=== PATIENT | female | born 1955 | race Caucasian/White ===

== ENCOUNTER 2024-06-26 14:50 | Outpatient (AMB) | payer OTHER, SELFPAY ==
[2024-06-26 15:00] VITALS: BP 116/70; PULSE 77; O2SAT 98; BMI 40.3
--- NOTE | 2024-06-26 15:00 | MHC.PC.OV ---
Vital Signs 06/26/24 15:00 Height 5 ft 0.5 in Weight 210 lb BMI 40.3 BP 116/70 Blood Pressure Location Lt brachial Position Sitting Pulse 77 Pulse Source Pulse Oximeter Pulse Oximetry (%) 98 Oxygen Delivery Method Room Air Intake Visit Reasons: SUPER[employer]OR [employer] RESERVATIONS-Requesting Physical Exam Allergies codeine Adverse Reaction (Severe, Verified 06/26/24 15:41) Nausea Medication List - Last Reconciled 06/26/24 by Jareth Benavidez MD betamethasone valerate 0.1% 1 appl topical BID PRN diltiazem HCl CD 300 mg PO DAILY rivaroxaban (Xarelto) 20 mg PO DAILY simvastatin 20 mg PO DAILY triamterene-hydrochlorothiazid 37.5-25 mg 1 cap PO DAILY Tobacco use date assessed: 06/26/24 Fall risk assessment: No Falls in past year Last assessed Fall Risk: 06/26/24 Dental Screening Dental Screen Date: 06/26/24 Did you have a dental visit in the last 12 months?: No Did you have a dental problem in the last 6 months where you did not have access to dental care?: No Was dental information given to patient?: No HPI SUPER[employer]OR [employer] RESERVATIONS-Requesting Physical Exam HPI Details Patient comes in today for her annual physical examination and to establish care - is a new patient to the practice Patient states that she banged the side of her left knee on the edge of a cabinet a couple of months ago and states that her left knee still feels sore often, especially after work - states that she is on her feet for hours at work She has not noticed any swelling of her left knee lately She also relates (+) Hx of recurrent kidney stones, especially on the left side (which were recently determined to be primarily calcium oxalate stones) and that she's had multiple treatments with lithotripsy and stent insertions over the years States that she feels okay otherwise She denies any headaches or dizziness Denies any chest pains, no shortness of breath No nausea /vomiting, no abdominal pain No change in bowel habits noted She denies any acute urinary symptoms She also adds that she has recurrent /frequent back pains and has been trying to get referred for breast reduction for the past couple of years now unsuccessfully - would like to get a referral and try to get breast reduction surgery approved again to help relieve her recurrent back pain States that her back and her shoulders feel tight often and are worse towards the later part of the day and she strongly believes that a breast reduction surgery will help to significantly reduce her back symptoms States that she had her colonoscopy done sometime in 2021 - reportedly had a polyp removed the came out as tubular adenoma on pathology and she was recommended to get repeat colonoscopy in 3 years (2024) States that she is up-to-date with her annual mammogram She had a hysterectomy done years ago and no longer requires to go for her annual gynecologic exam and Pap smear [facility] Medical History (Updated 06/27/24 @ 05:50 by Jareth Benavidez MD) Morbid obesity with BMI of 40.0-44.9, adult Recurrent kidney stones Pure hypercholesterolemia Essential hypertension Paroxysmal atrial fibrillation Adenomatous colon polyp Atrial fibrillation Psoriasis Kidney stones Surgical History (Updated 06/26/24 @ 15:50 by Jareth Benavidez MD) Hx of colonoscopy History of hysterectomy Family History Mother Stroke CHF (congestive heart failure) Hypertension Father Heart attack Son No problems noted. Brother No problems noted. Brother No problems noted. Sister No problems noted. Sister No problems noted. 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 1. Little interest or pleasure in doing things: not at all 2. Feeling down, depressed, or hopeless: not at all 3. Trouble falling or staying asleep, or sleeping too much: not at all 4. Feeling tired or having little energy: not at all 5. Poor appetite or overeating: not at all 6. Feeling bad about yourself - or that you are a failure or have let yourself or your family down: not at all 7. Trouble concentrating on things, such as reading the newspaper or watching television: not at all 8. Moving or speaking so slowly that other people could have noticed. Or the opposite - being so fidgety or restless that you have been moving around a lot more than usual: not at all 9. Thoughts that you would be better off or of hurting yourself in some way: not at all Total score: 0 Depression Screening Interpretation: Negative Depression Screening Done: Yes 51236 - PHQ-9 Billing: Yes Source: Developed by Drs. Leo Lee, Urvashi Gaxiola, Sean Sagastume and colleagues, with an educational manuela from [employer]. Thrive Questionnaire Date Thrive assessed: 06/26/24 I am a: Patient What is your living situation today?: I have a steady place to live Within the past 12 months, did the food you bought not last and you didn't have the money to get more?: Never true Within the past 12 months, did you worry whether your food would run out before you got money to buy more?: Never true Do you have trouble paying for medicines?: No Do you have trouble getting transportation to medical appointments?: No Do you have trouble paying your heating and electricity bill?: No Do you have trouble taking care of your child, family member or friend?: No Do you have trouble with day-to-day activities such as bathing, preparing meals, shopping, managing finances, etc.?: No Are you currently unemployed and looking for a job?: No Are you interested in more education?: No Please select the resources that you would like help with: Housing/Fdc Currently or been in a relationship where the following occur: No concerns reported THRIVE Score: 0 AUDIT C Alcohol Use Questionnaire (AUDIT-C) 1. How often do you have a drink containing alcohol?: Monthly or less 2. How many drinks containing alcohol do you have on a typical day when you are drinking?: 1 or 2 3. How often do you have six or more drinks on one occasion?: Never Total Score: 1 Score Reviewed/Action Taken: Yes NEW-7 AMB Questionnaire NEW-7 Date NEW - 7 assessed: 06/26/24 Feeling nervous, anxious, or on edge: 0 = Not at all Not being able to stop or control worryin = Not at all Worrying too much about different things: 0 = Not at all Trouble relaxin = Not at all Being so restless that it is hard to sit still: 0 = Not at all Becoming easily annoyed or irritable: 0 = Not at all Feeling afraid as if something awful might happen: 0 = Not at all Total NEW-7 score (0-4 normal; 5-9 mild; 10-14 moderate; 15-21 severe): 0 Source: Developed by Drs. Leo Lee, Urvashi Gaxiola, Sean Sagastume and colleagues, with an educational manuela from [employer]. Review of Systems Const Denies chills, Denies fatigue, Denies fever(s), Denies headache(s) and Denies malaise Eyes Denies blurry vision, Denies change in vision, Denies irritation and Denies itchy eyes ENT Denies dysphagia, Denies dizziness, Denies otalgia, Denies headache(s), Denies nasal congestion, Denies neck pain, Denies odynophagia, Denies sinus pain and Denies sore throat Card Denies chest pain, Denies rapid heart rate, Denies irregular heart rhythm, Denies palpitations and Denies dyspnea Resp Denies chest congestion, Denies cough, Denies dyspnea and Denies wheezing GI Denies abdominal pain, Denies bloating, Denies constipation, Denies dysphagia, Denies heartburn, Denies diarrhea, Denies nausea, Denies odynophagia and Denies vomiting Denies hematuria, Denies urinary frequency, Denies dysuria, Denies urinary incontinence and Denies urinary urgency Musc Reports back pain (recurrent), Reports arthralgias (left knee - see HPI), Denies joint swelling, Denies muscle weakness and Denies neck pain Skin/Breast Denies breast pain, Denies breast mass, Denies change in pigmentation, Denies lesions, Reports rash (mostly over the extensor aspect of her forearms and elbows) and Denies unusual bruising Neuro Denies dizziness, Denies headache(s) and Denies paresthesias Psych Denies anxiety and Denies depression Endo Denies fatigue and Denies palpitations Isrrael/Lymph Denies easy bruising Aller/Immun Denies itchy eyes and Denies wheezing Physical exam (Primary Care) Vital Signs: Last Vital Signs Pulse 77 06/26/24 15:00 BP 116/70 06/26/24 15:00 Pulse Ox 98 06/26/24 15:00 Oxygen Delivery Method Room Air 06/26/24 15:00 BMI result Body Mass Index 40.3 Tobacco/Smoking Status: Tobacco use Status Tobacco use date assessed 06/26/24 06/26/24 15:21 Patient Tobacco Use Status Never used Tobacco 06/26/24 15:21 Tobacco use type Cigarette 06/26/24 15:21 e-Cigarette/Vaping Use Never Used 06/26/24 15:21 PHQ-9: PHQ-9 Score PHQ-9: Total score 0 06/26/24 15:45 Depression Screening Interpretation: Negative Thrive Assessment: Date of Thrive Assessment Date Thrive assessed 06/26/24 06/26/24 15:21 Currently or been in a relationship where the following occur: No concerns reported Const General: no acute distress, alert and awake Orientation/consciousness: patient oriented x3 HENMT Head: Yes normocephalic and Yes atraumatic Ears: external ears normal, TM's normal bilaterally and EAC's normal General nose exam: No nasal discharge present Face and sinus: Yes normal facial exam and Yes sinuses nontender Teeth and gingiva: dentition normal Throat: Yes posterior oropharynx normal and Yes tonsils normal (no TP congestion) Eyes Eyelids: Yes eyelids normal Conjunctivae: conjunctivae normal Pupils: Equal, round and reactive pupils present EOM: EOMs intact bilaterally Neck Neck: Yes no lymphadenopathy and Yes supple Thyroid: Thyroid normal Resp Auscultation: clear to auscultation bilaterally, no rales and no wheezes Cardio Rate: regular rate Rhythm: regular rhythm Heart sounds: no murmurs GI Palpation (GI): Soft to palpation, nontender and No hepatosplenomegaly present Auscultation: normal bowel sounds General: Yes no CVA tenderness Back/Spine/Pelvis Back: no CVA tenderness Thoracic/Lumbar Spine: thoracic and lumbar spine normal to inspection Skin Other: (+) scattered patchy scaling rash over the extensor aspect of both forearms and over her elbows bilaterally Neuro General: patient oriented x3, moves all extremities, no focal motor deficits and CN's II-XI intact bilaterally Cranial nerves: Yes Equal, round and reactive pupils present Cognition (Neuro): normal cognition Gait exam (Neuro): Normal gait present Extrem General: Yes no clubbing, cyanosis or edema Left lower extremity: knee Details: tenderness (mild) Location: of the lateral joint line; no swelling Assessment and Plan Assessment & Plan (1) Annual physical exam: Code(s): Z00.00 - Encounter for general adult medical examination without abnormal findings Plan: Patient brought in a copy of her medical summary from her previous PCP and these included some labs that she had done a few months ago - her results are reviewed and discussed She is currently up-to-date with her annual mammogram as well as her screening colonoscopy She is S/P hysterectomy and no longer requires to go for annual pap smear and gynecology exam (2) Paroxysmal atrial fibrillation: Code(s): I48.0 - Paroxysmal atrial fibrillation Plan: She is currently in sinus rhythm Continue Diltiazem CD 300 mg QD; continue Xarelto 20 mg QD for thromboembolism prophylaxis Follow-up with cardiology as scheduled (3) Essential hypertension: Code(s): I10 - Essential (primary) hypertension Plan: Reinforced low sodium diet - goal is systolic BP of 120 to 130 mm or less Continue Triamterene-HCT 37.5-25 mg QD (4) Pure hypercholesterolemia: Code(s): E78.00 - Pure hypercholesterolemia, unspecified Plan: Reinforced low cholesterol diet Continue Simvastatin 20 mg QD Will recheck her labs and fasting lipids in 3 months for follow up (5) Psoriasis: Code(s): L40.9 - Psoriasis, unspecified Plan: Continue Betamethasone valerate 0.1% cream BID PRN She used to see dermatology but has not done so since 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 (6) Back pain: Code(s): M54.9 - Dorsalgia, unspecified Qualifiers: Back pain location: thoracic back pain Chronicity: chronic Back pain laterality: bilateral Qualified Code(s): M54.6 - Pain in thoracic spine; G89.29 - Other chronic pain Plan: Patient states that she's had recurrent back pain for years and believes that her bilateral pendulous breasts is contributing significantly to her back pain and that breast reduction surgery will help her a lot and significantly reduce her back symptoms (7) Bilateral pendulous breasts: Code(s): N64.89 - Other specified disorders of breast Plan: Will refer her to plastic surgery for consideration for reduction mammoplasty (8) Recurrent kidney stones: Code(s): N20.0 - Calculus of kidney Plan: Patient has had recurrent kidney stones for years and has undergo several sessions of lithotripsies and kidney stone extractions and stenting Her kidney stones were determined to be predominantly calcium oxalate in composition Follow up with urology as scheduled (9) Left knee pain: Code(s): M25.562 - Pain in left knee Qualifiers: Chronicity: unspecified Qualified Code(s): M25.562 - Pain in left knee Plan: Patient states that her left knee pain started after she accidentally banged her knee on the edge of a cabinet a few months ago and the pain has lingered since and feels worse at the end of the day after she has been on her feet for hours at work Will send her for left knee x-rays for further evaluation (10) Morbid obesity with BMI of 40.0-44.9, adult: Code(s): E66.01 - Morbid (severe) obesity due to excess calories; Z68.41 - Body mass index [BMI] 40.0-44.9, adult Plan: Reinforced diet/exercise as tolerated/lose weight Plan Follow up in 3 months Orders: Orders XR knee LT 4V 06/26/24 M25.562 - Pain in left knee Complete Blood Count Auto Diff 3 Months D64.9 - Anemia, unspecified Lipid Panel 3 Months E78.00 - Pure hypercholesterolemia, unspecified TSH reflex Free T4 3 Months E78.00 - Pure hypercholesterolemia, unspecified Comprehensive Sondheimer. Panel Fast 3 Months E78.00 - Pure hypercholesterolemia, unspecified UA CC w/rflx Micro + Cult 3 Months R30.0 - Dysuria Referrals Plastic Surgery Referral M54.9 - Dorsalgia, unspecified, N64.89 - Other specified disorders of breast Coding Level of Care Code New Pt Prev Care >65yr (25510) Diagnoses Annual physical exam Z00.00 Paroxysmal atrial fibrillation I48.0 Essential hypertension I10 Pure hypercholesterolemia E78.00 Psoriasis L40.9 Chronic bilateral thoracic back pain M54.6; G89.29 Back pain location: thoracic back pain Chronicity: chronic Back pain laterality: bilateral Bilateral pendulous breasts N64.89 Recurrent kidney stones N20.0 Left knee pain, unspecified chronicity M25.562 Chronicity: unspecified Morbid obesity with BMI of 40.0-44.9, adult E66.01; Z68.41
== END 2024-06-26 16:03 | disposition home or self-care (01) ==
PROVIDERS: PCP Internal Medicine; Visit Provider Internal Medicine
DX: Z00.00 Encounter for general adult medical examination without abnormal findings (principal); I48.0 Paroxysmal atrial fibrillation; I10 Essential (primary) hypertension; E78.00 Pure hypercholesterolemia, unspecified; L40.9 Psoriasis, unspecified; M54.6 Pain in thoracic spine; G89.29 Other chronic pain; N64.89 Other specified disorders of breast; N20.0 Calculus of kidney; M25.562 Pain in left knee
CPT/HCPCS: 99387

== ENCOUNTER 2024-07-03 13:24 | Outpatient (REF) | payer OTHER, SELFPAY ==
--- NOTE | ~2024-07-03 | XR_ITS ---
EXAMINATION: XR KNEE, LEFT CLINICAL INFORMATION: Pain. COMPARISON: None available. TECHNIQUE: AP, lateral, tunnel, and sunrise views of the left knee. FINDINGS: Bony alignment and mineralization are normal. There is mild asymmetric narrowing of medial joint space compartment. The lateral and patellofemoral joint space compartments are well-maintained. An accessory ossification center versus old, healed avulsion fragment is noted at the lateral margin of the patella. No acute fracture, dislocation or joint effusion is seen. There is no foreign body. XR/XR knee LT 4V IMPRESSION: 1. 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 2. No fracture, dislocation or joint effusion is seen. Electronically signed by: Kermit Paniagua MD 08/01/2024 05:33 PM EDT
== END 2024-07-03 13:25 | disposition home or self-care (01) ==
LOC: HO.XRAY 13:24
PROVIDERS: PCP Internal Medicine; Visit Provider Internal Medicine
DX: M25.562 Pain in left knee (principal)
CPT/HCPCS: 73564

== ENCOUNTER 2024-09-25 08:29 | Outpatient (REF) | payer OTHER, SELFPAY ==
[2024-09-25 08:48] LABS: MANUAL DIFF FLAG NO
[2024-09-25 09:57] LABS: Basophils Absolute Auto 0.1 X10*3/uL (0.0-0.2); Eosinophils Absolute Auto 0.1 X10*3/uL (0.0-0.4); Eosinophils Percent Auto 1.5 % (0-4); Hematocrit 45.9 % (37.0-47.0); Hemoglobin 15.3 g/dl (12.0-16.0); Imm Gran Abs Auto 0.02 X10*3/uL (0.00-0.03); Imm Gran Pct Auto 0.3 % (0.0-0.4); Lymphocytes Absolute Auto 1.4 X10*3/uL (1.2-4.9); Lymphocytes Percent Auto 24.4 % (20-40); Mean Corpuscular HGB Conc 33.3 g/dl (31.0-35.0); Mean Corpuscular Hemoglobin 29.9 pg (27.0-33.0); Mean Corpuscular Volume 89.6 fL (80.0-98.0); Mean Platelet Volume 10.4 fL (9.4-12.3); Monocytes Absolute Auto 0.6 X10*3/uL (0.1-1.2); Monocytes Percent Auto 10.8 % (2-11); Neutrophils Absolute Auto 3.6 x10*3/uL (2.0-8.3); Platelet Count 237 X10*3/uL (160-400); Red Blood Count 5.12 X10*6/uL (4.20-5.50); Red Cell Distribution Width 13.8 % (11.0-16.0); White Blood Count 5.8 X10*3/uL (4.8-10.8)
[2024-09-25 10:14] LABS: Appearance Urine Clear; Color Urine Yellow; Glucose Urine UA Negative (Negative); Leukocyte Esterase Urine Trace (Negative); Nitrite Urine Negative (Negative); Specific Gravity - Urine 1.015 (1.005-1.025); UMIC TRIGGER UACC YES; Urine Blood Large (3+) (Negative); Urine Ketones Negative (Negative); Urine Protein Negative (Neg-Trace)
[2024-09-25 10:17] LABS: Bacteria Urine Trace (None Seen); Hyaline Casts Urine 0-2 /LPF (0-2); RBC Urine >20 /HPF (0-2); UACC Culture Trigger YES
[2024-09-25 11:04] LABS: Alanine Aminotransferase 21 U/L (0-31); Albumin Level 4.2 g/dL (3.5-5.0); Alkaline Phosphatase 88 U/L (39-117); Anion Gap 12 (12-20); Aspartate Amino Transferase 24 U/L (5-31); Bilirubin Total 0.5 mg/dL (0.0-1.0); Blood Urea Nitrogen 17 mg/dL (9-16); Carbon Dioxide 29 mmol/L (22-29); Chloride 103 mmol/L (96-108); Cholesterol 236 mg/dL (<200); Estimated Glomerular Filt Rate > 60; Glucose Fasting 93 mg/dL (60-99); HDL Cholesterol 78 mg/dL (>40); LDL Cholesterol Calculated 136 mg/dL (<100); Potassium 3.9 mmol/L (3.3-5.1); Sodium 140 mmol/L (135-145); TSH reflex Free T4 2.96 uIU/mL (0.32-4.0); Total Protein 7.5 g/dL (6.5-8.0); Triglycerides 110 mg/dL (<150)
== END 2024-09-25 08:30 | disposition home or self-care (01) ==
LOC: HO.LAB 08:29
PROVIDERS: PCP Internal Medicine; Visit Provider Internal Medicine
DX: E78.00 Pure hypercholesterolemia, unspecified (principal); D64.9 Anemia, unspecified; R30.0 Dysuria
CPT/HCPCS: 36415; 80053; 80061; 81001; 81003; 84443; 85025; 87086; 87088; 87186

== ENCOUNTER 2024-10-02 15:37 | Outpatient (AMB) | payer OTHER, SELFPAY ==
[2024-10-02 15:38] VITALS: BP 108/80; PULSE 75; O2SAT 99; BMI 41.7
--- NOTE | 2024-10-02 15:38 | A.OFFPC_ITS ---
Vital Signs 10/02/24 15:38 Height 5 ft 0.5 in Weight 217 lb 4 oz BMI 41.7 BP 108/80 Blood Pressure Location Lt brachial Position Sitting Pulse 75 Pulse Source Pulse Oximeter Pulse Oximetry (%) 99 Oxygen Delivery Method Room Air Intake Visit Reasons: 3mth f/u Medical Receptionist Biller Required: No Accompanied by: Self / Same As Patient Allergies codeine Adverse Reaction (Severe, Verified 10/02/24 16:04) Nausea Medication List - Last Reconciled 10/02/24 by Jareth Benavidez MD betamethasone valerate 0.1% 1 appl topical BID PRN diltiazem HCl CD 300 mg PO DAILY rivaroxaban (Xarelto) 20 mg PO DAILY simvastatin 20 mg PO DAILY triamterene-hydrochlorothiazid 37.5-25 mg 1 cap PO DAILY Tobacco use date assessed: 10/02/24 Fall risk assessment: No Falls in past year Last assessed Fall Risk: 10/02/24 Dental Screening Dental Screen Date: 10/02/24 Did you have a dental visit in the last 12 months?: No Did you have a dental problem in the last 6 months where you did not have access to dental care?: No Was dental information given to patient?: No HPI 3mth f/u HPI Details Patient comes in today for follow-up visit States that she feels okay She denies any headaches or dizziness Denies any chest pains, no increased shortness of breath No nausea/vomiting, no abdominal pain No change in bowel habits noted She had her follow-up labs done last week - to discuss her results [facility] Medical History (Updated 10/09/24 @ 00:57 by Jareth Benavidez MD) Osteoarthritis of left knee Morbid obesity with BMI of 40.0-44.9, adult Recurrent kidney stones Pure hypercholesterolemia Essential hypertension Paroxysmal atrial fibrillation Adenomatous colon polyp Atrial fibrillation Psoriasis Kidney stones Surgical History Hx of colonoscopy History of hysterectomy Family History Mother Stroke CHF (congestive heart failure) Hypertension Father Heart attack Son No problems noted. Brother No problems noted. Brother No problems noted. Sister No problems noted. Sister No problems noted. 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 1. Little interest or pleasure in doing things: not at all 2. Feeling down, depressed, or hopeless: not at all 3. Trouble falling or staying asleep, or sleeping too much: not at all 4. Feeling tired or having little energy: not at all 5. Poor appetite or overeating: not at all 6. Feeling bad about yourself - or that you are a failure or have let yourself or your family down: not at all 7. Trouble concentrating on things, such as reading the newspaper or watching television: not at all 8. Moving or speaking so slowly that other people could have noticed. Or the opp osite - being so fidgety or restless that you have been moving around a lot more than usual: not at all 9. Thoughts that you would be better off or of hurting yourself in some way: not at all Total score: 0 Depression Screening Interpretation: Negative Depression Screening Done: Yes 04306 - PHQ-9 Billing: Yes Source: Developed by Drs. Leo Lee, Urvashi Gaxiola, Sean Sagastume and colleagues, with an educational manuela from [employer]. Thrive Questionnaire Date Thrive assessed: 10/02/24 I am a: Patient What is your living situation today?: I have a steady place to live Within the past 12 months, did the food you bought not last and you didn't have the money to get more?: Never true Within the past 12 months, did you worry whether your food would run out before you got money to buy more?: Never true Do you have trouble paying for medicines?: No Do you have trouble getting transportation to medical appointments?: No Do you have trouble paying your heating and electricity bill?: No Do you have trouble taking care of your child, family member or friend?: No Do you have trouble with day-to-day activities such as bathing, preparing meals, shopping, managing finances, etc.?: No Are you currently unemployed and looking for a job?: No Are you interested in more education?: No Please select the resources that you would like help with: None Currently or been in a relationship where the following occur: No concerns reported THRIVE Score: 0 AUDIT C Alcohol Use Questionnaire (AUDIT-C) 1. How often do you have a drink containing alcohol?: Monthly or less 2. How many drinks containing alcohol do you have on a typical day when you are drinking?: 1 or 2 3. How often do you have six or more drinks on one occasion?: Never Total Score: 1 Score Reviewed/Action Taken: Yes NEW-7 AMB Questionnaire NEW-7 Date NEW - 7 assessed: 10/02/24 Feeling nervous, anxious, or on edge: 0 = Not at all Not being able to stop or control worryin = Not at all Worrying too much about different things: 0 = Not at all Trouble relaxin = Not at all Being so restless that it is hard to sit still: 0 = Not at all Becoming easily annoyed or irritable: 0 = Not at all Feeling afraid as if something awful might happen: 0 = Not at all Total NEW-7 score (0-4 normal; 5-9 mild; 10-14 moderate; 15-21 severe): 0 Source: Developed by Drs. Leo Lee, Urvashi Gaxiola, Sean Sagastume and colleagues, with an educational manuela from [employer]. Review of Systems Const Denies chills, Denies fatigue, Denies fever(s) and Denies headache(s) ENT Denies dysphagia, Denies dizziness, Denies otalgia, Denies headache(s), Denies neck pain, Denies odynophagia and Denies sore throat Card Denies chest pain, Denies irregular heart rhythm, Denies palpitations and Denies dyspnea Resp Denies chest congestion, Denies cough and Denies dyspnea GI Denies abdominal pain, Denies constipation, Denies dysphagia, Denies heartburn, Denies diarrhea, Denies nausea, Denies odynophagia and Denies vomiting Denies urinary frequency, Denies dysuria and Denies urinary urgency Musc Reports back pain (recurrent), Reports arthralgias (left knee - resolving) and Denies neck pain Skin/Breast Reports rash (mostly over the extensor aspect of her forearms and elbows) Neuro Denies dizziness, Denies headache(s) and Denies paresthesias Psych Denies anxiety and Denies depression Endo Denies fatigue and Denies palpitations Isrrael/Lymph Denies easy bruising Physical exam (Primary Care) Vital Signs: Last Vital Signs Pulse 75 10/02/24 15:38 BP 108/80 10/02/24 15:38 Pulse Ox 99 10/02/24 15:38 Oxygen Delivery Method Room Air 10/02/24 15:38 BMI result Body Mass Index 41.7 Tobacco/Smoking Status: Tobacco use Status Tobacco use date assessed 10/02/24 10/02/24 15:44 Patient Tobacco Use Status Never used Tobacco 10/02/24 15:44 Tobacco use type Cigarette 10/02/24 15:44 e-Cigarette/Vaping Use Never Used 10/02/24 15:44 PHQ-9: PHQ-9 Score PHQ-9: Total score 0 10/02/24 16:05 Depression Screening Interpretation: Negative Thrive Assessment: Date of Thrive Assessment Date Thrive assessed 10/02/24 10/02/24 15:44 Currently or been in a relationship where the following occur: No concerns reported Const General: no acute distress and alert HENMT Ears: TM's normal bilaterally and EAC's normal Throat: Yes posterior oropharynx normal and Yes tonsils normal (no TP congestion) Neck Neck: Yes no lymphadenopathy and Yes supple Thyroid: Thyroid normal Resp Auscultation: clear to auscultation bilaterally, no rales and no wheezes Cardio Rate: regular rate Rhythm: regular rhythm Heart sounds: no murmurs GI Palpation (GI): Soft to palpation and nontender Auscultation: normal bowel sounds General: Yes no CVA tenderness Back/Spine/Pelvis Back: no CVA tenderness Thoracic/Lumbar Spine: thoracic and lumbar spine normal to inspection Skin Other: (+) scattered patchy scaling rash over the extensor aspect of both forearms and over her elbows bilaterally Extrem General: Yes no clubbing, cyanosis or edema Results Reviewed Results Reviewed: Laboratory Tests 09/25/24 09/25/24 08:38 08:47 WBC 5.8 Hgb 15.3 Hct 45.9 Plt Count 237 Sodium 140 Potassium 3.9 Creatinine 0.89 Estimated GFR > 60 Fasting Glucose 93 Calcium 10.0 AST 24 ALT 21 Triglycerides 110 Cholesterol 236 H LDL Cholesterol, Calc 136 H HDL Cholesterol 78 TSH 2.96 Ur Specific [place] 1.015 Urine Protein Negative Urine Glucose (UA) Negative Urine Blood Large (3+) H Urine Nitrite Negative Ur Leukocyte Esterase Trace H Coding Level of Care Code Est Pt Level 4 (89676) Diagnoses Paroxysmal atrial fibrillation I48.0 Essential hypertension I10 Pure hypercholesterolemia E78.00 Psoriasis L40.9 Primary osteoarthritis of left knee M17.12 Osteoarthritis type: primary Chronic bilateral thoracic back pain M54.6; G89.29 Back pain location: thoracic back pain Chronicity: chronic Back pain laterality: bilateral Bilateral pendulous breasts N64.89 Recurrent kidney stones N20.0 Morbid obesity with BMI of 40.0-44.9, adult E66.01; Z68.41 Additional Codes PHQ-9 - 64569 - PHQ-9 Billing: Yes ([id number]) Assessment & Plan Assessment & Plan (1) Paroxysmal atrial fibrillation: Code(s): I48.0 - Paroxysmal atrial fibrillation Category: Medical Plan: Patient is currently in sinus rhythm Continue Diltiazem CD 300 mg QD; continue Xarelto 20 mg QD for thromboembolism prophylaxis Follow-up with cardiology as scheduled (2) Essential hypertension: Code(s): I10 - Essential (primary) hypertension Category: Medical Plan: Reinforced low sodium diet - goal is systolic BP of 120 to 130 mm or less Continue Triamterene-HCT 37.5-25 mg QD (3) Pure hypercholesterolemia: Code(s): E78.00 - Pure hypercholesterolemia, unspecified Category: Medical Plan: Results of her labs done last week reviewed and discussed with patient - have advised patient that her cholesterol level is elevated, with her total cholesterol at 236 mg/dl and LDL cholesterol at 136 mg/dl Reinforced low cholesterol diet Continue Simvastatin 20 mg QD Will recheck her labs and fasting lipids in 3 months for follow up (4) Psoriasis: Code(s): L40.9 - Psoriasis, unspecified Category: Medical Plan: Patient states that her psoriasis has been fairly well-controlled lately Continue Betamethasone valerate 0.1% cream BID PRN She used to see dermatology but has not done so since 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 (5) Osteoarthritis of left knee: Code(s): M17.12 - Unilateral primary osteoarthritis, left knee Category: Medical Qualifiers: Osteoarthritis type: primary Qualified Code(s): M17.12 - Unilateral p rimary osteoarthritis, left knee Plan: Patient states that her previous left knee pain has improved a lot over the past couple of months She initially banged her knee on the edge of a cabinet and ker knee symptoms took a while to recover, likely because she is on her feet at work all day long Her knee x-rays done back in June 2024 revealed only mild OA changes of the medial joint space compartment of the left knee (6) Back pain: Code(s): M54.9 - Dorsalgia, unspecified Category: Medical Qualifiers: Back pain location: thoracic back pain Chronicity: chronic Back pain laterality: bilateral Qualified Code(s): M54.6 - Pain in thoracic spine; G89.29 - Other chronic pain Plan: Patient states that she's had recurrent back pain for years and believes that her bilateral pendulous breasts is contributing significantly to her back pain and that breast reduction surgery will help her a lot and significantly reduce her back symptoms (7) Bilateral pendulous breasts: Code(s): N64.89 - Other specified disorders of breast Category: Medical Plan: She has been referred to plastic surgery at her last visit for consideration for reduction mammoplasty and is still waiting to be seen (8) Recurrent kidney stones: Code(s): N20.0 - Calculus of kidney Category: Medical Plan: Patient has had recurrent kidney stones for years and has undergone several sessions of lithotripsies and kidney stone extractions and stenting Her kidney stones were determined to be predominantly calcium oxalate in composition Will send her for renal US for follow up / further evaluation Follow up with urology as scheduled (9) Morbid obesity with BMI of 40.0-44.9, adult: Code(s): E66.01 - Morbid (severe) obesity due to excess calories; Z68.41 - Body mass index [BMI] 40.0-44.9, adult Category: Medical Plan: Reinforced diet/exercise as tolerated/lose weight Plan Follow up in 3 months Orders: Orders US renal BI 10/02/24 N20.0 - Calculus of kidney, R31.9 - Hematuria, unspecified Lipid Panel 3 Months E78.00 - Pure hypercholesterolemia, unspecified Vitamin D 25-OH Total 3 Months E55.9 - Vitamin D deficiency, unspecified Complete Blood Count Auto Diff 3 Months D64.9 - Anemia, unspecified Comprehensive [place]. Panel Fast 3 Months E78.00 - Pure hypercholesterolemia, unspecified TSH reflex Free T4 3 Months E78.00 - Pure hypercholesterolemia, unspecified UA CC w/rflx Micro + Cult 3 Months R30.0 - Dysuria
== END 2024-10-02 16:19 | disposition home or self-care (01) ==
PROVIDERS: PCP Internal Medicine; Visit Provider Internal Medicine
DX: I48.0 Paroxysmal atrial fibrillation (principal); E66.01 Morbid (severe) obesity due to excess calories; Z68.41 Body mass index [BMI] 40.0-44.9, adult; I10 Essential (primary) hypertension; E78.00 Pure hypercholesterolemia, unspecified; L40.9 Psoriasis, unspecified; M17.12 Unilateral primary osteoarthritis, left knee; M54.6 Pain in thoracic spine; G89.29 Other chronic pain; N64.89 Other specified disorders of breast; N20.0 Calculus of kidney

== ENCOUNTER → 2024-10-02 15:37 | Outpatient (BNVA) | payer OTHER, SELFPAY | PROVIDERS: PCP Internal Medicine; Visit Provider Internal Medicine | DX: I48.0 Paroxysmal atrial fibrillation (principal); I10 Essential (primary) hypertension; E78.00 Pure hypercholesterolemia, unspecified; L40.9 Psoriasis, unspecified; M17.12 Unilateral primary osteoarthritis, left knee; M54.6 Pain in thoracic spine; G89.29 Other chronic pain; N64.89 Other specified disorders of breast; N20.0 Calculus of kidney; E66.01 Morbid (severe) obesity due to excess calories; Z68.41 Body mass index [BMI] 40.0-44.9, adult; Z71.3 Dietary counseling and surveillance | CPT/HCPCS: 96127; 99212 ==

== ENCOUNTER 2024-10-20 12:37 | Outpatient (REF) | payer OTHER, SELFPAY | END 2024-10-20 12:38 | disposition home or self-care (01) | LOC: HO.US 12:37 | PROVIDERS: PCP Internal Medicine; Visit Provider Internal Medicine | DX: R31.9 Hematuria, unspecified (principal); N20.0 Calculus of kidney | CPT/HCPCS: 76775 ==

== ENCOUNTER 2025-01-16 16:08 | Outpatient (AMB) | payer OTHER, SELFPAY ==
[2025-01-16 16:22] VITALS: BP 112/74; PULSE 72; O2SAT 98; BMI 42.2
--- NOTE | 2025-01-16 16:22 | MHC.PC.OV ---
Vital Signs 01/16/25 16:22 Height 5 ft 0.5 in Weight 219 lb 8 oz BMI 42.2 BP 112/74 Blood Pressure Location Lt femoral Position Sitting Pulse 72 Pulse Source Pulse Oximeter Pulse Oximetry (%) 98 Oxygen Delivery Method Room Air Intake Visit Reasons: hyperlipidemia, PAF, HTN, psoriasis Material Flow Analyst Required: No Accompanied by: Self / Same As Patient Allergies codeine Adverse Reaction (Severe, Verified 01/16/25 16:49) Nausea Medication List - Last Reconciled 01/16/25 by Jareth Benavidez MD betamethasone valerate 0.1% 1 appl topical BID PRN diltiazem HCl CD 300 mg PO DAILY rivaroxaban (Xarelto) 20 mg PO DAILY simvastatin 20 mg PO DAILY triamterene-hydrochlorothiazid 37.5-25 mg 1 cap PO DAILY Tobacco use date assessed: 01/16/25 Fall risk assessment: 1 Fall in past year Last assessed Fall Risk: 01/16/25 Dental Screening Dental Screen Date: 01/16/25 Did you have a dental visit in the last 12 months?: No Did you have a dental problem in the last 6 months where you did not have access to dental care?: No Was dental information given to patient?: No HPI hyperlipidemia, PAF, HTN, psoriasis HPI Details Patient comes in today for her follow up visit States that she feels okay She denies any headaches or dizziness Denies any chest pains, no SOB No nausea/vomiting, no abdominal pain No change in bowel habits noted She was not able to get her follow up labs done prior to her appointment today [facility] Medical History (Updated 01/17/25 @ 12:12 by Jareth Benavidez MD) Osteoarthritis of left knee Morbid obesity with BMI of 40.0-44.9, adult Recurrent kidney stones Pure hypercholesterolemia Essential hypertension Paroxysmal atrial fibrillation Adenomatous colon polyp Atrial fibrillation Psoriasis Kidney stones Surgical History Hx of colonoscopy History of hysterectomy Family History Mother Stroke CHF (congestive heart failure) Hypertension Father Heart attack Son No problems noted. Brother No problems noted. Brother No problems noted. Sister No problems noted. Sister No problems noted. 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 1. Little interest or pleasure in doing things: not at all 2. Feeling down, depressed, or hopeless: not at all 3. Trouble falling or staying asleep, or sleeping too much: not at all 4. Feeling tired or having little energy: not at all 5. Poor appetite or overeating: not at all 6. Feeling bad about yourself - or that you are a failure or have let yourself or your family down: not at all 7. Trouble concentrating on things, such as reading the newspaper or watching television: not at all 8. Moving or speaking so slowly that other people could have noticed. Or the opposite - being so fidgety or restless that you have been moving around a lot more than usual: not at all 9. Thoughts that you would be better off or of hurting yourself in some way: not at all Total score: 0 Depression Screening Interpretation: Negative Depression Screening Done: Yes 47163 - PHQ-9 Billing: Yes Source: Developed by Drs. Leo Lee, Urvashi Gaxiola, Sean Sagastume and colleagues, with an educational manuela from [employer] Thrive Questionnaire Date Thrive assessed: 01/16/25 I am a: Patient What is your living situation today?: I have a steady place to live Within the past 12 months, did the food you bought not last and you didn't have the money to get more?: Never true Within the past 12 months, did you worry whether your food would run out before you got money to buy more?: Never true Do you have trouble paying for medicines?: No Do you have trouble getting transportation to medical appointments?: No Do you have trouble paying your heating and electricity bill?: No Do you have trouble taking care of your child, family member or friend?: No Do you have trouble with day-to-day activities such as bathing, preparing meals, shopping, managing finances, etc.?: No Are you currently unemployed and looking for a job?: No Are you interested in more education?: No Please select the resources that you would like help with: None Currently or been in a relationship where the following occur: No concerns reported THRIVE Score: 0 AUDIT C Alcohol Use Questionnaire (AUDIT-C) 1. How often do you have a drink containing alcohol?: Monthly or less 2. How many drinks containing alcohol do you have on a typical day when you are drinking?: 1 or 2 3. How often do you have six or more drinks on one occasion?: Never Total Score: 1 Score Reviewed/Action Taken: Yes NEW-7 AMB Questionnaire NEW-7 Date NEW - 7 assessed: 01/16/25 Feeling nervous, anxious, or on edge: 0 = Not at all Not being able to stop or control worryin = Not at all Worrying too much about different things: 0 = Not at all Trouble relaxin = Not at all Being so restless that it is hard to sit still: 0 = Not at all Becoming easily annoyed or irritable: 0 = Not at all Feeling afraid as if something awful might happen: 0 = Not at all Total NEW-7 score (0-4 normal; 5-9 mild; 10-14 moderate; 15-21 severe): 0 Source: Developed by Drs. Leo Lee, Urvashi Gaxiola, Sean Sagastume and colleagues, with an educational manuela from [employer] Review of Systems Const Denies chills, Denies fatigue, Denies fever(s) and Denies headache(s) ENT Denies dysphagia, Denies dizziness, Denies otalgia, Denies headache(s), Denies neck pain, Denies odynophagia and Denies sore throat Card Denies chest pain, Denies irregular heart rhythm, Denies palpitations and Denies dyspnea Resp Denies chest congestion, Denies cough and Denies dyspnea GI Denies abdominal pain, Denies constipation, Denies dysphagia, Denies heartburn, Denies diarrhea, Denies nausea, Denies odynophagia and Denies vomiting Denies urinary frequency, Denies dysuria and Denies urinary urgency Musc Reports back pain (recurrent), Reports arthralgias (left knee - on and off) and Denies neck pain Skin/Breast Reports rash (mostly over the extensor aspect of her forearms and elbows) Neuro Denies dizziness, Denies headache(s) and Denies paresthesias Psych Denies anxiety and Denies depression Endo Denies fatigue and Denies palpitations Isrrael/Lymph Denies easy bruising Physical exam (Primary Care) Vital Signs: Last Vital Signs Pulse 72 01/16/25 16:22 BP 112/74 01/16/25 16:22 Pulse Ox 98 01/16/25 16:22 Oxygen Delivery Method Room Air 01/16/25 16:22 BMI result Body Mass Index 42.2 Tobacco/Smoking Status: Tobacco use Status Tobacco use date assessed 01/16/25 01/16/25 16:26 Patient Tobacco Use Status Never used Tobacco 01/16/25 16:26 Tobacco use type Cigarette 01/16/25 16:26 e-Cigarette/Vaping Use Never Used 01/16/25 16:26 PHQ-9: PHQ-9 Score PHQ-9: Total score 0 01/17/25 12:14 Depression Screening Interpretation: Negative Thrive Assessment: Date of Thrive Assessment Date Thrive assessed 01/16/25 01/16/25 16:26 Currently or been in a relationship where the following occur: No concerns reported Const General: no acute distress and alert HENMT Ears: TM's normal bilaterally and EAC's normal Throat: Yes posterior oropharynx normal and Yes tonsils normal (no TP congestion) Neck Neck: Yes supple and No lymphadenopathy Thyroid: Thyroid normal Resp Auscultation: clear to auscultation bilaterally, no rales and no wheezes Cardio Rate: regular rate Rhythm: regular rhythm Heart sounds: no murmurs GI Palpation (GI): Soft to palpation and nontender Auscultation: normal bowel sounds General: Yes no CVA tenderness Back/Spine/Pelvis Back: no CVA tenderness Thoracic/Lumbar Spine: thoracic and lumbar spine normal to inspection Skin Other: (+) scattered patchy scaling rash over the extensor aspect of both forearms and over her elbows bilaterally Extrem General: Yes no clubbing, cyanosis or edema Coding Level of Care Code Est Pt Level 4 (67786) Complex EM visit Add On G2211 Diagnoses Paroxysmal atrial fibrillation I48.0 Essential hypertension I10 Pure hypercholesterolemia E78.00 Psoriasis L40.9 Primary osteoarthritis of left knee M17.12 Osteoarthritis type: primary Chronic bilateral thoracic back pain M54.6; G89.29 Back pain laterality: bilateral Back pain location: thoracic back pain Chronicity: chronic Bilateral pendulous breasts N64.89 Recurrent kidney stones N20.0 Morbid obesity with BMI of 40.0-44.9, adult E66.01; Z68.41 Additional Codes PHQ-9 - 86518 - PHQ-9 Billing: Yes ([id number]) Assessment & Plan Assessment & Plan (1) Paroxysmal atrial fibrillation: Code(s): I48.0 - Paroxysmal atrial fibrillation Category: Medical Plan: Patient is still in sinus rhythm although she appears to have some ectopic beats occasionally at present Continue Diltiazem CD 300 mg QD; continue Xarelto 20 mg QD for thromboembolism prophylaxis States that she has not seen cardiology for follow up ever since she was diagnosed with PAF and started on Xarelto back in 2021 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 Mona Maxwell in [place] at their [facility] offices Will send her for now for an updated echocardiogram and 12-lead EKG and she is advised that we may end up referring her here to [facility] for continuing management and follow up of her cardiac conditions later on (2) Essential hypertension: Code(s): I10 - Essential (primary) hypertension Category: Medical Plan: Reinforced low sodium diet - goal is systolic BP of 120 to 130 mm or less Continue Triamterene-HCT 37.5-25 mg QD; she is also on Diltiazem CD 300 mg QD for her PAF (3) Pure hypercholesterolemia: Code(s): E78.00 - Pure hypercholesterolemia, unspecified Category: Medical Plan: Patient was not able to get her follow up labs done prior to her appointment today Have reminded her that her cholesterol level was elevated on her previous labs done back in September 2024, with her total cholesterol at 236 mg/dl and LDL cholesterol at 136 mg/dl, despite being on Simvastatin Reinforced low cholesterol diet Discussed with patient that we will try to be proactive and will go ahead and switch her out from her Simvastatin 20 mg QD to Atorvastatin 20 mg QD for better efficacy Will have her recheck her labs and fasting lipids in 3 months for follow up - she is advised to just use her current orders (updated) for her next lab draw and to make sure she gets these done BEFORE she comes in for her next appointment (4) Psoriasis: Code(s): L40.9 - Psoriasis, unspecified Category: Medical Plan: Patient states that her psoriasis has been fairly well-controlled lately Continue Betamethasone valerate 0.1% cream BID PRN She used to see dermatology but has not done so since 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 (5) Osteoarthritis of left knee: Code(s): M17.12 - Unilateral primary osteoarthritis, left knee Category: Medical Qualifiers: Osteoarthritis type: primary Qualified Code(s): M17.12 - Unilateral primary osteoarthritis, left knee Plan: Patient states that her previous left knee pain has improved a lot over the past few months She initially banged her knee on the edge of a cabinet and ker knee symptoms took a while to recover, likely because she is on her feet at work all day long Her knee x-rays done back in June 2024 revealed only mild OA changes of the medial joint space compartment of the left knee (6) Back pain: Code(s): M54.9 - Dorsalgia, unspecified Category: Medical Qualifiers: Back pain laterality: bilateral Back pain location: thoracic back pain Chronicity: chronic Qualified Code(s): M54.6 - Pain in thoracic spine; G89.29 - Other chronic pain Plan: Patient states that she's had recurrent back pain for years and believes that her bilateral pendulous breasts is contributing significantly to her back pain and that breast reduction surgery will help her a lot and significantly reduce her back symptoms - she is still waiting for an appointment to see plastic surgery about this (7) Bilateral pendulous breasts: Code(s): N64.89 - Other specified disorders of breast Category: Medical Plan: She has been referred to plastic surgery at her last visit for consideration for reduction mammoplasty and is still waiting to be seen (8) Recurrent kidney stones: Code(s): N20.0 - Calculus of kidney Category: Medical Plan: Patient has had recurrent kidney stones for years and has undergone several sessions of lithotripsies and kidney stone extractions and stenting Her kidney stones were determined to be predominantly calcium oxalate in composition Her renal US done back on 10/20/2024 revealed (+) Bilateral nephrolithiasis, with no hydronephrosis. There are areas of irregular right renal cortical thinning that are difficult to characterize due to limited visualization. CT scan with intravenous contrast employing renal mass protocol could be considered for further evaluation based on the clinical assessment for this patient with hematuria We will wait and see how her labs and U/A are in a few months and if she still has (+) significant hematuria then, will then consider doing a renal CT Will also have her try to reach out to her current presiding urologist then to see what their recommendations/suggestions would be She has been seeing [facility] at their [place] offices Follow up with urology as scheduled (9) Morbid obesity with BMI of 40.0-44.9, adult: Code(s): E66.01 - Morbid (severe) obesity due to excess calories; Z68.41 - Body mass index [BMI] 40.0-44.9, adult Category: Medical Plan: Reinforced diet/exercise as tolerated/lose weight Plan Follow up in 3 months Orders: Orders ECG 12 lead EKG 01/16/25 I48.0 - Paroxysmal atrial fibrillation Urine Cytology 03/31/25 R31.9 - Hematuria, unspecified CA echo transthoracic complete 01/16/25 I48.0 - Paroxysmal atrial fibrillation Medications: New atorvastatin 20 mg PO BEDTIME 90 days 90 tabs 1RF Discontinued simvastatin Discontinued Reason: Doctor's Order 20 mg PO DAILY 90 tabs 0RF
--- OUTSIDE RECORDS SUMMARY | 2025-01-16 19:39 | XMS_ITS | Data Portability ---
Author Organization [facility], FOR[facility]LY [facility] Address [address] [place] [address] Care Team Providers Care Athletic Equipment Manager Name Role Phone SUSAN COSTA Primary Care Provider [phone] MARAH GARCIA Transplanter Orchid MILO GOODMAN Box Car Bracer [facility] Urologist Assessment Encounter Date Assessment Date Assessment LastModified by Organization Details LastModified Time 01/05/2023 01/05/2023 Patient agreed t o this visit via a secure telehealth platform due to the COVID -19 pandemic. Patient understands this is a scheduled visit and the usual procedures with regard to billing and confidentiality apply. Patient was notified that the provider location is [facility] Patient location: home During the visit the patient? s medical history and medical record were reviewed. The patient was notified to call our office for worsening or urgent symptoms. [email or web address] Not available 01/05/2023 21:43:01 01/29/2023 01/29/2023 Enhanced Provide r time spent performing enhanced activities which may include, but are not limited to: reviewing tests, obtaining and/or reviewing patient history; ordering medications, test or procedures; EMR documentation; communication with patient, family, caregiver(s), VNA; pre-visit prep time communication with specialists, ER staff. Time spent: __32 (minutes) [email or web address] Not available 01/29/2023 13:47:19 10/20/2023 10/20/2023 We completed you r Medicare Wellness exam today. This was an opportunity to assess your overall well being including your ability to care for yourself, your mobility, memory, mental health, as well as your safety. With advancing age, it is important to assign someone in your life as your Health Care Proxy (HCP). This person should know what is important to you and what your wishes are for medical procedures if you cannot communicate your wishes yourself (severe illness, unconsciousness). We discussed having a completed Health Care Proxy form today. In addition, today we started a conversation about your End of Life wishes. These conversations will continue over the years. Please consider reading the book, Being Mortal by Malcolm Taylor to help frame future conversations. We discussed the purpose of a MOLST form (Medical Orders for Life Sustaining Treatment) and completed this form if appropriate per your wishes. Vision and Hearing are senses that are critically important as we age. When impaired, they can contribute to memory loss, falls, and make it harder to drive, talk to family and friends, and engage in the world. Please get your vision checked yearly and your hearing checked when you start to notice hearing loss. We discussed approaches to lowering your risk of heart disease and stroke . Your blood pressure . Your cholesterol . We discussed cancer screening you may need as well as vaccines to prevent infections. Colon Cancer : Your risk of colon cancer is . Due for colorectal screening:. If you are not planning to have a colonoscopy please screen with stool cards yearly. Breast Cancer : Breast Cancer Screening (mammography). Next mammogram due: . Cervical Cancer Screening (pap test). Next pap due: . Influenza Vaccine : Flu shot yearly. Tetanus Vaccine : Every 10 years. Due: . The following vaccines are available from your pharmacy: Pneumonia Vaccine : PCV20: once after age 65. Shingles Vaccine : 2 shots after age 50. Covid Vaccine : Make sure you have received the most up to date covid vaccine. Your personal health goal for the year is: [email or web address] Not available 10/20/2023 09:55:51 Plan of Treatment Reminders Order Date Submit Date Provider Last Modified By Organization Details Last Modified Time Details Appointments None recorded. Lab None recorded. Referral breast surgery referral - 67 yo c/o neck strain/chr onic pain, with 6 inch indentatio n b/l , c/o persistant rashes under breast with infections due to breast size - request breast reduciton 2022 023 ATHENAX [facility], [address], [address], [place], [address], 3 12:20:42 Procedures colonoscop y procedure (PROC) 2022 023 judith [facility], [address] [facility], [place], [address], 3 08:27:43 Surgeries None recorded. Imaging None recorded. Medication Orders Xarelto 20 mg tablet [address] [facility] [place], [address], 5 07:46:05 betamethas one valerate 0.1 % topical ointment 2023 025 A[place]IN [facility], [address] [place], [address], 5 07:46:15 diltiazem CD 300 mg capsule,ex tended release 24 hr [address] [facility], [address] [place], [address], 5 07:46:00 triamteren e 37.5 mg-hydroch lorothiazi de 25 mg capsule [address] [facility], [address] [place], [address], 5 07:46:04 Patient TargetsNo targets recorded. Patient Instructions Encounter Date Encounter Id Patient Instructions Last Modified By Organization Details Last Modified Time 04/14/2023 [id number] knee: exercises [email or web address] Not available 04/14/2023 11:17:51 After a discussi on of treatment options, which included consideration of best practices, patient preferences, and the patient? s individual lifestyle and treatment goals, as well as consideration and attempted mitigation of any barriers to meeting the patient? s goals, the following treatment plan and objectives were adopted: as above [email or web address] Not available 04/14/2023 11:18:28 10/20/2023 [id number] advance directives: care instructions [email or web address] Not available 10/20/2023 10:45:16 preventing falls : care instructions [email or web address] Not available 10/20/2023 10:45:16 hearing loss: ca re instructions [email or web address] Not available 10/20/2023 10:45:16 well visit, over 65: care instructions [email or web address] Not available 10/20/2023 10:45:16 After a discussi on of treatment options, which included consideration of best practices and patient preferences, the following treatment plan and objectives were adopted: Vitamin D and Calcium rich diet, exercise daily, resistance training twice per week, Mediterranean diet reviewed. [email or web address] Not available 10/20/2023 10:46:06 04/07/2024 [id number] After a discussi on of treatment options, which included consideration of best practices, patient preferences, and the patient? s individual lifestyle and treatment goals, as well as consideration and attempted mitigation of any barriers to meeting the patient? s goals, the following treatment plan and objectives were adopted: as above [email or web address] Not available 04/07/2024 10:25:42 Reason for Referral Breast Surgery Referral for Neck pain 67 yo c/o neck strain/chronic pain, with 6 inch indentation b/l , c/o persistant rashes under breast with infections due to breast size - request breast reduciton Referring Physician: Susan Costa, Family Medicine, Encounter Date: 10/20/2023 Results Created Date Observation Date Name Description Value Unit Range Abnormal Flag Note LastModifiedBy Organization Detail LastModifiedTime 12/30/1912/30/2022 POC UA glu UA NEGATI VE Not Available [facility] [address] [place] [address], [address], 12/30/2022 15:52:25 12/30/19 23 12/30/2022 POC UA clarity UA CLEAR Not Available [address], [address], 12/30/2022 15:52:25 12/30/19 23 12/30/2022 POC UA uro UA 0.2000 Not Available [facility] [address] [place] [address], [address], 12/30/2022 15:52:25 12/30/19 23 12/30/2022 POC UA ket UA NEGATI VE Not Available [facility] [address] [place] [address], [address], 12/30/2022 15:52:25 12/30/19 23 12/30/2022 POC UA pro UA NEGATI VE Not Available [facility] [address] [place] [address], [address], 12/30/2022 15:52:25 12/30/19 23 12/30/2022 POC UA nit UA NEGATI VE Not Available [facility] [address] [place] [address], [id number], 12/30/2022 15:52:25 12/30/19 23 12/30/2022 POC UA jyoti UA NEGATI VE Not Available [facility] [address] [place] [address], [id number], 12/30/2022 15:52:25 12/30/19 23 12/30/2022 POC UA pH UA 6.0000 Not Available [facility] [address] [place] [address], [address], 12/30/2022 15:52:25 12/30/19 23 12/30/2022 POC UA SG UA 1.0200 Not Available [facility] [address] [place] [address], [address], 12/30/2022 15:52:25 12/30/19 23 12/30/2022 POC UA color UA YELLOW Not Available [facility] [address] [place] [address], [address], 12/30/2022 15:52:25 12/30/19 23 12/30/2022 POC UA blo UA 3+ abnormal Not Available [facility] [address] [place] [address], [address], 12/30/2022 15:52:25 12/30/19 23 12/30/2022 POC UA viktoria UA NEGATI VE Not Available [facility] [address] [place] [address], [address], 12/30/2022 15:52:25 04/09/2004/12/2023 COMP. METAB OLIC PANEL glucose 84 mg/dL 70-100 Not Available [address], [address], 04/12/2023 09:45:06 04/09/20 23 04/12/2023 COMP. METAB OLIC PANEL BUN 19 mg/dL 7-18 high Not Available [address], [address], 04/12/2023 09:45:06 04/09/2004/12/2023 COMP. METAB OLIC PANEL creatinine 1.0 mg/dL 0.8-1. 3 Not Available [address], [address], 04/12/2023 09:45:06 04/09/20 23 04/12/2023 COMP. METAB OLIC PANEL B/C 19.0 ratio Not Available [address], [address], 04/12/2023 09:45:06 04/09/2004/12/2023 COMP. METAB OLIC PANEL GFR >=60ML /MIN mL/mi n normal >=60m L/min - Tiara l or midly reduc ed <60mL /min- Decre ased kidne y funct ion <15mL /min - Kidne y failu re [facility] calcu lates estim ated Glome rular Filtr ation Rate (eGFR ) using the Chron ic Kidne y Disea se Epide miolo gy Colla borat ion (CKD- EPI) Equat ion (Mariela r et. al 2020) as recom brandon d by the Natio nal Kidne y Found ation . eGFR is based on age, serum creat inine , and sex. CKD-E PI does not calcu late eGFR by race, does not apply to child carolin (age <18 years ), and shoul d not be used in pregn william. Not Available [address], [address], 04/12/2023 09:45:06 04/09/20 23 04/12/2023 COMP. METAB OLIC PANEL sodium 142 mmol/ L 136-14 5 Not Available [address], [address], 04/12/2023 09:45:06 04/09/20 23 04/12/2023 COMP. METAB OLIC PANEL potassium 4.1 mmol/ L 3.5-5. 1 Not Available [address], [address], 04/12/2023 09:45:06 04/09/20 23 04/12/2023 COMP. METAB OLIC PANEL chloride 103 mmol/ L 96-107 Not Available [address], [address], 04/12/2023 09:45:06 04/09/20 23 04/12/2023 COMP. METAB OLIC PANEL anion gap 8.3 5.0-15 .0 Not Available [address], [address], 04/12/2023 09:45:06 04/09/20 23 04/12/2023 COMP. METAB OLIC PANEL CO2 31 mmol/ L 21-32 Not Available [address], [address], 04/12/2023 09:45:06 04/09/20 23 04/12/2023 COMP. METAB OLIC PANEL calcium 9.7 mg/dL 8.5-10 .3 Not Available [address], [address], 04/12/2023 09:45:06 04/09/20 23 04/12/2023 COMP. METAB OLIC PANEL total protein 7.2 g/dL 6.4-8. 2 Not Available [address], [address], 04/12/2023 09:45:06 04/09/20 23 04/12/2023 COMP. METAB OLIC PANEL albumin 3.7 g/dL 3.4-5. 0 Not Available [address], [address], 04/12/2023 09:45:06 04/09/20 23 04/12/2023 COMP. METAB OLIC PANEL globulin 3.5 g/dL Not Available [address], [address], 04/12/2023 09:45:06 04/09/20 23 04/12/2023 COMP. METAB OLIC PANEL A/G 1.1 ratio 0.8-2. 0 Not Available [address], [address], 04/12/2023 09:45:06 04/09/20 23 04/12/2023 COMP. METAB OLIC PANEL total bilirubin 0.50 mg/dL 0.00-1 .00 Not Available [address], [address], 04/12/2023 09:45:06 04/09/20 23 04/12/2023 COMP. METAB OLIC PANEL AST 21 U/L 0-37 Not Available [address], [address], 04/12/2023 09:45:06 04/09/20 23 04/12/2023 COMP. METAB OLIC PANEL ALT 34 U/L 6-63 Not Available [address], [address], 04/12/2023 09:45:06 04/09/20 23 04/12/2023 COMP. METAB OLIC PANEL alk. phos. 85 U/L 50-136 Not Available [address], [address], 04/12/2023 09:45:06 06/16/20 23 06/17/2023 ANATO ESTELA PATHO LOGY path report [facility] [address] [facility] [place] dagoberto nicole, [place] [address] Lab Direc tor: Jessica myers MD Surgi yelena Patho logy Repor t Acces javier #: [id number] FINAL PATHO LOGIC DIAGN OSIS: A. ASCEN DING AND SIGMO ID COLON POLYP S, COLD SNARE REMOV AL: Adeno matou s polyp fragm ents. B. SIGMO ID COLON POLYP , HOT SNARE REMOV AL: Pedun culat ed adeno matou s polyp . The stalk erwin n is uninv olved by adeno matou s latasha lynn. Chrissie ctron icall y Vandana d Out By Jessica myers MD By his/h er hans cervantes above , the patho logis t liste d as ruiz rey the Final Diagn osis certi fies that he/sh e has perso jeri revie wed this case and confi rmed or corre cted the diagn osis. CLINI YELENA HISTO RY Scree lona for color ectal malig nant neopl asm SPECI MENS SUBMI TTED: A: ASCEN DING AND SIGMO ID COLON , POLYP B: SIGMO ID COLON , POLYP GROSS DESCR IPTIO N A. ASCEN DING AND SIGMO ID COLON , POLYP : Recei shelley in forma lucille are 3 piece s of wu soft tissu e which measu re 0.2, 0.8 and 1 cm in lengt h. The 2 [address] piece s are each bisec juan pablo. Total ly submi tted in block A1. B. SIGMO ID COLON , POLYP : Recei shelley in forma lucille is a singl e polyp oid piece of wu-p ink soft tissu e which measu res 1.4 cm in great est dim javier. The stalk measu res 0.2 cm. Bisec juan pablo and total ly submi tted in block B1. DN 2022 Gross ing Staff : CINDY hernandez Name: MAGUE MAYO : [birth year] (Age: 67) Sex: F 0 Insti tutio n: [facility] Locat ion: [facility] Date of Opera tion: 2022 Date of Acces javier: 2022 Repor juan pablo: 2022 16:25 Resul ts To: Blake Gates MD, BS, MS Nñuez bonnie alcazar MD, BS Not Available [facility] (Outpatient) [address] [place] [address], [address], 06/17/2023 17:19:31 10/13/20 23 10/13/2023 CBC WBC 6.23 K/??L 3.98-1 0.04 Not Available [address], [address], 10/13/2023 12:35:34 10/13/20 23 10/13/2023 CBC RBC 5.05 M/??L 3.93-5 .22 Not Available [address], [address], 10/13/2023 12:35:34 10/13/20 23 10/13/2023 CBC HGB 15.1 g/dL 11.2-1 5.7 Not Available [address], [address], 10/13/2023 12:35:34 10/13/20 23 10/13/2023 CBC HCT 45.2 % 34.1-4 4.9 high Not Available [address], [address], 10/13/2023 12:35:34 10/13/20 23 10/13/2023 CBC MCV 89.5 fL 79.4-9 4.8 Not Available [address], [address], 10/13/2023 12:35:34 10/13/20 23 10/13/2023 CBC MCH 29.9 pg 25.6-3 2.2 Not Available [address], [address], 10/13/2023 12:35:34 10/13/20 23 10/13/2023 CBC MCHC 33.4 g/dL 32.2-3 5.5 Not Available [address], [address], 10/13/2023 12:35:34 10/13/20 23 10/13/2023 CBC plt 218 K/??L 182-36 9 Not Available [address], [address], 10/13/2023 12:35:34 10/13/20 23 10/13/2023 CBC MPV 9.9 fL 9.4-12 .3 Not Available [address], [address], 10/13/2023 12:35:34 10/13/20 23 10/13/2023 CBC neut% 65.9 % 34.0-7 1.1 Not Available [address], [address], 10/13/2023 12:35:34 10/13/20 23 10/13/2023 CBC neut# 4.11 1.56-6 .13 Not Available [address], [address], 10/13/2023 12:35:34 10/13/20 23 10/13/2023 CBC lymph % 21.2 % 19.3-5 1.7 Not Available [address], [address], 10/13/2023 12:35:34 10/13/20 23 10/13/2023 CBC lymph # 1.32 K/??L 1.18-3 .74 Not Available [address], [address], 10/13/2023 12:35:34 10/13/20 23 10/13/2023 CBC mono% 10.6 % 4.7-12 .5 Not Available [address], [address], 10/13/2023 12:35:34 10/13/20 23 10/13/2023 CBC mono# 0.66 0.24-0 .56 high Not Available [address], [address], 10/13/2023 12:35:34 10/13/20 23 10/13/2023 CBC eo% 1.3 % 0.7-5. 8 Not Available [address], [address], 10/13/2023 12:35:34 10/13/20 23 10/13/2023 CBC eo# 0.08 0.04-0 .36 Not Available [address], [address], 10/13/2023 12:35:34 10/13/20 23 10/13/2023 CBC baso% 0.8 % 0.1-1. 2 Not Available [address], [address], 10/13/2023 12:35:34 10/13/20 23 10/13/2023 CBC baso# 0.05 0.00-0 .08 Not Available [address], [address], 10/13/2023 12:35:34 10/13/20 23 10/13/2023 CBC RDW-CV 13.9 % 11.7-1 4.4 Not Available [address], [address], 10/13/2023 12:35:34 10/13/20 23 10/13/2023 CBC Ig% 0.200 % 0.000- 1.500 Ig % >0.5 Indic ates possi ble Left Shift Not Available [address], [address], 10/13/2023 12:35:34 11/22/10/13/2023 CBC Ig# 0.010 0.000- 0.093 Not Available [address], [address], 10/13/2023 12:35:34 10/13/20 23 10/13/2023 CBC NRBC% 0.0 % 0.0-0. 2 Not Available [address], [address], 10/13/2023 12:35:34 10/13/20 23 10/13/2023 CBC NRBC# 0.000 0.000- 0.012 Not Available [address], [address], 10/13/2023 12:35:34 10/13/20 23 10/18/2023 COMP. METAB OLIC PANEL glucose 90 mg/dL 70-100 Not Available [address], [address], 10/18/2023 11:59:50 10/13/20 23 10/18/2023 COMP. METAB OLIC PANEL BUN 19 mg/dL 7-18 high Not Available [address], [address], 10/18/2023 11:59:50 10/13/20 23 10/18/2023 COMP. METAB OLIC PANEL creatinine 0.9 mg/dL 0.8-1. 3 Not Available [address], [address], 10/18/2023 11:59:50 10/13/20 23 10/18/2023 COMP. METAB OLIC PANEL B/C 21.1 ratio Not Available [address], [address], 10/18/2023 11:59:50 10/13/20 23 10/18/2023 COMP. METAB OLIC PANEL GFR >=60ML /MIN mL/mi n normal >=60m L/min - Tiara l or midly reduc ed <60mL /min- Decre ased kidne y funct ion <15mL /min - Kidne y failu re [facility] calcu lates estim ated Glome rular Filtr ation Rate (eGFR ) using the Chron ic Kidne y Disea se Epide miolo gy Colla borat ion (CKD- EPI) Equat ion (Mariela oseguera et. al 2020) as recom brandon d by the Natio nal Kidne y Found ation . eGFR is based on age, serum creat inine , and sex. CKD-E PI does not calcu late eGFR by race, does not apply to child carolin (age <18 years ), and shoul d not be used in pregn william. Not Available [address], [address], 10/18/2023 11:59:50 10/13/20 23 10/18/2023 COMP. METAB OLIC PANEL sodium 144 mmol/ L 136-14 5 Not Available [address], [address], 10/18/2023 11:59:50 10/13/20 23 10/18/2023 COMP. METAB OLIC PANEL potassium 4.1 mmol/ L 3.5-5. 1 Not Available [address], [address], 10/18/2023 11:59:50 10/13/20 23 10/18/2023 COMP. METAB OLIC PANEL chloride 103 mmol/ L 96-107 Not Available [address], [address], 10/18/2023 11:59:50 10/13/20 23 10/18/2023 COMP. METAB OLIC PANEL anion gap 11.7 5.0-15 .0 Not Available [address], [address], 10/18/2023 11:59:50 10/13/20 23 10/18/2023 COMP. METAB OLIC PANEL CO2 29 mmol/ L 21-32 Not Available [address], [address], 10/18/2023 11:59:50 10/13/20 23 10/18/2023 COMP. METAB OLIC PANEL calcium 9.8 mg/dL 8.5-10 .3 Not Available [address], [address], 10/18/2023 11:59:50 10/13/20 23 10/18/2023 COMP. METAB OLIC PANEL total protein 7.6 g/dL 6.4-8. 2 Not Available [address], [address], 10/18/2023 11:59:50 10/13/20 23 10/18/2023 COMP. METAB OLIC PANEL albumin 3.9 g/dL 3.4-5. 0 Not Available [address], [address], 10/18/2023 11:59:50 10/13/20 23 10/18/2023 COMP. METAB OLIC PANEL globulin 3.7 g/dL Not Available [address], [address], 10/18/2023 11:59:50 10/13/20 23 10/18/2023 COMP. METAB OLIC PANEL A/G 1.1 ratio 0.8-2. 0 Not Available [address], [address], 10/18/2023 11:59:50 10/13/20 23 10/18/2023 COMP. METAB OLIC PANEL total bilirubin 0.50 mg/dL 0.00-1 .00 Not Available [address], [address], 10/18/2023 11:59:50 10/13/20 23 10/18/2023 COMP. METAB OLIC PANEL AST 17 U/L 0-37 Not Available [address], [address], 10/18/2023 11:59:50 10/13/20 23 10/18/2023 COMP. METAB OLIC PANEL ALT 28 U/L 6-63 Not Available [address], [address], 10/18/2023 11:59:50 10/13/20 23 10/18/2023 COMP. METAB OLIC PANEL alk. phos. 89 U/L 50-136 Not Available [address], [address], 10/18/2023 11:59:50 10/13/20 23 10/18/2023 LIPID PANEL cholesterol 235 mg/dL <200 mg/dl Sim able 200-2 39 mg/dl Borde rline High >240 mg/dl High Not Available [address], [address], 10/18/2023 12:58:15 10/13/20 23 10/18/2023 LIPID PANEL triglyceride s 76 mg/dL <150 mg/dL Tiara l 150-1 99 mg/dL Borde rline High 200-4 99 mg/dL High >500 mg/dL Very High Not Available [address], [address], 10/18/2023 12:58:15 10/13/2010/18/2023 LIPID PANEL direct HDL 90 mg/dL <40 mg/dl - Major Risk for CHD >60 mg/dl - Negat louise Risk for CHD Not Available [address], [address], 10/18/2023 12:58:15 10/13/20 23 10/18/2023 LDL - CALCU LATED LDL - calculated 129.8 RISK CATEG ORY LDL GOAL _ CHD or CHD Risk Equiv alent s <100 mg/dl (10-y ear risk >20%) 2+ Risk Facto rs <130 mg/dl (10-y ear risk <= 20%) 0-1 Risk Facto r??? <160 mg/dl ??? Almos t all peopl e with 0-1 risk facto r have a 10 year risk <10%, thus 10 year risk asses ment in peopl e with 0-1 risk facto r is not hermanelier nguyen. Not Available [facility] [address] [address], [place], [address], 10/18/2023 12:58:22 12/24/19 23 12/09/2022 bone densi ty Dual-E nergy X-ray Absorp tiomet ry (DXA) scan perfor med on 3. Impres javier: Based on BMD, diagno sis is consis tent with low bone mass. Treatm ent Recomm endati ons: ?Opti flor vitami n D, calciu m, and weight -beari ng and muscle -stren gtheni ng exerci se. This patien t has low bone mass with fractu re risk below the thresh old for antire sorpti ve treatm ent. Follow -up DXA: Consid er repeat ing this study in three to five years or as clinic enrique almeida. Indica tion(s ): Caucas carol, premat ure menopa use Clinic al Histor y: height loss Techni yelena Qualit y: The techni yelena qualit y of the study was good. The L3-L4 region was exclud ed due to artifa ct. Result s: Lumbar Spine The BMD measur ed in the L1-L2 region is 1.216 g/cm2. T-scor e = 0.4. Femora l Neck The BMD measur ed at the right femora l neck is 0.877 g/cm2. T-scor e = -1.2. Total Hip The BMD measur ed at the total right proxim al femur is 0.913 g/cm2. T-scor e = -0.8. Interv al Change : No priors from this facili ty availa ble for compar reno. Fractu re Risk: The estima juan pablo 10-yea r risk for a major osteop orotic fractu re is 7.5 % and for a hip fractu re 0.6 %. This fractu re risk estima te was calcul ated using FRAX versio n 4.0 and Caucas carol race, postme nopaus e, and second ahsan osteop orosis as additi onal clinic al risk factor s for fractu re. This scan was perfor med using the [employer] Primo 10 densit ometer at [facility] , [place] [address] [place]. Read by: Jessica Tim on, MS, JUNIOR ACCOUNT EXECUTIVE-BC , CCD Zairein candido Physic carol: Thuan boothe [email or web address] [facility] (Imaging) [address], [place], [address], 12/28/2022 08:34:16 01/19/20 23 01/18/2023 US, retro perit oneum CLINIC AL HISTOR Y: Histor y of nephro lithia sis TECHNI QUE: 2D sonogr aphy of the kidney s and bladde r. COMPAR RENO: 2021 FINDIN GS: Right kidney 4.0 x 10.1 cm The right kidney is normal in echote xture. There are no solid masses . There is no hydron ephros is. There is a 1.3 x 0.8 x 1.0 cm upper pole cyst with an approx imatel y 7 mm periph eral calcif icatio n. There is a 0.7 x 0.7 x 0.8 cm simple upper pole cyst. Left kidney 4.6 x 12.2 cm The left kidney is normal in echote xture. There are no solid masses . There is a 0.7 x 0.5 x 0.8 cm interp olar region calcul us. There is no hydron ephros is. There is a 1.5 x 1.4 x 1.3 cm simple exophy tic cyst. There is a 0.7 x 1.7 x 1.3 cm simple parape lvic cyst. Only the right ureter al jet is visual ized. The bladde r is normal in appear ance. The prevoi d bladde r volume is 147.9 mL. The post void bladde r volume is 19.1 mL. IMPRES JAVIER: 1. Bilate ral nonobs tructi ng renal calcul i. Bilate ral renal cysts. A 1.3 cm right renal cyst has a 7 mm periph eral calcif icatio n. There is no worris ome change from the 2021 study. 2. 19.1 mL postvo id residu al. Readin g Physic carol: Rolando Pierson ms [facility] (Imaging) [address] , [place], [address], 01/29/2023 13:44:42 Result Notes None recorded. Problems Name Problem SNOMED Code Status Onset Date Resolution Date Notes Provider Name and Address Organization Details Recorded Time Mixed hyperlipi demia 659826215 Active BALDEMAR Stovall [address] [place] [address], [id number] , [facility] 6 21:06:34 Essential hypertens ion 73952032 [facility] 12:19:06 Morbid obesity [id number] Active 2016 BALDEMAR Stovall [address] [place] [address], [phone] , [facility] 7 10:46:05 Psoriasis 5871116 Active 2018 BALDEMAR Stovall [address] [place] [address], , [facility] 9 11:04:40 Kidney stone 77394985 Active 2018 listhotrip sy 2006 BALDEMAR Stovall [address] [place] [address], , [facility] 1 11:56:19 Atrial fibrillat ion 08631077 Active 2019 BALDEMAR Stovall [address] [place] [address], [phone] , [facility] 0 10:44:09 Adenomato us polyp of colon 014634125 Active 2022 Dr. Kody Abarca MD [address] [place] [address], [phone] , [facility] 3 09:02:20 Problem Notes None recorded. Procedures Surgical History Date Name Laterality Status Provider Name and Address Organization Details Recorded Time 04/07/20 24 Cardiovascular disease risk reduction counseling completed BALDEMAR Stovall [address] [place], [address], [facility] 04/07/2024 10:00:28 10/20/20 23 Medicare Wellness Visit completed Bree Duke MA [facility] 10/20/2023 09:55:52 10/20/20 23 Cardiovascular disease risk reduction counseling completed BALDEMAR Stovall [address] [place], [address], [facility] 10/20/2023 10:46:53 10/19/20 22 Medicare Wellness Visit completed Suzanna Conte MA [facility] 10/19/2022 09:47:16 10/19/20 22 Alcohol use screening completed Suzanna Conte MA [facility] 10/19/2022 09:47:16 10/19/20 22 Cardiovascular disease risk reduction counseling completed Suzanna Conte MA [facility] 10/19/2022 09:47:16 07/09/20 21 13571: Therapeutic Exercise completed Cee Arredondo, PT [address] [place], [address], [facility] 07/09/2021 13:35:31 07/09/20 21 Treatment and Advice completed Cee Arredondo, PT [address] [place], [phone], [facility] 07/09/2021 13:34:45 06/25/20 21 Physical Activity Counselling completed Cee Arredondo, PT [address] [place], [phone], [facility] 06/25/2021 18:22:34 06/25/20 21 59099: PT Eval Low Complexity completed Cee Arredondo, PT [address] [place], [address], [facility] 06/25/2021 18:22:31 06/25/20 21 Treatment and Advice completed Cee Arredondo, PT [address] [place], [address], [facility] 06/25/2021 13:03:50 09/30/20 20 prevention-cardiov ascular risk reduction counseling completed Amparo Robles MA [facility] 09/30/2020 10:11:37 09/30/20 20 prevention-annual alcohol misuse screening completed Amparo Robles MA [facility] 09/30/2020 10:11:37 08/20/20 20 Telephonic Visit completed Karo Woodward [facility] 08/20/2020 16:35:10 01/02/20 19 Refraction completed Gerdadustin Banuelos [facility] 01/02/2019 11:12:01 07/07/20 18 Incise and Drain without packing completed Carmelo Osorio NP [address] [place] [address], [phone], [facility] 07/11/2018 08:18:43 Fragmenting of kidney stone completed BALDEMAR Stovall [address] [place] [address], [phone], [facility] 09/19/2018 10:23:07 Hysterectomy/bettina e vagina completed Eusebia nugent, PABrittneyC [address] [place] [address], [phone], [facility] 10/11/2020 11:37:05 Imaging Results Imaging Date Name Status LastModified by Organization Details LastModified Time 12/09/2022 bone density completed [address] [facility] ([facility]) [address] [place], [address], 12/28/2022 08:34:16 01/18/2023 US, retroperitoneum completed [facility] [address] [place], [address], 01/29/2023 13:44:42 Procedure Notes None recorded. Medical Equipment None Reported. Allergies Allergen ID Allergen Name Allergen Category Reaction Reaction Severity Criticality Documentation Date Start Date Code Code System Note Provider Name and Address Organization Details Recorded Time 007323 codeine medicatio n nausea Not available Not available 05/02/2015 2670 RxNorm JOSE Wild, [facility] 5 09:57:56 Medications Name Sig Start Date Stop Date Status Note LastModified by Organization Details LastModified Time betamethas one valerate 0.1 % topical ointment APPLY A THIN LAYER TO THE AFFECTED AREA(S) BY TOPICAL ROUTE ONCE DAILY 12/29 completed Not Available Not Available Not Available Cartia XT 300 mg capsule,ex tended release Take 1 capsule by mouth once daily 12/29 completed Not Available Not Available Not Available ibuprofen 800 mg tablet Take 1 tablet 3 times a day by oral route for 7 days. 09/30 completed prn Not Available Not Available Not Available diltiazem ER 300 mg capsule,24 hr,extende d release TAKE 1 CAPSULE BY MOUTH ONCE DAILY 10/20 completed Not Available Not Available Not Available sulfametho xazole 800 mg-trimeth oprim 160 mg tablet 10/19 completed Not Available Not Available Not Available tramadol 50 mg tablet 04/29 completed Not taking 1 AAS, 2 Not Available Not Available Not Available triamteren e 37.5 mg-hydroch lorothiazi de 25 mg capsule Take 1 capsule by mouth once daily 12/29 completed Not Available Not Available Not Available tamsulosin 0.4 mg capsule Take 1 capsule every day by oral route as directed for 60 days. 10/20 completed Not using 04/14/23 PP Not Available Not Available Not Available cephalexin 500 mg capsule TAKE 1 CAPSULE BY MOUTH THREE TIMES DAILY 10/19 completed Not Available Not Available Not Available simvastati n 20 mg tablet TAKE 1 TABLET BY MOUTH ONCE DAILY 12/29 completed Not Available Not Available Not Available Gentle Laxative (bisacodyl ) 5 mg tablet,del ayed release TAKE 4 TABLETS WITH 8 OZ OF WATER ONCE THE DAY BEFORE PROCEDUR E 05/29 completed Not Available Not Available Not Available betamethas one dipropiona te 0.05 % topical cream APPLY A THIN LAYER OF CREAM TOPICALL Y TO AFFECTED AREA ONCE DAILY 12/22 completed Not Available Not Available Not Available amoxicilli n 875 mg-potassi um clavulanat e 125 mg tablet TAKE 1 TABLET BY MOUTH EVERY 12 HOURS active Not Available Not Available No t Available Cartia XT 180 mg capsule,ex tended release TAKE ONE CAPSULE BY MOUTH TWICE DAILY 08/08 completed pt states taking the 300mg dose 06-20-18 SR Not Available Not Available Not Available fluocinolo ne 0.025 % topical cream APPLY CREAM TO AFFECTED AREA TOPICALL Y TWICE DAILY 04/14 completed Not Available Not Available Not Available nitrofuran toin monohydrat e/macrocry stals 100 mg capsule Take 1 capsule every 12 hours by oral route as directed for 5 days. 12/30 completed Not Available Not Available Not Available peg 3350-elect rolytes 236 gram-22.74 gram-6.74 gram-5.86 gram solution TAKE DIRECTED PER MD INSTRUCT IONS 05/29 completed Not Available Not Available Not Available Xarelto 20 mg tablet TAKE 1 TABLET BY MOUTH ONCE DAILY IN THE EVENING 12/29 completed Not Available Not Available Not Available Shingrix (PF) 50 mcg/0.5 mL intramuscu lar suspension , kit PHARMACI ST ADMINIST ERED IMMUNIZA TION ADMINIST ERED AT TIME OF DISPENSI NG 05/29 completed Not Available Not Available Not Available Vitals Date Recorded Body height Body mass index (BMI) Body weight Oxygen saturation Oxygen saturation in Arterial blood by Pulse oximetry Heart rate Systolic blood pressure Diastolic blood pressure Provider Name and Address Organization Details Last Updated DateTime 3 153.67 cm 39.1 kg/m2 57136.0 5 g 7 % 7 % 58 /min 98 mm[Hg] 52 mm[Hg] Laura Whaley [facility] 3 11:50:08 Date Recorded Body height Body mass index (BMI) Body weight Heart rate Oxygen saturation Oxygen saturation in Arterial blood by Pulse oximetry Systolic blood pressure Diastolic blood pressure Provider Name and Address Organization Details Last Updated DateTime 3 153.67 cm 39.2 kg/m2 55656.8 4 g 54 /min 99 % 99 % 108 mm[Hg] 62 mm[Hg] BRYN Urbano [facility] 3 10:49:55 Date Recorded Body height Body mass index (BMI) Body weight Heart rate Systolic blood pressure Diastolic blood pressure Provider Name and Address Organization Details Last Updated DateTime 3 152.4 cm 40.3 kg/m2 76050.4 7 g 72 /min 112 mm[Hg] 68 mm[Hg] Bree Duke MA [facility] 3 10:04:33 Date Recorded Body height Body mass index (BMI) Body weight Heart rate Oxygen saturation Oxygen saturation in Arterial blood by Pulse oximetry Systolic blood pressure Diastolic blood pressure Provider Name and Address Organization Details Last Updated DateTime 4 152.4 cm 40.1 kg/m2 57989.2 4 g 67 /min 98 % 98 % 118 mm[Hg] 62 mm[Hg] Jessica Voss MA [facility] 4 09:31:12 Social History Question Answer Notes LastModified by Organizat ion Details LastModified Time Tobacco Smoking Status [facility] 10:01:36 What Is Your Level Of Alcohol Consumption? Occasional 1 Glass In Month Information not available 12/24/2016 What Is Your Level Of Caffeine Consumption? Moderate 2 Cups Of Tea In AM [email or web address] Information not available 10/19/2022 How Much Tobacco Do You Chew? None Information not available 05/02/2015 Are You Currently Employed? Yes [email or web address] Information not available 10/19/2022 What Type Of Diet Are You Following? REGULAR Information not available 05/02/2015 Do You Or Have You Ever Used E-cigarettes Or Vape? Never Used Electronic Cigarettes Information not available 03/25/2020 Education 12 1 Year Of College Information not available 07/18/2015 Have There Been Any Changes To Your Family Or Social Situation? No Information not available 10/19/2022 Do You Use Insect Repellent Routinely? Yes Information not available 10/09/2021 Live Alone Or With Others? With Others Information not available 05/02/2015 Patient Has Health Care Proxy Signed And In Chart No Refused Forms 07/18/15, Has Forms Information not available 05/02/2015 CCM Consent Discussion 10/19/2022 [email or web address] Information not available 10/20/2022 Marital Status Informatio n not available 05/02/2015 Mosquito Repellent Used Routinely Yes Information not available 05/02/2015 What Was The Date Of Your Most Recent Tobacco Screening? 04/07/2024 [email or web address] Information not available 04/07/2024 How Many Children Do You Have? 1 Information not available 05/02/2015 What Is Your Relationship Status? Information not available 10/09/2021 Do You Use Your Seat Belt Or Car Seat Routinely? Yes Information not available 10/09/2021 Seat Belts Used Routinely Yes Information not available 05/02/2015 Are You Sexually Active? No [email or web address] Information not available 10/19/2022 Smoke Alarm In Home Yes Information not available 05/02/2015 Do You Have Smoke And Carbon Monoxide Detectors In Your Home? Yes Information not available 10/09/2021 Are You Passively Exposed To Smoke? No [email or web address] Information not available 10/19/2022 Do You Or Have You Ever Used Smokeless Tobacco? Never Used Smokeless Tobacco Information not available 03/25/2020 How Much Tobacco Do You Smoke? No Information not available 03/25/2020 What Types Of Sporting Activities Do You Participate In? None Information not available 09/25/2019 General Stress Level Low Information not available 07/18/2015 Do You Use Any Illicit Or Recreational Drugs? No Information not available 10/09/2021 Do You Use Sunscreen Routinely? Yes Information not available 10/09/2021 Do You Or Have You Ever Used Any Other Forms Of Tobacco Or Nicotine? No [email or web address] Information not available 01/29/2023 How Many Days In The Past Year Have You Consumed 4 Or More Drinks? 0 Information not available 10/09/2021 Sex: Female Functional Status Question Answer Note LastModified by Organizat ion Details LastModified Time What is your exercise level? Moderate walking at work [email or web address] Information not available 10/19/2022 Mental Status None recorded. Family History Relationship Description Onset Age of this Age Resolved Age Notes LastModified by Organization Details LastModified Time Brother Chronic obstructive pulmonary disease 60 [email or web address] Not available 2014 10:38:24 Mother Essential hypertension 67 [email or web address] Not available 10:38:24 Mother Cerebrovascu lar accident 67 [email or web address] Not available 10:38:24 Mother Congestive heart failure 55 [email or web address] Not available 2017 09:30:15 Father Chronic obstructive pulmonary disease 67 [email or web address] Not available 2014 10:38:24 Father Tuberculosis [email or web address] Not availa ble 07/18/2015 10:38:24 Son Kidney stone kerri Not avail able 09/25/2019 10:38:57 Paternal Grandmother Diabetes mellitus [email or web address] Not available 2021 10:31:18 Paternal Uncle Diabetes mellitus [email or web address] Not available 2021 10:31:43 Paternal Uncle Diabetes mellitus [email or web address] Not available 2021 10:31:47 Sister Deep venous thrombosis [email or web address] Not available 04/14 11:03:27 Medical History Condition Response Kidney Stones Y Hyperlipidemia Y Hypertension Y psoriasis Y Gynecological History Statement/Question Response Menses Monthly N Hysterectomy Y History of Abnormal Pap Y Obstetrics History GPAL:G 0 P 0 0 0 0 Immunizations Vaccine Type Date Status Note Provider Nam e and Address Organization Details Recorded Time Influenza, split virus, quadrivalent, PF 6 completed Not Available [facility] 12/09/2019 02:34:16 Tdap 6 completed Not Available [facility] 12/09/2019 02:37:10 Influenza, split virus, quadrivalent, PF 8 completed Not Available [facility] 12/09/2019 02:38:53 Influenza, split virus, quadrivalent, PF 9 completed Not Available [facility] 12/09/2019 02:24:33 Influenza, split virus, quadrivalent, PF 0 completed AVELINA Scott, [facility] 10/11/2020 10:10:37 Influenza, split virus, quadrivalent, PF 1 completed BALDEMAR Stovall [address] [place] [address], [phone], [facility] 10/09/2021 11:18:06 zoster recombinant 0 completed AVELINA Scott, [facility] 08/27/2024 10:23:13 zoster recombinant 1 completed AVELINA Scott, [facility] 08/27/2024 10:23:13 COVID-19 vaccine, vector-nr, rS-Ad26, PF, 0.5 mL 1 completed Nohemi Jeronimo LPN danna, [facility] 08/27/2024 10:23:13 COVID-19, mRNA, LNP-S, bivalent, PF, 30 mcg/0.3 mL dose 2 completed Nohemi Jeronimo LPN danna, [facility] 08/27/2024 10:23:13 Pneumococcal conjugate PCV20, polysaccharide [id number] conjugate, adjuvant, PF 2 completed Nohemi Jeronimo LPN null, [facility] 08/27/2024 10:23:13 Influenza, high-dose, quadrivalent, PF 3 completed Nohemi Jeronimo LPN danna, [facility] 08/27/2024 10:23:13 Influenza, recombinant, quadrivalent, PF 2 completed Nohemi Jeronimo LPN danna, [facility] 08/27/2024 10:23:13 COVID-19 vaccine, vector-nr, rS-Ad26, PF, 0.5 mL 1 completed Nohemi Jeronimo LPN null, [facility] 08/27/2024 10:23:13 Influenza, high-dose, trivalent, PF 4 completed Nohemi Jeronimo LPN null, [facility] 08/27/2024 10:23:57 Past Encounters Encounter ID Performer Location Encounter Start Date Encounter Closed Date Diagnosis/Indication Diagnosis SNOMED-CT Code Diagnosis ICD10 Code Diagnosis Note [id number] BALDEMAR Stovall , [facility], [address] [place] [address] 05/02/2015 09:47:38 05/02/2015 10:41:19 Knee pain 89416677 discussed exercise, avoiding overuse- f/u if not resolving in 2-4 wks- sooner any worsening. [id number] Presley Lake MD , [facility], [address] [place] [address] 07/05/2015 15:48:07 07/05/2015 16:26:20 Plantar fasciitis 672631165 [id number] , [facility], [address] [place] [address] 07/18/2015 09:53:24 07/18/2015 11:12:16 Adult health examination 705759814 refused flu shot despite knowing risk of flu and , see Risk Assessment and Lifestyle Change Counseling section above Counseling [id number] Screening for malignant neoplasm of cervix 435976072 Essential hypertension 09980700 Mixed hyperlipidemia 794760008 [id number] BALDEMAR Stovall, [facility], [address] [place] [address] 01/13/2016 16:09:38 01/13/2016 17:26:21 Benign essential hypertension 3916576 I10 Blood pressure at goal Mixed hyperlipidemia 267 354758 E78.2 Cholestero l is at goal Continue to work on diet and exercise as discussed Psoriasis 1114188 L40.9 [id number] BALDEMAR Stovall, [facility], [address] [place] [address] 02/20/2016 11:19:36 02/20/2016 11:59:14 Hip pain 76440849 M25.551 call with radiology report- negative- sx tx reviewed- f/u if not resolving in 2-4 wks- sooner any worsening [id number] BALDEMAR Stovall, [facility], [address] [place] [address] 09/28/2016 13:13:25 09/28/2016 14:50:06 Strain of neck muscle 132099154 S16.1XXA Mixed hyperlipidemia 267 218269 E78.2 Cholestero l is at goal Continue to work on diet and exercise as discussed Active or passive immunization 113783951 Z23 [id number] BALDEMAR Stovall, [facility], [address] [place] [address] 12/24/2016 09:28:55 12/24/2016 10:46:38 Adult health examination 445283079 Z00.00 see Risk Assessment and Lifestyle Change Counseling section above Benign ess ential hypertension 7631351 I10 Blood pressure at goal Mixed hyperlipidemia 267 169220 E78.2 Cholestero l is at goal Cholestero l is not at goal Continue to work on diet and exercise as discussed Screening for malignant neoplasm of colon 438570514 Z12.11 declines colonoscop y, will do stool cards Morbid obesity 461235951 E66.01 [id number] BALDEMAR Stovall, [facility], [address] [place] [address] 05/09/2018 08:59:58 05/09/2018 10:43:17 Benign essential hypertension 8416864 I10 Blood pressure at goal Mixed hyperlipidemia 267 094802 E78.2 Cholestero l is at goal Continue to work on diet and exercise as discussed Screening mammography 24 254208 Z12.31 Screening for malignant neoplasm of colon 935511006 Z12.11 declined despite knowing risk of colon cancer and Strain of neck muscle 36 9744256 S16.1XXA [id number] BALDEMAR Stovall, [facility], [address] [place] [address] 06/20/2018 08:44:57 06/20/2018 09:38:27 Screening for malignant neoplasm of colon 366716558 Z12.11 Referral for a DIRECT booked colonoscop y. This patient is a healthy ASA Class 1 or 2 patient (only mild systemic disease), or a STABLE, well controlled insulin dependent diabetic. They do not have serious cardiac disease ie NV/angiopl asty within 1 year, symptomati c CHF; renal failure with CKD 4 or 5; take Coumadin, Plavix, Aggrenox, etc. Benign ess ential hypertension 2705417 I10 Blood pressure at goal [id number] Carmelo Osorio NP , [facility], [address] [place] [address] 07/07/2018 11:41:46 07/07/2018 16:25:19 Abscess 628010492 L02.91 beneath left breast. approx 4cm. xylocain with epi, open center of abscess. forceps to explore- remainder of exudate expressed, culture done. DSD appliedrec ommend warm compresses and DSD until closed. She will FU if fever, heat or erythema dev elop.pt states agreement and understand ing with this plan. [id number] BALDEMAR Stovall, [facility], [address] [place] [address] 09/19/2018 09:40:57 09/19/2018 10:50:36 Adult health examination 411391536 Z00.00 see Risk Assessment and Lifestyle Change Counseling section above Depression screening 171 698697 Z13.89 depression screening tool administer ed, entered into emr, scored and discussed, time greater than 7.5 minutes Mixed hyperlipidemia 267 860043 E78.2 Cholestero l is at goal Continue to work on diet and exercise as discussed Benign ess ential hypertension 5673505 I10 Blood pressure at goal Psoriasis 4592675 L40.9 Essential hypertension 75927802 I10 Morbid obesity 601042725 E66.01 Active or passive immunization 693886509 Z23 [id number] Leo Tai MD , [facility], [address] [place] [address] 09/24/2018 09:34:29 09/24/2018 11:33:20 Morbid obesity 117479384 E66.01 Essential hypertension 33798937 I10 Continue current regimen. Pain in left knee 711326 9038 99266 M25.562 Likely strain. Medial knee tenderness . No warmth/ins tability. Discussed Ibuprofen in short term- reviewed R/B/A. May use tylenol in between if needed. Offered PT- she declined for now. [id number] Hailee Goodman, [facility], [facility] [address] [place] [address] 01/02/2019 10:39:56 01/02/2019 12:02:00 Hyperopic astigmatism 813573974 H52.03 Ophthalmic examination and evaluation 29693455 Z01.00 ocular health wnl OU; asymmetric IOP OS>OD. pt ed, monitor 1 yr CEE or prn [id number] BALDEMAR Stovall , [facility], [address] [place] [address] 09/25/2019 09:47:35 09/25/2019 11:08:14 Adult health examination 287264880 Z00.00 see Risk Assessment and Lifestyle Change Counseling section above Depression screening 171 555006 Z13.89 depression screening tool administer ed, entered into emr, scored and discussed, time greater than 7.5 minutes Mixed hyperlipidemia 267 304965 E78.2 Cholestero l is at goal. Continue to work on diet and exercise as discussed Essential hypertension 06956672 I10 At goal. Continue to work on diet and exercise as discussed. Active or passive immunization 917755984 Z23 Psoriasis 2417435 L40.9 Change from betamethas one cream to ointment Screening for malignant neoplasm of cervix 865275654 Z12.4 declined despite knowing risk of contractin g disease and potential from disease, agrees to reschedule for pap in coming 6months Multiple joint pain 3567 8005 M25.50 Continue to work on diet and exercise as discussed. better arch support, rom exercises to lessen foot and ankle pain. Neck pain 92646603 M54.[address] Flores for breast reduction surgery. Screening mammography 24 183302 Z12.31 f/u 1 yr recommende d Screening for malignant neoplasm of colon 516689978 Z12.11 Referral for a DIRECT booked colonoscop y. This patient is a healthy ASA Class 1 or 2 patient (only mild systemic disease), or a STABLE, well controlled insulin dependent diabetic. They do not have serious cardiac disease ie NV/angiopl asty within 1 year, symptomati c CHF; renal failure with CKD 4 or 5; take Coumadin, Plavix, Aggrenox, etc. Kidney stone 10384138 N2 0.0 pt states no symptoms- eval/urolo gist- to return for symptoms asneeded, reviewed nl [facility] [id number] Sonya Loza LPN FP, [facility], [address] [place] [address] 12/22/2019 11:44:17 12/22/2019 13:12:42 Atrial fibrillation 30076684 I48.91 new onset afib- start xarelto 20 mg qd- reviewed no nsaids or aspirin, needs to take daily, ECHO to schedule, cardiology referral to consider cardiovers ion, Morbid obesity 945810154 E66.01 continue weight loss with nutrtional and exericse [id number] BALDEMAR Stovall , [facility], [address] [place] [address] 03/25/2020 10:44:53 03/26/2020 12:43:17 Essential hypertension 29824592 I10 At goal. Continue to work on diet and exercise as discussed. Mixed hyperlipidemia 267 611419 E78.2 Cholestero l is at goal. Continue to work on diet and exercise as discussed Atrial fibrillation 4943 6004 I48.91 new onset afib- continue xarelto 20 mg qd- reviewed no nsaids or aspirin, needs to take daily, ECHO. nuclear stress test reviewed, vital - GISSELLE and pule- nl 02/08 at cardiology consult- reviewed with pt Pain in left foot 322172 0802 77838 M79.672 discussed resting, using heat- if persistant will check xray when no longer surge in pandemic [id number] Anushka Curry MD , [facility], [address] [place] [address] 08/20/2020 17:31:03 08/22/2020 14:50:02 Screening mammography 31083854 Z12.31 Benign ess ential hypertension 4561843 I10 check labs Bleeding from nose 12011 6005 R04.0 check labs; by descriptio n small nosebleeds . reassured should stop within a week, or seek care from us again. NOte that she is not pleased about not beign seen in person; all regular screening labs and screening was ordered for her. Screening for malignant neoplasm of colon 405981508 Z12.11 Referral for a DIRECT booked colonoscop y. This patient is a healthy ASA Class 1 or 2 patient (only mild systemic disease), or a STABLE, well controlled insulin dependent diabetic. They do not have serious cardiac disease ie NV/angiopl asty within 1 year, symptomati c CHF; renal failure with CKD 4 or 5; take Coumadin, Plavix, Aggrenox, etc. Hyperlipidemia 02107727 E78.5 [id number] BALDEMAR Stovall , [facility], [address] [place] [address] 09/30/2020 10:10:58 10/04/2020 09:38:16 Adult health examination 000296037 Z00.00 see Risk Assessment and Lifestyle Change Counseling section above Depression screening 171 659486 Z13.89 depression screening tool administer ed, entered into emr, scored and discussed, time greater than 7.5 minutes Screening for alcohol abuse 657783351 Z13.39 Counseling 132129589 Z71 .89 Essential hypertension 00465156 I10 Continue to work on diet and exercise as discussed. Mixed hyperlipidemia 267 196242 E78.2 Cholestero l is at goal Continue to work on diet and exercise as discussed Screening for malignant neoplasm of colon 200478045 Z12.11 Referral for a DIRECT booked colonoscop y. This patient is a healthy ASA Class 1 or 2 patient (only mild systemic disease), or a STABLE, well controlled insulin dependent diabetic. They do not have serious cardiac disease ie NV/angiopl asty within 1 year, symptomati c CHF; renal failure with CKD 4 or 5; take Coumadin, Plavix, Aggrenox, etc. Pain in left foot 208418 3790 97441 M79.672 discussed resting, using heat- if persistant will check xray when no longer surge in pandemic Eruption 553736078 R21 [id number] Nohemi Jeronimo LPN , [facility], [address] [place] [address] 10/11/2020 07:19:39 10/11/2020 16:24:01 Active or passive immunization 164626253 Z23 [id number] Eileen Solano , [facility], [address] [place] [address] 10/11/2020 10:08:34 10/11/2020 16:55:30 Atrial fibrillation 67987057 I48.91 new onset afib in Nov 2019- continue xarelto 20 mg qd- reviewed no nsaids or aspirin, needs to take daily, ECHO & nuclear stress test were normal by [facility] with Cards/Dr Garcia 02/2020 and will continue to follow (declines recommenda tion to have Sleep Study, would not want CPAP) Right flank pain 2950564 09 R10.9 DDX: Renal stone vs M/S back pain with radiculopa thyno gross hematuriah x stones in the pastdeclin es strainerwi ll obtain UA/Culture Is managing her pain with Tylenol, declines further workup at this time addendum : UA shows 1+ blood, otherwise wnl. Enc hydration, time. Likely stone. Declines strainer Essential hypertension 97654122 I10 at goal,Goal < 130/80cont inue current medication s Screening mammography 24 069230 Z12.31 elects annual mammo [id number] BALDEMAR Stovall , [facility], [address] [place] [address] 05/29/2021 11:22:48 05/30/2021 09:27:14 Essential hypertension 09934944 I10 well controlled , Continue to work on diet and exercise as discussed. Mixed hyperlipidemia 267 174194 E78.2 Cholestero l is at goal Continue to work on diet and exercise as discussed Atrial fibrillation 4943 6004 I48.91 new onset afib in 2019- continue xarelto 20 mg qd- reviewed no nsaids or aspirin, needs to take daily, ECHO. nuclear stress test reviewed, vital - GISSELLE and pule- nl 02/08 at cardiology consult- reviewed with pt Screening for malignant neoplasm of colon 084120359 Z12.11 Referral for a DIRECT booked colonoscop y. This patient is a healthy ASA Class 1 or 2 patient (only mild systemic disease), or a STABLE, well controlled insulin dependent diabetic. They do not have serious cardiac disease ie NV/angiopl asty within 1 year, symptomati c CHF; renal failure with CKD 4 or 5; take Coumadin, Plavix, Aggrenox, etc. Kidney stone 57379598 N2 0.0 pt states no symptoms- has 'large 2 cm stone' symptoms subsided in past months, eval/urolo gist- to return for symptoms asneeded, reviewed nl bmp Low back pain 065046429 M54.5 chronic- hx scoliosis, recomnded PT Adult heal th examination 000104555 Z00.00 see Risk Assessment and Lifestyle Change Counseling section above [id number] Cee myers, PT Physical Therapy, [facility] [address] [place] [address] 06/25/2021 12:29:02 06/26/2021 11:04:13 Low back pain 296810990 M54.5 [id number] Cee myers, PT Physical Therapy, [facility] [address] [place] [address] 07/09/2021 12:07:40 07/09/2021 15:24:19 Low back pain 380089239 M54.5 [id number] Kermit Lux DPM Podiatry, [address] [address] 08/27/2021 10:49:56 08/27/2021 11:46:15 Pain in left foot 4566037168 05598 M79.672 Pronation of foot 604813 03 M21.6X9 [id number] BALDEMAR Stovall FP, [facility], [address] [place] [address] 09/25/2021 13:28:56 10/10/2021 14:32:29 Pre-surgery evaluation 890699246 Z01.818 pt cleared for surgery- nl cbc, bmp. and ekg showing pulse rate 54- good control. will hold xarelto 2 days prior to surgery Kidney stone 32107814 N2 0.0 pt states no symptoms- has 'large 2 cm stone' symptoms subsided in past months, eval/urolo gist- to return for symptoms asneeded, reviewed nl bmp Atrial fibrillation 4943 6004 I48.91 new onset afib in 2019- continue xarelto 20 mg qd- reviewed no nsaids or aspirin, needs to take daily, ECHO. nuclear stress test reviewed, [id number] BALDEMAR Stovall , [facility], [address] [place] [address] 10/09/2021 09:53:46 10/09/2021 11:17:21 Adult health examination 209698904 Z00.00 see Risk Assessment and Lifestyle Change Counseling section above Depression screening 171 650420 Z13.31 depression screening tool administer ed, entered into emr, scored and discussed, time greater than 7.5 minutes Screening for alcohol abuse 703659303 Z13.39 Counseling 113097831 Z71 .89 Essential hypertension 48499104 I10 well controlled , Continue to work on diet and exercise as discussed. Mixed hyperlipidemia 267 928873 E78.2 Cholestero l is at goal Continue to work on diet and exercise as discussed Atrial fibrillation 4943 6004 I48.91 stable- continue xarelto 20 mg qd- reviewed no nsaids or aspirin, needs to take daily, ECHO. nuclear stress test in past cardiology eval nl, Screening for malignant neoplasm of colon 135466532 Z12.11 Referral for a DIRECT booked colonoscop y. This patient is a healthy ASA Class 1 or 2 patient (only mild systemic disease), or a STABLE, well controlled insulin dependent diabetic. They do not have serious cardiac disease ie NV/angiopl asty within 1 year, symptomati c CHF; renal failure with CKD 4 or 5; take Coumadin, Plavix, Aggrenox, etc. Active or passive immunization 888198956 Z23 Morbid obesity 557063977 E66.01 continue weight loss with nutrtional and exericse [id number] Nitin Sanchez PA-C , [facility], [address] [place] [address] 04/29/2022 09:43:50 05/18/2022 16:49:49 Atrial fibrillation 91964652 I48.91 Avoiding Paxlovid due to concurrent Xarelto use for atrial fibrillati on. COVID-19 647937601 U07.1 Avoiding Paxlovid due to concurrent use of Xarelto.We discussed r/b/ae's of monoclonal antibody therapy, but Jania declines to pursue this. We disucssed supportive care including rest, fluids, OTC remedies as needed.F/U for worsening or failure to improve within 2-3 weeks. [id number] GIRMA Metzger, [facility], [address] [place] [address] 06/23/2022 13:37:15 06/30/2022 15:11:01 Blood in urine 33332789 R31.9 Went to ER with augustin hematuria on 06/21.Kidne y stones found on CT.Alisha betancur today.Advi sed taking bactrim as rxed in hospital to cover for possible infection. Has urology appt on Wednesday. Atrial fibrillation 4943 6004 I48.91 irregularl y irregular on exam today. Asymptomat ic. Stopped xarelto on wednesday due to gross hematuria which has since resolved. Advised to return to taking xarelto. Essential hypertension 69634478 I10 BP at goal today. Advised pt to continue medication , avoid salt in diet, and get regular exercise Calculus o f kidney and ureter 651932964 N20.2 5 mm and 6mm non-obstru cting stones found on CT in ER.Alisha betancur.Has appt with urology on wednesday. [id number] BALDEMAR Stovall, [facility], [address] [place] [address] 10/19/2022 09:43:47 10/19/2022 11:05:34 Adult health examination 921406316 Z00.00 see Risk Assessment and Lifestyle Change Counseling section above Counseling 052811625 Z71 .9 including cardiovasc ular risk reduction counseling Depression screening 171 994090 Z13.31 depression screening tool administer ed, entered into emr, scored and discussed, time greater than 7.5 minutes Screening for alcohol abuse 907575130 Z13.39 Blood in urine 86864469 R31.9 Morbid obesity 895766810 E66.01 continue weight loss with nutrtional and exericse Screening for malignant neoplasm of colon 227519924 Z12.11 prefers stool card. Atrial fibrillation 4943 6004 I48.91 stable- continue xarelto 20 mg qd- reviewed no nsaids or aspirin, needs to take daily, ECHO. nuclear stress test in past cardiology eval , 2019 Essential hypertension 13464396 I10 well controlled , Continue to work on diet and exercise as discussed. Kidney stone 44352778 N2 0.0 check UA, culture- has 2 stones- lithitrysy s this past yr 2021 [id number] Jessica Rockwell NP FP, [facility], [address] [place] [address] 12/30/2022 15:25:51 12/30/2022 16:39:05 Backache 735826246 M54.9 Recurrent kidney stone 8678647702 264953 N20.0 POC UA - + BloodRX tamsulosin 0.4mg daily.F/u if no improvemen t or for worsening sx. Blood in urine 95588085 R31.9 +Blood on UAKnown kidney stone - does not think it has passedHas f/u with urology in January. [id number] Jessica Rockwell NP FP, [facility], [address] [place] [address] 01/05/2023 14:15:58 01/05/2023 14:50:53 Kidney stone 84913800 N20.0 Followed by urology.Neal s f/u with urology in [facility] to break up 8mm stone in May 2022, still hasn't passed 1.8mmPain worsening, would like Kidney USShe will call Urology to see if they can get her in sooner and f/u for [place] [facility] if not. [id number] Jenny Rodríguez NP FP, [facility], [address] [place] [address] 01/29/2023 11:34:18 01/29/2023 13:50:05 Screening for malignant neoplasm of colon 102139944 Z12.11 Referral for a DIRECT booked colonoscop y. This patient is a healthy ASA Class 1 or 2 patient (only mild systemic disease), or a STABLE, well controlled insulin dependent diabetic. They do not have serious cardiac disease ie NV/angiopl asty within 1 year, symptomati c CHF; renal failure with CKD 4 or 5; take Coumadin, Plavix, Aggrenox, etc. Calculus o f kidney and ureter 691347499 N20.2 See below Right lowe r quadrant pain 571769861 R10.31 Pt worries this pain isn't from her kidney stones. Pain is intermitte nt, colicky, accompanie d by nausea when most severe. Seems to be in RLQ. Exam wnl. No tenderness to palpation of abdomen in office, no flank tenderness . Has know stones per recent u/s and f/u with urology next week. Reassured. They may order CT Scan so will hold off on any further imaging. If they don't feel her sx are from stones pt to f/u here. Pt deferred any pain meds - feels fine with taking just tylenol. [id number] BALDEMAR Stovall , [facility], [address] [place] [address] 10/20/2023 09:45:12 10/20/2023 17:07:03 Atrial fibrillation 92945715 I48.91 stable- continue xarelto 20 mg qd- reviewed no nsaids or aspirin, needs to take daily, ECHO. nuclear stress test in past cardiology eval nl, 2019 Morbid obesity 408750084 E66.01 continue weight loss with nutrtional and exericse/s hifting fodd intake to breakfast/ lunch Adult heal th examination 641148864 Z00.00 see Risk Assessment and Lifestyle Change Counseling section above Depression screening 171 366581 Z13.31 depression screening tool administer ed Screening for alcohol abuse 927269970 Z13.39 Alcohol use screening tool administer ed Essential hypertension 28000870 I10 well controlled , Continue to work on diet and exercise as discussed. Neck pain 03000510 M54.2 due to breast size- consult re breast reduction Counseled by member of primary health care team 459416816 Z71.9 Today we discussed ways to reduce your 10-year cardiovasc ular disease risk. Things that decrease risk for cardiovasc ular events include eating a diet high in fiber (fruits and vegetables ) and low in simple carbohydra floyd (bread, rice, pasta, alcohol, potatoes), decreasing processed foods, limiting juice and alcohol, limiting saturated fats (butter, ice cream, and cheeses), and adding regular daily activity. Having blood pressure that is <130/80. Having well controlled cholestero l (LDL and triglyceri malissa) by eating a healthy diet and taking medication s when necessary. Managing daily stress with meditation or yoga. Depending on your other cardiovasc ular risks your practition er may recommend taking daily aspirin. CV risk 5.7% with low BP ,LDL at goal, high HDL non smoker, exercising [id number] BALDEMAR Stovall, [facility], [address] [place] [address] 04/14/2023 10:38:37 04/14/2023 15:32:56 Atrial fibrillation 74165373 I48.91 stable- continue xarelto 20 mg qd- reviewed no nsaids or aspirin, needs to take daily, ECHO. nuclear stress test in past cardiology [facility]2019 Essential hypertension 37605322 I10 well controlled , Continue to work on diet and exercise as discussed. Pain of le ft knee region 9158083798 80468 M25.562 Kidney stone 31113740 N2 0.0 resolved- cont hydration [id number] BALDEMAR Stovall, [facility], [address] [place] [address] 04/07/2024 09:21:47 04/11/2024 12:06:37 Psoriasis 5036505 L40.9 Change from betamethas one cream to ointment Atrial fibrillation 4943 6004 I48.91 stable- continue xarelto 20 mg qd- reviewed no nsaids or aspirin, needs to take daily, ECHO. nuclear stress test in past cardiology [facility]2019 Counseled by member of primary health care team 085078628 Z71.9 Today we discussed ways to reduce your 10-year cardiovasc ular disease risk. Things that decrease risk for cardiovasc ular events include eating a diet high in fiber (fruits and vegetables ) and low in simple carbohydra floyd (bread, rice, pasta, alcohol, potatoes), decreasing processed foods, limiting juice and alcohol, limiting saturated fats (butter, ice cream, and cheeses), and adding regular daily activity. Having blood pressure that is <130/80. Having well controlled cholestero l (LDL and triglyceri malissa) by eating a healthy diet and taking medication s when necessary. Managing daily stress with meditation or yoga. Depending on your other cardiovasc ular risks your practition er may recommend taking daily aspirin. CV risk 7.2% Body mass index 40+ - severely obese 125161765 E66.01 maintainin g wt loss- with signif decrease intake and avoiding late night eating Health Concerns Section Related Observation LastModified by Organization Detai ls LastModified Time None Recorded Concern Status LastModified by Organization Details LastModified Time None Recorded Advance Directives Directive None Recorded Payers Encounter Date Sequence Insurance Name Policy Number Policy Alford Covered Member ID Alford Member ID Guarantor Name 01/05/2023 1 [facility] (MEDICARE REPLACEMENT/AD VANTAGE - PPO) Jania Mayo [id number] Jania Mayo 01/29/2023 1 [facility] - DOS PRIOR TO 2023 - MEDICARE ADVANTAGE [place] (MEDICARE REPLACEMENT/AD VANTAGE - PPO) Jania Mayo [id number] Jania Mayo 04/14/2023 2 [facility] ALLIANCE - DOS ON OR AFTER 2023 - ONE CARE (MEDICARE REPLACEMENT/AD VANTAGE - HMO) Jania Mayo [id number] Jania Mayo 10/20/2023 2 [facility] ALLIANCE - DOS ON OR AFTER 2023 - ONE CARE (MEDICARE REPLACEMENT/AD VANTAGE - HMO) Jania Mayo [id number] Jania Mayo 04/07/2024 2 [facility] C[facility] [employer] - DOS ON OR AFTER 2023 - ONE CARE (MEDICARE REPLACEMENT/AD VANTAGE - HMO) Jania Mayo [id number] Jania Mayo 04/07/2024 1 [place] [employer] Jania Mayo [id number] Jania Mayo Notes Date Note Type Note Provider Name and Address Organization Details Recorded Time 3 text/html 67 yr old female with known renal stonesUS 09/12,Followed by urology - but hasn't seen since AugustPassed 5ml kidney stone -Saw urologist - tent in L side for a week Pain is 8-9/10Woke up with nauseaFeels like stone is movingLocated on R sideWants US to see if this is cause Taking tamsulosin, hasn't helped or hurtNot seeing blood in urine Plans to call urologyTime for intake: {{1 2 3 4 5* 6 7 8 9 10 1 1 12 13 14 15 16 17 18 19 20 21 22 23 24 25}} minutes. Jessica Rockwell NP [address] [place], [address], [facility] 01/05/2023 21:45:54 3 text/html Patient is here for right sided pain- had kidney U/S done recently. Pain goes from a 2-8 when she eats & she gets nauseous. Pain is really lower right side to groin area. No falls or injuries. Gets nauseous with this pain. No urinary sx. Not sure this pain is from her kidney stones. Not seeing blood in urine. Sees urologist next week. Pain comes and goes - more persistent over the last month. Sometimes worse with eating. Walks/stands all day at work - pain will just come on out of the blue. Pain is stabby/achy in quality. When severe will last 30-45 mins. Lying down helps. Tylenol helps. Worried about possible appendicitis or other cause for her sx. Jenny Rodríguez NP [address] [place], [address], [facility] 01/29/2023 13:47:29 3 text/html Risk Assessment and Lifestyle Change Counseling 65+ (Medicare)Reported bypatient.Coronary Artery Disease Risk Assessment:Family History of Coronary Artery Disease; No personal history of diabetes; No history of peripheral vascular disease, AAA, or carotid disease; No personal history of coronary artery disease; Johnson 10 year risk Breast Cancer Risk Assessment:No family history of breast cancer; No history of breast cancer or dcis Colon Cancer Risk Assessment:No family history of pre cancerous colon polyps or cancer Lung Cancer Risk Assessment:Never smoked; No asbestos exposure Fracture Risk Assessment:No unexplained fracture; No use of corticosteroids; No anti-seizure medication; Has adequate calcium intake; Taking Vitamin D supplement; No chronic use of proton pump inhibitors Cognitive/Behavioral Risk Assessment:No personal history of mental illness; No family history of mental illness Safety Risk Assessment:No grab bars in bathroom; Has rails on steps; No falls; No evidence of abuse/neglect Functional Status:Patient does not have trouble hearing the television or radio when others do not.; Patient does not have to strain or struggle to hear/understand conversations; Patient does not need help with preparing meals, transportation, shopping, taking medicine, managing finances, or other activities of daily living.; Patient does not have visual loss that interferes with daily activities; Does not live alone; Patient was not unsteady and did not take longer than 30 seconds during the timed get up and go test.; Patient reports no falls in the past 6 months. Diet:Counseled about appropriate portion size; Counseled about eating a diet low in trans and saturated fats and high in fiber, fruits and vegetables; Counseled about the importance of maintaining a positive calcium balance and taking 1000 iu Vitamin D daily.; Counseled about decreasing carbohydrates; Counseled about decreasing salt in diet; Discussed the value of a Mediterranean diet , and eating more fruits and vegetables; pt has lower calcium diet due to calcium oxalate stones Exercise counseling:Discussed the importance of daily physical activity Safety:Counseled about protecting skin from the sun and lowering the risk of skin cancerVMG Atrial FibrillationReported bypatient.Durationchronic Control:usually well controlled; improved since last visit; taking medications as directed Associated Symptoms:no dizziness; No chest pain; No rapid heart rate; No shortness of breath; no lower extremity swelling Context:no congestive heart failure (75982)VMG HypertensionReported bypatient.Context:No ischemic heart disease; No kidney disease; No history of CVA; No congestive heart failure; No history of transient ischemic attacks; No peripheral vascular disease; No history of diabetes Control:Patient understands medications are to lower blood pressure Compliance:Compliant with medications; Compliant with exercise;Noncompliant with diet Self Care:not doing home bp monitoring Associated Symptoms:No chest pain; No shortness of breath; No edema; No fatigue; No palpitations; No decline in exercise capacity Medical Management. had urology consult- lithotripsy resolved, in 02/11- well hydrated. has GI eval tomorrow- due for colonoscopy fell in past winter with injury- twisted L knee pain- no swelling. on her feet for work all day. a nguyen- BALDEMAR Stovall [address] [place] [address], [phone], [facility] 04/14/2023 11:19:56 3 text/html Risk Assessment and Lifestyle Change Counseling 65+ (Medicare)Reported bypatient.Coronary Artery Disease Risk Assessment:Family History of Coronary Artery Disease; No personal history of diabetes; No history of peripheral vascular disease, AAA, or carotid disease; No personal history of coronary artery disease; Johnson 10 year risk Breast Cancer Risk Assessment:No family history of breast cancer; No history of breast cancer or dcis Colon Cancer Risk Assessment:No family history of pre cancerous colon polyps or cancer Lung Cancer Risk Assessment:Never smoked; No asbestos exposure Fracture Risk Assessment:No unexplained fracture; No use of corticosteroids; No anti-seizure medication; Has adequate calcium intake; Taking Vitamin D supplement; No chronic use of proton pump inhibitors Cognitive/Behavioral Risk Assessment:No personal history of mental illness; No family history of mental illness Safety Risk Assessment:No grab bars in bathroom; Has rails on steps; No falls; No evidence of abuse/neglect Functional Status:Patient does not have trouble hearing the television or radio when others do not.; Patient does not have to strain or struggle to hear/understand conversations; Patient does not need help with preparing meals, transportation, shopping, taking medicine, managing finances, or other activities of daily living.; Patient does not have visual loss that interferes with daily activities; Does not live alone;Patient was unsteady or takes longer than 30 seconds during the timed get up and go test.; Patient reports no falls in the past 6 months.; joint pain Diet:Counseled about appropriate portion size; Counseled about eating a diet low in trans and saturated fats and high in fiber, fruits and vegetables; Counseled about the importance of maintaining a positive calcium balance and taking 1000 iu Vitamin D daily.; Counseled about decreasing carbohydrates; Counseled about decreasing salt in diet; Discussed the value of a Mediterranean diet , and eating more fruits and vegetables; pt has lower calcium diet due to calcium oxalate stones Exercise counseling:Discussed the importance of daily physical activity Safety:Counseled about protecting skin from the sun and lowering the risk of skin cancerVMG Atrial FibrillationReported bypatient.Durationchronic Control:usually well controlled; improved since last visit; taking medications as directed Associated Symptoms:no dizziness; No chest pain; No rapid heart rate; No shortness of breath; no lower extremity swelling Context:no congestive heart failure ([id number])VMG HypertensionReported bypatient.Context:No ischemic heart disease; No kidney disease; No history of CVA; No congestive heart failure; No history of transient ischemic attacks; No peripheral vascular disease; No history of diabetes Control:Patient understands medications are to lower blood pressure Compliance:Compliant with medications; Compliant with exercise;Noncompliant with diet Self Care:not doing home bp monitoring Associated Symptoms:No chest pain; No shortness of breath; No edema; No fatigue; No palpitations; No decline in exercise capacity Pt presents for annual wvNo concerns BALDEMAR Stovall [address] [place] [address], [phone], [facility] 10/29/2023 13:01:23 4 text/html pt is here today for a f/u visit regarding high blood pressure. dahs diet, occ low salt. LEFT LEG- at knee and below- PAIN CONTS- x 1 yr, lessen pain with not on feet all day. BALDEMAR Stovall [address] [place] [address], [phone], [facility] 04/07/2024 10:26:14 OBGyn Episode No OBEpisode recorded.
== END 2025-01-16 17:05 | disposition home or self-care (01) ==
PROVIDERS: PCP Internal Medicine; Visit Provider Internal Medicine
DX: I48.0 Paroxysmal atrial fibrillation (principal); I10 Essential (primary) hypertension; E66.01 Morbid (severe) obesity due to excess calories; Z68.41 Body mass index [BMI] 40.0-44.9, adult; E78.00 Pure hypercholesterolemia, unspecified; L40.9 Psoriasis, unspecified; M17.12 Unilateral primary osteoarthritis, left knee; M54.6 Pain in thoracic spine; G89.29 Other chronic pain; N64.89 Other specified disorders of breast; N20.0 Calculus of kidney

== ENCOUNTER → 2025-01-16 16:08 | Outpatient (BNVA) | payer MEDICARE, SELFPAY | PROVIDERS: PCP Internal Medicine; Visit Provider Internal Medicine | DX: I48.0 Paroxysmal atrial fibrillation (principal); I10 Essential (primary) hypertension; E78.00 Pure hypercholesterolemia, unspecified; L40.9 Psoriasis, unspecified; M17.12 Unilateral primary osteoarthritis, left knee; M54.6 Pain in thoracic spine; G89.29 Other chronic pain; N64.89 Other specified disorders of breast; N20.0 Calculus of kidney; E66.01 Morbid (severe) obesity due to excess calories; Z68.41 Body mass index [BMI] 40.0-44.9, adult; Z71.3 Dietary counseling and surveillance | CPT/HCPCS: 96127; 99212 ==

== ENCOUNTER → 2025-02-06 08:36 | Outpatient (REF) | payer MEDICARE, SELFPAY ==
--- NOTE | 2025-02-06 08:41 | CA_ITS ---
Transthoracic Echocardiogram Patient (Last, First, Middle): Jania Velázquez L Gender: Female Date of : 1955 Age: 69 Procedure Date: 02/06/2025 Procedure Type: Transthoracic Echocardiogram Location: OP Height: 152.4 cm Weight: 97.52 kg BSA: 1.92 m2 Heart Rate: bpm BP: 118 / 60 mmHg Roll Up Helper: Referring MD: Jareth Benavidez MD [place] Carver: Yeison Linn MD Symptoms: I48.0 - Paroxysmal atrial fibrillation Study Quality: Adequate ECG Rhythm: Atrial Fibrillation Conclusions: - 1. Normal LV ejection fraction 55-60% 2. At least moderately dilated left atrium 3. Mild mitral regurgitation 4. Normal calculated RV systolic pressure 5. No gross pericardial effusion Findings Left Ventricle Normal left ventricular cavity size. There is normal left ventricular wall thickness. The left ventricular systolic function is borderline reduced. The visually estimated ejection fraction is between 55-60%. Spectral Doppler is indicative of a restrictive filling pattern. Right Ventricle Mildly increased right ventricular cavity size. There is normal right ventricular systolic function. Atria The left atrium is moderately dilated. There is no evidence of interatrial shunt. The right atrium is likely dilated. Aortic Valve Normal aortic valve structure and function. There is no aortic valve stenosis. There is no aortic valve regurgitation. Mitral Valve Normal mitral valve structure and function. There is mild mitral valve regurgitation. There is no mitral valve stenosis. Pulmonic Valve The pulmonic valve is likely normal. There is trace pulmonic valve regurgitation. Tricuspid Valve Normal tricuspid valve structure. There is mild tricuspid valve regurgitation. The right ventricular systolic pressure is normal. The right ventricular systolic pressure is 27 mmHg. Normal right atrial pressure. There is no evidence of pulmonary hypertension. Great Vessels All visible segments of the aorta are normal in size. The pulmonary artery was not well visualized. Venous The inferior vena cava is normal in size and collapses greater than 50% with inspiration. Pericardium/Pleural There is no evidence of pericardial effusion. Prior Study Comparison No prior study available for comparison. Measurements 2D Linear Measurements IVSd: 1.04 0.6-0.9/0.6-1.0 cm LVIDd: 4.26 3.9-5.3/4.2-5.9 cm LVIDd Index: 2.22 2.4-3.2/2.2-3.1 cm/m2 LVIDs: 2.92 2.0-3.6 cm LVPWd: 0.89 0.7-1.1 cm Ao Root: 2.90 2.1-3.5 cm LA Diam: 4.30 2.7-3.8/3.0-4.0 cm LAIDs Index: 2.24 1.5-2.3 cm/m2 LV Mass: 166.02 67-162/88-224 g LV Mass Index: 86.47 43-95/49-115 g/m2 LVOT Diam: 2.00 3.0+(-)1.3 cm 2D Systolic Function EF 4C: 55.80 >55% EF 2C: 51.10 >55% EF BiP: 54.30 >55% Mitral Valve MV Pk E: 0.98 MV Decel Time: 198.00 E'Lateral: 12.10 E'Medial: 8.49 E/E' Med: 11.50 E/E' Lat: 8.10 PHT: 58.00 MVA PHT: 3.79 Decel [place]: 4.93 Aortic Valve AoV Pk Allen: 1.18 AoV Mn Allen: 0.72 AoV VTI: 0.27 AoV Pk Grad: 6.00 Aov Mn Grad: 3.00 AUSTYN Cont.VTI: 1.93 LVOT LVOT Pk Allen: 0.76 LVOT Mn Allen: 0.46 LVOT VTI: 0.17 LVOT Pk Grad: 2.00 LVOT Mn Grad: 1.00 LVOT Diam: 2.00 LVOT Area: 3.14 Diastolic Function MV Pk E: 0.98 E'Medial: 8.49 E/E' Med: 11.50 E' Laterial: 12.10 E/E' Lat: 8.10 Right Ventricle TAPSE (mm): 21.00 TVS' Allen: 8.00 Tricuspid Valve TR Pk Allen: 2.45 TR Pk Grad: 24.00 RA Press: 3.00 RVSP: 27.00 Great Vessels Aorta Ao Root-2D: 2.90 2.0-3.7 cm Ao Asc: 3.00 2.1-3.4 cm Pulmonary Valve PV Pk Allen: 0.92 Peak PV Grad: 3.00 Updated in Other Vendor System with Status of Final Yeison Linn MD electronically signed on 02/06/2025 12:10:37 PM with status of Final
--- NOTE | 2025-02-06 08:41 | ECG_ITS ---
Test Reason : PAF Blood Pressure : */* mmHG Vent. Rate : 63 BPM Atrial Rate : * BPM P-R Int : * ms QRS Dur : 82 ms QT Int : 436 ms P-R-T Axes : * 45 162 degrees QTcB Int : 446 ms Atrial fibrillation Nonspecific ST and T wave abnormality Abnormal ECG No previous ECGs available Referred By: Jareth Benavidez Electronically Signed By: Mckay Clemens
--- OUTSIDE RECORDS SUMMARY | 2025-02-06 08:53 | XMS_ITS | Data Portability ---
Author Organization [facility], [facility] Address [address] [place] [address] Care Team Providers Care Professor Of Physics Name Role Phone SUSAN COSTA Primary Care Provider MARAH GARCIA Product Operations Associate MILO [employer] Tutor [phone] [facility] Urologist Assessment Encounter Date Assessment Date Assessment LastModified by Organization Details LastModified Time 01/05/2023 01/05/2023 Patient agreed t o this visit via a secure telehealth platform due to the COVID -19 pandemic. Patient understands this is a scheduled visit and the usual procedures with regard to billing and confidentiality apply. Patient was notified that the provider location is [facility] Patient location: home During the visit the patient? s medical history and medical record were reviewed. The patient was notified to call our office for worsening or urgent symptoms. [email or web address] Not available 01/05/2023 21:43:01 01/29/2023 01/29/2023 Enhanced [...] - request breast reduciton 2022 023 ATHENAX [facility], [address], [address], [place], [address], 3 12:20:42 Procedures colonoscop y procedure (PROC) 2022 023 judith [facility], [address] [facility], [place], [address], 3 08:27:43 Surgeries None recorded. Imaging None recorded. Medication Orders Xarelto 20 mg tablet [address] [facility], [address] [place], [address], 5 07:46:05 betamethas one valerate 0.1 % topical ointment 2023 025 [facility], [address] [place], [address], 5 07:46:15 diltiazem CD 300 mg capsule,ex tended release 24 hr [address] [facility], [address] [place], [address], 5 07:46:00 triamteren e 37.5 mg-hydroch lorothiazi de 25 mg capsule [address] [facility], [address] [place], [address], 5 07:46:04 Patient TargetsNo targets recorded. Patient Instructions Encounter Date Encounter Id Patient Instructions Last Modified By Organization Details Last Modified Time 04/14/2023 [id number] knee: exercises [email or web address] Not available 04/14/2023 11:17:51 After a discussi on of treatment options, which included consideration of best practices, patient preferences, and the patient? s individual lifestyle and treatment goals, as well as consideration and attempted mitigation of any barriers to meeting the patient? s goals, the following treatment plan and objectives were adopted: as above [email or web address] Not available 04/14/2023 11:18:28 10/20/2023 [id number] advance directives: care instructions [email or web address] Not available [...] reviewed. [email or web address] Not available 10/20/2023 10:46:06 04/07/2024 [id number] After a discussi on of treatment options, [...] UA glu UA NEGATI VE Not Available [facility] [address] [place] [address], [address], 12/30/2022 15:52:25 12/30/19 23 12/30/2022 POC UA clarity UA CLEAR Not Available [address], [address], 12/30/2022 15:52:25 12/30/19 23 12/30/2022 POC UA uro UA 0.2000 Not Available [facility] [address] [place] [address], [address], 12/30/2022 15:52:25 12/30/19 23 12/30/2022 POC UA ket UA NEGATI VE Not Available [facility] [address] [place] [address], [address], 12/30/2022 15:52:25 12/30/19 23 12/30/2022 POC UA pro UA NEGATI VE Not Available [facility] [address] [place] [address], [address], 12/30/2022 15:52:25 12/30/19 23 12/30/2022 POC UA nit UA NEGATI VE Not Available [facility] [address] [place] [address], [address], 12/30/2022 15:52:25 12/30/19 23 12/30/2022 POC UA jyoti UA NEGATI VE Not Available [facility] [address] [place] [address], [address], 12/30/2022 15:52:25 12/30/19 23 12/30/2022 POC UA pH UA 6.0000 Not Available [facility] [address] [place] [address], [address], 12/30/2022 15:52:25 12/30/19 23 12/30/2022 POC UA SG UA 1.0200 Not Available [facility] [address] [place] [address], [address], 12/30/2022 15:52:25 12/30/19 23 12/30/2022 POC UA color UA YELLOW Not Available [facility] [address] [place] [address], [address], 12/30/2022 15:52:25 12/30/19 23 12/30/2022 POC UA blo UA 3+ abnormal Not Available [facility] [address] [place] [address], [address], 12/30/2022 15:52:25 12/30/19 23 12/30/2022 POC UA viktoria UA NEGATI VE Not Available [facility] [address] [place] [address], [address], 12/30/2022 15:52:25 04/09/2004/12/2023 COMP. METAB OLIC PANEL glucose 84 mg/dL 70-100 Not Available [address], [address], 04/12/2023 09:45:06 04/09/20 23 04/12/2023 COMP. METAB OLIC PANEL BUN 19 mg/dL 7-18 high Not Available [address], [address], 04/12/2023 09:45:06 04/09/2004/12/2023 COMP. METAB OLIC PANEL creatinine 1.0 mg/dL 0.8-1. 3 Not Available [address], [address], 04/12/2023 09:45:06 04/09/20 23 04/12/2023 COMP. METAB OLIC PANEL B/C 19.0 ratio Not Available [address], [address], 04/12/2023 09:45:06 04/09/2004/12/2023 COMP. METAB OLIC PANEL [...] be used in pregn william. Not Available [address], [address], 04/12/2023 09:45:06 04/09/20 23 04/12/2023 COMP. METAB OLIC PANEL sodium 142 mmol/ L 136-14 5 Not Available [address], [address], 04/12/2023 09:45:06 04/09/20 23 04/12/2023 COMP. METAB OLIC PANEL potassium 4.1 mmol/ L 3.5-5. 1 Not Available [address], [address], 04/12/2023 09:45:06 04/09/20 23 04/12/2023 COMP. METAB OLIC PANEL chloride 103 mmol/ L 96-107 Not Available [address], [address], 04/12/2023 09:45:06 04/09/20 23 04/12/2023 COMP. METAB OLIC PANEL anion gap 8.3 5.0-15 .0 Not Available [address], [address], 04/12/2023 09:45:06 04/09/20 23 04/12/2023 COMP. METAB OLIC PANEL CO2 31 mmol/ L 21-32 Not Available [address], [address], 04/12/2023 09:45:06 04/09/20 23 04/12/2023 COMP. METAB OLIC PANEL calcium 9.7 mg/dL 8.5-10 .3 Not Available [address], [address], 04/12/2023 09:45:06 04/09/20 23 04/12/2023 COMP. METAB OLIC PANEL total protein 7.2 g/dL 6.4-8. 2 Not Available [address], [address], 04/12/2023 09:45:06 04/09/20 23 04/12/2023 COMP. METAB OLIC PANEL albumin 3.7 g/dL 3.4-5. 0 Not Available [address], [address], 04/12/2023 09:45:06 04/09/20 23 04/12/2023 COMP. METAB OLIC PANEL globulin 3.5 g/dL Not Available [address], [address], 04/12/2023 09:45:06 04/09/20 23 04/12/2023 COMP. METAB OLIC PANEL A/G 1.1 ratio 0.8-2. 0 Not Available [address], [address], 04/12/2023 09:45:06 04/09/20 23 04/12/2023 COMP. METAB OLIC PANEL total bilirubin 0.50 mg/dL 0.00-1 .00 Not Available [address], [address], 04/12/2023 09:45:06 04/09/20 23 04/12/2023 COMP. METAB OLIC PANEL AST 21 U/L 0-37 Not Available [address], [address], 04/12/2023 09:45:06 04/09/20 23 04/12/2023 COMP. METAB OLIC PANEL ALT 34 U/L 6-63 Not Available [address], [address], 04/12/2023 09:45:06 04/09/20 23 04/12/2023 COMP. METAB OLIC PANEL alk. phos. 85 U/L 50-136 Not Available [address], [address], 04/12/2023 09:45:06 06/16/20 23 06/17/2023 ANATO ESTELA PATHO LOGY path report [facility] [address] [facility] [place] dagoberto nicole, JOSE [address] Lab Direc tor: Jessica myers MD Surgi [...] ts To: Blake Gates MD, BS, MS Nuñez bonnie alcazar MD, BS Not Available [facility] (Outpatient) [address] [place] [address], [address], 06/17/2023 17:19:31 10/13/20 23 10/13/2023 CBC WBC 6.23 K/??L 3.98-1 0.04 Not Available [address], [address], 10/13/2023 12:35:34 10/13/20 23 10/13/2023 CBC RBC 5.05 M/??L 3.93-5 .22 Not Available [address], [address], 10/13/2023 12:35:34 10/13/20 23 10/13/2023 CBC HGB 15.1 g/dL 11.2-1 5.7 Not Available [address], [address], 10/13/2023 12:35:34 10/13/20 23 10/13/2023 CBC HCT 45.2 % 34.1-4 4.9 high Not Available [address], [address], 10/13/2023 12:35:34 10/13/20 23 10/13/2023 CBC MCV 89.5 fL 79.4-9 4.8 Not Available [address], [address], 10/13/2023 12:35:34 10/13/20 23 10/13/2023 CBC MCH 29.9 pg 25.6-3 2.2 Not Available [address], [address], 10/13/2023 12:35:34 10/13/20 23 10/13/2023 CBC MCHC 33.4 g/dL 32.2-3 5.5 Not Available [address], [address], 10/13/2023 12:35:34 10/13/20 23 10/13/2023 CBC plt 218 K/??L 182-36 9 Not Available [address], [address], 10/13/2023 12:35:34 10/13/20 23 10/13/2023 CBC MPV 9.9 fL 9.4-12 .3 Not Available [address], [address], 10/13/2023 12:35:34 10/13/20 23 10/13/2023 CBC neut% 65.9 % 34.0-7 1.1 Not Available [address], [address], 10/13/2023 12:35:34 10/13/20 23 10/13/2023 CBC neut# 4.11 1.56-6 .13 Not Available [address], [address], 10/13/2023 12:35:34 10/13/20 23 10/13/2023 CBC lymph % 21.2 % 19.3-5 1.7 Not Available [address], [address], 10/13/2023 12:35:34 10/13/20 23 10/13/2023 CBC lymph # 1.32 K/??L 1.18-3 .74 Not Available [address], [address], 10/13/2023 12:35:34 10/13/20 23 10/13/2023 CBC mono% 10.6 % 4.7-12 .5 Not Available [address], [address], 10/13/2023 12:35:34 10/13/20 23 10/13/2023 CBC mono# 0.66 0.24-0 .56 high Not Available [address], [address], 10/13/2023 12:35:34 10/13/20 23 10/13/2023 CBC eo% 1.3 % 0.7-5. 8 Not Available [address], [address], 10/13/2023 12:35:34 10/13/20 23 10/13/2023 CBC eo# 0.08 0.04-0 .36 Not Available [address], [address], 10/13/2023 12:35:34 10/13/20 23 10/13/2023 CBC baso% 0.8 % 0.1-1. 2 Not Available [address], [address], 10/13/2023 12:35:34 10/13/20 23 10/13/2023 CBC baso# 0.05 0.00-0 .08 Not Available [address], [address], 10/13/2023 12:35:34 10/13/20 23 10/13/2023 CBC RDW-CV 13.9 % 11.7-1 4.4 Not Available [address], [address], 10/13/2023 12:35:34 10/13/20 23 10/13/2023 CBC Ig% 0.200 % 0.000- 1.500 Ig % >0.5 Indic ates possi ble Left Shift Not Available [address], [address], 10/13/2023 12:35:34 11/22/10/13/2023 CBC Ig# 0.010 0.000- 0.093 Not Available [address], [address], 10/13/2023 12:35:34 10/13/20 23 10/13/2023 CBC NRBC% 0.0 % 0.0-0. 2 Not Available [address], [address], 10/13/2023 12:35:34 10/13/20 23 10/13/2023 CBC NRBC# 0.000 0.000- 0.012 Not Available [address], [address], 10/13/2023 12:35:34 10/13/20 23 10/18/2023 COMP. METAB OLIC PANEL glucose 90 mg/dL 70-100 Not Available [address], [address], 10/18/2023 11:59:50 10/13/20 23 10/18/2023 COMP. METAB OLIC PANEL BUN 19 mg/dL 7-18 high Not Available [address], [address], 10/18/2023 11:59:50 10/13/20 23 10/18/2023 COMP. METAB OLIC PANEL creatinine 0.9 mg/dL 0.8-1. 3 Not Available [address], [address], 10/18/2023 11:59:50 10/13/20 23 10/18/2023 COMP. METAB OLIC PANEL B/C 21.1 ratio Not Available [address], [address], 10/18/2023 11:59:50 10/13/20 23 10/18/2023 COMP. METAB [...] be used in pregn william. Not Available [address], [address], 10/18/2023 11:59:50 10/13/20 23 10/18/2023 COMP. METAB OLIC PANEL sodium 144 mmol/ L 136-14 5 Not Available [address], [address], 10/18/2023 11:59:50 10/13/20 23 10/18/2023 COMP. METAB OLIC PANEL potassium 4.1 mmol/ L 3.5-5. 1 Not Available [address], [address], 10/18/2023 11:59:50 10/13/20 23 10/18/2023 COMP. METAB OLIC PANEL chloride 103 mmol/ L 96-107 Not Available [address], [address], 10/18/2023 11:59:50 10/13/20 23 10/18/2023 COMP. METAB OLIC PANEL anion gap 11.7 5.0-15 .0 Not Available [address], [address], 10/18/2023 11:59:50 10/13/20 23 10/18/2023 COMP. METAB OLIC PANEL CO2 29 mmol/ L 21-32 Not Available [address], [address], 10/18/2023 11:59:50 10/13/20 23 10/18/2023 COMP. METAB OLIC PANEL calcium 9.8 mg/dL 8.5-10 .3 Not Available [address], [address], 10/18/2023 11:59:50 10/13/20 23 10/18/2023 COMP. METAB OLIC PANEL total protein 7.6 g/dL 6.4-8. 2 Not Available [address], [address], 10/18/2023 11:59:50 10/13/20 23 10/18/2023 COMP. METAB OLIC PANEL albumin 3.9 g/dL 3.4-5. 0 Not Available [address], [address], 10/18/2023 11:59:50 10/13/20 23 10/18/2023 COMP. METAB OLIC PANEL globulin 3.7 g/dL Not Available [address], [address], 10/18/2023 11:59:50 10/13/20 23 10/18/2023 COMP. METAB OLIC PANEL A/G 1.1 ratio 0.8-2. 0 Not Available [address], [address], 10/18/2023 11:59:50 10/13/20 23 10/18/2023 COMP. METAB OLIC PANEL total bilirubin 0.50 mg/dL 0.00-1 .00 Not Available [address], [address], 10/18/2023 11:59:50 10/13/20 23 10/18/2023 COMP. METAB OLIC PANEL AST 17 U/L 0-37 Not Available [address], [address], 10/18/2023 11:59:50 10/13/20 23 10/18/2023 COMP. METAB OLIC PANEL ALT 28 U/L 6-63 Not Available [address], [address], 10/18/2023 11:59:50 10/13/20 23 10/18/2023 COMP. METAB OLIC PANEL alk. phos. 89 U/L 50-136 Not Available [address], [address], 10/18/2023 11:59:50 10/13/20 23 10/18/2023 LIPID PANEL cholesterol 235 mg/dL <200 mg/dl Sim able 200-2 39 mg/dl Borde rline High >240 mg/dl High Not Available [address], [address], 10/18/2023 12:58:15 10/13/20 23 10/18/2023 LIPID PANEL triglyceride s 76 mg/dL <150 mg/dL Tiara l 150-1 99 mg/dL Borde rline High 200-4 99 mg/dL High >500 mg/dL Very High Not Available [address], [address], 10/18/2023 12:58:15 10/13/2010/18/2023 LIPID PANEL direct HDL 90 mg/dL <40 mg/dl - Major Risk for CHD >60 mg/dl - Negat louise Risk for CHD Not Available [address], [address], 10/18/2023 12:58:15 10/13/20 23 10/18/2023 LDL - [...] r is not hermanelier nguyen. Not Available [facility] [address] [facility], [place], [address], 10/18/2023 12:58:22 12/24/19 23 12/09/2022 bone densi [...] This scan was perfor med using the Kazeonar Prodig y Primo 10 densit ometer at [facility] , [place] [id number] [place]. Read by: Jessica Tim on, MS, BRAND ACTIVATION MANAGER-BC , CCD Zairein candido Physic carol: Thuan boothe [email or web address] [facility] (Imaging) [address], [place], [address], 12/28/2022 08:34:16 01/19/20 23 01/18/2023 US, retro [...] Readin g Physic carol: Rolando Pierson ms [facility] (Imaging) [address] , [place], [address], 01/29/2023 13:44:42 Result Notes None recorded. Problems Name Problem SNOMED Code Status Onset Date Resolution Date Notes Provider Name and Address Organization Details Recorded Time Mixed hyperlipi demia 048088354 Active BALDEMAR Stovall [address] [place] [address], [address] , [facility] 6 21:06:34 Essential hypertens ion 24059519 [facility] 5 12:19:06 Morbid obesity 251550748 Active 2016 BALDEMAR Stovall [address] [place] [address], [address] , [facility] 7 10:46:05 Psoriasis 8176404 Active 2018 BALDEMAR Stovall [address] [place] [address], , [facility] 9 11:04:40 Kidney stone 11751845 Active 2018 listhotrip sy 2006 BALDEMAR Stovall [address] [place] [address], , [facility] 1 11:56:19 Atrial fibrillat ion 95394134 Active 2019 BALDEMAR Stovall [address] [place] [address], [address] , [facility] 0 10:44:09 Adenomato us polyp of colon 757249717 Active 2022 Dr. Kody Abarca MD [address] [place] [address], [address] , [facility] 3 09:02:20 Problem Notes None recorded. Procedures Surgical History Date Name Laterality Status Provider Name and Address Organization Details Recorded Time 04/07/20 24 Cardiovascular disease risk reduction counseling completed BALDEMAR Stovall [address] [place], [address], [facility] 04/07/2024 10:00:28 10/20/20 23 Medicare Wellness Visit completed Bree Duke MA [facility] 10/20/2023 09:55:52 10/20/20 23 Cardiovascular disease risk reduction counseling completed BALDEMAR Stovall [address] [place], [address], [facility] 10/20/2023 10:46:53 10/19/20 22 Medicare Wellness Visit completed Suzanna Conte MA [facility] 10/19/2022 09:47:16 10/19/20 22 Alcohol use screening completed Suzanna Conte MA [facility] 10/19/2022 09:47:16 10/19/20 22 Cardiovascular disease risk reduction counseling completed Suzanna Conte MA [facility] 10/19/2022 09:47:16 07/09/20 21 29317: Therapeutic Exercise completed Cee Arredondo, PT [address] [place], [address], [facility] 07/09/2021 13:35:31 07/09/20 21 Treatment and Advice completed Cee Arredondo, PT [address] [place], [address], [facility] 07/09/2021 13:34:45 06/25/20 21 Physical Activity Counselling completed Cee Arredondo, PT [address] [place], [address], [facility] 06/25/2021 18:22:34 06/25/20 21 [id number]: PT Eval Low Complexity completed Cee Arredondo, PT [address] [place], [address], [facility] 06/25/2021 18:22:31 06/25/20 21 Treatment and Advice completed Cee Arredondo, PT [address] [place], [address], [facility] 06/25/2021 13:03:50 09/30/20 20 prevention-cardiov ascular risk reduction counseling completed Amparo Robles MA [facility] 09/30/2020 10:11:37 09/30/20 20 prevention-annual alcohol misuse screening completed Amparo Robles MA [facility] 09/30/2020 10:11:37 08/20/20 20 Telephonic Visit completed Karo [facility] 08/20/2020 16:35:10 01/02/20 19 Refraction completed Gerdadustin Banuelos [facility] 01/02/2019 11:12:01 07/07/20 18 Incise and Drain without packing completed Carmelo Osorio NP [address] [place] [address], [address], [facility] 07/11/2018 08:18:43 Fragmenting of kidney stone completed BALDEMAR Stovall [address] [place] [address], [address], [facility] 09/19/2018 10:23:07 Hysterectomy/bettina e vagina completed Eusebia nugent, PABrittneyC [address] [place] [address], [address], [facility] 10/11/2020 11:37:05 Imaging Results Imaging Date Name Status LastModified by Organization Details LastModified Time 12/09/2022 bone density completed [address] [facility] (Imaging) [address] [place], [address], 12/28/2022 08:34:16 01/18/2023 US, retroperitoneum completed [facility] ([facility]) [address] [place], [address], 01/29/2023 13:44:42 Procedure Notes None recorded. Medical Equipment None Reported. Allergies Allergen ID Allergen Name Allergen Category Reaction Reaction Severity Criticality Documentation Date Start Date Code Code System Note Provider Name and Address Organization Details Recorded Time 428810 codeine medicatio n nausea Not available Not available 05/02/2015 2670 RxNorm JOSE Wild, [facility] 5 09:57:56 Medications Name Sig Start Date [...] Updated DateTime 3 153.67 cm 39.1 kg/m2 05652.0 5 g 7 % 7 % 58 /min 98 mm[Hg] 52 mm[Hg] Laura [facility] 3 11:50:08 Date Recorded Body height Body mass index (BMI) Body weight Heart rate Oxygen saturation Oxygen saturation in Arterial blood by Pulse oximetry Systolic blood pressure Diastolic blood pressure Provider Name and Address Organization Details Last Updated DateTime 3 153.67 cm 39.2 kg/m2 11423.8 4 g 54 /min 99 % 99 % 108 mm[Hg] 62 mm[Hg] BRYN Urbano [facility] 3 10:49:55 Date Recorded Body height Body mass index (BMI) Body weight Heart rate Systolic blood pressure Diastolic blood pressure Provider Name and Address Organization Details Last Updated DateTime 3 152.4 cm 40.3 kg/m2 79050.4 7 g 72 /min 112 mm[Hg] 68 mm[Hg] Bree Duke MA [facility] 3 10:04:33 Date Recorded Body height Body mass index (BMI) Body weight Heart rate Oxygen saturation Oxygen saturation in Arterial blood by Pulse oximetry Systolic blood pressure Diastolic blood pressure Provider Name and Address Organization Details Last Updated DateTime 4 152.4 cm 40.1 kg/m2 17032.2 4 g 67 /min 98 % 98 % 118 mm[Hg] 62 mm[Hg] Jessica Voss MA [facility] 4 09:31:12 Social History Question Answer Notes LastModified by Organizat ion Details LastModified Time Tobacco Smoking Status [facility] 05/02/2015 10:01:36 What Is Your Level Of Alcohol Consumption? Occasional 1 Glass In Month Information not available 12/24/2016 What Is Your Level Of Caffeine Consumption? Moderate 2 Cups Of Tea In AM Information not available 10/19/2022 How Much Tobacco Do You Chew? None Information not available 05/02/2015 Are You Currently Employed? Yes [email or web address] Information not available 10/19/2022 What Type Of [...] available 05/02/2015 Are You Sexually Active? No Information not available 10/19/2022 Smoke Alarm In Home Yes Information not available 05/02/2015 Do You Have Smoke And Carbon Monoxide Detectors In Your Home? Yes Information not available 10/09/2021 Are You Passively Exposed To Smoke? No [email or web address] Information not available 10/19/2022 Do You Or [...] available 04/14 11:03:27 Medical History Condition Response Hyperlipidemia Y Kidney Stones Y Hypertension Y psoriasis Y Gynecological History Statement/Question Response Menses Monthly N Hysterectomy Y History of Abnormal Pap Y Obstetrics History GPAL:G 0 P 0 0 0 0 Immunizations Vaccine Type Date Status Note Provider Nam e and Address Organization Details Recorded Time Influenza, split virus, quadrivalent, PF 6 completed Not Available [facility] 12/09/2019 02:34:16 Tdap 6 completed Not Available [facility] 12/09/2019 02:37:10 Influenza, split virus, quadrivalent, PF 8 completed Not Available [facility] 12/09/2019 02:38:53 Influenza, split virus, quadrivalent, PF 9 completed Not Available [facility] 12/09/2019 02:24:33 Influenza, split virus, quadrivalent, PF 0 completed AVELINA Scott, [facility] 10/11/2020 10:10:37 Influenza, split virus, quadrivalent, PF 1 completed BALDEMAR Stovall [address] [place] [address], [address], [facility] 10/09/2021 11:18:06 zoster recombinant 0 completed AVELINA Scott, [facility] 08/27/2024 10:23:13 zoster recombinant 1 completed AVELINA Scott, [facility] 08/27/2024 10:23:13 COVID-19 vaccine, vector-nr, rS-Ad26, PF, 0.5 mL 1 completed Nohemi Jeronimo LPN danna, [facility] 08/27/2024 10:23:13 COVID-19, mRNA, LNP-S, bivalent, PF, 30 mcg/0.3 mL dose 2 completed Nohemi Jeronimo LPN danna, [facility] 08/27/2024 10:23:13 Pneumococcal conjugate PCV20, polysaccharide [id number] conjugate, adjuvant, PF 2 completed Nohemi Jeronimo LPN null, [facility] 08/27/2024 10:23:13 Influenza, high-dose, quadrivalent, PF 3 completed Nohemi Jeronimo LPN danna, [facility] 08/27/2024 10:23:13 Influenza, recombinant, quadrivalent, PF 2 completed Nohemi Jeronimo LPN danna, [facility] 08/27/2024 10:23:13 COVID-19 vaccine, vector-nr, rS-Ad26, PF, 0.5 mL 1 completed Nohemi Jeronimo LPN null, [facility] 08/27/2024 10:23:13 Influenza, high-dose, trivalent, PF 4 completed oNhemi Jeronimo LPN null, [facility] 08/27/2024 10:23:57 Past Encounters Encounter ID Performer Location Encounter Start Date Encounter Closed Date Diagnosis/Indication Diagnosis SNOMED-CT Code Diagnosis ICD10 Code Diagnosis Note [id number] BALDEMAR Stovall , [facility], OFFICE [address] [place] [address] 05/02/2015 09:47:38 05/02/2015 10:41:19 Knee pain 18605555 discussed exercise, avoiding overuse- f/u if not resolving in 2-4 wks- sooner any worsening. [id number] Presley Lake MD , [facility], [address] [place] [address] 07/05/2015 15:48:07 07/05/2015 16:26:20 Plantar fasciitis 514364825 [id number] , [facility], [address] [place] [address] 07/18/2015 09:53:24 07/18/2015 11:12:16 Adult health examination [id number] refused flu shot despite knowing risk of flu and , see Risk Assessment and Lifestyle Change Counseling section above Counseling [id number] Screening for malignant neoplasm of cervix 152595714 Essential hypertension 89508119 Mixed hyperlipidemia 501120568 [id number] BALDEMAR Stovall, [facility], [address] [place] [address] 01/13/2016 16:09:38 01/13/2016 17:26:21 Benign essential hypertension 6375167 I10 Blood pressure at goal Mixed hyperlipidemia 267 643081 E78.2 Cholestero l is at goal Continue to work on diet and exercise as discussed Psoriasis 3624154 L40.9 [id number] BALDEMAR Stovall, [facility], [address] [place] [address] 02/20/2016 11:19:36 02/20/2016 11:59:14 Hip pain 66475740 M25.551 call with radiology report- negative- sx tx reviewed- f/u if not resolving in 2-4 wks- sooner any worsening [id number] BALDEMAR Stovall, [facility], [address] [place] [address] 09/28/2016 13:13:25 09/28/2016 14:50:06 Strain of neck muscle 802371503 S16.1XXA Mixed hyperlipidemia 267 582086 E78.2 Cholestero l is at goal Continue to work on diet and exercise as discussed Active or passive immunization 694430059 Z23 [id number] BALDEMAR Stovall, [facility], [address] [place] [address] 12/24/2016 09:28:55 12/24/2016 10:46:38 Adult health examination 693456827 Z00.00 see Risk Assessment and Lifestyle Change Counseling section above Benign ess ential hypertension 3695376 I10 Blood pressure at goal Mixed hyperlipidemia 267 038152 E78.2 Cholestero l is at goal Cholestero l is not at goal Continue to work on diet and exercise as discussed Screening for malignant neoplasm of colon 977263440 Z12.11 declines colonoscop y, will do stool cards Morbid obesity 670721313 E66.01 [id number] BALDEMAR Stovall, [facility], [address] [place] [address] 05/09/2018 08:59:58 05/09/2018 10:43:17 Benign essential hypertension 6885888 I10 Blood pressure at goal Mixed hyperlipidemia 267 749635 E78.2 Cholestero l is at goal Continue to work on diet and exercise as discussed Screening mammography 24 541182 Z12.31 Screening for malignant neoplasm of colon 636680862 Z12.11 declined despite knowing risk of colon cancer and Strain of neck muscle 36 3940033 S16.1XXA [id number] BALDEMAR Stovall, [facility], [address] [place] [address] 06/20/2018 08:44:57 06/20/2018 09:38:27 Screening for malignant neoplasm of colon 078594441 Z12.11 Referral for a DIRECT booked colonoscop y. This patient is a healthy ASA Class 1 or 2 patient (only mild systemic disease), or a STABLE, well controlled insulin dependent diabetic. They do not have serious cardiac disease ie CA/angiopl asty within 1 year, symptomati c CHF; renal failure with CKD 4 or 5; take Coumadin, Plavix, Aggrenox, etc. Benign ess ential hypertension 8485983 I10 Blood pressure at goal [id number] Carmelo Osorio NP , [facility], [address] [place] [address] 07/07/2018 11:41:46 07/07/2018 16:25:19 Abscess 616019596 L02.91 beneath left breast. approx 4cm. xylocain with epi, open center of abscess. forceps to explore- remainder of exudate expressed, culture done. DSD appliedrec ommend warm compresses and DSD until closed. She will FU if fever, heat or erythema dev elop.pt states agreement and understand ing with this plan. [id number] BALDEMAR Stovall, [facility], [address] [place] [address] 09/19/2018 09:40:57 09/19/2018 10:50:36 Adult health examination 560989770 Z00.00 see Risk Assessment and Lifestyle Change Counseling section above Depression screening 171 767760 Z13.89 depression screening tool administer ed, entered into emr, scored and discussed, time greater than 7.5 minutes Mixed hyperlipidemia 267 284054 E78.2 Cholestero l is at goal Continue to work on diet and exercise as discussed Benign ess ential hypertension 0951956 I10 Blood pressure at goal Psoriasis 2704423 L40.9 Essential hypertension 74258425 I10 Morbid obesity 172662838 E66.01 Active or passive immunization 747626390 Z23 [id number] Leo Tai MD , [facility], [address] [place] [address] 09/24/2018 09:34:29 09/24/2018 11:33:20 Morbid obesity 174564331 E66.01 Essential hypertension 07697301 I10 Continue current regimen. Pain in left knee 861323 5522 86484 M25.562 Likely strain. Medial knee tenderness . No warmth/ins tability. Discussed Ibuprofen in short term- reviewed R/B/A. May use tylenol in between if needed. Offered PT- she declined for now. [id number] Hailee Goodman, [facility], [facility] [address] [place] [address] 01/02/2019 10:39:56 01/02/2019 12:02:00 Hyperopic astigmatism 074381784 H52.03 Ophthalmic examination and evaluation 26358114 Z01.00 ocular health wnl OU; asymmetric IOP OS>OD. pt ed, monitor 1 yr CEE or prn [id number] BALDEMAR Stovall , [facility], [address] [place] [address] 09/25/2019 09:47:35 09/25/2019 11:08:14 Adult health examination 300516608 Z00.00 see Risk Assessment and Lifestyle Change Counseling section above Depression screening 171 531587 Z13.89 depression screening tool administer ed, entered into emr, scored and discussed, time greater than 7.5 minutes Mixed hyperlipidemia 267 167719 E78.2 Cholestero l is at goal. Continue to work on diet and exercise as discussed Essential hypertension 27481201 I10 At goal. Continue to work on diet and exercise as discussed. Active or passive immunization 609753406 Z23 Psoriasis 4249038 L40.9 Change from betamethas one cream to ointment Screening for malignant neoplasm of cervix 042925409 Z12.4 declined despite knowing risk of contractin g disease and potential from disease, agrees to reschedule for pap in coming 6months Multiple joint pain 3567 8005 M25.50 Continue to work on diet and exercise as discussed. better arch support, rom exercises to lessen foot and ankle pain. Neck pain 67648238 M54.[address] Flores for breast reduction surgery. Screening mammography 24 842426 Z12.31 f/u 1 yr recommende d Screening for malignant neoplasm of colon 850099807 Z12.11 Referral for a DIRECT booked colonoscop y. This patient is a healthy ASA Class 1 or 2 patient (only mild systemic disease), or a STABLE, well controlled insulin dependent diabetic. They do not have serious cardiac disease ie CA/angiopl asty within 1 year, symptomati c CHF; renal failure with CKD 4 or 5; take Coumadin, Plavix, Aggrenox, etc. Kidney stone 47332632 N2 0.0 pt states no symptoms- eval/urolo gist- to return for symptoms asneeded, reviewed nl [facility] [id number] Sonya Loza LPN FP, [facility], [address] [place] [address] 12/22/2019 11:44:17 12/22/2019 13:12:42 Atrial fibrillation 56304126 I48.91 new onset afib- start xarelto 20 mg qd- reviewed no nsaids or aspirin, needs to take daily, ECHO to schedule, cardiology referral to consider cardiovers ion, Morbid obesity 615574122 E66.01 continue weight loss with nutrtional and exericse [id number] BALDEMAR Stovall , [facility], [address] [place] [address] 03/25/2020 10:44:53 03/26/2020 12:43:17 Essential hypertension 50705903 I10 At goal. Continue to work on diet and exercise as discussed. Mixed hyperlipidemia 267 185572 E78.2 Cholestero l is at goal. Continue to work on diet and exercise as discussed Atrial fibrillation 4943 6004 I48.91 new onset afib- continue xarelto 20 mg qd- reviewed no nsaids or aspirin, needs to take daily, ECHO. nuclear stress test reviewed, vital - GISSELLE and pule- nl 02/08 at cardiology consult- reviewed with pt Pain in left foot 902301 9814 56379 M79.672 discussed resting, using heat- if persistant will check xray when no longer surge in pandemic [id number] Anushka Curry MD , [facility], [address] [place] [address] 08/20/2020 17:31:03 08/22/2020 14:50:02 Screening mammography 61174589 Z12.31 Benign ess ential hypertension 4181684 I10 check labs Bleeding from nose 86902 6005 R04.0 check labs; by descriptio n small nosebleeds . reassured should stop within a week, or seek care from us again. NOte that she is not pleased about not beign seen in person; all regular screening labs and screening was ordered for her. Screening for malignant neoplasm of colon 992154218 Z12.11 Referral for a DIRECT booked colonoscop y. This patient is a healthy ASA Class 1 or 2 patient (only mild systemic disease), or a STABLE, well controlled insulin dependent diabetic. They do not have serious cardiac disease ie CA/angiopl asty within 1 year, symptomati c CHF; renal failure with CKD 4 or 5; take Coumadin, Plavix, Aggrenox, etc. Hyperlipidemia 61704736 E78.5 [id number] BALDEMAR Stovall , [facility], [address] [place] [address] 09/30/2020 10:10:58 10/04/2020 09:38:16 Adult health examination 454481512 Z00.00 see Risk Assessment and Lifestyle Change Counseling section above Depression screening 171 828716 Z13.89 depression screening tool administer ed, entered into emr, scored and discussed, time greater than 7.5 minutes Screening for alcohol abuse 457882174 Z13.39 Counseling 928607080 Z71 .89 Essential hypertension 84124102 I10 Continue to work on diet and exercise as discussed. Mixed hyperlipidemia 267 517554 E78.2 Cholestero l is at goal Continue to work on diet and exercise as discussed Screening for malignant neoplasm of colon 754266786 Z12.11 Referral for a DIRECT booked colonoscop y. This patient is a healthy ASA Class 1 or 2 patient (only mild systemic disease), or a STABLE, well controlled insulin dependent diabetic. They do not have serious cardiac disease ie CA/angiopl asty within 1 year, symptomati c CHF; renal failure with CKD 4 or 5; take Coumadin, Plavix, Aggrenox, etc. Pain in left foot 990543 4151 48856 M79.672 discussed resting, using heat- if persistant will check xray when no longer surge in pandemic Eruption 083331034 R21 [id number] Nohemi Jeronimo LPN , [facility], [address] [place] [address] 10/11/2020 07:19:39 10/11/2020 16:24:01 Active or passive immunization 614989842 Z23 [id number] Eileen Solano , [facility], [address] [place] [address] 10/11/2020 10:08:34 10/11/2020 16:55:30 Atrial fibrillation 03570065 I48.91 new onset afib in Nov 2019- continue xarelto 20 mg qd- reviewed no nsaids or aspirin, needs to take daily, ECHO & nuclear stress test were normal by [facility] with Cards/Dr Garcia 02/2020 and will continue to follow (declines recommenda tion to have Sleep Study, would not want CPAP) Right flank pain 3152791 09 R10.9 DDX: Renal stone vs M/S back pain with radiculopa thyno gross hematuriah x stones in the pastdeclin es strainerwi ll obtain UA/Culture Is managing her pain with Tylenol, declines further workup at this time addendum : UA shows 1+ blood, otherwise wnl. Enc hydration, time. Likely stone. Declines strainer Essential hypertension 26297627 I10 at goal,Goal < 130/80cont inue current medication s Screening mammography 24 851154 Z12.31 elects annual mammo [id number] BALDEMAR Stovall , [facility], [address] [place] [address] 05/29/2021 11:22:48 05/30/2021 09:27:14 Essential hypertension 59773538 I10 well controlled , Continue to work on diet and exercise as discussed. Mixed hyperlipidemia 267 551160 E78.2 Cholestero l is at goal Continue to work on diet and exercise as discussed Atrial fibrillation 4943 6004 I48.91 new onset afib in 2019- continue xarelto 20 mg qd- reviewed no nsaids or aspirin, needs to take daily, ECHO. nuclear stress test reviewed, vital - GISSELLE and pule- nl 02/08 at cardiology consult- reviewed with pt Screening for malignant neoplasm of colon 882763285 Z12.11 Referral for a DIRECT booked colonoscop y. This patient is a healthy ASA Class 1 or 2 patient (only mild systemic disease), or a STABLE, well controlled insulin dependent diabetic. They do not have serious cardiac disease ie CA/angiopl asty within 1 year, symptomati c CHF; renal failure with CKD 4 or 5; take Coumadin, Plavix, Aggrenox, etc. Kidney stone 15604099 N2 0.0 pt states no symptoms- has 'large 2 cm stone' symptoms subsided in past months, eval/urolo gist- to return for symptoms asneeded, reviewed nl bmp Low back pain 008444869 M54.5 chronic- hx scoliosis, recomnded PT Adult heal th examination 302842897 Z00.00 see Risk Assessment and Lifestyle Change Counseling section above [id number] Cee myers, PT Physical Therapy, [facility] [address] [place] [address] 06/25/2021 12:29:02 06/26/2021 11:04:13 Low back pain 643178562 M54.5 [id number] Cee myers, PT Physical Therapy, [facility] [address] [place] [address] 07/09/2021 12:07:40 07/09/2021 15:24:19 Low back pain 898066446 M54.5 [id number] Kermit Lux DPM Podiatry, [address] [address] 08/27/2021 10:49:56 08/27/2021 11:46:15 Pain in left foot 5706266158 64324 M79.672 Pronation of foot 747584 03 M21.6X9 [id number] BALDEMAR Stovall FP, [facility], [address] [place] [address] 09/25/2021 13:28:56 10/10/2021 14:32:29 Pre-surgery evaluation 111479156 Z01.818 pt cleared for surgery- nl cbc, bmp. and ekg showing pulse rate 54- good control. will hold xarelto 2 days prior to surgery Kidney stone 51985081 N2 0.0 pt states no symptoms- has 'large 2 cm stone' symptoms subsided in past months, eval/urolo gist- to return for symptoms asneeded, reviewed nl bmp Atrial fibrillation 4943 6004 I48.91 new onset afib in 2019- continue xarelto 20 mg qd- reviewed no nsaids or aspirin, needs to take daily, ECHO. nuclear stress test reviewed, [id number] BALDEMAR Stovall , [facility], [address] [place] [address] 10/09/2021 09:53:46 10/09/2021 11:17:21 Adult health examination 221092104 Z00.00 see Risk Assessment and Lifestyle Change Counseling section above Depression screening 171 637577 Z13.31 depression screening tool administer ed, entered into emr, scored and discussed, time greater than 7.5 minutes Screening for alcohol abuse 053457094 Z13.39 Counseling 633821818 Z71 .89 Essential hypertension 57607287 I10 well controlled , Continue to work on diet and exercise as discussed. Mixed hyperlipidemia 267 487462 E78.2 Cholestero l is at goal Continue to work on diet and exercise as discussed Atrial fibrillation 4943 6004 I48.91 stable- continue xarelto 20 mg qd- reviewed no nsaids or aspirin, needs to take daily, ECHO. nuclear stress test in past cardiology eval nl, Screening for malignant neoplasm of colon 962005080 Z12.11 Referral for a DIRECT booked colonoscop y. This patient is a healthy ASA Class 1 or 2 patient (only mild systemic disease), or a STABLE, well controlled insulin dependent diabetic. They do not have serious cardiac disease ie CA/angiopl asty within 1 year, symptomati c CHF; renal failure with CKD 4 or 5; take Coumadin, Plavix, Aggrenox, etc. Active or passive immunization 872137559 Z23 Morbid obesity 958221854 E66.01 continue weight loss with nutrtional and exericse [id number] Nitin Sanchez PA-C , [facility], [address] [place] [address] 04/29/2022 09:43:50 05/18/2022 16:49:49 Atrial fibrillation 47650022 I48.91 Avoiding Paxlovid due to concurrent Xarelto use for atrial fibrillati on. COVID-19 771685088 U07.1 Avoiding Paxlovid due to concurrent use of Xarelto.We discussed r/b/ae's of monoclonal antibody therapy, but Jania declines to pursue this. We disucssed supportive care including rest, fluids, OTC remedies as needed.F/U for worsening or failure to improve within 2-3 weeks. [id number] GIRMA Metzger, [facility], [address] [place] [address] 06/23/2022 13:37:15 06/30/2022 15:11:01 Blood in urine 58148819 R31.9 Went to ER with augustin hematuria [...] to return to taking xarelto. Essential hypertension 30123302 I10 BP at goal today. Advised pt to continue medication , avoid salt in diet, and get regular exercise Calculus o f kidney and ureter 875286869 N20.2 5 mm and 6mm non-obstru cting stones found on CT in ER.Alisha betancur.Has appt with urology on wednesday. [id number] BALDEMAR Stovall, [facility], [address] [place] [address] 10/19/2022 09:43:47 10/19/2022 11:05:34 Adult health examination 563863203 Z00.00 see Risk Assessment and Lifestyle Change Counseling section above Counseling 984528620 Z71 .9 including cardiovasc ular risk reduction counseling Depression screening 171 265612 Z13.31 depression screening tool administer ed, entered into emr, scored and discussed, time greater than 7.5 minutes Screening for alcohol abuse 793260746 Z13.39 Blood in urine 50184478 R31.9 Morbid obesity 002260218 E66.01 continue weight loss with nutrtional and exericse Screening for malignant neoplasm of colon 628461230 Z12.11 prefers stool card. Atrial fibrillation 4943 6004 I48.91 stable- continue xarelto 20 mg qd- reviewed no nsaids or aspirin, needs to take daily, ECHO. nuclear stress test in past cardiology eval , 2019 Essential hypertension 81522667 I10 well controlled , Continue to work on diet and exercise as discussed. Kidney stone 34555241 N2 0.0 check UA, culture- has 2 stones- lithitrysy s this past yr 2021 [id number] Jessica Rockwell NP FP, [facility], [address] [place] [address] 12/30/2022 15:25:51 12/30/2022 16:39:05 Backache 649936629 M54.9 Recurrent kidney stone 4318814228 764057 N20.0 POC UA - + BloodRX tamsulosin 0.4mg daily.F/u if no improvemen t or for worsening sx. Blood in urine 35051285 R31.9 +Blood on UAKnown kidney stone - does not think it has passedHas f/u with urology in January. [id number] Jessica Rockwell NP FP, [facility], [address] [place] [address] 01/05/2023 14:15:58 01/05/2023 14:50:53 Kidney stone 60252008 N20.0 Followed by urology.Neal s f/u with urology in [facility] to break up 8mm stone in May 2022, still hasn't passed 1.8mmPain worsening, would like Kidney USShe will call Urology to see if they can get her in sooner and f/u for US at [facility] if not. [id number] Jenny Rodríguez NP FP, [facility], [address] [place] [address] 01/29/2023 11:34:18 01/29/2023 13:50:05 Screening for malignant neoplasm of colon 910672055 Z12.11 Referral for a DIRECT booked colonoscop y. This patient is a healthy ASA Class 1 or 2 patient (only mild systemic disease), or a STABLE, well controlled insulin dependent diabetic. They do not have serious cardiac disease ie CA/angiopl asty within 1 year, symptomati c CHF; renal failure with CKD 4 or 5; take Coumadin, Plavix, Aggrenox, etc. Calculus o f kidney and ureter 268696758 N20.2 See below Right lowe r quadrant pain 415318575 R10.31 Pt worries this pain isn't from [...] - feels fine with taking just tylenol. [id number] BALDEMAR Stovall , [facility], [address] [place] [address] 10/20/2023 09:45:12 10/20/2023 17:07:03 Atrial fibrillation 88355612 I48.91 stable- continue xarelto 20 mg qd- reviewed no nsaids or aspirin, needs to take daily, ECHO. nuclear stress test in past cardiology eval nl, 2019 Morbid obesity 789475923 E66.01 continue weight loss with nutrtional and exericse/s hifting fodd intake to breakfast/ lunch Adult heal th examination 646176704 Z00.00 see Risk Assessment and Lifestyle Change Counseling section above Depression screening 171 091260 Z13.31 depression screening tool administer ed Screening for alcohol abuse 037784707 Z13.39 Alcohol use screening tool administer ed Essential hypertension 61576520 I10 well controlled , Continue to work on diet and exercise as discussed. Neck pain 82431437 M54.2 due to breast size- consult re breast reduction Counseled by member of primary health care team 236519428 Z71.9 Today we discussed ways to reduce [...] at goal, high HDL non smoker, exercising [id number] BALDEMAR Stovall, [facility], [address] [place] [address] 04/14/2023 10:38:37 04/14/2023 15:32:56 Atrial fibrillation 53169784 I48.91 stable- continue xarelto 20 mg qd- reviewed no nsaids or aspirin, needs to take daily, ECHO. nuclear stress test in past cardiology [facility]2019 Essential hypertension 95589578 I10 well controlled , Continue to work on diet and exercise as discussed. Pain of le ft knee region 3547526431 24933 M25.562 Kidney stone 69712644 N2 0.0 resolved- cont hydration [id number] BALDEMAR Stovall, [facility], [address] [place] [address] 04/07/2024 09:21:47 04/11/2024 12:06:37 Psoriasis 4023245 L40.9 Change from betamethas one cream to ointment Atrial fibrillation 4943 6004 I48.91 stable- continue xarelto 20 mg qd- reviewed no nsaids or aspirin, needs to take daily, ECHO. nuclear stress test in past cardiology [facility]2019 Counseled by member of primary health care team 269276417 Z71.9 Today we discussed ways to reduce [...] Body mass index 40+ - severely obese 403106856 E66.01 maintainin g wt loss- with signif decrease intake and avoiding late night eating Health Concerns Section Related Observation LastModified by Organization Detai ls LastModified Time None Recorded Concern Status LastModified by Organization Details LastModified Time None Recorded Advance Directives Directive None Recorded Payers Encounter Date Sequence Insurance Name Policy Number Policy Alford Covered Member ID Alford Member ID Guarantor Name 01/05/2023 1 [employer] (MEDICARE REPLACEMENT/A DVANTAGE - PPO) Jania Mayo [id number] Jania Mayo 01/29/2023 1 [facility] - DOS PRIOR TO 2023 - MEDICARE [place]VANTAGE [place]MEDICARE REPLAC[place]/A DVANTAGE - PPO) Jania Mayo [id number] Jania Mayo 04/14/2023 2 [facility] - DOS ON OR AFTER 2023 - ONE CARE (MEDICARE REPLACEMENT/A DVANTAGE - HMO) Jania Mayo [id number] Jania Mayo 10/20/2023 2 [employer] [facility] [facility] [facility] - DOS ON OR AFTER 2023 - ONE CARE (MEDICARE REPLACEMENT/A DVANTAGE - HMO) Jania Mayo [id number] Jania Mayo 04/07/2024 2 [employer] [facility] [facility] [facility] - DOS ON OR AFTER 2023 - ONE CARE (MEDICARE REPLACEMENT/A DVANTAGE - HMO) Jania Mayo [id number] Jania Mayo 04/07/2024 1 [place]: [employer] Jania Mayo [id number] Jania Mayo Notes Date Note Type Note [...] 24 25}} minutes. Jessica Rockwell NP [address] [place], [address], [facility] 01/05/2023 21:45:54 3 text/html Patient is here [...] for her sx. Jenny Rodríguez NP [address] [place], [address], [facility] 01/29/2023 13:47:29 3 text/html Risk Assessment and Lifestyle Change Counseling 65+ (Medicare)Reported bypatient.Coronary Artery Disease Risk Assessment:Family History of Coronary Artery Disease; No personal history of diabetes; No history of peripheral vascular disease, AAA, or carotid disease; No personal history of coronary artery disease; [place] 10 year risk Breast Cancer Risk Assessment:No [...] lower extremity swelling Context:no congestive heart failure ([id number])VMG HypertensionReported bypatient.Context:No ischemic heart disease; No kidney [...] work all day. a nguyen- BALDEMAR Stovall [address] [place] [address], [address], [facility] 04/14/2023 11:19:56 3 text/html Risk Assessment and Lifestyle Change Counseling 65+ (Medicare)Reported bypatient.Coronary Artery Disease Risk Assessment:Family History of Coronary Artery Disease; No personal history of diabetes; No history of peripheral vascular disease, AAA, or carotid disease; No personal history of coronary artery disease; [place] 10 year risk Breast Cancer Risk Assessment:No [...] lower extremity swelling Context:no congestive heart failure ([id number])VMG HypertensionReported bypatient.Context:No ischemic heart disease; No kidney [...] presents for annual wvNo concerns BALDEMAR Stovall [address] [place] [address], [phone], [facility] 10/29/2023 13:01:23 4 text/html pt is here today for a f/u visit regarding high blood pressure. dahs diet, occ low salt. LEFT LEG- at knee and below- PAIN CONTS- x 1 yr, lessen pain with not on feet all day. BALDEMAR Stovall [address] [place] [address], [phone], [facility] 04/07/2024 10:26:14 OBGyn Episode No OBEpisode recorded.
== END ==
LOC: HO.CARD 08:36
PROVIDERS: PCP Internal Medicine; Visit Provider Internal Medicine
DX: I48.0 Paroxysmal atrial fibrillation (principal)
CPT/HCPCS: 93005; 93306

== ENCOUNTER → 2025-02-06 08:41 | Outpatient (BNV) | payer MEDICARE, SELFPAY | PROVIDERS: PCP Internal Medicine; Visit Provider Internal Medicine Cardiovascular Disease | DX: I48.0 Paroxysmal atrial fibrillation (principal); I34.0 Nonrheumatic mitral (valve) insufficiency; I36.1 Nonrheumatic tricuspid (valve) insufficiency; R94.31 Abnormal electrocardiogram [ECG] [EKG] | CPT/HCPCS: 93010; 93306 ==

== ENCOUNTER 2025-04-05 08:18 | Outpatient (REF) | payer MEDICARE, SELFPAY ==
[2025-04-05 08:41] LABS: MANUAL DIFF FLAG NO
[2025-04-05 09:28] LABS: Basophils Percent Auto 0.7 % (0-2); Eosinophils Absolute Auto 0.1 X10*3/uL (0.0-0.4); Eosinophils Percent Auto 1.3 % (0-4); Hematocrit 45.5 % (37.0-47.0); Hemoglobin 15.2 g/dl (12.0-16.0); Imm Gran Abs Auto 0.02 X10*3/uL (0.00-0.03); Imm Gran Pct Auto 0.3 % (0.0-0.4); Lymphocytes Absolute Auto 1.3 X10*3/uL (1.2-4.9); Lymphocytes Percent Auto 21.1 % (20-40); Mean Corpuscular HGB Conc 33.4 g/dl (31.0-35.0); Mean Corpuscular Hemoglobin 29.6 pg (27.0-33.0); Mean Corpuscular Volume 88.5 fL (80.0-98.0); Mean Platelet Volume 10.5 fL (9.4-12.3); Monocytes Absolute Auto 0.6 X10*3/uL (0.1-1.2); Monocytes Percent Auto 10.6 % (2-11); Neutrophils Absolute Auto 3.9 x10*3/uL (2.0-8.3); Platelet Count 225 X10*3/uL (160-400); Red Blood Count 5.14 X10*6/uL (4.20-5.50); Red Cell Distribution Width 13.8 % (11.0-16.0)
[2025-04-05 09:33] LABS: Appearance Urine Clear; Color Urine Yellow; Glucose Urine UA Negative (Negative); Leukocyte Esterase Urine Small (1+) (Negative); Nitrite Urine Negative (Negative); Specific Gravity - Urine 1.015 (1.005-1.025); UMIC TRIGGER UACC YES; Urine Blood Large (3+) (Negative); Urine Ketones Negative (Negative); Urine Protein Negative (Neg-Trace)
[2025-04-05 09:37] LABS: Urine Cytology See Pathology rpt
[2025-04-05 09:39] LABS: Bacteria Urine Trace (None Seen); Hyaline Casts Urine 0-2 /LPF (0-2); RBC Urine >20 /HPF (0-2); UACC Culture Trigger YES
[2025-04-05 10:05] LABS: Alanine Aminotransferase 20 U/L (0-31); Alkaline Phosphatase 88 U/L (39-117); Anion Gap 11 (12-20); Aspartate Amino Transferase 21 U/L (5-31); Bilirubin Total 0.6 mg/dL (0.0-1.0); Blood Urea Nitrogen 18 mg/dL (9-16); Calcium 9.7 mg/dL (8.4-10.2); Carbon Dioxide 27 mmol/L (22-29); Chloride 105 mmol/L (96-108); Cholesterol 187 mg/dL (<200); Estimated Glomerular Filt Rate > 60; Glucose Fasting 91 mg/dL (60-99); HDL Cholesterol 66 mg/dL (>40); LDL Cholesterol Calculated 108 mg/dL (<100); Potassium 3.4 mmol/L (3.3-5.1); Sodium 140 mmol/L (135-145); Triglycerides 65 mg/dL (<150)
[2025-04-05 10:26] LABS: TSH reflex Free T4 2.55 uIU/mL (0.32-4.0); Vitamin D 25-OH Total 41.1 ng/mL (>30)
== END 2025-04-05 08:19 | disposition home or self-care (01) ==
LOC: HO.LAB 08:18
PROVIDERS: PCP Internal Medicine; Visit Provider Internal Medicine
DX: E55.9 Vitamin D deficiency, unspecified (principal); E78.00 Pure hypercholesterolemia, unspecified; R31.9 Hematuria, unspecified; D64.9 Anemia, unspecified
CPT/HCPCS: 36415; 80053; 80061; 81001; 82306; 84443; 85025; 87086; 88112

== ENCOUNTER 2025-04-19 12:31 | Outpatient (AMB) | payer MEDICARE, SELFPAY ==
[2025-04-19 12:34] VITALS: BP 110/74; PULSE 72; O2SAT 97; BMI 41.7
--- NOTE | 2025-04-19 12:34 | A.OFFPC_ITS ---
Vital Signs 04/19/25 12:34 Height 5 ft 0.5 in Weight 217 lb 2 oz BMI 41.7 BP 110/74 Blood Pressure Location Lt brachial Position Sitting Pulse 72 Pulse Source Pulse Oximeter Pulse Oximetry (%) 97 Oxygen Delivery Method Room Air Intake Visit Reasons: follow up Hammer Heater Required: No Accompanied by: Self / Same As Patient Allergies codeine Adverse Reaction (Severe, Verified 04/19/25 13:05) Nausea Medication List - Last Reconciled 04/19/25 by Jareth Benavidez MD atorvastatin 20 mg PO BEDTIME 90 days betamethasone valerate 0.1% 1 appl topical BID PRN diltiazem HCl CD 300 mg PO DAILY rivaroxaban (Xarelto) 20 mg PO DAILY triamterene-hydrochlorothiazid 37.5-25 mg 1 cap PO DAILY Tobacco use date assessed: 04/19/25 Fall risk assessment: No Falls in past year Last assessed Fall Risk: 04/19/25 Dental Screening Dental Screen Date: 04/19/25 Did you have a dental visit in the last 12 months?: No Did you have a dental problem in the last 6 months where you did not have access to dental care?: No Was dental information given to patient?: No HPI follow up HPI Details Patient comes in today for her follow-up visit States that she feels okay She denies any headaches or dizziness Denies any chest pains, no shortness of breath No nausea/vomiting, no abdominal pain No change in bowel habits noted She had her follow-up labs done a couple of weeks ago - to discuss her results [facility] Medical History (Updated 04/20/25 @ 05:32 by Jareth Benavidez MD) Osteoarthritis of left knee Morbid obesity with BMI of 40.0-44.9, adult Recurrent kidney stones Pure hypercholesterolemia Essential hypertension Paroxysmal atrial fibrillation Adenomatous colon polyp Atrial fibrillation Psoriasis Kidney stones Surgical History Hx of colonoscopy History of hysterectomy Family History Mother Stroke CHF (congestive heart failure) Hypertension Father Heart attack Son No problems noted. Brother No problems noted. Brother No problems noted. Sister No problems noted. Sister No problems noted. 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 1. Little interest or pleasure in doing things: not at all 2. Feeling down, depressed, or hopeless: not at all 3. Trouble falling or staying asleep, or sleeping too much: not at all 4. Feeling tired or having little energy: not at all 5. Poor appetite or overeating: not at all 6. Feeling bad about yourself - or that you are a failure or have let yourself or your family down: not at all 7. Trouble concentrating on things, such as reading the newspaper or watching television: not at all 8. Moving or speaking so slowly that other people could have noticed. Or the opposite - being so fidgety or restless that you have been moving around a lot more than usual: not at all 9. Thoughts that you would be better off or of hurting yourself in some way: not at all Total score: 0 Depression Screening Interpretation: Negative Depression Screening Done: Yes 65056 - PHQ-9 Billing: Yes Source: Developed by Drs. Leo Lee, Urvashi Gaxiola, Sean Sagastume and colleagues, with an educational manuela from [email or web address]. Thrive Questionnaire Date Thrive assessed: 01/16/25 I am a: Patient What is your living situation today?: I have a steady place to live Within the past 12 months, did the food you bought not last and you didn't have the money to get more?: Never true Within the past 12 months, did you worry whether your food would run out before you got money to buy more?: Never true Do you have trouble paying for medicines?: No Do you have trouble getting transportation to medical appointments?: No Do you have trouble paying your heating and electricity bill?: No Do you have trouble taking care of your child, family member or friend?: No Do you have trouble with day-to-day activities such as bathing, preparing meals, shopping, managing finances, etc.?: No Are you currently unemployed and looking for a job?: No Are you interested in more education?: No Please select the resources that you would like help with: None Currently or been in a relationship where the following occur: No concerns reported THRIVE Score: 0 AUDIT C Alcohol Use Questionnaire (AUDIT-C) 1. How often do you have a drink containing alcohol?: Never 3. How often do you have six or more drinks on one occasion?: Never Total Score: 0 Score Reviewed/Action Taken: Yes NEW-7 AMB Questionnaire NEW-7 Date NEW - 7 assessed: 04/19/25 Feeling nervous, anxious, or on edge: 0 = Not at all Not being able to stop or control worryin = Not at all Worrying too much about different things: 0 = Not at all Trouble relaxin = Not at all Being so restless that it is hard to sit still: 0 = Not at all Becoming easily annoyed or irritable: 0 = Not at all Feeling afraid as if something awful might happen: 0 = Not at all Total NEW-7 score (0-4 normal; 5-9 mild; 10-14 moderate; 15-21 severe): 0 Source: Developed by Drs. Leo Lee, Urvashi Gaxiola, Sean Sagastume and colleagues, with an educational manuela from [email or web address]. Review of Systems Const Denies chills, Denies fatigue, Denies fever(s) and Denies headache(s) ENT Denies dysphagia, Denies dizziness, Denies otalgia, Denies headache(s), Denies n lei pain, Denies odynophagia and Denies sore throat Card Denies chest pain, Denies irregular heart rhythm, Denies palpitations and Denies dyspnea Resp Denies chest congestion, Denies cough and Denies dyspnea GI Denies abdominal pain, Denies constipation, Denies dysphagia, Denies heartburn, Denies diarrhea, Denies nausea, Denies odynophagia and Denies vomiting Denies urinary frequency, Denies dysuria and Denies urinary urgency Musc Reports back pain (recurrent), Reports arthralgias (left knee - on and off) and Denies neck pain Skin/Breast Reports rash (mostly over the extensor aspect of her forearms and elbows) Neuro Denies dizziness, Denies headache(s) and Denies paresthesias Psych Denies anxiety and Denies depression Endo Denies fatigue and Denies palpitations Isrrael/Lymph Denies easy bruising Physical exam (Primary Care) Vital Signs: Last Vital Signs Pulse 72 04/19/25 12:34 BP 110/74 04/19/25 12:34 Pulse Ox 97 04/19/25 12:34 Oxygen Delivery Method Room Air 04/19/25 12:34 BMI result Body Mass Index 41.7 Tobacco/Smoking Status: Tobacco use Status Tobacco use date assessed 04/19/25 04/19/25 12:36 Patient Tobacco Use Status Never used Tobacco 04/19/25 12:36 Tobacco use type Cigarette 04/19/25 12:36 e-Cigarette/Vaping Use Never Used 04/19/25 12:36 PHQ-9: PHQ-9 Score PHQ-9: Total score 0 04/19/25 13:32 Depression Screening Interpretation: Negative Thrive Assessment: Date of Thrive Assessment Date Thrive assessed 01/16/25 04/19/25 12:36 Currently or been in a relationship where the following occur: No concerns reported Const General: no acute distress and alert HENMT Ears: TM's normal bilaterally and EAC's normal Throat: Yes posterior oropharynx normal and Yes tonsils normal (no TP congestion) Neck Neck: Yes supple and No lymphadenopathy Thyroid: Thyroid normal Resp Auscultation: clear to auscultation bilaterally, no rales and no wheezes Cardio Rate: regular rate Rhythm: abnormal rhythm irregularly irregular Heart sounds: no murmurs GI Palpation (GI): Soft to palpation and nontender Auscultation: normal bowel sounds General: Yes no CVA tenderness Back/Spine/Pelvis Back: no CVA tenderness Thoracic/Lumbar Spine: thoracic and lumbar spine normal to inspection Skin Other: (+) scattered patchy scaling rash over the extensor aspect of both forearms and over her elbows bilaterally Extrem General: Yes no clubbing, cyanosis or edema Results Reviewed Results Reviewed: Laboratory Tests 04/05/25 04/05/25 08:29 08:39 WBC 6.0 Hgb 15.2 Hct 45.5 Plt Count 225 Sodium 140 Potassium 3.4 Creatinine 0.85 Estimated GFR > 60 Fasting Glucose 91 Calcium 9.7 AST 21 ALT 20 Triglycerides 65 Cholesterol 187 LDL Cholesterol, Calc 108 H HDL Cholesterol 66 25-OH Vitamin D Total 41.1 TSH 2.55 Ur Specific [place] 1.015 Urine Protein Negative Urine Glucose (UA) Negative Urine Blood Large (3+) H Urine Nitrite Negative Ur Leukocyte Esterase Small (1+) H Coding Level of Care Code Est Pt Level 4 (21937) Complex EM visit Add On G2211 Diagnoses Persistent atrial fibrillation I48.19 Essential hypertension I10 Pure hypercholesterolemia E78.00 Psoriasis L40.9 Primary osteoarthritis of left knee M17.12 Osteoarthritis type: primary Chronic bilateral thoracic back pain M54.6; G89.29 Back pain laterality: bilateral Back pain location: thoracic back pain Chronicity: chronic Bilateral pendulous breasts N64.89 Recurrent kidney stones N20.0 Morbid obesity with BMI of 40.0-44.9, adult E66.01; Z68.41 Additional Codes PHQ-9 - 91307 - PHQ-9 Billing: Yes ([id number]) Assessment & Plan Assessment & Plan (1) Persistent atrial fibrillation: Code(s): I48.19 - Other persistent atrial fibrillation Category: Medical Plan: Patient currently appears to be in atrial fibrillation but rate is controlled 12-L EKG done a few months ago confirmed (+) AF with HR in the 60s Echocardiogram done on 02/06/2025 revealed normal LV ejection fraction af around 55-60%, moderately dilated left atrium, mild mitral regurgitation, normal calculated RV systolic pressure and no gross pericardial effusion Continue Diltiazem CD 300 mg QD; continue Xarelto 20 mg QD for thromboembolism prophylaxis Patient states that she has not seen cardiology for follow up ever since she was diagnosed with PAF and started on Xarelto back in 2021 Her previous picture frame maker appears to be Dr. Mona Maxwell in [place] at their [facility] offices Will go ahead and refer her to [facility] Cardiology for further evaluation and management (2) Essential hypertension: Code(s): I10 - Essential (primary) hypertension Category: Medical Plan: Reinforced low sodium diet - goal is systolic BP of 120 to 130 mm or less Continue Triamterene-HCT 37.5-25 mg QD; she is also on Diltiazem CD 300 mg QD for her AF (3) Pure hypercholesterolemia: Code(s): E78.00 - Pure hypercholesterolemia, unspecified Category: Medical Plan: Results of her labs done a couple of weeks ago reviewed and discussed with patient - her cholesterol level have improved from previous with the switch of her medication from Simvastatin to Atorvastatin at her last visit Reinforced low cholesterol diet Continue Atorvastatin 20 mg QD Will have patient recheck her labs and fasting lipids in 3 months for follow up (4) Psoriasis: Code(s): L40.9 - Psoriasis, unspecified Category: Medical Plan: Patient again states that her psoriasis has been fairly well-controlled lately Continue Betamethasone valerate 0.1% cream BID PRN She used to see dermatology but has not done so since 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 (5) Osteoarthritis of left knee: Code(s): M17.12 - Unilateral primary osteoarthritis, left knee Category: Medical Qualifiers: Osteoarthritis type: primary Qualified Code(s): M17.12 - Unilateral primary osteoarthritis, left knee Plan: Patient states that her previous left knee pain has improved a lot over the past few months She initially banged her knee on the edge of a cabinet and ker knee symptoms took a while to recover, likely because she is on her feet at work all day long Her knee x-rays done back in June 2024 revealed only mild OA changes of the medial joint space compartment of the left knee (6) Back pain: Code(s): M54.9 - Dorsalgia, unspecified Category: Medical Qualifiers: Back pain laterality: bilateral Back pain location: thoracic back pain Chronicity: chronic Qualified Code(s): M54.6 - Pain in thoracic spine; G89.29 - Other chronic pain Plan: Patient states that she's had recurrent back pain for years and believes that her bilateral pendulous breasts is contributing significantly to her back pain and that breast reduction surgery will help her a lot and significantly reduce her back symptoms - she is still waiting for an appointment to see plastic surgery about this (7) Bilateral pendulous breasts: Code(s): N64.89 - Other specified disorders of breast Category: Medical Plan: She has been referred to plastic surgery at her last visit for consideration for reduction mammoplasty and is still waiting to be seen to have this resolved (8) Recurrent kidney stones: Code(s): N20.0 - Calculus of kidney Category: Medical Plan: Patient has had recurrent kidney stones for years and has undergone several sessions of lithotripsies and kidney stone extractions and stenting Her kidney stones were determined to be predominantly calcium oxalate in composition Her renal US done back on 10/20/2024 revealed (+) bilateral nephrolithiasis, with no hydronephrosis. There are areas of irregular right renal cortical thinning that are difficult to characterize due to limited visualization. CT scan with intravenous contrast employing renal mass protocol could be considered for further evaluation based on the clinical assessment for this patient with hematuria As she still has (+) significant hematuria on her recent labs, will go ahead and send patient for a renal CT for further evaluation Follow up with urology as scheduled (9) Morbid obesity with BMI of 40.0-44.9, adult: Code(s): E66.01 - Morbid (severe) obesity due to excess calories; Z68.41 - Body mass index [BMI] 40.0-44.9, adult Category: Medical Plan: Reinforced diet/exercise as tolerated/lose weight Plan Follow up in 3 months Orders: Orders Complete Blood Count Auto Diff 3 Months D64.9 - Anemia, unspecified Comprehensive [place]. Panel Fast 3 Months E78.00 - Pure hypercholesterolemia, unspecified Lipid Panel 3 Months E78.00 - Pure hypercholesterolemia, unspecified UA CC w/rflx Micro + Cult 3 Months R30.0 - Dysuria Vitamin D 25-OH Total 3 Months E55.9 - Vitamin D deficiency, unspecified CT abdomen pelvis w IV con 04/19/25 R93.429 - Abnormal radiologic findings on diagnostic imaging of unspecified kidney TSH reflex Free T4 3 Months E78.00 - Pure hypercholesterolemia, unspecified Vitamin B12 and Folate 3 Months E53.8 - Deficiency of other specified B group vitamins Referrals Cardiology Referral I48.91 - Unspecified atrial fibrillation
== END 2025-04-19 13:31 | disposition home or self-care (01) ==
LOC: HO.HMCH 12:31
PROVIDERS: PCP Internal Medicine; Visit Provider Internal Medicine
DX: I48.19 Other persistent atrial fibrillation (principal); I10 Essential (primary) hypertension; E66.01 Morbid (severe) obesity due to excess calories; Z68.41 Body mass index [BMI] 40.0-44.9, adult; E78.00 Pure hypercholesterolemia, unspecified; L40.9 Psoriasis, unspecified; M17.12 Unilateral primary osteoarthritis, left knee; M54.6 Pain in thoracic spine; G89.29 Other chronic pain; N64.89 Other specified disorders of breast; N20.0 Calculus of kidney

== ENCOUNTER → 2025-04-19 12:31 | Outpatient (BNVA) | payer MEDICARE, SELFPAY | PROVIDERS: PCP Internal Medicine; Visit Provider Internal Medicine | DX: I48.19 Other persistent atrial fibrillation (principal); I10 Essential (primary) hypertension; E78.00 Pure hypercholesterolemia, unspecified; L40.9 Psoriasis, unspecified; M17.12 Unilateral primary osteoarthritis, left knee; M54.6 Pain in thoracic spine; G89.29 Other chronic pain; N64.89 Other specified disorders of breast; N20.0 Calculus of kidney; E66.01 Morbid (severe) obesity due to excess calories; Z68.41 Body mass index [BMI] 40.0-44.9, adult | CPT/HCPCS: 96127; 99212 ==

== ENCOUNTER 2025-05-23 16:39 | Outpatient (REF) | payer MEDICARE, SELFPAY ==
[2025-05-23 17:57] LABS: Anion Gap 13 (12-20); Blood Urea Nitrogen 22 mg/dL (9-16); Calcium 9.4 mg/dL (8.4-10.2); Carbon Dioxide 29 mmol/L (22-29); Chloride 105 mmol/L (96-108); Estimated Glomerular Filt Rate 59; Potassium 4.1 mmol/L (3.3-5.1); Sodium 143 mmol/L (135-145)
== END 2025-05-23 16:40 | disposition home or self-care (01) ==
LOC: HO.LAB 16:39
PROVIDERS: PCP Internal Medicine
DX: Z01.812 Encounter for preprocedural laboratory examination (principal)
CPT/HCPCS: 36415; 80048

== ENCOUNTER 2025-05-31 08:18 | Outpatient (REF) | payer MEDICARE, SELFPAY ==
--- NOTE | ~2025-05-31 | CT_ITS ---
EXAMINATION: CT ABDOMEN AND PELVIS WITHOUT AND WITH CONTRAST CLINICAL INFORMATION: Abnormal imaging examinations with questionable renal mass. COMPARISON: Correlated to ultrasound dated November 01, 2024. TECHNIQUE: Multidetector volumetric imaging was performed of the abdomen and pelvis before and after the IV administration of 85 mL of Omnipaque 350 strength intravenous contrast. Sagittal and coronal reformatted images were obtained on the technologist's workstation. . No reported immediate complications. Split injection. This CT examination was performed using dose optimization techniques as appropriate, variously including the following: *Automated exposure control *Adjustment of mA and/or kV according to patient size (this includes techniques or standardized protocols for targeted exams where dose is matched to indication/reason for exam; i.e. extremities or head) *Use of iterative reconstruction technique DLP: 1150 mg centimeter. FINDINGS: Inadequate assessment of the kidneys and urinary collecting system due to lack of delayed enhancement phase/urinary excretion phase. LUNG BASES: No acute airspace disease or gross pulmonary nodules. LIVER, GALLBLADDER, AND BILIARY TREE: Liver measures 12 cm. no enhancing mass.. Portal veins, hepatic veins and intrahepatic portion of the IVC are patent. 8 mm hypodensity in the left hepatic lobe. 2 mm hypodensity in the periphery of the right hepatic lobe too small to be fully characterized.. No pericholecystic fluid collection or gallbladder wall thickening. No intrahepatic or extrahepatic biliary ductal dilatation. PANCREAS: No focal mass. No peripancreatic fluid collection. No main pancreatic ductal dilatation. SPLEEN: 8 cm. No focal lesion. ADRENAL GLANDS: No nodular lesions. KIDNEYS AND URETERS: Right kidney: Multifocal, different sizes (4 mm calculi throughout the pelvicalyceal system. No hydronephrosis. Renal cortical defects/scarring. Renal cortical thinning. Volume loss. There is a 2.4 cm nonenhancing fluid density in the upper pole of the corticomedullary junction. No renal mass. Left kidney: Multifocal different sizes nonenhancing or septated fluid density lesions in the parapelvic region. There is a prominent extrarenal pelvis with focal narrowing at the ureteropelvic junction and multiple vascular clips likely related to prior surgery. There is a 5 mm calculus in the midportion of the pelvicalyceal system. There is a 1.5 cm exophytic nonenhancing fluid density in the lower pole. There is a cortical defect that extends from the mid to lower and probably pelvicalyceal system. Upper pole. No enhancing mass. BLADDER: Fluid-filled. GASTROINTESTINAL TRACT: Scattered diverticula in the left hemicolon. Abundant stool. Few diverticula in the ascending colon. No intestinal obstruction pattern. No pneumatosis intestinalis. No pneumoperitoneum. No ascites. Appendix is normal. Small hiatal hernia.. ABDOMINAL WALL: Diastases abdominal rectus muscles in the periumbilical region. LYMPH NODES: Nonspecific mildly prominent, mesenteric and retroperitoneum. VASCULAR: Mixed plaques throughout the abdominal aorta wall and iliac arteries without gross aneurysm or dissection. Calcified plaques in the origin of the main renal arteries pronounced on the right main renal artery with likely focal stenosis. PELVIC VISCERA: Absent. OSSEOUS STRUCTURES: Multilevel spondylosis and levoconvex rotoscoliosis apex at L1 to. No acute fracture. No gross lytic or blastic lesions. Coxofemoral joints are intact. CT/CT abdomen pelvis wo/w IV con IMPRESSION: Bilateral nonobstructing nephrolithiasis. No renal cysts. Questionable pelvicalyceal diverticulum, upper pole left kidney. Right renal atrophy likely secondary to renal artery stenosis. Fleischner guidelines were followed. Electronically signed by: Colin Welch MD 05/31/2025 11:27 AM EDT
[2025-05-31] MEDS: iohexoL 350 MG/ML 100 ML INFUS..BTL IV (09:40)
== END 2025-05-31 08:19 | disposition home or self-care (01) ==
LOC: HO.CT 08:18
PROVIDERS: PCP Internal Medicine; Visit Provider Internal Medicine
DX: R93.429 Abnormal radiologic findings on diagnostic imaging of unspecified kidney (principal)
CPT/HCPCS: 74178; Q9967

== ENCOUNTER → 2025-05-31 08:20 | Outpatient (BNV) | payer MEDICARE, SELFPAY | PROVIDERS: PCP Internal Medicine; Visit Provider Radiology Diagnostic Radiology | DX: N20.0 Calculus of kidney (principal); N26.1 Atrophy of kidney (terminal) | CPT/HCPCS: 74178 ==

== ENCOUNTER 2025-07-24 08:29 | Outpatient (REF) | payer MEDICARE, SELFPAY ==
[2025-07-24 08:54] LABS: MANUAL DIFF FLAG NO
--- OUTSIDE RECORDS SUMMARY | 2025-07-24 09:07 | XMS_ITS | Encounter Summary ---
Author Organization [facility] Address [address] [place] [address] Phone Care Team Providers Care Practice Specialist Name Role Phone Yvan Costa MD Primary Care Provider [phone] Yvan Costa MD Primary Care Provider [phone] Encounter Details Date Type Department Care Team (Late st Contact Info) Description 10/08/2021 Procedure Pass [place] Admitting Dept - Virtual Department [address] [place] [address] Social History Tobacco Use Types Packs/Day Years Used Date Smoking Tobacco: Never Smokeless Tobacco: Never Alcohol Use Standard Drinks/Week Comments Never 0 (1 standard drink = 0.6 oz pur e alcohol) Comments No Sex and Gender Information Value Date Recorded Sex Assigned at Not on file Legal Sex Female 9:54 PM EDT Gender Identity Not on file Sexual Orientation Not on file documented as of this encounter Functional Status * Calculated C-SSRS Risk Score (Lifetime/Recent) Answer Date of Assessment Author No Risk Indicated 10/08/2021 7:42 AM Antionette Tatum RN * [place] Suicide Severity Rating Scale (Screener/Recent Self-Report) Question Answer Date of Assessment Author 2. Non-Specific Active Suici jess Thoughts (Past 1 Month) No 10/08/2021 7:42 AM Danna Vang RN documented as of this encounter Plan of Treatment Not on file documented as of this encounter Visit Diagnoses Not on filedocumented in this encounter Care Teams Practice Specialist Relationship Specialty Start Date End Date Yvan Costa MD [email or web address] PCP - General Family Medicine 11/21/20 06/02/23 Yvan Costa MD [email or web address] PCP - General Family Medicine 06/03/23 documented as of this encounter Additional Source Comments The information contained in this document represents components of the legal health record. It is not the complete legal health record.[facility]
--- OUTSIDE RECORDS SUMMARY | 2025-07-24 09:07 | XMS_ITS | Encounter Summary ---
Author Organization [facility] Address [address] [place] [address] Phone Care Team Providers Care Supervisor Cloth Winding Name Role Phone Yvan Costa MD Primary Care Provider [phone] Yvan Costa MD Primary Care Provider Encounter Details Date Type Department Care Team (Late st Contact Info) Description 06/27/2021 Procedure Pass [facility] Scan - [facility] [address] [place] [address] Social History Tobacco Use Types Packs/Day Years Used Date Smoking Tobacco: Never Smokeless Tobacco: Never Alcohol Use Standard Drinks/Week Comments Yes 0 (1 standard drink = 0.6 oz pur e alcohol) rare 1/2 glass per month Comments Unknown Sex and Gender Information Value Date Recorded Sex Assigned at Not on file Legal Sex Female 9:54 PM EDT Gender Identity Not on file Sexual Orientation Not on file documented as of this encounter Plan of Treatment Not on file documented as of this encounter Visit Diagnoses Not on filedocumented in this encounter Care Teams Supervisor Cloth Winding Relationship Specialty Start Date End Date Yvan Costa MD PCP - General Family Medicine 11/21/20 06/02/23 Yvan Costa MD PCP - General Family Medicine 06/03/23 documented as of this encounter Additional Source Comments The information contained in this document represents components of the legal health record. It is not the complete legal health record.[facility]
--- OUTSIDE RECORDS SUMMARY | 2025-07-24 09:07 | XMS_ITS | Encounter Summary ---
Author Organization Located Within [facility] Address [address] [address] Phone Care Team Providers Care Obstetrics Teacher Name Role Phone Yvan Costa MD Primary Care Provider [phone] Encounter Details Date Type Department Care Team (Late st Contact Info) Description 06/16/2023 Procedure Pass [facility] Endoscopy Admitting Dept Virtual Department [address] [place] [address] Social History Tobacco Use Types Packs/Day Years Used Date Smoking Tobacco: Never Smokeless Tobacco: Never Alcohol Use Standard Drinks/Week Comments Never 0 (1 standard drink = 0.6 oz pur e alcohol) Education Answer Date Recorded Are you interested in more education? Not on bassam e 03/19/2023 Are you concerned about learning? Not on file 03/19/2023 No 03/19/2023 No 03/19/2023 Digital Access Answer Date Recorded No 04/16/2023 No 04/16/2023 Reliable internet access at home? Not on file 04/16/2023 Device with a working camera? Not on file Intimate Partner Violence Answer Date R ecorded Are you denied basic needs s uch as food, clothing, or medical care? No 06/16/2023 In the past 12 months have y ou been in a relationship with a person who hurts, threatens, or tries to control you? No 06/16/2023 Are you denied basic needs s uch as food, clothing, or medical care? No 06/16/2023 In the past 12 months have y ou been in a relationship with a person who hurts, threatens, or tries to control you? No 06/16/2023 Comments No Sex and Gender Information Value Date Recorded Sex Assigned at Not on file Legal Sex Female 9:54 PM EDT Gender Identity Not on file Sexual Orientation Not on file documented as of this encounter Plan of Treatment Not on file documented as of this encounter Visit Diagnoses Not on filedocumented in this encounter Care Teams Obstetrics Teacher Relationship Specialty Start Date End Date Yvan Costa MD [email or web address] PCP - General Family Medicine 06/03/23 documented as of this encounter Additional Source Comments The information contained in this document represents components of the legal health record. It is not the complete legal health record.[facility]
--- OUTSIDE RECORDS SUMMARY | 2025-07-24 09:07 | XMS_ITS | Encounter Summary ---
Author Organization [facility] Address [address] [place] [address] Phone Care Team Providers Care Principal Electrical Engineer Name Role Phone Yvan Costa MD Primary Care Provider [phone] Yvan Costa MD Primary Care Provider [phone] Encounter Details Date Type Department Care Team (Late st Contact Info) Description 07/15/2022 Procedure Pass [place] Admitting Dept - Virtual Department [address] [place] [address] Social History Tobacco Use Types Packs/Day Years [...] on filedocumented in this encounter Care Teams Principal Electrical Engineer Relationship Specialty Start Date End Date Yvan Costa MD PCP - General Family Medicine 11/21/20 06/02/23 Yvan Costa MD PCP - General Family Medicine 06/03/23 documented as of this encounter Additional Source Comments The information contained in this document represents components of the legal health record. It is not the complete legal health record.[facility]
--- OUTSIDE RECORDS SUMMARY | 2025-07-24 09:07 | XMS_ITS | Encounter Summary ---
Author Organization [facility] Address [address] [place] [address] Phone Care Team Providers Care Senior Sas Programmer Name Role Phone Eliane Costa Primary Care Provider [phone] Yvan Costa MD Primary Care Provider [phone] Yvan Costa MD Primary Care Provider [phone] Encounter Details Date Type Department Care Team (Late st Contact Info) Description 12/21/2019 Procedure Pass [facility] Endoscopy Admitting Dept Virtual Department [address] [place], [place] [id number] Social History Tobacco Use Types Packs/Day Years [...] on filedocumented in this encounter Care Teams Senior Sas Programmer Relationship Specialty Start Date End Date Eliane Costa PA [address] [place] [id number] PCP - General Cutting Machine Fixer 10/11/19 11/20/20 Yvan Costa MD [address] [place] [phone] [email or web address] PCP - General Family Medicine 11/21/20 06/02/23 Yvan Costa MD [address] [place] [phone] [email or web address] PCP - General Family Medicine 06/03/23 documented as of this encounter Additional Source Comments The information contained in this document represents components of the legal health record. It is not the complete legal health record.[facility]
--- OUTSIDE RECORDS SUMMARY | 2025-07-24 09:07 | XMS_ITS | Encounter Summary ---
Author Organization [facility] Address [address] [place] [address] Phone Care Team Providers Care Pm Head Cook Name Role Phone Yvan Costa MD Primary Care Provider [phone] Yvan Costa MD Primary Care Provider [phone] Encounter Details Date Type Department Care Team (Late st Contact Info) Description 08/11/2021 Ancillary Orders [facility], X-Ray - [address] [address] Cipriano Healy MD [address] [place] [address], [address] [place] [address] [email or web address] Calculus of kidney Social History Tobacco Use Types Packs/Day Years [...] on file documented as of this encounter Results * XR ABDOMEN 1 VIEW (08/11/2021 1:02 PM EDT) Anatomical Region Laterality Modality Abdomen Computed Radiogr aphy 08/11/2021 4:55 PM EDT Narrative 08/11/2021 4:56 PM EDT XR ABDOMEN 1 VIEW COMPARISON: CT July 15, 2021 FINDINGS: Overall, no significant change when compared to recent CT. 6 mm stone projects over left upper kidney. 8 mm stone projects over the left lower kidney. Multiple tiny stones project over the right kidney Nonobstructed bowel gas pattern. No evidence of free air. Scoliosis in the mid lumbar spine. Procedure Note Roni Torres MD, TRACY - 08/11/2021 XR ABDOMEN 1 VIEW COMPARISON: CT July 15, 2021 FINDINGS: Overall, no significant change when compared to recent CT. 6 mm stone projects over left upper kidney. 8 mm stone projects over theleft lower kidney. Multiple tiny stones project over the right kidney Nonobstructed bowel gas pattern. No evidence of free air. Scoliosis in the mid lumbar spine. Cipriano Healy MD IMG XR ABDOMEN Final Result documented in this encounter Visit Diagnoses Diagnosis Calculus of kidney Calculus of kidney documented in this encounter Care Teams Pm Head Cook Relationship Specialty Start Date End Date Yvan Costa MD [email or web address] PCP - General Family Medicine 11/21/20 06/02/23 Yvan Costa MD PCP - General Family Medicine 06/03/23 documented as of this encounter Additional Source Comments The information contained in this document represents components of the legal health record. It is not the complete legal health record.[facility]
--- OUTSIDE RECORDS SUMMARY | 2025-07-24 09:07 | XMS_ITS | Encounter Summary ---
Author Organization [facility] Address [address] [place] [address] Phone Care Team Providers Care Rag Willow Operator Name Role Phone Yvan Costa MD Primary Care Provider [phone] Yvan Costa MD Primary Care Provider [phone] Reason for Referral * MRI/CAT Scan - Closed Specialty Diagnoses / Procedures Referred By John marin Referred To Contact Radiology Diagnoses Personal history of urinary calculi Other microscopic hematuria Procedures CT Abdomen/Pelvis CHG CT SCAN,ABDOMENT AND PELVIS,COMBO CHG CT SCAN,ABDOMENT AND PELVIS,W CONTRAST CHG CT SCAN,ABDOMENT AND PELVIS,W/O CONTRAST Cipriano Healy MD Phone: tel: fax: [email or web address] Referral ID Status Reason Start Date Expiration Date Visits Re quested Visits Authorized [id number] Closed 06/27/2021 09/24/2021 1 1 Encounter Details Date Type Department Care Team (Latest Contact Info) Description 06/27/2021 Transcribe Orders Virtual Department [address] [place] [address] Cipriano Healy MD [address] [place] [address], [address] [address] [email or web address] Personal history of urinary calculi (Primary Dx); Other microscopic hematuria Social History Tobacco Use Types Packs/Day Years [...] documented as of this encounter Results * CT ABDOMEN/PELVIS WITH AND WITHOUT CONTRAST (07/15/2021 4:40 PM EDT) Anatomical Region Laterality Modality Abdomen, Pelvis Computed Tomogra phy 07/15/2021 7:28 PM EDT Impressions 07/15/2021 7:48 PM EDT 1.Bilateral nonobstructing renal stones. 2.Chronic changes of the kidneys, with areas of cortical scarring. 3.Scattered colonic diverticula. Narrative 07/15/2021 7:48 PM EDT EXAM: CT ABDOMEN/PELVIS WITH AND WITHOUT CONTRAST CT OF ABDOMEN AND PELVIS WITH INTRAVENOUS CONTRAST (CT UROGRAM) COMPARISON: Abdomen/pelvis CT on November 03, 2016. INDICATION: Outside Radiology Order; WITH AND WITHOUT IV CONTRAST WITH DELAYED IMAGES TECHNIQUE: CT of abdomen/pelvis was obtained prior to and following administration of intravenous contrast. FINDINGS: RIGHT KIDNEY AND URETER: Mildly atrophic with areas of moderate cortical thinning. Few scattered calcifications likely representing nonobstructing stones, the largest measuring 0.3 cm within the focally dilated calyx in the upper pole (5:37). No hydronephrosis, but focally dilated upper pole calyx, which is similar to 2016. No hydroureter, solid mass or urothelial lesion. LEFT KIDNEY AND URETER: Focal areas of cortical thinning in the upper and lower poles are similar to 2016. Multiple parapelvic and cortical cysts. Coarse calcifications representing nonobstructing stones measuring 0.9 cm (5:42) and 0.6 cm (5:63). No hydronephrosis, hydroureter, solid mass or urothelial lesion. Multiple surgical clips in the vicinity of the ureteropelvic junction. URINARY BLADDER: Partially distended. No focal wall thickening, intravesical stone or filling defect. Non-urinary tract FINDINGS: LOWER THORAX: Lung bases are clear. No pleural effusion. HEPATOBILIARY: No focal hepatic lesions. No extra hepatic or intrahepatic ductal dilatation. Gallbladder is not distended. No calcified gallstones. SPLEEN: No splenomegaly. PANCREAS: Unremarkable. ADRENAL GLANDS: No mass. STOMACH/GI TRACT: There is no bowel distension, wall thickening, or inflammation. Normal appendix identified in the right lower quadrant (14:51). Scattered diverticula throughout the colonic loops. PELVIC ORGANS: Status post hysterectomy. PERITONEUM AND RETROPERITONEUM: No free fluid, fluid collection or free air. LYMPH NODES: No adenopathy VESSELS: Moderate atherosclerotic disease with calcifications along the abdominal aorta, iliac arteries and major branches. BONES AND SOFT TISSUES: Scoliosis of the thoracolumbar spine associated with multilevel degenerative changes. Procedure Note Valery Dsouza MD - 07/15/2021 EXAM: CT ABDOMEN/PELVIS WITH AND WITHOUT CONTRAST CT OF ABDOMEN AND PELVIS WITH INTRAVENOUS CONTRAST (CT UROGRAM) COMPARISON: Abdomen/pelvis CT on November 03, 2016. INDICATION: Outside Radiology Order; WITH AND WITHOUT IV CONTRAST WITHDELAYED IMAGES TECHNIQUE: CT of abdomen/pelvis was obtained prior to and followingadministration of intravenous contrast. FINDINGS: RIGHT KIDNEY AND URETER: Mildly atrophic with areas of moderate corticalthinning. Few scattered calcifications likely representing nonobstructingstones, the largest measuring 0.3 cm within the focally dilated calyx inthe upper pole (5:37). No hydronephrosis, but focally dilated upper polecalyx, which is similar to 2016. No hydroureter, solid mass or urotheliallesion. LEFT KIDNEY AND URETER: Focal areas of cortical thinning in the upper andlower poles are similar to 2016. Multiple parapelvic and cortical cysts.Coarse calcifications representing nonobstructing stones measuring 0.9 cm(5:42) and 0.6 cm (5:63). No hydronephrosis, hydroureter, solid mass orurothelial lesion. Multiple surgical clips in the vicinity of theureteropelvic junction. URINARY BLADDER: Partially distended. No focal wall thickening,intravesical stone or filling defect. Non-urinary tract FINDINGS: LOWER THORAX: Lung bases are clear. No pleural effusion. HEPATOBILIARY: No focal hepatic lesions. No extra hepatic or intrahepaticductal dilatation. Gallbladder is not distended. No calcified gallstones. SPLEEN: No splenomegaly. PANCREAS: Unremarkable. ADRENAL GLANDS: No mass. STOMACH/GI TRACT: There is no bowel distension, wall thickening, orinflammation. Normal appendix identified in the right lower quadrant(14:51). Scattered diverticula throughout the colonic loops. PELVIC ORGANS: Status post hysterectomy. PERITONEUM AND RETROPERITONEUM: No free fluid, fluid collection or freeair. LYMPH NODES: No adenopathy VESSELS: Moderate atherosclerotic disease with calcifications along theabdominal aorta, iliac arteries and major branches. BONES AND SOFT TISSUES: Scoliosis of the thoracolumbar spine associatedwith multilevel degenerative changes. IMPRESSION: 1.Bilateral nonobstructing renal stones. 2.Chronic changes of the kidneys, with areas of cortical scarring. 3.Scattered colonic diverticula. Cipriano Healy MD IMG CT ABD/PELVIS Final Result documented in this encounter Visit Diagnoses Diagnosis Personal history of urinary calculi- Primary Other microscopic hematuria Personal history of urinary calculi Other microscopic hematuria documented in this encounter Care Teams Rag Willow Operator Relationship Specialty Start Date End Date Yvan Costa MD [email or web address] PCP - General Family Medicine 11/21/20 06/02/23 Yvan Costa MD PCP - General Family Medicine 06/03/23 documented as of this encounter Additional Source Comments The information contained in this document represents components of the legal health record. It is not the complete legal health record.[facility]
--- OUTSIDE RECORDS SUMMARY | 2025-07-24 09:07 | XMS_ITS | Encounter Summary ---
Author Organization [facility] Address [address] [address] Phone Care Team Providers Care Journeyman Tool And Die Maker Name Role Phone Yvan Costa MD Primary Care Provider [phone] Yvan Costa MD Primary Care Provider [phone] Encounter Details Date Type Department Care Team (Late st Contact Info) Description 06/21/2022 Procedure Pass [facility], Ct Scan - [facility] [address] [place] [address] Social History Tobacco Use Types Packs/Day Years [...] Date of Assessment Author No Risk Indicated 06/21/2022 6:32 PM EDT Gwen Martin RN * [place] Suicide Severity Rating Scale (Screener/Recent Self-Report) Question Answer Date of Assessment Author 1. Wish to be (Past 1 Month) No 022 6:32 PM EDT Elke Martin, RN 2. Non-Specific Active Suici jess Thoughts (Past 1 Month) No 06/21/2022 6:32 PM EDT Elke Martin , RN 6. Suicidal Behavior (Lifetime) No 6:32 PM EDT Elke Martin, RN documented as of this encounter Plan of Treatment Not on file documented as of this encounter Visit Diagnoses Not on filedocumented in this encounter Care Teams Journeyman Tool And Die Maker Relationship Specialty Start Date End Date Yvan Costa MD [email or web address] PCP - General Family Medicine 11/21/20 06/02/23 Yvan Costa MD [email or web address] PCP - General Family Medicine 06/03/23 documented as of this encounter Additional Source Comments The information contained in this document represents components of the legal health record. It is not the complete legal health record.[facility]
--- OUTSIDE RECORDS SUMMARY | 2025-07-24 09:07 | XMS_ITS | Clinical Summary ---
Author Organization [facility] Address [address] [address] Phone Care Team Providers Care Trustee Of Estate Name Role Phone Yvan Costa MD Primary Care Provider [phone] Allergies Active Allergy Reactions Criticality Noted Date Comments Codeine Nausea and/or Vomiting Low 12/08/2019 Medications dilTIAZem (CARDIZEM CD) 300 MG 24 hr capsule Take 300 mg by mouth daily. Active simvastatin (ZOCOR) 20 MG tablet Take 20 mg by mouth nightly at bedtime. Active triamterene-hyd roCHLOROthiazid e (DYAZIDE) 37.5-25 mg per capsule Take 1 capsule by mouth every morning. Active cholecalciferol (VITAMIN D3) 25 MCG (1,000 unit) tablet Take 1,000 Units by mouth daily. Active rivaroxaban (XARELTO) 20 mg Tab Take 20 mg by mouth daily. Active betamethasone valerate 0.1 % ointment APPLY A THIN LAYER TO AFFECTED AREA ONCE DAILY 05/24/2023 Active Active Problems No known active problems Social History Tobacco Use Types Packs/Day Years Used Date Smoking Tobacco: Never Smokeless Tobacco: Never Tobacco Cessation:Counseling Given: Not Answered Alcohol Use Standard Drinks/Week Comments Never 0 [...] on file Sexual Orientation Not on file Last Filed Vital Signs Vital Sign Reading Time Taken Comments Blood Pressure 118/71 06/16/2023 12:50 PM EDT Pulse 63 06/16/2023 12:50 PM EDT Temperature 36.3 C (97.3 F) 06/16/2023 11:27 AM EDT Respiratory Rate 18 06/16/2023 12:50 PM EDT Oxygen Saturation 100% 06/16/2023 12:50 PM EDT Inhaled Oxygen Concentration - - Weight 90.7 kg (200 lb) 06/11/2023 1:50 PM EDT Height 154.9 cm (5' 1 ) 06/11/2023 1:50 PM EDT Body Mass Index 37.79 06/11/2023 1:50 PM EDT Plan of Treatment Health Maintenance Due Date Last Done Comments LIPID PANEL 1955 DEPRESSION SCREENING 1968 HEPATITIS C SCREENING 1974 MAMMOGRAM 1996 COLOGUARD 2001 FIT TEST 2001 FOBT 2001 SIGMOIDOSCOPY 2001 VIRTUAL COLONOSCOPY 2001 OSTEOPOROSIS SCREENING INITIAL (ONE-TIME) 2021 CREATININE LEVEL 06/21/2023 06/21/2022, 02/07/2020 POTASSIUM LEVEL 06/21/2023 06/21/2022, 02/07/2020 SCREENING FOR DIABETES 06/21/2025 06/21/2022 INFLUENZA VACCINE (#1) 2025 2, 10/09/2021, 10/11/2020, Additional history exists COVID-19 VACCINE ( season) 2025 08/18/2022, 11/19/2021, 03/01/2021 Adult Td,Tdap Booster 09/28/2026 09/28/2016 RSV VACCINE (1 - 1-dose 75+ series) 2031 COLONOSCOPY 06/16/2033 06/16/2023 COLORECTAL CANCER SCREENING 06/16/2033 ZOSTER VACCINES Completed 11/28/2020, 10/11/2020 PNEUMOCOCCAL VACCINES (50+ years) Completed 10/20/2022 SMOKING STATUS SCREENING (Once After 26 Yrs) Completed 06/11/2023 HEPATITIS A VACCINES Aged Out No long er eligible based on patient's age to complete this topic HIB VACCINES Aged Out No longer eligi ble based on patient's age to complete this topic MENINGOCOCCAL VACCINES (ACWY) Aged Out No longer eligible based on patient's age to complete this topic MENINGOCOCCAL VACCINES (B) Aged Out N o longer eligible based on patient's age to complete this topic Medical Devices Implanted Type Area Forest Pathologist Device Identifier Shelf Expiration Date Model / Serial / Lot Stent Ureteral 6fr 22 To 30cm Stretch Coated Anton - [id number] Implanted:Qty: 1 on 07/15/2022 by Brenton Nassar MD at [facility] Left: Ureter [employer] 12/12/2024 [id number] / / [id number] Clip Hemostasis 360deg 235cm Resolution 360 Latex Free 2.8mm Channel Bx/20ea - [id number] Implanted:Qty: 1 on 06/16/2023 by Pawan Streeter MD at [facility] Sigmoid [employer] 3 / / Procedures Procedure Name Priority Date/Time Associated Diagnosis Comments ENDOSCOPY, COLON 06/16/2023 11:5 7 AM EDT BASIC METABOLIC PANEL STAT 06/21/2022 6:45 PM EDT from Last 3 Months or Most Recently Relevant to Health Maintenance Results * ENDOSCOPY, COLON (06/16/2023 11:57 AM EDT) Narrative Transcriptions Pawan Streeter MD - 06/16/2023 11:57 AM EDT [facility] Patient Name: Jania Velázquez Attending MD:: PAWAN STREETER MD, , Procedure Date: 06/16/2023 11:57 AM Date of : 1955 Age: 67 Admit Type: Outpatient Gender: Female Room: [place] [address] Referring MD: YVAN COSTA MD Exam Type: Colonoscopy Indications: Screening for colorectal malignant neoplasm Medications: Monitored Anesthesia Care Procedure: Informed consent was obtained from the patientafter discussion of the indications, limitations, alternatives, benefits, and risks of the procedure. Risks specifically discussed include but are not limited to medication reactions, missed lesions, bleeding, perforation, or the need for emergent surgery. Throughout the procedure, the patient's blood pressure, pulse, end-tidal CO2, and oxygensaturations were monitored continuously. The Colonoscope was introduced through the anus and advanced to the cecum, identified by appendiceal orifice and ileocecal valve. The colonoscopy was performed without difficulty. The patient tolerated the procedure well. The quality of the bowel preparation was excellent. The quality of the bowel preparation was evaluated using the BBPS (BostonBowel Preparation Scale) with scores of: Right Colon = 3, Transverse Colon = 3 and Left Colon = 3 (entiremucosa seen well with no residual staining, smallfragments of stool or opaque liquid). The total BBPS score equals 9. Anatomical landmarks were photographed. Complications: No immediate complications. Estimated blood loss: Minimal. Findings: The perianal and digital rectal examinations were normal. A 4 mm polyp was found in the ascending colon. The polyp was sessile. The polyp was removed with acold snare. Resection and retrieval were complete. A 3 mm polyp was found in the sigmoid colon. Thepolyp was sessile. The polyp was removed with a coldsnare. Resection and retrieval were complete. A 22 mm polyp was found in the sigmoid colon. The polyp was pedunculated. The polyp was removed witha hot snare. Resection and retrieval were complete.To prevent bleeding after the polypectomy, onehemostatic clip was successfully placed (MR conditional).There was no bleeding during, or at the end, of the procedure. Scattered small-mouthed diverticula were found inthe sigmoid colon. Internal hemorrhoids were found duringretroflexion. The hemorrhoids were mild. The exam was otherwise normal throughout theexamined colon. Impression: - One 4 mm polyp in the ascending colon, removedwith a cold snare. Resected and retrieved. - One 3 mm polyp in the sigmoid colon, removed witha cold snare. Resected and retrieved. - One 22 mm polyp in the sigmoid colon, removedwith a hot snare. Resected and retrieved. Clip (MR conditional) was placed. - Diverticulosis in the sigmoid colon. - Internal hemorrhoids. Recommendation: - Discharge patient to home. - Await pathology results. - Resume Xarelto (rivaroxaban) at prior dosetomorrow. PAWAN STREETER MD, 06/16/2023 12:22:27 PM This report has been signed electronically. Number of Addenda: 0 Note Initiated On: 06/16/2023 11:57 AM Procedure Code(s): --- Professional --- 94885, Colonoscopy, flexible; with removal of tumor(s), polyp(s), or other lesion(s) by snare technique --- Technical --- 96093, Colonoscopy, flexible; with removal of tumor(s), polyp(s), or other lesion(s) by snare technique Diagnosis Code(s): --- Professional --- Z12.11, Encounter for screening for malignantneoplasm of colon D12.2, Benign neoplasm of ascending colon D12.5, Benign neoplasm of sigmoid colon K64.8, Other hemorrhoids K57.30, Diverticulosis of large intestine without perforation or abscess without bleeding --- Technical --- Z12.11, Encounter for screening for malignantneoplasm of colon D12.2, Benign neoplasm of ascending colon D12.5, Benign neoplasm of sigmoid colon K64.8, Other hemorrhoids K57.30, Diverticulosis of large intestine without perforation or abscess without bleeding CPT copyright 2021 [employer]. All rights reserved. The codes documented in this report are preliminary and upon fire warden reviewmay be revised to meet current compliance requirements. Procedure Date: 06/16/2023 11:57:[address] [place] [id number] Yvan Costa MD GI PROCEDURE ORDERABLES Final Result * (ABNORMAL) Basic metabolic panel (06/21/2022 6:45 PM EDT) SODIUM 138 133 - 146 mmol/L [facility] CHLORIDE 100 96 - 108 mmol/L [facility] POTASSIUM 3.8 3.3 - 5.1 mmol/L [facility] CO2 25 21 - 35 mmol/L [facility] BUN 24(H) 6 - 19 mg/dL [facility] CREATININE 0.80 0.5 - 1.5 mg/dL [facility] GLUCOSE 94 70 - 99 mg/dL [facility] CALCIUM 9.6 8.4 - 10.3 mg/dL [facility] EGFR 82 >59 mL/min/1.7 3m2 [facility] Comment:Estimated glomerular filtration rate calculated using the CKD-EPI refit equation. ANION GAP 17 10 - 20 mmol/L [facility] Blood 06/21/2022 6:45 PM EDT 06/21/2022 6:52 PM EDT Liliane Vasquez MD LAB BLOOD ORDERABLES Final Result [facility] [address] [place] [address] from Last 3 Months or Most Recently Relevant to Health Maintenance Insurance [facility] MEDICARE REPLACEMENT [facility] MEDICARE REPLACEMENT [facility] MEDICARE REPLACEMENT [facility] PREF VALUE MEDICARE REPLACEMENT [facility] PREF VALUE MEDICARE REPLACEMENT [facility] PREF VALUE MEDICARE REPLACEMENT Care Teams Trustee Of Estate Relationship Specialty Start Date End Date Yvan Costa MD [email or web address] PCP - General Family Medicine 06/03/23 Additional Source Comments The information contained in this document represents components of the legal health record. It is not the complete legal health record.[facility]
--- OUTSIDE RECORDS SUMMARY | 2025-07-24 09:07 | XMS_ITS | Encounter Summary ---
Author Organization [facility] Address [address] [address] Phone Care Team Providers Care Systems Eng Name Role Phone Yvan Costa MD Primary Care Provider [phone] Encounter Details Date Type Department Care Team (Late st Contact Info) Description 06/16/2023 Procedure Pass [facility] Endoscopy Admitting Dept Virtual Department [address] [place] [address] Social History Tobacco Use Types Packs/Day Years [...] on filedocumented in this encounter Care Teams Systems Eng Relationship Specialty Start Date End Date Yvan Costa MD [email or web address] PCP - General Family Medicine 06/03/23 documented as of this encounter Additional Source Comments The information contained in this document represents components of the legal health record. It is not the complete legal health record.[facility]
--- OUTSIDE RECORDS SUMMARY | 2025-07-24 09:07 | XMS_ITS | Encounter Summary ---
Author Organization [facility] Address [address] [place] [phone] Phone Care Team Providers Care Aviation Warfare Systems Operator Name Role Phone Yvan Costa MD Primary Care Provider [phone] Yvan Costa MD Primary Care Provider [phone] Encounter Details Date Type Department Care Team (Late st Contact Info) Description 12/05/2020 Procedure Pass [facility] Endoscopy Admitting Dept Virtual Department [address] [place] [address] Social History Tobacco Use Types Packs/Day Years [...] on filedocumented in this encounter Care Teams Aviation Warfare Systems Operator Relationship Specialty Start Date End Date Yvan Costa MD PCP - General Family Medicine 11/21/20 06/02/23 Yvan Costa MD PCP - General Family Medicine 7/13/23 documented as of this encounter Additional Source Comments The information contained in this document represents components of the legal health record. It is not the complete legal health record.[facility]
--- OUTSIDE RECORDS SUMMARY | 2025-07-24 09:07 | XMS_ITS | Encounter Summary ---
Author Organization [facility] Address [address] [place] [phone] Phone Care Team Providers Care Steel Die Engraver Name Role Phone Eliane Costa Primary Care Provider [phone] Yvan Costa MD Primary Care Provider Yvan Costa MD Primary Care Provider [phone] Encounter Details Date Type Department Care Team (Late st Contact Info) Description 08/21/2020 Ancillary Orders Virtual Department [address] [place] [address] Anushka Curry MD, MPH [address] [place], [place] [id number] [email or web address] Breast screening Social History Tobacco Use Types Packs/Day Years [...] documented as of this encounter Visit Diagnoses Diagnosis Breast screening Breast screening, unspecified documented in this encounter Care Teams Steel Die Engraver Relationship Specialty Start Date End Date Eliane Costa PA [address] [place] [phone] PCP - General Yellow Pages Space Salesperson 10/11/19 11/20/20 Yvan Costa MD [address] [place] [address] [email or web address] PCP - General Family Medicine 11/21/20 06/02/23 Yvan Costa MD [address] [place] [address] [email or web address] PCP - General Family Medicine 06/03/23 documented as of this encounter Additional Source Comments The information contained in this document represents components of the legal health record. It is not the complete legal health record.[facility]
[2025-07-24 09:16] LABS: Hematocrit 45.4 % (37.0-47.0); Hemoglobin 15.0 g/dl (12.0-16.0); Imm Gran Abs Auto 0.02 X10*3/uL (0.00-0.03); Imm Gran Pct Auto 0.4 % (0.0-0.4); Lymphocytes Absolute Auto 1.1 X10*3/uL (1.2-4.9); Mean Corpuscular HGB Conc 33.0 g/dl (31.0-35.0); Mean Corpuscular Hemoglobin 29.5 pg (27.0-33.0); Mean Corpuscular Volume 89.2 fL (80.0-98.0); NRBC Abs Auto 0.000 X10*3/uL (0.0-0.012); NRBC Pct Auto 0.0 /100WBC (0.0-0.2); Platelet Count 214 X10*3/uL (160-400); Red Blood Count 5.09 X10*6/uL (4.20-5.50); White Blood Count 5.5 X10*3/uL (4.8-10.8)
[2025-07-24 09:27] LABS: Appearance Urine Clear; Glucose Urine UA Negative (Negative); PH 7.0 (5.0-9.0); Specific Gravity - Urine 1.015 (1.005-1.025); UMIC TRIGGER UACC YES
[2025-07-24 09:33] LABS: UACC Culture Trigger YES
[2025-07-24 09:56] LABS: Alanine Aminotransferase 24 U/L (0-31); Albumin Level 4.3 g/dL (3.5-5.0); Alkaline Phosphatase 98 U/L (39-117); Anion Gap 11 (12-20); Aspartate Amino Transferase 23 U/L (5-31); Blood Urea Nitrogen 20 mg/dL (9-16); Calcium 9.7 mg/dL (8.4-10.2); Carbon Dioxide 30 mmol/L (22-29); Chloride 106 mmol/L (96-108); Cholesterol 195 mg/dL (<200); Estimated Glomerular Filt Rate 56; HDL Cholesterol 63 mg/dL (>40); Potassium 4.5 mmol/L (3.3-5.1); Sodium 142 mmol/L (135-145); Total Protein 7.3 g/dL (6.5-8.0); Triglycerides 55 mg/dL (<150)
[2025-07-24 10:11] LABS: Folate 11.3 ng/mL (> or = 4.0); Vitamin B12 529 pg/mL (200-900)
== END 2025-07-24 08:30 | disposition home or self-care (01) ==
LOC: HO.LAB 08:29
PROVIDERS: Visit Provider Internal Medicine
DX: E78.00 Pure hypercholesterolemia, unspecified (principal); E55.9 Vitamin D deficiency, unspecified; E53.8 Deficiency of other specified B group vitamins; D64.9 Anemia, unspecified; R30.0 Dysuria
CPT/HCPCS: 36415; 80053; 80061; 81001; 82306; 82607; 82746; 84443; 85025; 87086

== ENCOUNTER 2025-08-01 15:57 | Outpatient (AMB) | payer MEDICARE, SELFPAY ==
[2025-08-01 16:05] VITALS: BP 122/78; PULSE 77; O2SAT 97; BMI 42.4
--- NOTE | 2025-08-01 16:05 | A.OFFPC_ITS ---
Vital Signs 08/01/25 16:05 Height 5 ft 0.5 in Weight 221 lb BMI 42.4 BP 122/78 Blood Pressure Location Lt brachial Position Sitting Pulse 77 Pulse Source Pulse Oximeter Pulse Oximetry (%) 97 Oxygen Delivery Method Room Air Intake Visit Reasons: 3mth f/u Chief Technical Officer Required: No Accompanied by: Self / Same As Patient Allergies codeine Adverse Reaction (Severe, Verified 08/01/25 16:23) Nausea Medication List - Last Reconciled 08/01/25 by Jareth Benavidez MD atorvastatin 20 mg PO BEDTIME 90 days betamethasone valerate 0.1% 1 appl topical BID PRN diltiazem HCl CD 300 mg PO DAILY rivaroxaban (Xarelto) 20 mg PO DAILY 90 days triamterene-hydrochlorothiazid 37.5-25 mg 1 cap PO DAILY Tobacco use date assessed: 08/01/25 Fall risk assessment: No Falls in past year Last assessed Fall Risk: 08/01/25 Dental Screening Dental Screen Date: 08/01/25 Did you have a dental visit in the last 12 months?: No Did you have a dental problem in the last 6 months where you did not have access to dental care?: No Was dental information given to patient?: No HPI 3mth f/u HPI Details Patient comes in today for her follow up visit States that she feels okay She denies any headaches or dizziness Denies any chest pains, no SOB No nausea/vomiting, no abdominal pain No change in bowel habits noted She had her follow up labs done last week - to discuss her results Patient adds that she has not had a mammogram done in a few years now and would like to get an order for this to be done [facility] Medical History (Updated 08/01/25 @ 17:26 by Jareth Benavidez MD) Osteoarthritis of left knee Morbid obesity with BMI of 40.0-44.9, adult Recurrent kidney stones Pure hypercholesterolemia Essential hypertension Paroxysmal atrial fibrillation Adenomatous colon polyp Atrial fibrillation Psoriasis Kidney stones Surgical History Hx of colonoscopy History of hysterectomy Family History Mother Stroke CHF (congestive heart failure) Hypertension Father Heart attack Son No problems noted. Brother No problems noted. Brother No problems noted. Sister No problems noted. Sister No problems noted. 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 1. Little interest or pleasure in doing things: not at all 2. Feeling down, depressed, or hopeless: not at all 3. Trouble falling or staying asleep, or sleeping too much: not at all 4. Feeling tired or having little energy: not at all 5. Poor appetite or overeating: not at all 6. Feeling bad about yourself - or that you are a failure or have let yourself or your family down: not at all 7. Trouble concentrating on things, such as reading the newspaper or watching television: not at all 8. Moving or speaking so slowly that other people could have noticed. Or the opposite - being so fidgety or restless that you have been moving around a lot more than usual: not at all 9. Thoughts that you would be better off or of hurting yourself in some way: not at all Total score: 0 Depression Screening Interpretation: Negative Depression Screening Done: Yes 08882 - PHQ-9 Billing: Yes Source: Developed by Drs. Leo Lee, Urvashi Gaxiola, Sean Sagastume and colleagues, with an educational manuela from [employer]. Thrive Questionnaire Date Thrive assessed: 08/01/25 I am a: Patient What is your living situation today?: I have a steady place to live Within the past 12 months, did the food you bought not last and you didn't have the money to get more?: Never true Within the past 12 months, did you worry whether your food would run out before you got money to buy more?: Never true Do you have trouble paying for medicines?: No Do you have trouble getting transportation to medical appointments?: No Do you have trouble paying your heating and electricity bill?: No Do you have trouble taking care of your child, family member or friend?: No Do you have trouble with day-to-day activities such as bathing, preparing meals, shopping, managing finances, etc.?: No Are you currently unemployed and looking for a job?: No Are you interested in more education?: No Please select the resources that you would like help with: None Currently or been in a relationship where the following occur: No concerns reported THRIVE Score: 0 AUDIT C Alcohol Use Questionnaire (AUDIT-C) 1. How often do you have a drink containing alcohol?: Never 3. How often do you have six or more drinks on one occasion?: Never Total Score: 0 Score Reviewed/Action Taken: Yes NEW-7 AMB Questionnaire NEW-7 Date NEW - 7 assessed: 08/01/25 Feeling nervous, anxious, or on edge: 0 = Not at all Not being able to stop or control worryin = Not at all Worrying too much about different things: 0 = Not at all Trouble relaxin = Not at all Being so restless that it is hard to sit still: 0 = Not at all Becoming easily annoyed or irritable: 0 = Not at all Feeling afraid as if something awful might happen: 0 = Not at all Total NEW-7 score (0-4 normal; 5-9 mild; 10-14 moderate; 15-21 severe): 0 Source: Developed by Drs. Leo Lee, Urvashi Gaxiola, Sean Sagastume and colleagues, with an educational manuela from [employer] [facility]. Review of Systems Const Denies chills, Denies fatigue, Denies fever(s) and Denies headache(s) ENT Denies dysphagia, Denies dizziness, Denies otalgia, Denies headache(s), Denies neck pain, Denies odynophagia and Denies sore throat Card Denies chest pain, Denies irregular heart rhythm, Denies palpitations and Denies dyspnea Resp Denies chest congestion, Denies cough and Denies dyspnea GI Denies abdominal pain, Denies constipation, Denies dysphagia, Denies heartburn, Denies diarrhea, Denies nausea, Denies odynophagia and Denies vomiting Denies difficulty voiding, Denies nocturia, Denies dysuria and Denies urinary urgency Musc Reports back pain (recurrent), Reports arthralgias (left knee - on and off) and Denies neck pain Skin/Breast Reports rash (over the extensor aspect of her forearms and elbows) Neuro Denies dizziness, Denies headache(s) and Denies paresthesias Psych Denies anxiety and Denies depression Endo Denies fatigue and Denies palpitations Isrrael/Lymph Denies easy bruising Physical exam (Primary Care) Vital Signs: Last Vital Signs Pulse 77 08/01/25 16:05 BP 122/78 08/01/25 16:05 Pulse Ox 97 08/01/25 16:05 Oxygen Delivery Method Room Air 08/01/25 16:05 BMI result Body Mass Index 42.4 Tobacco/Smoking Status: Tobacco use Status Tobacco use date assessed 08/01/25 08/01/25 16:12 Patient Tobacco Use Status Never used Tobacco 08/01/25 16:05 Tobacco use type Cigarette 08/01/25 16:05 e-Cigarette/Vaping Use Never Used 08/01/25 16:05 PHQ-9: PHQ-9 Score PHQ-9: Total score 0 08/01/25 16:12 Depression Screening Interpretation: Negative Thrive Assessment: Date of Thrive Assessment Date Thrive assessed 08/01/25 08/01/25 16:12 Currently or been in a relationship where the following occur: No concerns reported Const General: no acute distress and alert HENMT Ears: TM's normal bilaterally and EAC's normal Throat: Yes posterior oropharynx normal and Yes tonsils normal (no TP congestion) Neck Neck: Yes supple and No lymphadenopathy Thyroid: Thyroid normal Resp Auscultation: clear to auscultation bilaterally, no rales and no wheezes Cardio Rate: regular rate Rhythm: abnormal rhythm irregularly irregular Heart sounds: no murmurs GI Palpation (GI): Soft to palpation and nontender Auscultation: normal bowel sounds General: Yes no CVA tenderness Back/Spine/Pelvis Back: no CVA tenderness Thoracic/Lumbar Spine: No lumbar spinal tenderness Skin Other: (+) scattered patchy scaling rash over the extensor aspect of both forearms and over her elbows bilaterally Extrem General: Yes no clubbing, cyanosis or edema Results Reviewed Results Reviewed: Laboratory Tests 07/24/25 07/24/25 08:49 08:52 WBC 5.5 Hgb 15.0 Hct 45.4 Plt Count 214 Sodium 142 Potassium 4.5 Creatinine 0.99 Estimated GFR 56 Fasting Glucose 93 Calcium 9.7 AST 23 ALT 24 Triglycerides 55 Cholesterol 195 LDL Cholesterol, Calc 121 H HDL Cholesterol 63 Vitamin B12 529 25-OH Vitamin D Total 48.1 TSH 2.70 Ur Specific [place] 1.015 Urine Protein Negative Urine Glucose (UA) Negative Urine Blood Trace H Urine Nitrite Negative Ur Leukocyte Esterase Trace H Coding Level of Care Code Est Pt Level 4 (28247) Diagnoses Persistent atrial fibrillation I48.19 Essential hypertension I10 Pure hypercholesterolemia E78.00 Psoriasis L40.9 Primary osteoarthritis of left knee M17.12 Osteoarthritis type: primary Chronic bilateral thoracic back pain M54.6; G89.29 Back pain location: thoracic back pain Chronicity: chronic Back pain laterality: bilateral Bilateral pendulous breasts N64.89 Recurrent kidney stones N20.0 Right renal atrophy N26.1 Right renal artery stenosis I70.1 Morbid obesity with BMI of 40.0-44.9, adult E66.01; Z68.41 Breast cancer screening by mammogram Z12.31 Osteoporosis screening Z13.820 Additional Codes PHQ-9 - 45015 - PHQ-9 Billing: Yes ([id number]) Assessment & Plan Assessment & Plan (1) Persistent atrial fibrillation: Code(s): I48.19 - Other persistent atrial fibrillation Category: Medical Plan: Patient currently appears to still be in atrial fibrillation but rate is controlled 12-L EKG done a few months ago confirmed (+) AF with HR in the 60s Echocardiogram done on 02/06/2025 revealed normal LV ejection fraction af around 55-60%, moderately dilated left atrium, mild mitral regurgitation, normal calculated RV systolic pressure and no gross pericardial effusion Continue Diltiazem CD 300 mg QD; continue Xarelto 20 mg QD for thromboembolism prophylaxis Patient states that she has not seen cardiology for follow up ever since she was diagnosed with PAF and started on Xarelto back in 2021 Her previous reinsurance accountant appears to be Dr. oMna Maxwell in [place] at [facility] We referred her to [facility] for further evaluation and management at her last visit and she is now scheduled to see Dr. Linn to establish care next week on 08/09/2025 (2) Essential hypertension: Code(s): I10 - Essential (primary) hypertension Category: Medical Plan: Reinforced low sodium diet - goal is systolic BP of 120 to 130 mm or less Continue Triamterene-HCT 37.5-25 mg QD; she is also on Diltiazem CD 300 mg QD for her AF (3) Pure hypercholesterolemia: Code(s): E78.00 - Pure hypercholesterolemia, unspecified Category: Medical Plan: Results of her labs done last week reviewed and discussed with patient - patient is advised that her cholesterol level have increased slightly from previous despite her current Rx Patient admits that she has been eating a lot of ice cream over the past few months as her keeps bringing her home icer cream from the store regularly Reinforced low cholesterol diet Continue Atorvastatin 20 mg QD for now Will have patient recheck her labs and fasting lipids in 3 months for follow up (4) Psoriasis: Code(s): L40.9 - Psoriasis, unspecified Category: Medical Plan: Patient's psoriasis has been reportedly fairly well-controlled for a while now Continue Betamethasone valerate 0.1% cream BID PRN She used to see dermatology but has not done so since 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 (5) Osteoarthritis of left knee: Code(s): M17.12 - Unilateral primary osteoarthritis, left knee Category: Medical Qualifiers: Osteoarthritis type: primary Qualified Code(s): M17.12 - Unilateral primary osteoarthritis, left knee Plan: Patient reports that her previous left knee pain has improved a lot over the past few months She initially banged her knee on the edge of a cabinet and her knee symptoms took a while to recover, likely because she is on her feet at work all day long Her knee x-rays done back in June 2024 revealed only mild OA changes of the m edial joint space compartment of the left knee (6) Back pain: Code(s): M54.9 - Dorsalgia, unspecified Category: Medical Qualifiers: Back pain location: thoracic back pain Chronicity: chronic Back pain laterality: bilateral Qualified Code(s): M54.6 - Pain in thoracic spine; G89.29 - Other chronic pain Plan: Patient states that she's had recurrent back pain for years and believes that her bilateral pendulous breasts is contributing significantly to her back pain and that breast reduction surgery will help her a lot and significantly reduce her back symptoms - she is still waiting for an appointment to see plastic surgery about this (7) Bilateral pendulous breasts: Code(s): N64.89 - Other specified disorders of breast Category: Medical Plan: She has been referred to plastic surgery at her last visit for consideration for reduction mammoplasty and is still waiting to be seen to have this resolved (8) Recurrent kidney stones: Code(s): N20.0 - Calculus of kidney Category: Medical Plan: Patient has had recurrent kidney stones for years and has undergone several sessions of lithotripsies and kidney stone extractions and stenting Her kidney stones were determined to be predominantly calcium oxalate in composition Her renal US done back on 10/20/2024 revealed (+) bilateral nephrolithiasis, with no hydronephrosis. There are areas of irregular right renal cortical thi nning that are difficult to characterize due to limited visualization. CT scan with intravenous contrast employing renal mass protocol could be considered for further evaluation based on the clinical assessment for this patient with hematuria She was sent for CT and this was done back in May 2025, which revealed (+) right renal atrophy likely secondary to right renal artery stenosis. CT confirm ed the bilateral non-obstructing nephrolithiasis seen previously on US; no renal cysts noted Follow up with urology as scheduled (9) Right renal atrophy: Code(s): N26.1 - Atrophy of kidney (terminal) Category: Medical Plan: This was seen on her CT done a couple of months ago in May 2025 Will refer her to nephrology for further recommendations and evaluation, if appropriate (10) Right renal artery stenosis: Code(s): I70.1 - Atherosclerosis of renal artery Category: Medical Plan: Will have patient see nephrology for this for further recommendations - referral to nephrology placed (11) Morbid obesity with BMI of 40.0-44.9, adult: Code(s): E66.01 - Morbid (severe) obesity due to excess calories; Z68.41 - Body mass index [BMI] 40.0-44.9, adult Category: Medical Plan: Reinforced diet/exercise as tolerated/lose weight (12) Breast cancer screening by mammogram: Code(s): Z12.31 - Encounter for screening mammogram for malignant neoplasm of breast Category: Medical Plan: Patient states that she has not had a mammogram done in a few years now Will send her for annual screening mammography (13) Osteoporosis screening: Code(s): Z13.820 - Encounter for screening for osteoporosis Category: Medical Plan: Will also send her for BMD for osteoporosis screening - states that her last BMD was done at [facility] about 2 to 3 years ago Plan Follow up in 3 months Orders: Orders Complete Blood Count Auto Diff 3 Months D64.9 - Anemia, unspecified Comprehensive [place]. Panel Fast 3 Months E78.00 - Pure hypercholesterolemia, unspecified UA CC w/rflx Micro + Cult 3 Months R31.9 - Hematuria, unspecified MM tomosynthesis screening BI Today Z12.31 - Encounter for screening mammogram for malignant neoplasm of breast XR DEXA axial skeleton Today Z78.0 - Asymptomatic menopausal state Lipid Panel 3 Months E78.00 - Pure hypercholesterolemia, unspecified Referrals Nephrology Referral I70.1 - Atherosclerosis of renal artery, N26.1 - Atrophy of kidney (terminal)
--- OUTSIDE RECORDS SUMMARY | 2025-08-01 18:35 | XMS_ITS | Encounter Summary ---
Author Organization [facility] Address [address] [place] [address] Phone Care Team Providers Care Envelope Machine Adjuster Name Role Phone Yvan Costa MD Primary Care Provider [phone] Yvan Costa MD Primary Care Provider Encounter Details Date Type Department Care Team (Late st Contact Info) Description 07/15/2022 Procedure Pass OR Admitting Dept - Virtual Department [address] [place] [address] Social History Tobacco Use Types Packs/Day Years [...] on filedocumented in this encounter Care Teams Envelope Machine Adjuster Relationship Specialty Start Date End Date Yvan Costa MD PCP - General Family Medicine 11/21/20 06/02/23 Yvan Costa MD PCP - General Family Medicine 06/03/23 documented as of this encounter Additional Source Comments The information contained in this document represents components of the legal health record. It is not the complete legal health record.[facility]
--- OUTSIDE RECORDS SUMMARY | 2025-08-01 18:35 | XMS_ITS | Encounter Summary ---
Author Organization [facility] Address [address] [place] [address] Phone Care Team Providers Care Ranch Hand Name Role Phone Yvan Costa MD Primary Care Provider [phone] Yvan Costa MD Primary Care Provider [phone] Encounter Details Date Type Department Care Team (Late st Contact Info) Description 12/05/2020 Procedure Pass [facility] Endoscopy Admitting Dept Virtual Department [address] [place] [address] Social History Tobacco Use Types Packs/Day Years [...] on filedocumented in this encounter Care Teams Ranch Hand Relationship Specialty Start Date End Date Yvan Costa MD PCP - General Family Medicine 11/21/20 06/02/23 Yvan Costa MD PCP - General Family Medicine 7/13/23 documented as of this encounter Additional Source Comments The information contained in this document represents components of the legal health record. It is not the complete legal health record.[facility]
--- OUTSIDE RECORDS SUMMARY | 2025-08-01 18:35 | XMS_ITS | Encounter Summary ---
Author Organization [facility] Address [address] [place] [address] Phone Care Team Providers Care Hand Spray Operator Name Role Phone Eliane Costa Primary Care Provider [phone] Yvan Costa MD Primary Care Provider [phone] Yvan Costa MD Primary Care Provider [phone] Encounter Details Date Type Department Care Team (Late st Contact Info) Description 08/21/2020 Ancillary Orders Virtual Department [address] [place] [address] Anushka Curry MD, MPH [address] [place], [place] [id number] [email or web address] Breast screening Social History Tobacco Use Types [...] unspecified documented in this encounter Care Teams Hand Spray Operator Relationship Specialty Start Date End Date Eliane Costa PA [address] [place] [phone] PCP - General Bundler Seasonal Greenery 10/11/19 11/20/20 Yvan Costa MD [address] [place] [address] [email or web address] PCP - General Family Medicine 11/21/20 06/02/23 Yvan Costa MD [address] [place] [address] [email or web address] PCP - General Family Medicine 06/03/23 documented as of this encounter Additional Source Comments The information contained in this document represents components of the legal health record. It is not the complete legal health record.[facility]
--- OUTSIDE RECORDS SUMMARY | 2025-08-01 18:35 | XMS_ITS | Encounter Summary ---
Author Organization [facility] Address [address] [place] [phone] Phone Care Team Providers Care Transit Bus Operator Name Role Phone Yvan Costa MD Primary Care Provider [phone] Yvan Costa MD Primary Care Provider [phone] Encounter Details Date Type Department Care Team (Late st Contact Info) Description 06/27/2021 Procedure Pass [facility], Ct Scan - [facility] [address] [place] [address] Social History Tobacco Use Types Packs/Day Years [...] on filedocumented in this encounter Care Teams Transit Bus Operator Relationship Specialty Start Date End Date Yvan Costa MD PCP - General Family Medicine 11/21/20 06/02/23 Yvan Costa MD PCP - General Family Medicine 06/03/23 documented as of this encounter Additional Source Comments The information contained in this document represents components of the legal health record. It is not the complete legal health record.[facility]
--- OUTSIDE RECORDS SUMMARY | 2025-08-01 18:35 | XMS_ITS | Encounter Summary ---
Author Organization [facility] Address [address] [place] [address] Phone Care Team Providers Care Job Developer For Deaf Adults Name Role Phone Eliane Costa Primary Care Provider [phone] Yvan Costa MD Primary Care Provider [phone] Yvan Costa MD Primary Care Provider [phone] Encounter Details Date Type Department Care Team (Late st Contact Info) Description 12/21/2019 Procedure Pass [facility]oscopy Admitting Dept Virtual Department [address] [place], [place] [phone] Social History Tobacco Use Types Packs/Day Years [...] on filedocumented in this encounter Care Teams Job Developer For Deaf Adults Relationship Specialty Start Date End Date Eliane Costa PA [address] [place] [phone] PCP - General Trenching Machine Operator 10/11/19 11/20/20 Yvan Costa MD [address] [place] [phone] [email or web address] PCP - General Family Medicine 11/21/20 06/02/23 Yvan Costa MD [address] [place] [phone] [email or web address] PCP - General Family Medicine 06/03/23 documented as of this encounter Additional Source Comments The information contained in this document represents components of the legal health record. It is not the complete legal health record.[facility]
--- OUTSIDE RECORDS SUMMARY | 2025-08-01 18:35 | XMS_ITS | Encounter Summary ---
Author Organization [facility] Address [address] [address] Phone Care Team Providers Care Heater Planer Operator Name Role Phone Yvan Costa MD Primary Care Provider [phone] Encounter Details Date Type Department Care Team (Late st Contact Info) Description 06/16/2023 Procedure Pass [facility] Admitting Dept Virtual Department [address] [place] [address] Social History Tobacco Use Types Packs/Day Years [...] on filedocumented in this encounter Care Teams Heater Planer Operator Relationship Specialty Start Date End Date Yvan Costa MD [email or web address] PCP - General Family Medicine 06/03/23 documented as of this encounter Additional Source Comments The information contained in this document represents components of the legal health record. It is not the complete legal health record.[facility]
--- OUTSIDE RECORDS SUMMARY | 2025-08-01 18:35 | XMS_ITS | Encounter Summary ---
Author Organization [facility] Address [address] [address] Phone Care Team Providers Care Latexer Name Role Phone Yvan Costa MD Primary Care Provider [phone] Encounter Details Date Type Department Care Team (Late st Contact Info) Description 06/16/2023 Procedure Pass [facility]oscopy Admitting Dept Virtual Department [address] [place] [address] Social History Tobacco Use Types Packs/Day Years [...] on filedocumented in this encounter Care Teams Latexer Relationship Specialty Start Date End Date Yvan Costa MD [email or web address] PCP - General Family Medicine 06/03/23 documented as of this encounter Additional Source Comments The information contained in this document represents components of the legal health record. It is not the complete legal health record.[facility]
--- OUTSIDE RECORDS SUMMARY | 2025-08-01 18:35 | XMS_ITS | Encounter Summary ---
Author Organization [facility] Address [address] [address] Phone Care Team Providers Care Chemical Compounder Name Role Phone Yvan Costa MD Primary Care Provider [phone] Yvan Costa MD Primary Care Provider [phone] Encounter Details Date Type Department Care Team (Late st Contact Info) Description 06/21/2022 Procedure Pass [facility], Ct Scan - [facility] [address] [place] [address] Social History Tobacco Use Types Packs/Day Years [...] 6:32 PM EDT Gwen [place] RN * [place] Suicide Severity Rating Scale (Screener/Recent Self-Report) Question Answer Date of Assessment Author 1. Wish to be (Past 1 Month) No 022 6:32 PM EDT Elke [place], RN 2. Non-Specific Active Suici jess Thoughts (Past 1 Month) No 06/21/2022 6:32 PM EDT Elke [place] , RN 6. Suicidal Behavior (Lifetime) No 6:32 PM EDT Ekle [place], RN documented as of this encounter Plan of Treatment Not on file documented as of this encounter Visit Diagnoses Not on filedocumented in this encounter Care Teams Chemical Compounder Relationship Specialty Start Date End Date Yvan Costa MD [email or web address] PCP - General Family Medicine 11/21/20 06/02/23 Yvan Costa MD [email or web address] PCP - General Family Medicine 06/03/23 documented as of this encounter Additional Source Comments The information contained in this document represents components of the legal health record. It is not the complete legal health record.[facility]
--- OUTSIDE RECORDS SUMMARY | 2025-08-01 18:35 | XMS_ITS | Encounter Summary ---
Author Organization [facility] Address [address] [place] [address] Phone Care Team Providers Care National Sales Consultant Name Role Phone Yvan Costa MD Primary Care Provider [phone] Yvan Costa MD Primary Care Provider [phone] Encounter Details Date Type Department Care Team (Late st Contact Info) Description 10/08/2021 Procedure Pass [place] Admitting Dept - Virtual Department [address] [place] [address] Social History Tobacco Use Types Packs/Day Years [...] 10/08/2021 7:42 AM Antionette Tatum RN * [place] Suicide Severity Rating Scale (Screener/Recent Self-Report) Question Answer Date of Assessment Author 2. Non-Specific Active Suici jess Thoughts (Past 1 Month) No 10/08/2021 7:42 AM Danna Vang RN documented as of this encounter Plan of Treatment Not on file documented as of this encounter Visit Diagnoses Not on filedocumented in this encounter Care Teams National Sales Consultant Relationship Specialty Start Date End Date Yvan Costa MD [email or web address] PCP - General Family Medicine 11/21/20 06/02/23 Yvan Costa MD [email or web address] PCP - General Family Medicine 06/03/23 documented as of this encounter Additional Source Comments The information contained in this document represents components of the legal health record. It is not the complete legal health record.[facility]
--- OUTSIDE RECORDS SUMMARY | 2025-08-01 18:35 | XMS_ITS | Clinical Summary ---
Author Organization [facility] Address [address] [address] Phone Care Team Providers Care Supervisor Fleshing Name Role Phone Yvan Costa MD Primary Care Provider [phone] Allergies Active Allergy Reactions Criticality Noted Date [...] this topic Medical Devices Implanted Type Area Crew Supervisor Device Identifier Shelf Expiration Date Model / Serial / Lot Stent Ureteral 6fr 22 To 30cm Stretch Coated Anton - [id number] Implanted:Qty: 1 on 07/15/2022 by Brenton Nassar MD at [facility] Left: Ureter [employer] 12/12/2024 [id number] / / [id number] Clip Hemostasis 360deg 235cm Resolution 360 Latex Free 2.8mm Channel Bx/20ea - [id number] Implanted:Qty: 1 on 06/16/2023 by Pawan Streeter MD at [facility] Sigmoid [employer] 3 / / Procedures Procedure Name Priority Date/Time Associated Diagnosis Comments ENDOSCOPY, COLON 06/16/2023 11:5 7 AM EDT BASIC METABOLIC PANEL STAT 06/21/2022 6:45 PM EDT from Last 3 Months or Most Recently Relevant to Health Maintenance Results * ENDOSCOPY, COLON (06/16/2023 11:57 AM EDT) Narrative Transcriptions Pawan Streeter MD - 06/16/2023 11:57 AM EDT [facility] Patient Name: Jania Velázquez Attending MD:: PAWAN STREETER MD, , Procedure Date: 06/16/2023 11:57 AM Date of : 1955 Age: 67 Admit Type: Outpatient Gender: Female Room: [place] [address] Referring MD: YVAN COSTA MD Exam Type: [...] 11:57 AM Procedure Code(s): --- Professional --- 81943, Colonoscopy, flexible; with removal of tumor(s), polyp(s), or other lesion(s) by snare technique --- Technical --- 90417, Colonoscopy, flexible; with removal of tumor(s), polyp(s), [...] or abscess without bleeding CPT copyright 2021 [employer]. All rights reserved. The codes documented in this report are preliminary and upon lamination technician reviewmay be revised to meet current compliance requirements. Procedure Date: 06/16/2023 11:57:[address] [place] [address] Yvan Costa MD GI PROCEDURE ORDERABLES Final Result * (ABNORMAL) Basic metabolic panel (06/21/2022 6:45 PM EDT) SODIUM 138 133 - 146 mmol/L [facility] CHLORIDE 100 96 - 108 mmol/L [facility] POTASSIUM 3.8 3.3 - 5.1 mmol/L [facility] CO2 25 21 - 35 mmol/L [facility] BUN 24(H) 6 - 19 mg/dL [facility] CREATININE 0.80 0.5 - 1.5 mg/dL [facility] GLUCOSE 94 70 - 99 mg/dL [facility] CALCIUM 9.6 8.4 - 10.3 mg/dL [facility] EGFR 82 >59 mL/min/1.7 3m2 [facility] Comment:Estimated glomerular filtration rate calculated using the CKD-EPI refit equation. ANION GAP 17 10 - 20 mmol/L [facility] Blood 06/21/2022 6:45 PM EDT 06/21/2022 6:52 PM EDT Liliane Vasquez MD LAB BLOOD ORDERABLES Final Result [facility] [address] [place] [address] from Last 3 Months or Most Recently Relevant to Health Maintenance Insurance [facility] SAULT MEDICARE REPLACEMENT [facility] SA[facility] MEDICARE REPLACEMENT [facility] SAULT MEDICARE REPLACEMENT [facility] PREF VALUE MEDICARE REPLACEMENT [facility] PREF VALUE MEDICARE [facility]PL[facility] PREF VALUE MEDICARE REPLACEMENT Care Teams Supervisor Fleshing Relationship Specialty Start Date End Date Yvan Costa MD [email or web address] PCP - General Family Medicine 06/03/23 Additional Source Comments The information contained in this document represents components of the legal health record. It is not the complete legal health record.[facility]
--- OUTSIDE RECORDS SUMMARY | 2025-08-01 18:35 | XMS_ITS | Encounter Summary ---
Author Organization [facility] Address [address] [place] [address] Phone Care Team Providers Care Glue Mounter Operator Name Role Phone Yvan Costa MD Primary Care Provider [phone] Yvan Costa MD Primary Care Provider [phone] Reason for Referral * MRI/CAT Scan - Closed Specialty Diagnoses / Procedures Referred By John marin Referred To Contact Radiology Diagnoses Personal history of urinary calculi Other microscopic hematuria Procedures CT Abdomen/Pelvis CHG CT SCAN,ABDOMENT AND PELVIS,COMBO CHG CT SCAN,ABDOMENT AND PELVIS,W CONTRAST CHG CT SCAN,ABDOMENT AND PELVIS,W/O CONTRAST Cipriano Healy MD Phone: tel: fax: mailto: Referral ID Status Reason Start Date Expiration Date Visits Re quested Visits Authorized [id number] Closed 06/27/2021 09/24/2021 1 1 Encounter Details Date Type Department Care Team (Latest Contact Info) Description 06/27/2021 Transcribe Orders Virtual Department [address] [place] [address] Cipriano Healy MD [address] [place] [address], [address] [address] [email or web address] Personal history of urinary calculi (Primary Dx); [...] hematuria documented in this encounter Care Teams Glue Mounter Operator Relationship Specialty Start Date End Date Yvan Costa MD [email or web address] PCP - General Family Medicine 11/21/20 06/02/23 Yvan Costa MD PCP - General Family Medicine 06/03/23 documented as of this encounter Additional Source Comments The information contained in this document represents components of the legal health record. It is not the complete legal health record.[facility]
--- OUTSIDE RECORDS SUMMARY | 2025-08-01 18:35 | XMS_ITS | Encounter Summary ---
Author Organization [facility] Address [address] [place] [address] Phone Care Team Providers Care Pad Machine Operator Name Role Phone Yvan Costa MD Primary Care Provider [phone] Yvan Costa MD Primary Care Provider [phone] Encounter Details Date Type Department Care Team (Late st Contact Info) Description 08/11/2021 Ancillary Orders [facility], X-Ray - [address] [address] Cipriano Healy MD [address] [place] [address], [address] [place] [address] [email or web address] Calculus of kidney Social History Tobacco Use [...] kidney documented in this encounter Care Teams Pad Machine Operator Relationship Specialty Start Date End Date Yvan Costa MD [email or web address] PCP - General Family Medicine 11/21/20 06/02/23 Yvan Costa MD PCP - General Family Medicine 06/03/23 documented as of this encounter Additional Source Comments The information contained in this document represents components of the legal health record. It is not the complete legal health record.[facility]
== END 2025-08-01 16:50 | disposition home or self-care (01) ==
LOC: HO.HMCH 15:58
PROVIDERS: PCP Internal Medicine; Visit Provider Internal Medicine
DX: I48.19 Other persistent atrial fibrillation (principal); E66.01 Morbid (severe) obesity due to excess calories; Z68.41 Body mass index [BMI] 40.0-44.9, adult; I10 Essential (primary) hypertension; E78.00 Pure hypercholesterolemia, unspecified; L40.9 Psoriasis, unspecified; M17.12 Unilateral primary osteoarthritis, left knee; M54.6 Pain in thoracic spine; G89.29 Other chronic pain; N64.89 Other specified disorders of breast; N20.0 Calculus of kidney; N26.1 Atrophy of kidney (terminal)

== ENCOUNTER → 2025-08-01 15:57 | Outpatient (BNVA) | payer MEDICARE, SELFPAY | PROVIDERS: PCP Internal Medicine; Visit Provider Internal Medicine | DX: I48.19 Other persistent atrial fibrillation (principal); I10 Essential (primary) hypertension; E78.00 Pure hypercholesterolemia, unspecified; L40.9 Psoriasis, unspecified; M17.12 Unilateral primary osteoarthritis, left knee; M54.6 Pain in thoracic spine; G89.29 Other chronic pain; N64.89 Other specified disorders of breast; N20.0 Calculus of kidney; N26.1 Atrophy of kidney (terminal); I70.1 Atherosclerosis of renal artery; E66.01 Morbid (severe) obesity due to excess calories; Z68.41 Body mass index [BMI] 40.0-44.9, adult | CPT/HCPCS: 96127; 99212 ==

== ENCOUNTER 2025-08-09 08:29 | Outpatient (REF) | payer MEDICARE, SELFPAY ==
--- NOTE | ~2025-08-09 | XR_ITS ---
EXAMINATION: XR CHEST CLINICAL INFORMATION: I48.19 - Other persistent atrial fibrillation COMPARISON: None available. TECHNIQUE: 2 views of the chest were obtained. FINDINGS: The cardiac, hilar, and mediastinal contours are normal. Aortic mural calcifications. The lungs are clear bilaterally. There is no pneumothorax or pleural effusion. There is no focal osseous or soft tissue abnormality. Degenerative changes and scoliosis of the thoracolumbar spine. XR/XR chest 2V IMPRESSION: No active pulmonary disease. Electronically signed by: Stew Guerrero MD 08/09/2025 10:04 AM EDT
[2025-08-09 10:45] LABS: Alanine Aminotransferase 28 U/L (0-31); Albumin Level 4.5 g/dL (3.5-5.0); Alkaline Phosphatase 98 U/L (39-117); Aspartate Amino Transferase 26 U/L (5-31); Total Protein 7.3 g/dL (6.5-8.0)
== END 2025-08-09 08:30 | disposition home or self-care (01) ==
LOC: HO.XRAY 08:29
PROVIDERS: PCP Internal Medicine; Visit Provider Internal Medicine Cardiovascular Disease
DX: I48.19 Other persistent atrial fibrillation (principal); Z79.01 Long term (current) use of anticoagulants
CPT/HCPCS: 36415; 71046; 80076; 84443; 93005; 99212

== ENCOUNTER 2025-08-09 08:29 | Outpatient (AMB) | payer MEDICARE, SELFPAY ==
[2025-08-09 08:36] VITALS: BP 112/60; PULSE 81; BMI 40.8
--- NOTE | 2025-08-09 08:36 | A.OFFVIS_ITS ---
Vital Signs 08/09/25 08:36 Height 5 ft 1 in Weight 216 lb 0.848 oz BMI 40.8 BP 112/60 Blood Pressure Location Lt brachial Position Sitting Pulse 81 Pulse Source Monitor Intake Visit Reasons: TECHNOLOGY SERVICES MANAGER/Pramod/AFIB Allergies codeine Adverse Reaction (Severe, Verified 08/01/25 16:23) Nausea Medication List - Last Reconciled 08/09/25 by Yeison Linn MD atorvastatin 20 mg PO BEDTIME 90 days betamethasone valerate 0.1% 1 appl topical BID PRN diltiazem HCl CD 300 mg PO DAILY rivaroxaban (Xarelto) 20 mg PO DAILY 90 days triamterene-hydrochlorothiazid 37.5-25 mg 1 cap PO DAILY HPI Comments Details: Thank you for referring Jania in cardiology consultation today for management of atrial fibrillation. She is a pleasant 69-year-old female with prior history of right renal artery stenosis, hypertension, obesity and atrial fibrillation. Patient says she was 1st diagnose atrial fibrillation 2020 when she went in for colonoscopy and was noted incidentally to have atrial fibrillation. She subsequently saw her primary care physician was started on Xarelto and subsequently referred to cardiology only for a nuclear stress test. She has not actually had a cardiology consultation today. Unclear whether she had paroxysmal atrial fibrillation at that point in time. Do not have any copies of EKGs from back then. Subsequently she said for 3 years she had no EKGs and subsequently switch her care under you. Subsequently this January Tarsha's noted again on EKG to have AFib when she underwent echocardiogram which showed normal LV ejection fraction with at least moderately dilated left atrium with mild mitral regurgitation. No other major valvular abnormality no pulmonary hypertension. Patient has been having exertional shortness of breath but felt that this was related to weight. She does not have any clear symptoms of palpitations or irregular heartbeat. No lightheadedness, syncope. She has been taking all medications and blood pressures been generally well controlled on current therapy. She has been taking Xarelto regularly. She denies any clear orthopnea, PND. Has been advised [facility] Medical History (Updated 08/09/25 @ 09:49 by Yeison Linn MD) Paroxysmal atrial fibrillation Osteoarthritis of left knee Morbid obesity with BMI of 40.0-44.9, adult Recurrent kidney stones Pure hypercholesterolemia Essential hypertension Adenomatous colon polyp Psoriasis Kidney stones Surgical History Hx of colonoscopy History of hysterectomy Family History Mother Stroke CHF (congestive heart failure) Hypertension Father Heart attack Son No problems noted. Brother No problems noted. Brother No problems noted. Sister No problems noted. Sister No problems noted. 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 Current occupational exposures/hazards: No Cognitive needs: No Hearing needs: No Vision needs: Yes Review of Systems Const Denies weakness ENT Denies dizziness Card Reports no additional complaints, Denies chest pain, Denies chest pain with activity, Denies syncope, Denies rapid heart rate, Denies pedal edema, Denies edema, Denies leg edema, Denies lightheadedness, Denies palpitations, Reports dyspnea, Reports dyspnea on exertion and Denies orthopnea Resp Denies cough, Reports dyspnea and Reports dyspnea on exertion GI Denies hematochezia and Denies change in stool character Musc Denies abnormal gait, Denies muscle cramps, Denies muscle weakness, Denies numbness, Denies radiating pain into limb and Denies tingling Neuro Denies abnormal gait, Denies dizziness, Denies syncope, Denies numbness, Denies tingling and Denies weakness Endo Denies palpitations Physical Exam Vital Signs: Last Vital Signs Pulse 81 08/09/25 08:36 BP 112/60 08/09/25 08:36 BMI result Body Mass Index 40.8 Const General: cooperative, comfortable, no acute distress, alert, awake and Physically active Nutritional Appearance: obese Orientation/consciousness: patient oriented x3 Limitations: no limitations HEENT Head: Yes normocephalic and Yes atraumatic Neck Neck: Yes trachea midline, Yes supple and Yes no JVD Resp Effort & Inspection: normal respiratory effort Auscultation: clear to auscultation bilaterally Cardio Jugular venous distension: no JVD Rhythm: abnormal rhythm irregularly irregular Heart sounds: S1 normal heart sound present, S2 normal heart sound present, no click, no gallops, no murmurs and no rubs GI Auscultation: normal bowel sounds Skin General skin exam: no rashes or lesions noted Neuro General: patient oriented x3 and no focal motor deficits Extrem General: Yes no clubbing, cyanosis or edema Psych Appearance: grossly normal Office Procedures EKG Details: EKGs shows atrial fibrillation with nonspecific diffuse ST T wave changes 17762-[id number], Complete Assessment & Plan Assessment & Plan (1) Persistent atrial fibrillation: Code(s): I48.19 - Other persistent atrial fibrillation Category: Medical Plan: Persistent long-lasting atrial fibrillation probably. Unclear whether she had ever had any episodes of intermittent AFib since 2020. This is difficult to determine as she has not had EKGs done in the past. Will obtain old records. However given her age and symptoms of exertional shortness of breath which is probably related to atrial fibrillation should attempt to pursue rhythm control approach. We discussed in details about pathophysiology of atrial fibrillation and hemodynamic insufficiency in cardiac function as well as stroke risk in details. Pathophysiology of atrial fibrillation occurrence was discussed. CHADSVASc score of 4. Continue buttermaker oral anticoagulation, currently on Xarelto which she is tolerating well. Rationale full oral anticoagulation therapy was discussed. We discussed about scientific data and maintenance rhythm in the long run to reduce long-term complications of development of heart failure. However given her probably long lasting persistent atrial fibrillation as well as left atrial anatomy may not be possible to attain rhythm control and maintain rhythm control approach in the mcc. This was discussed with her. However as mentioned would pursue rhythm control approach with amiodarone loading and followed by cardioversion. We discussed about risks, benefits, alternatives to synchronized cardioversion. She understands agrees. Will obtain baseline chest x-ray, liver panel as well as TSH. Will follow with her in 6 weeks time, sooner PRN. Thank you for allowing me to partake in her care Orders: Orders Liver Panel Today I48.19 - Other persistent atrial fibrillation TSH reflex Free T4 () Today I48.19 - Other persistent atrial fibri llation XR chest 2V Today I48.19 - Other persistent atrial fibrillation Coding Level of Care Code New Pt Level 4 (30793) Complex EM visit Add On G2211 Diagnoses Persistent atrial fibrillation I48.19 CPT Codes EKG - CPT: 43406-Emqdnkxntwonaqcjh, Complete ([id number])
--- OUTSIDE RECORDS SUMMARY | 2025-08-09 09:37 | XMS_ITS | Clinical Summary ---
Author Organization [facility] Address [address] [address] Phone Care Team Providers Care Wastewater Treatment Supervisor Name Role Phone Yvan Costa MD Primary Care Provider Allergies Active Allergy Reactions Criticality Noted Date [...] this topic Medical Devices Implanted Type Area Educational Resource Center Teacher Device Identifier Shelf Expiration Date Model / Serial / Lot Stent Ureteral 6fr 22 To 30cm Stretch Coated Anton - [id number] Implanted:Qty: 1 on 07/15/2022 by Brenton Nassar MD at [facility] Left: Ureter [employer] 12/12/2024 [id number] / / [id number] Clip Hemostasis 360deg 235cm Resolution 360 Latex Free 2.8mm Channel Bx/20ea - [id number] Implanted:Qty: 1 on 06/16/2023 by Pawan Streeter MD at [facility] Sigmoid [employer] 3 / / Procedures Procedure Name Priority Date/Time Associated Diagnosis Comments ENDOSCOPY, COLON 06/16/2023 11:5 7 AM EDT BASIC METABOLIC PANEL STAT 06/21/2022 6:45 PM EDT from Last 3 Months or Most Recently Relevant to Health Maintenance Results * ENDOSCOPY, COLON (06/16/2023 11:57 AM EDT) Narrative Transcriptions Pawan Streeter MD - 06/16/2023 11:57 AM EDT [facility] Patient Name: Jania Velázquez Attending MD:: PAWAN STREETER MD, , Procedure Date: 06/16/2023 11:57 AM Date of : 1955 Age: 67 Admit Type: Outpatient Gender: Female Room: [place] [address] Referring MD: YVAN COSTA MD Exam Type: [...] 11:57 AM Procedure Code(s): --- Professional --- 01520, Colonoscopy, flexible; with removal of tumor(s), polyp(s), or other lesion(s) by snare technique --- Technical --- 52095, Colonoscopy, flexible; with removal of tumor(s), polyp(s), [...] or abscess without bleeding CPT copyright 2021 [employer]. All rights reserved. The codes documented in this report are preliminary and upon book shelver reviewmay be revised to meet current compliance requirements. Procedure Date: 06/16/2023 11:57:[address] [place] [address] Yvan Costa MD GI PROCEDURE ORDERABLES Final Result * (ABNORMAL) Basic metabolic panel (06/21/2022 6:45 PM EDT) SODIUM 138 133 - 146 mmol/L [facility] CHLORIDE 100 96 - 108 mmol/L [facility] POTASSIUM 3.8 3.3 - 5.1 mmol/L [facility] CO2 25 21 - 35 mmol/L [facility] BUN 24(H) 6 - 19 mg/dL [facility] CREATININE 0.80 0.5 - 1.5 mg/dL [facility] GLUCOSE 94 70 - 99 mg/dL [facility] CALCIUM 9.6 8.4 - 10.3 mg/dL [facility] EGFR 82 >59 mL/min/1.7 3m2 [facility] Comment:Estimated glomerular filtration rate calculated using the CKD-EPI refit equation. ANION GAP 17 10 - 20 mmol/L [facility] Blood 06/21/2022 6:45 PM EDT 06/21/2022 6:52 PM EDT Liliane Vasquez MD LAB BLOOD ORDERABLES Final Result [facility] [address] [place] [address] from Last 3 Months or Most Recently Relevant to Health Maintenance Insurance [facility] MEDICARE REPLACEMENT [facility] MEDICARE REPLACEMENT [facility] MEDICARE REPLACEMENT [facility] PREF VALUE MEDICARE REPLACEMENT [facility] PREF VALUE MEDICARE REPLACEMENT [facility] PREF VALUE MEDICARE REPLACEMENT Care Teams Wastewater Treatment Supervisor Relationship Specialty Start Date End Date Yvan Costa MD [email or web address] PCP - General Family Medicine 06/03/23 Additional Source Comments The information contained in this document represents components of the legal health record. It is not the complete legal health record.[facility]
--- OUTSIDE RECORDS SUMMARY | 2025-08-09 09:37 | XMS_ITS | Encounter Summary ---
Author Organization [facility] Address [address] [place] [address] Phone Care Team Providers Care Civil Manager Name Role Phone Eliane Costa Primary Care Provider [phone] Yvan Costa MD Primary Care Provider [phone] Yvan Costa MD Primary Care Provider [phone] Encounter Details Date Type Department Care Team (Late st Contact Info) Description 08/21/2020 Ancillary Orders Virtual Department [address] [place] [address] Anushka Curry MD, MPH [address] [place], [place] [id number] [email or web address] Breast screening Social History Tobacco Use Types [...] unspecified documented in this encounter Care Teams Civil Manager Relationship Specialty Start Date End Date Eliane Costa PA [address] [place] [phone] PCP - General Boat Engine Mechanic 10/11/19 11/20/20 Yvan Costa MD [address] [place] [address] [email or web address] PCP - General Family Medicine 11/21/20 06/02/23 Yvan Costa MD [address] [place] [address] [email or web address] PCP - General Family Medicine 06/03/23 documented as of this encounter Additional Source Comments The information contained in this document represents components of the legal health record. It is not the complete legal health record.[facility]
--- OUTSIDE RECORDS SUMMARY | 2025-08-09 09:37 | XMS_ITS | Encounter Summary ---
Author Organization [facility] Address [address] [place] [address] Phone Care Team Providers Care Online Marketer Name Role Phone Eliane Costa Primary Care Provider [phone] Yvan Costa MD Primary Care Provider [phone] Yvan Costa MD Primary Care Provider [phone] Encounter Details Date Type Department Care Team (Late st Contact Info) Description 12/21/2019 Procedure Pass [facility] Endoscopy Admitting Dept Virtual Department [address] [place], [place] [id number] Social History Tobacco Use Types Packs/Day Years [...] on filedocumented in this encounter Care Teams Online Marketer Relationship Specialty Start Date End Date Eliane Costa PA [address] [place] [phone] PCP - General Assistant Manager Bilingual 10/11/19 11/20/20 Yvan Costa MD [address] [place] [phone] [email or web address] PCP - General Family Medicine 11/21/20 06/02/23 Yvan Costa MD [address] [place] [phone] [email or web address] PCP - General Family Medicine 06/03/23 documented as of this encounter Additional Source Comments The information contained in this document represents components of the legal health record. It is not the complete legal health record.[facility]
--- OUTSIDE RECORDS SUMMARY | 2025-08-09 09:37 | XMS_ITS | Encounter Summary ---
Author Organization [facility] Address [address] [address] Phone Care Team Providers Care Pulp Mill Team Leader Name Role Phone Yvan Costa MD Primary Care Provider [phone] Encounter Details Date Type Department Care Team (Late st Contact Info) Description 06/16/2023 Procedure Pass [facility] Endoscopy Admitting Dept Virtual Department [address] [place] [address] Social History Tobacco Use Types Packs/Day Years [...] on filedocumented in this encounter Care Teams Pulp Mill Team Leader Relationship Specialty Start Date End Date Yvan Costa MD [email or web address] PCP - General Family Medicine 06/03/23 documented as of this encounter Additional Source Comments The information contained in this document represents components of the legal health record. It is not the complete legal health record.[facility]
--- OUTSIDE RECORDS SUMMARY | 2025-08-09 09:37 | XMS_ITS | Encounter Summary ---
Author Organization [facility] Address [address] [address] Phone Care Team Providers Care Rn Long Term Care Name Role Phone Yvan Costa MD Primary Care Provider [phone] Encounter Details Date Type Department Care Team (Late st Contact Info) Description 06/16/2023 Procedure Pass [facility] Endoscopy Admitting Dept Virtual Department [address] [place] [address] Social History Tobacco Use Types Packs/Day Years [...] on filedocumented in this encounter Care Teams Rn Long Term Care Relationship Specialty Start Date End Date Yvan Costa MD [email or web address] PCP - General Family Medicine 06/03/23 documented as of this encounter Additional Source Comments The information contained in this document represents components of the legal health record. It is not the complete legal health record.[facility]
--- OUTSIDE RECORDS SUMMARY | 2025-08-09 09:37 | XMS_ITS | Encounter Summary ---
Author Organization [facility] Address [address] [address] Phone Care Team Providers Care Internal Medicine Specialist Name Role Phone Yvan Costa MD Primary Care Provider Yvan Costa MD Primary Care Provider [phone] Encounter Details Date Type Department Care Team (Late st Contact Info) Description 06/21/2022 Procedure Pass [facility], Ct Scan - [facility] [address] [place] [address] Social History Tobacco Use Types Packs/Day Years [...] 6:32 PM EDT Gwen Martin RN * [place] Suicide Severity Rating Scale (Screener/Recent Self-Report) Question [...] on filedocumented in this encounter Care Teams Internal Medicine Specialist Relationship Specialty Start Date End Date Yvan Costa MD [email or web address] PCP - General Family Medicine 11/21/20 06/02/23 Yvan Costa MD [email or web address] PCP - General Family Medicine 06/03/23 documented as of this encounter Additional Source Comments The information contained in this document represents components of the legal health record. It is not the complete legal health record.[facility]
--- OUTSIDE RECORDS SUMMARY | 2025-08-09 09:37 | XMS_ITS | Encounter Summary ---
Author Organization [facility] Address [address] [place] [address] Phone Care Team Providers Care Board Worker Name Role Phone Yvan Costa MD Primary Care Provider [phone] Yvan Costa MD Primary Care Provider [phone] Encounter Details Date Type Department Care Team (Late st Contact Info) Description 08/11/2021 Ancillary Orders [facility], X-Ray - [address] [address] Cipriano Healy MD [address] [place] [address], [address] [place] [address] [email or web address] Calculus of kidney Social History Tobacco Use [...] kidney documented in this encounter Care Teams Board Worker Relationship Specialty Start Date End Date Yvan Costa MD [email or web address] PCP - General Family Medicine 11/21/20 06/02/23 Yvan Costa MD PCP - General Family Medicine 06/03/23 documented as of this encounter Additional Source Comments The information contained in this document represents components of the legal health record. It is not the complete legal health record.[facility]
--- OUTSIDE RECORDS SUMMARY | 2025-08-09 09:37 | XMS_ITS | Encounter Summary ---
Author Organization [facility] Address [address] [place] [address] Phone Care Team Providers Care Instrument Technician Apprentice Name Role Phone Yvan Costa MD Primary Care Provider [phone] Yvan Costa MD Primary Care Provider [phone] Encounter Details Date Type Department Care Team (Late st Contact Info) Description 06/27/2021 Procedure Pass [facility], Ct Scan - [facility] [address] [place] [address] Social History Tobacco Use Types Packs/Day Years [...] on filedocumented in this encounter Care Teams Instrument Technician Apprentice Relationship Specialty Start Date End Date Yvan Costa MD PCP - General Family Medicine 11/21/20 06/02/23 Yvan Costa MD PCP - General Family Medicine 06/03/23 documented as of this encounter Additional Source Comments The information contained in this document represents components of the legal health record. It is not the complete legal health record.[facility]
--- OUTSIDE RECORDS SUMMARY | 2025-08-09 09:37 | XMS_ITS | Encounter Summary ---
Author Organization [facility] Address [address] [place] [address] Phone Care Team Providers Care [place] Boatman Name Role Phone Yvan Costa MD Primary Care Provider Yvan Costa MD Primary Care Provider [phone] Encounter Details Date Type Department Care Team (Late st Contact Info) Description 10/08/2021 Procedure Pass [place] Admitting Dept - Virtual Department [address] [place] [address] Social History Tobacco Use Types Packs/Day Years [...] 10/08/2021 7:42 AM Antionette Tatum RN * [place] Suicide Severity Rating Scale (Screener/Recent Self-Report) Question Answer Date of Assessment Author 2. Non-Specific Active Suici jess Thoughts (Past 1 Month) No 10/08/2021 7:42 AM Danna Vang RN documented as of this encounter Plan of Treatment Not on file documented as of this encounter Visit Diagnoses Not on filedocumented in this encounter Care Teams [place] Boatman Relationship Specialty Start Date End Date Yvan Costa MD [email or web address] PCP - General Family Medicine 11/21/20 06/02/23 Yvan Costa MD [email or web address] PCP - General Family Medicine 06/03/23 documented as of this encounter Additional Source Comments The information contained in this document represents components of the legal health record. It is not the complete legal health record.[facility]
--- OUTSIDE RECORDS SUMMARY | 2025-08-09 09:37 | XMS_ITS | Encounter Summary ---
Author Organization [facility] Address [address] [place] [address] Phone Care Team Providers Care Digital Community Manager Name Role Phone Yvan Costa MD Primary Care Provider [phone] Yvan Costa MD Primary Care Provider [phone] Encounter Details Date Type Department Care Team (Late st Contact Info) Description 07/15/2022 Procedure Pass [place] Admitting Dept - Virtual Department [address] [place] [address] Social History Tobacco Use Types Packs/Day Years [...] on filedocumented in this encounter Care Teams Digital Community Manager Relationship Specialty Start Date End Date Yvan [...]
--- OUTSIDE RECORDS SUMMARY | 2025-08-09 09:37 | XMS_ITS | Encounter Summary ---
Author Organization [facility] Address [address] [place] [address] Phone Care Team Providers Care Concrete Paving Machine Operator Name Role Phone Yvan Costa MD Primary Care Provider [phone] Yvan Costa MD Primary Care Provider [phone] Reason for Referral * MRI/CAT Scan - Closed Specialty Diagnoses / Procedures Referred By John marin Referred To Contact Radiology Diagnoses Personal history of urinary calculi Other microscopic hematuria Procedures CT Abdomen/Pelvis CHG CT SCAN,ABDOMENT AND PELVIS,COMBO CHG CT SCAN,ABDOMENT AND PELVIS,W CONTRAST CHG CT SCAN,ABDOMENT AND PELVIS,W/O CONTRAST Cipriano Healy MD Phone: tel: fax: [email or web address] Referral ID Status Reason Start Date Expiration Date Visits Re quested Visits Authorized [id number] Closed 06/27/2021 09/24/2021 1 1 Encounter Details Date Type Department Care Team (Latest Contact Info) Description 06/27/2021 Transcribe Orders Virtual Department [address] [place] [address] Cipriano Healy MD [address] [place] [address], [address] [address] [email or web address] Personal history of urinary calculi (Primary Dx); [...] hematuria documented in this encounter Care Teams Concrete Paving Machine Operator Relationship Specialty Start Date End Date Yvan Costa MD [email or web address] PCP - General Family Medicine 11/21/20 06/02/23 Yvan Costa MD PCP - General Family Medicine 06/03/23 documented as of this encounter Additional Source Comments The information contained in this document represents components of the legal health record. It is not the complete legal health record.[facility]
--- OUTSIDE RECORDS SUMMARY | 2025-08-09 09:37 | XMS_ITS | Encounter Summary ---
Author Organization [facility] Address [address] [place] [address] Phone Care Team Providers Care Collect On Delivery Clerk Name Role Phone Yvan Costa MD Primary Care Provider [phone] Yvan Costa MD Primary Care Provider [phone] Encounter Details Date Type Department Care Team (Late st Contact Info) Description 12/05/2020 Procedure Pass [facility] Endoscopy Admitting Dept Virtual Department [address] [place] [address] Social History Tobacco Use Types Packs/Day Years [...] on filedocumented in this encounter Care Teams Collect On Delivery Clerk Relationship Specialty Start Date End Date Yvan Costa MD PCP - General Family Medicine 11/21/20 06/02/23 Yvan Costa MD PCP - General Family Medicine 7/13/23 documented as of this encounter Additional Source Comments The information contained in this document represents components of the legal health record. It is not the complete legal health record.[facility]
== END 2025-08-09 09:26 | disposition home or self-care (01) ==
LOC: HO.HCS 08:30
PROVIDERS: PCP Internal Medicine; Visit Provider Internal Medicine Cardiovascular Disease
DX: I48.19 Other persistent atrial fibrillation (principal)
CPT/HCPCS: 93010; 99214; G2211

== ENCOUNTER → 2025-08-09 09:44 | Outpatient (BNV) | payer MEDICARE, SELFPAY | PROVIDERS: PCP Internal Medicine; Visit Provider Radiology Diagnostic Radiology | DX: I48.19 Other persistent atrial fibrillation (principal) | CPT/HCPCS: 71046 ==

== ENCOUNTER 2025-08-16 11:14 | Outpatient (AMB) | payer MEDICARE, SELFPAY ==
--- NOTE | 2025-08-16 11:23 | HO.NEPHOV ---
Vital Signs 08/16/25 11:24 Height 5 ft 1 in Weight 220 lb BMI 41.6 BP 110/64 Blood Pressure Location Lt brachial Position Sitting Pulse 54 Pulse Source Pulse Oximeter Pulse Oximetry (%) 98 Oxygen Delivery Method Room Air Intake Visit Reasons: INP:Atherosclerosis of renal artery,Atrophy of kid Aircraft Electrician Required: No Accompanied by: Self / Same As Patient Allergies codeine Adverse Reaction (Severe, Verified 08/16/25 11:26) Nausea Medication List - Last Reconciled 08/16/25 by Jarett Turner MD amiodarone 200 mg PO DAILY amiodarone 400 mg (2 x 200 mg) PO BID 14 days atorvastatin 20 mg PO BEDTIME 90 days betamethasone valerate 0.1% 1 appl topical BID PRN cholecalciferol (vitamin D3) 25 mcg PO DAILY diltiazem HCl CD 300 mg PO DAILY rivaroxaban (Xarelto) 20 mg PO DAILY 90 days triamterene-hydrochlorothiazid 37.5-25 mg 1 cap PO DAILY HPI Comments Details: - The patient is a 69-year-old female referred for atrophic right kidney and a question of renal artery stenosis - Long-standing nephrolithiasis with interventions including lithotripsy and surgery. - History of uric acid and calcium oxalate stones, recent analysis shows oxalate stones. - Imaging shows multiple stones and smaller right kidney. - Episodes of hematuria with stone passage. - Advised low salt diet and increased fluid intake. - Atrial fibrillation managed with diltiazem, triamterene, hydrochlorothiazide, amiodarone, and Xarelto. In September 2024 she underwent renal ultrasonogram. Right kidney measured 9.1 cm left kidney measured 12.1 cm. Right kidney had multiple scars. Multiple stones were seen. CAT scan was done in May of 2027. Multiple stones were seen. Based on the relatively smaller sized right kidney radiologist suspected renal artery stenosis. However she does not have any history of renal failure. Serum creatinine has been stable. She has well-controlled hypertension and no history of resistant hypertension. No other stigmata for atherosclerosis. [facility] Medical History (Updated 08/16/25 @ 11:39 by Jarett Turner MD) Paroxysmal atrial fibrillation Osteoarthritis of left knee Morbid obesity with BMI of 40.0-44.9, adult Recurrent kidney stones Pure hypercholesterolemia Essential hypertension Adenomatous colon polyp Psoriasis Kidney stones Surgical History Hx of colonoscopy History of hysterectomy Family History Mother Stroke CHF (congestive heart failure) Hypertension Father Heart attack Son No problems noted. Brother No problems noted. Brother No problems noted. Sister No problems noted. Sister No problems noted. 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 Lungs entry equal no rales. Heart S1-S2 heard no gallop or rub. Abdomen soft nontender. Neuro alert awake oriented. No asterixis. Extremities no edema. Results Reviewed Nephrology Results: Hgb, (12.0-16.0) 15.0 g/dl 07/24/25 WBC, (4.8-10.8) 5.5 X10*3/uL 07/24/25 Plt Count, (160-400) 214 X10*3/uL 07/24/25 Sodium, (135-145) 142 mmol/L 07/24/25 Potassium, (3.3-5.1) 4.5 mmol/L 07/24/25 Chloride, (96-108) 106 mmol/L 07/24/25 Carbon Dioxide, (22-29) 30 mmol/L H 07/24/25 BUN, (9-16) 20 mg/dL H 07/24/25 Creatinine, (0.5-1.4) 0.99 mg/dL 07/24/25 Calcium, (8.4-10.2) 9.7 mg/dL 07/24/25 Urine Protein, (Neg-Trace) Negative mg/dL 07/24/25 Renal US 10/20/24 Assessment & Plan Assessment & Plan (1) Bilateral nephrolithiasis: Code(s): N20.0 - Calculus of kidney Category: Medical (2) Essential hypertension: Code(s): I10 - Essential (primary) hypertension Category: Medical Plan 69-year-old woman with obesity and multiple renal stones as essentially normal renal function. Right kidney he is relatively smaller compared to the left kidney. This is most likely due to multiple renal stones and scarring. Clinically I do not believe she has significant renal artery stenosis. I will repeat the renal ultrasonogram to assess the kidney sizes. She has recurrent nephrolithiasis which needs to be further evaluated. Initiated workup including 24 urine collection. She should stay on low-sodium diet Increase p.o. fluid intake. She will benefit from weight loss. At present blood pressure is well controlled. Renal function stable. We will continue to monitor this Further workup will be based on the outcome of the above investigations. Orders: Orders Creatinine, 24 Hr Group Today I10 - Essential (primary) hypertension, N20.0 - Calculus of kidney, R31.9 - Hematuria, unspecified Oxalate, 24 Hr Today I10 - Essential (primary) hypertension, N20.0 - Calculus of kidney, R31.9 - Hematuria, unspecified Magnesium Today N20.0 - Calculus of kidney Lyme IgG/IgM w/reflex to WB Today N20.0 - Calculus of kidney Creatinine Urine Today N20.0 - Calculus of kidney Calcium Today N20.0 - Calculus of kidney Uric Acid Today N20.0 - Calculus of kidney Sodium, 24Hr Urine Group Today I10 - Essential (primary) hypertension, N20.0 - Calculus of kidney, R31.9 - Hematuria, unspecified Calcium, 24 Hr Ur Today I10 - Essential (primary) hypertension, N20.0 - Calculus of kidney, R31.9 - Hematuria, unspecified Uric Acid, 24Hr Urine Group Today I10 - Essential (primary) hypertension, N20.0 - Calculus of kidney, R31.9 - Hematuria, unspecified Citric Acid 24hr Urine Today I10 - Essential (primary) hypertension, N20.0 - Calculus of kidney, R31.9 - Hematuria, unspecified Parathyroid Hormone Intact Today N20.0 - Calculus of kidney Phosphorus Today N20.0 - Calculus of kidney US renal BI Today N20.0 - Calculus of kidney Coding Level of Care Code New Pt Level 4 (53620) Diagnoses Bilateral nephrolithiasis N20.0 Essential hypertension I10
[2025-08-16 11:24] VITALS: BP 110/64; PULSE 54; O2SAT 98; BMI 41.6
--- OUTSIDE RECORDS SUMMARY | 2025-08-16 16:16 | XMS_ITS | Encounter Summary ---
Author Organization [facility] Address [address] [place] [address] Phone Care Team Providers Care Financial Administrator Name Role Phone Eliane Costa Primary Care Provider [phone] Yvan Costa MD Primary Care Provider [phone] Yvan Costa MD Primary Care Provider [phone] Encounter Details Date Type Department Care Team (Late st Contact Info) Description 08/21/2020 Ancillary Orders Virtual Department [address] [place] [address] Anushka Curry MD, MPH [address] [place], [place] [id number] [email or web address] Breast screening Social History Tobacco Use Types [...] unspecified documented in this encounter Care Teams Financial Administrator Relationship Specialty Start Date End Date Eliane Costa PA [address] [place] [id number] PCP - General Turf Sales Person 10/11/19 11/20/20 Yvan Costa MD [address] [place] [address] [email or web address] PCP - General Family Medicine 11/21/20 06/02/23 Yvan Costa MD [address] [place] [address] [email or web address] PCP - General Family Medicine 06/03/23 documented as of this encounter Additional Source Comments The information contained in this document represents components of the legal health record. It is not the complete legal health record.[facility]
--- OUTSIDE RECORDS SUMMARY | 2025-08-16 16:16 | XMS_ITS | Encounter Summary ---
Author Organization [facility] Address [address] [place] [address] Phone Care Team Providers Care Tooling Specialist Name Role Phone Yvan Costa MD Primary Care Provider [phone] Yvan Costa MD Primary Care Provider Encounter Details Date Type Department Care Team (Late st Contact Info) Description 12/05/2020 Procedure Pass [facility] Endoscopy Admitting Dept Virtual Department [address] [place] [address] Social History Tobacco Use Types Packs/Day Years [...] on filedocumented in this encounter Care Teams Tooling Specialist Relationship Specialty Start Date End Date Yvan Costa MD PCP - General Family Medicine 11/21/20 06/02/23 Yvan Costa MD PCP - General Family Medicine 7/13/23 documented as of this encounter Additional Source Comments The information contained in this document represents components of the legal health record. It is not the complete legal health record.[facility]
--- OUTSIDE RECORDS SUMMARY | 2025-08-16 16:17 | XMS_ITS | Clinical Summary ---
Author Organization [facility] Address [address] [address] Phone Care Team Providers Care Sports Medicine Specialist Name Role Phone Yvan Costa MD Primary Care Provider [phone] Allergies Active Allergy Reactions Criticality Noted Date [...] this topic Medical Devices Implanted Type Area Aluminum Container Tester Device Identifier Shelf Expiration Date Model / Serial / Lot Stent Ureteral 6fr 22 To 30cm Stretch Coated Anton - [id number] Implanted:Qty: 1 on 07/15/2022 by Brenton Nassar MD at [facility] Left: Ureter [employer] 12/12/2024 [id number] / / [id number] Clip Hemostasis 360deg 235cm Resolution 360 Latex Free 2.8mm Channel Bx/20ea - [id number] Implanted:Qty: 1 on 06/16/2023 by Paawn Streeter MD at [facility] Sigmoid [employer] 3 / / Procedures Procedure Name Priority Date/Time Associated Diagnosis Comments ENDOSCOPY, COLON 06/16/2023 11:5 7 AM EDT BASIC METABOLIC PANEL STAT 06/21/2022 6:45 PM EDT from Last 3 Months or Most Recently Relevant to Health Maintenance Results * ENDOSCOPY, COLON (06/16/2023 11:57 AM EDT) Narrative Transcriptions Pawan Streeter MD - 06/16/2023 11:57 AM EDT [facility] Patient Name: Jania Velázquez Attending MD:: PAWAN STREETER MD, , Procedure Date: 06/16/2023 11:57 AM Date of : 1955 Age: 67 Admit Type: Outpatient Gender: Female Room: [place] [address] Referring MD: YVAN COSTA MD Exam Type: [...] 11:57 AM Procedure Code(s): --- Professional --- 22635, Colonoscopy, flexible; with removal of tumor(s), polyp(s), or other lesion(s) by snare technique --- Technical --- 54060, Colonoscopy, flexible; with removal of tumor(s), polyp(s), [...] or abscess without bleeding CPT copyright 2021 [employer]. All rights reserved. The codes documented in this report are preliminary and upon mud plant operator reviewmay be revised to meet current compliance requirements. Procedure Date: 06/16/2023 11:57:[address] [place] [address] Yvan Costa MD GI PROCEDURE ORDERABLES Final Result * (ABNORMAL) Basic metabolic panel (06/21/2022 6:45 PM EDT) SODIUM 138 133 - 146 mmol/L [facility] CHLORIDE 100 96 - 108 mmol/L [facility] POTASSIUM 3.8 3.3 - 5.1 mmol/L [facility] CO2 25 21 - 35 mmol/L [facility] BUN 24(H) 6 - 19 mg/dL [facility] CREATININE 0.80 0.5 - 1.5 mg/dL [facility] GLUCOSE 94 70 - 99 mg/dL [facility] CALCIUM 9.6 8.4 - 10.3 mg/dL [facility] EGFR 82 >59 mL/min/1.7 3m2 [facility] Comment:Estimated glomerular filtration rate calculated using the CKD-EPI refit equation. ANION GAP 17 10 - 20 mmol/L [facility] Blood 06/21/2022 6:45 PM EDT 06/21/2022 6:52 PM EDT Liliane Vasquez MD LAB BLOOD ORDERABLES Final Result [facility] [address] [place] [address] from Last 3 Months or Most Recently Relevant to Health Maintenance Insurance [facility] MEDICARE REPLACEMENT [facility] MEDIC[facility] REPLACEMENT [facility] MEDICARE REPLACEMENT [facility] PREF VALUE MEDICARE REPLACEMENT [facility] PREF VALUE MEDICARE REPLACEMENT [facility] PREF VALUE MEDICARE REPLACEMENT Care Teams Sports Medicine Specialist Relationship Specialty Start Date End Date Yvan Costa MD [email or web address] PCP - General Family Medicine 06/03/23 Additional Source Comments The information contained in this document represents components of the legal health record. It is not the complete legal health record.[facility]
--- OUTSIDE RECORDS SUMMARY | 2025-08-16 16:17 | XMS_ITS | Encounter Summary ---
Author Organization [facility] Address [address] [place] [address] Phone Care Team Providers Care Field Installer Name Role Phone Yvan Costa MD Primary Care Provider [phone] Yvan Costa MD Primary Care Provider [phone] Encounter Details Date Type Department Care Team (Late st Contact Info) Description 07/15/2022 Procedure Pass [place] Admitting Dept - Virtual Department [address] [place] [address] Social History Tobacco Use Types Packs/Day Years [...] on filedocumented in this encounter Care Teams Field Installer Relationship Specialty Start Date End Date Yvan Costa MD PCP - General Family Medicine 11/21/20 06/02/23 Yvan Costa MD PCP - General Family Medicine 06/03/23 documented as of this encounter Additional Source Comments The information contained in this document represents components of the legal health record. It is not the complete legal health record.[facility]
--- OUTSIDE RECORDS SUMMARY | 2025-08-16 16:17 | XMS_ITS | Encounter Summary ---
Author Organization [facility] Address [address] [address] Phone Care Team Providers Care Welfare Centre Manager Name Role Phone Yvan Costa MD Primary Care Provider [phone] Encounter Details Date Type Department Care Team (Late st Contact Info) Description 06/16/2023 Procedure Pass [facility] Admitting Dept Virtual Department 30 [place] [address] Social History Tobacco Use Types Packs/Day Years [...] on filedocumented in this encounter Care Teams Welfare Centre Manager Relationship Specialty Start Date End Date Yvan Costa MD [email or web address] PCP - General Family Medicine 06/03/23 documented as of this encounter Additional Source Comments The information contained in this document represents components of the legal health record. It is not the complete legal health record.[facility]
--- OUTSIDE RECORDS SUMMARY | 2025-08-16 16:17 | XMS_ITS | Encounter Summary ---
Author Organization [facility] Address [address] [address] Phone Care Team Providers Care Vehicle Monitor Technician Name Role Phone Yvan Costa MD Primary Care Provider [phone] Yvan Costa MD Primary Care Provider [phone] Encounter Details Date Type Department Care Team (Late st Contact Info) Description 06/21/2022 Procedure Pass [facility], Ct Scan - [facility] [address] [place] [address] Social History Tobacco Use Types Packs/Day Years [...] 6:32 PM EDT Gwen Martin RN * [place] Suicide Severity Rating Scale (Screener/Recent Self-Report) Question [...] on filedocumented in this encounter Care Teams Vehicle Monitor Technician Relationship Specialty Start Date End Date Yvan Costa MD [email or web address] PCP - General Family Medicine 11/21/20 06/02/23 Yvan Costa MD [email or web address] PCP - General Family Medicine 06/03/23 documented as of this encounter Additional Source Comments The information contained in this document represents components of the legal health record. It is not the complete legal health record.[facility]
--- OUTSIDE RECORDS SUMMARY | 2025-08-16 16:17 | XMS_ITS | Encounter Summary ---
Author Organization [facility] Address [address] [place] [address] Phone Care Team Providers Care Experimental Physicist Name Role Phone Yvan Costa MD Primary Care Provider [phone] Yvan Costa MD Primary Care Provider [phone] Encounter Details Date Type Department Care Team (Late st Contact Info) Description 08/11/2021 Ancillary Orders [facility], X-Ray - [address] [address] Cipriano Healy MD [address] [place] [address], [address] [place] [address] [email or web address] Calculus of kidney Social History Tobacco Use [...] kidney documented in this encounter Care Teams Experimental Physicist Relationship Specialty Start Date End Date Yvan Costa MD [email or web address] PCP - General Family Medicine 11/21/20 06/02/23 Yvan Costa MD PCP - General Family Medicine 06/03/23 documented as of this encounter Additional Source Comments The information contained in this document represents components of the legal health record. It is not the complete legal health record.[facility]
--- OUTSIDE RECORDS SUMMARY | 2025-08-16 16:17 | XMS_ITS | Encounter Summary ---
Author Organization [facility] Address [address] [place] [address] Phone Care Team Providers Care Scrap Metal Processing Worker Name Role Phone Yvan Costa MD Primary Care Provider [phone] Yvan Costa MD Primary Care Provider [phone] Reason for Referral * MRI/CAT Scan - Closed Specialty Diagnoses / Procedures Referred By John marin Referred To Contact Radiology Diagnoses Personal history of urinary calculi Other microscopic hematuria Procedures CT Abdomen/Pelvis CHG CT SCAN,ABDOMENT AND PELVIS,COMBO CHG CT SCAN,ABDOMENT AND PELVIS,W CONTRAST CHG CT SCAN,ABDOMENT AND PELVIS,W/O CONTRAST Cipriano Healy MD Phone: tel: fax: mailto:[email or web address] Referral ID Status Reason Start Date Expiration Date Visits Re quested Visits Authorized [id number] Closed 06/27/2021 09/24/2021 1 1 Encounter Details Date Type Department Care Team (Latest Contact Info) Description 06/27/2021 Transcribe Orders Virtual Department 30 [place] [address] Cipriano Healy MD [address] [place] [address], [address] [address] [email or web address] Personal history of urinary calculi (Primary Dx); [...] hematuria documented in this encounter Care Teams Scrap Metal Processing Worker Relationship Specialty Start Date End Date Yvan Costa MD [email or web address] PCP - General Family Medicine 11/21/20 06/02/23 Yvan Costa MD PCP - General Family Medicine 06/03/23 documented as of this encounter Additional Source Comments The information contained in this document represents components of the legal health record. It is not the complete legal health record.[facility]
--- OUTSIDE RECORDS SUMMARY | 2025-08-16 16:17 | XMS_ITS | Encounter Summary ---
Author Organization [facility] Address [address] [place] [address] Phone Care Team Providers Care Sports Manager Name Role Phone Yvan Costa MD Primary Care Provider [phone] Yvan Costa MD Primary Care Provider [phone] Encounter Details Date Type Department Care Team (Late st Contact Info) Description 06/27/2021 Procedure Pass [facility], Ct Scan - [facility] [address] [place] [address] Social History Tobacco Use Types Packs/Day Years [...] on filedocumented in this encounter Care Teams Sports Manager Relationship Specialty Start Date End Date Yvan Costa MD PCP - General Family Medicine 11/21/20 06/02/23 Yvan Costa MD PCP - General Family Medicine 06/03/23 documented as of this encounter Additional Source Comments The information contained in this document represents components of the legal health record. It is not the complete legal health record.[facility]
--- OUTSIDE RECORDS SUMMARY | 2025-08-16 16:17 | XMS_ITS | Encounter Summary ---
Author Organization [facility] Address [address] [address] Phone Care Team Providers Care Electronic Wirer Name Role Phone Yvan Costa MD Primary Care Provider [phone] Encounter Details Date Type Department Care Team (Late st Contact Info) Description 06/16/2023 Procedure Pass [facility]oscopy Admitting Dept Virtual Department [address] [place] [address] Social History Tobacco Use Types Packs/Day Years [...] on filedocumented in this encounter Care Teams Electronic Wirer Relationship Specialty Start Date End Date Yvan Costa MD [email or web address] PCP - General Family Medicine 06/03/23 documented as of this encounter Additional Source Comments The information contained in this document represents components of the legal health record. It is not the complete legal health record.[facility]
--- OUTSIDE RECORDS SUMMARY | 2025-08-16 16:17 | XMS_ITS | Encounter Summary ---
Author Organization [facility] Address [address] [place] [address] Phone Care Team Providers Care General Utility Worker Name Role Phone Yvan Costa MD Primary Care Provider [phone] Yvan Costa MD Primary Care Provider [phone] Encounter Details Date Type Department Care Team (Late st Contact Info) Description 10/08/2021 Procedure Pass [place] Admitting Dept - Virtual Department [address] [place] [address] Social History Tobacco Use Types Packs/Day Years [...] 10/08/2021 7:42 AM Antionette Tatum RN * [place] Suicide Severity Rating Scale (Screener/Recent Self-Report) Question Answer Date of Assessment Author 2. Non-Specific Active Suici jess Thoughts (Past 1 Month) No 10/08/2021 7:42 AM Danna Vang RN documented as of this encounter Plan of Treatment Not on file documented as of this encounter Visit Diagnoses Not on filedocumented in this encounter Care Teams General Utility Worker Relationship Specialty Start Date End Date Yvan Costa MD [email or web address] PCP - General Family Medicine 11/21/20 06/02/23 Yvan Costa MD [email or web address] PCP - General Family Medicine 06/03/23 documented as of this encounter Additional Source Comments The information contained in this document represents components of the legal health record. It is not the complete legal health record.[facility]
== END 2025-08-16 11:48 | disposition home or self-care (01) ==
LOC: HO.HKA 11:15
PROVIDERS: PCP Internal Medicine; Referring Provider Internal Medicine; Visit Provider Internal Medicine Hypertension Specialist
DX: N20.0 Calculus of kidney (principal); I10 Essential (primary) hypertension
CPT/HCPCS: 99204

== ENCOUNTER → 2025-08-16 11:14 | Outpatient (BNVA) | payer MEDICARE, SELFPAY | PROVIDERS: PCP Internal Medicine; Referring Provider Internal Medicine; Visit Provider Internal Medicine Hypertension Specialist | DX: N20.0 Calculus of kidney (principal); I10 Essential (primary) hypertension; R31.9 Hematuria, unspecified; E66.01 Morbid (severe) obesity due to excess calories; Z68.41 Body mass index [BMI] 40.0-44.9, adult | CPT/HCPCS: 99202 ==

== ENCOUNTER 2025-08-20 08:30 | Outpatient (REF) | payer MEDICARE, SELFPAY ==
--- OUTSIDE RECORDS SUMMARY | 2025-08-20 08:52 | XMS_ITS | Encounter Summary ---
Author Organization [facility] Address [address] [place] [address] Phone Care Team Providers Care Global Project Manager Name Role Phone Yvan Costa MD Primary Care Provider [phone] Yvan Costa MD Primary Care Provider [phone] Reason for Referral * MRI/CAT Scan - Closed Specialty Diagnoses / Procedures Referred By John marin Referred To Contact Radiology Diagnoses Personal history of urinary calculi Other microscopic hematuria Procedures CT Abdomen/Pelvis CHG CT SCAN,ABDOMENT AND PELVIS,COMBO CHG CT SCAN,ABDOMENT AND PELVIS,W CONTRAST CHG CT SCAN,ABDOMENT AND PELVIS,W/O CONTRAST Cipriano Healy MD Phone: tel: fax: mailto:[email or web address] Referral ID Status Reason Start Date Expiration Date Visits Re quested Visits Authorized [id number] Closed 06/27/2021 09/24/2021 1 1 Encounter Details Date Type Department Care Team (Latest Contact Info) Description 06/27/2021 Transcribe Orders Virtual Department 30 [place] [address] Cipriano Healy MD [address] [place] [address], [address] [address] [email or web address] Personal history of urinary calculi (Primary Dx); [...] hematuria documented in this encounter Care Teams Global Project Manager Relationship Specialty Start Date End Date Yvan Costa MD [email or web address] PCP - General Family Medicine 11/21/20 06/02/23 Yvan Costa MD PCP - General Family Medicine 06/03/23 documented as of this encounter Additional Source Comments The information contained in this document represents components of the legal health record. It is not the complete legal health record.[facility]
--- OUTSIDE RECORDS SUMMARY | 2025-08-20 08:52 | XMS_ITS | Encounter Summary ---
Author Organization [facility] Address [address] [place] [address] Phone Care Team Providers Care Director Geothermal Operations Name Role Phone Yvan Costa MD Primary Care Provider [phone] Yvan Costa MD Primary Care Provider [phone] Encounter Details Date Type Department Care Team (Late st Contact Info) Description 12/05/2020 Procedure Pass [facility]oscopy Admitting Dept Virtual Department [address] [place] [address] Social History Tobacco Use Types Packs/Day Years [...] on filedocumented in this encounter Care Teams Director Geothermal Operations Relationship Specialty Start Date End Date Yvan Costa MD PCP - General Family Medicine 11/21/20 06/02/23 Yvan Cosat MD PCP - General Family Medicine 7/13/23 documented as of this encounter Additional Source Comments The information contained in this document represents components of the legal health record. It is not the complete legal health record.[facility]
--- OUTSIDE RECORDS SUMMARY | 2025-08-20 08:52 | XMS_ITS | Encounter Summary ---
Author Organization [facility] Address [address] [place] [address] Phone Care Team Providers Care Tire Service Supervisor Name Role Phone Yvan Costa MD Primary Care Provider [phone] Yvan Costa MD Primary Care Provider [phone] Encounter Details Date Type Department Care Team (Late st Contact Info) Description 07/15/2022 Procedure Pass [place] Admitting Dept - Virtual Department 30 [place] [address] Social History Tobacco Use Types Packs/Day Years [...] on filedocumented in this encounter Care Teams Tire Service Supervisor Relationship Specialty Start Date End Date [...]
--- OUTSIDE RECORDS SUMMARY | 2025-08-20 08:52 | XMS_ITS | Encounter Summary ---
Author Organization [facility] Address [address] [place] [address] Phone Care Team Providers Care Drive Away Driver Name Role Phone Yvan Costa MD Primary Care Provider [phone] Yvan Costa MD Primary Care Provider [phone] Encounter Details Date Type Department Care Team (Late st Contact Info) Description 08/11/2021 Ancillary Orders [facility], X-Ray - [address] [address] Cipriano Healy MD [address] [place] [address], [address] [place] [address] [email or web address] Calculus of kidney Social History Tobacco Use [...] kidney documented in this encounter Care Teams Drive Away Driver Relationship Specialty Start Date End Date Yvan Costa MD [email or web address] PCP - General Family Medicine 11/21/20 06/02/23 Yvan Costa MD PCP - General Family Medicine 06/03/23 documented as of this encounter Additional Source Comments The information contained in this document represents components of the legal health record. It is not the complete legal health record.[facility]
--- OUTSIDE RECORDS SUMMARY | 2025-08-20 08:52 | XMS_ITS | Encounter Summary ---
Author Organization [facility] Address [address] [place] [address] Phone Care Team Providers Care Bass Guitar Teacher Name Role Phone Eliane Costa Primary Care Provider [phone] Yvan Costa MD Primary Care Provider [phone] Yvan Costa MD Primary Care Provider [phone] Encounter Details Date Type Department Care Team (Late st Contact Info) Description 08/21/2020 Ancillary Orders Virtual Department 30 [place] [address] Anushka Curry MD, MPH [address] [place], [place] [id number] [email or web address] Breast screening Social History Tobacco Use Types [...] unspecified documented in this encounter Care Teams Bass Guitar Teacher Relationship Specialty Start Date End Date Eliane Costa PA [address] [place] [id number] PCP - General Exchange Engineer 10/11/19 11/20/20 Yvan Costa MD [address] [place] [address] [email or web address] PCP - General Family Medicine 11/21/20 06/02/23 Yvan Costa MD [address] [place] [address] [email or web address] PCP - General Family Medicine 06/03/23 documented as of this encounter Additional Source Comments The information contained in this document represents components of the legal health record. It is not the complete legal health record.[facility]
--- OUTSIDE RECORDS SUMMARY | 2025-08-20 08:52 | XMS_ITS | Encounter Summary ---
Author Organization [facility] Address [address] [place] [address] Phone Care Team Providers Care Weight Checker Name Role Phone Yvan Costa MD Primary Care Provider [phone] Yvan Costa MD Primary Care Provider [phone] Encounter Details Date Type Department Care Team (Late st Contact Info) Description 06/27/2021 Procedure Pass [facility], Ct Scan - [facility] [address] [place] [address] Social History Tobacco Use Types Packs/Day Years [...] on filedocumented in this encounter Care Teams Weight Checker Relationship Specialty Start Date End Date Yvan Costa MD PCP - General Family Medicine 11/21/20 06/02/23 Yvan Costa MD PCP - General Family Medicine 06/03/23 documented as of this encounter Additional Source Comments The information contained in this document represents components of the legal health record. It is not the complete legal health record.[facility]
--- OUTSIDE RECORDS SUMMARY | 2025-08-20 08:53 | XMS_ITS | Encounter Summary ---
Author Organization [facility] Address [address] [address] Phone Care Team Providers Care Sketcher Name Role Phone Yvan Costa MD Primary Care Provider [phone] Encounter Details Date Type Department Care Team (Late st Contact Info) Description 06/16/2023 Procedure Pass [facility] Admitting Dept Virtual Department [address] [place] [address] Social History Tobacco Use Types Packs/Day Years [...] on filedocumented in this encounter Care Teams Sketcher Relationship Specialty Start Date End Date Yvan Costa MD [email or web address] PCP - General Family Medicine 06/03/23 documented as of this encounter Additional Source Comments The information contained in this document represents components of the legal health record. It is not the complete legal health record.[facility]
--- OUTSIDE RECORDS SUMMARY | 2025-08-20 08:53 | XMS_ITS | Encounter Summary ---
Author Organization [facility] Address [address] [address] Phone Care Team Providers Care Photo Equipment Technician Name Role Phone Yvan Costa MD Primary Care Provider [phone] Yvan Costa MD Primary Care Provider [phone] Encounter Details Date Type Department Care Team (Late st Contact Info) Description 06/21/2022 Procedure Pass [facility], Ct Scan - [facility] [address] [place] [address] Social History Tobacco Use Types Packs/Day Years [...] 6:32 PM EDT Gwen Martin RN * [place] Suicide Severity Rating Scale (Screener/Recent Self-Report) Question [...] on filedocumented in this encounter Care Teams Photo Equipment Technician Relationship Specialty Start Date End Date Yvan Costa MD [email or web address] PCP - General Family Medicine 11/21/20 06/02/23 Yvan Costa MD [email or web address] PCP - General Family Medicine 06/03/23 documented as of this encounter Additional Source Comments The information contained in this document represents components of the legal health record. It is not the complete legal health record.[facility]
--- OUTSIDE RECORDS SUMMARY | 2025-08-20 08:53 | XMS_ITS | Encounter Summary ---
Author Organization [facility] Address [address] [place] [address] Phone Care Team Providers Care Virologist Name Role Phone Yvan Costa MD Primary Care Provider [phone] Yvan Costa MD Primary Care Provider [phone] Encounter Details Date Type Department Care Team (Late st Contact Info) Description 10/08/2021 Procedure Pass [place] Admitting Dept - Virtual Department [address] [place] [address] Social History Tobacco Use Types Packs/Day Years [...] 10/08/2021 7:42 AM Antionette Tatum RN * [place] Suicide Severity Rating Scale (Screener/Recent Self-Report) Question Answer Date of Assessment Author 2. Non-Specific Active Suici jess Thoughts (Past 1 Month) No 10/08/2021 7:42 AM Danna Vang RN documented as of this encounter Plan of Treatment Not on file documented as of this encounter Visit Diagnoses Not on filedocumented in this encounter Care Teams Virologist Relationship Specialty Start Date End Date Yvan Costa MD [email or web address] PCP - General Family Medicine 11/21/20 06/02/23 Yvan Costa MD [email or web address] PCP - General Family Medicine 06/03/23 documented as of this encounter Additional Source Comments The information contained in this document represents components of the legal health record. It is not the complete legal health record.[facility]
--- OUTSIDE RECORDS SUMMARY | 2025-08-20 08:53 | XMS_ITS | Clinical Summary ---
Author Organization [facility] Address [address] [address] Phone Care Team Providers Care Internet E Commerce Specialist Name Role Phone Yvan Costa MD Primary Care Provider [phone] Allergies Active Allergy Reactions Criticality Noted Date [...] this topic Medical Devices Implanted Type Area Stonework Supervisor Device Identifier Shelf Expiration Date Model / Serial / Lot Stent Ureteral 6fr 22 To 30cm Stretch Coated Anton - [id number] Implanted:Qty: 1 on 07/15/2022 by Brenton Nassar MD at [facility] Left: Ureter [employer] 12/12/2024 [id number] / / [id number] Clip Hemostasis 360deg 235cm Resolution 360 Latex Free 2.8mm Channel Bx/20ea - [id number] Implanted:Qty: 1 on 06/16/2023 by Pawan Streeetr MD at [facility] Sigmoid [employer] 3 / / Procedures Procedure Name Priority Date/Time Associated Diagnosis Comments ENDOSCOPY, COLON 06/16/2023 11:5 7 AM EDT BASIC METABOLIC PANEL STAT 06/21/2022 6:45 PM EDT from Last 3 Months or Most Recently Relevant to Health Maintenance Results * ENDOSCOPY, COLON (06/16/2023 11:57 AM EDT) Narrative Transcriptions Pawan Streeter MD - 06/16/2023 11:57 AM EDT [facility] Patient Name: Jania Velázquez Attending MD:: PAWAN STREETER MD, , Procedure Date: 06/16/2023 11:57 AM Date of : 1955 Age: 67 Admit Type: Outpatient Gender: Female Room: [place] [address] Referring MD: YVAN COSTA MD Exam Type: [...] 11:57 AM Procedure Code(s): --- Professional --- 18241, Colonoscopy, flexible; with removal of tumor(s), polyp(s), or other lesion(s) by snare technique --- Technical --- 83801, Colonoscopy, flexible; with removal of tumor(s), polyp(s), [...] or abscess without bleeding CPT copyright 2021 [employer]. All rights reserved. The codes documented in this report are preliminary and upon management professional reviewmay be revised to meet current compliance requirements. Procedure Date: 06/16/2023 11:57:[address] [place] [address] Yvan Costa MD GI PROCEDURE ORDERABLES Final Result * (ABNORMAL) Basic metabolic panel (06/21/2022 6:45 PM EDT) SODIUM 138 133 - 146 mmol/L [facility] CHLORIDE 100 96 - 108 mmol/L [facility] POTASSIUM 3.8 3.3 - 5.1 mmol/L [facility] CO2 25 21 - 35 mmol/L [facility] BUN 24(H) 6 - 19 mg/dL [facility] CREATININE 0.80 0.5 - 1.5 mg/dL [facility] GLUCOSE 94 70 - 99 mg/dL [facility] CALCIUM 9.6 8.4 - 10.3 mg/dL [facility] EGFR 82 >59 mL/min/1.7 3m2 [facility] Comment:Estimated glomerular filtration rate calculated using the CKD-EPI refit equation. ANION GAP 17 10 - 20 mmol/L [facility] Blood 06/21/2022 6:45 PM EDT 06/21/2022 6:52 PM EDT Liliane Vasquez MD LAB BLOOD ORDERABLES Final Result [facility] [address] [place] [address] from Last 3 Months or Most Recently Relevant to Health Maintenance Insurance [facility] MED[facility]ARE REPLACEMENT [facility] MED[facility] REPLACEMENT [facility] MED[facility]PLACEMENT [facility] ALICE PREF VALUE MEDICARE REPLACEMENT [facility] ALICE PREF VALUE MEDICARE REPLACEMENT [facility] ALICE PREF VALUE MEDICARE REPLACEMENT Care Teams Internet E Commerce Specialist Relationship Specialty Start Date End Date Yvan Costa MD [email or web address] PCP - General Family Medicine 06/03/23 Additional Source Comments The information contained in this document represents components of the legal health record. It is not the complete legal health record.[facility]
--- OUTSIDE RECORDS SUMMARY | 2025-08-20 08:53 | XMS_ITS | Encounter Summary ---
Author Organization [facility] Address [address] [address] Phone Care Team Providers Care Vp Lab Name Role Phone Yvan Costa MD Primary Care Provider [phone] Encounter Details Date Type Department Care Team (Late st Contact Info) Description 06/16/2023 Procedure Pass [facility] Endoscopy Admitting Dept Virtual Department [address] [place] [address] Social History Tobacco Use Types Packs/Day Years [...] on filedocumented in this encounter Care Teams Vp Lab Relationship Specialty Start Date End Date Yvan Costa MD [email or web address] PCP - General Family Medicine 06/03/23 documented as of this encounter Additional Source Comments The information contained in this document represents components of the legal health record. It is not the complete legal health record.[facility]
--- OUTSIDE RECORDS SUMMARY | 2025-08-20 08:53 | XMS_ITS | Encounter Summary ---
Author Organization [facility] Address [address] [place] [address] Phone Care Team Providers Care Imager Name Role Phone Eliane Costa Primary Care Provider [phone] Yvan Costa MD Primary Care Provider [phone] Yvan Costa MD Primary Care Provider [phone] Encounter Details Date Type Department Care Team (Late st Contact Info) Description 12/21/2019 Procedure Pass [facility] Endoscopy Admitting Dept Virtual Department [address] [place], [place] [phone] Social History Tobacco Use Types Packs/Day Years [...] on filedocumented in this encounter Care Teams Imager Relationship Specialty Start Date End Date Eliane Costa PA [address] [place] [phone] PCP - General Silk Screener 10/11/19 11/20/20 Yvan Costa MD [address] [place] [phone] [email or web address] PCP - General Family Medicine 11/21/20 06/02/23 Yvan Costa MD [address] [place] [phone] [email or web address] PCP - General Family Medicine 06/03/23 documented as of this encounter Additional Source Comments The information contained in this document represents components of the legal health record. It is not the complete legal health record.[facility]
[2025-08-20 09:44] LABS: Calcium 10.1 mg/dL (8.4-10.2); Magnesium 1.9 mg/dL (1.6-2.6); Uric Acid 5.4 mg/dL (2.4-5.7)
[2025-08-20 10:10] LABS: Parathyroid Hormone Intact 105.0 pg/mL (8.7-77.1)
[2025-08-20 10:28] LABS: Creatinine, mg/dL 95.04; Sodium, 24 Hr Urine 90.0 mmol/L
[2025-08-20 10:34] LABS: Creatinine, mg/dL 94.51; Uric Acid, mg/dL 36.3 mg/dL
[2025-08-20 12:34] LABS: Total Volume 24 Hour Urine 1050 mL
[2025-08-21 10:08] LABS: Lyme Abs Screen <0.90 index
[2025-08-23 17:29] LABS: Calcium/Creatinine Ratio 140 mg/g creat (30-275); Creatinine 24Hr Urine 1.01 g/24 h (0.50-2.15)
[2025-08-25 21:44] LABS: 24hr Urine Total Volume 1050 mL; Citric Acid, 24hr Urine 27 mg/24 h (100-1300); Citric Acid/Creat Ratio 24U 27 mg/g creat (180-1070); Creatinine, 24U 1.02 g/24 h (0.50-2.15)
[2025-08-30 05:40] LABS: 24hr Urine Total Volume 1050 mL; Oxalic Acid 24 Urine 13.5 mg/24 h (3.6-38.0)
== END 2025-08-20 08:31 | disposition home or self-care (01) ==
LOC: HO.LAB 08:30
PROVIDERS: PCP Internal Medicine; Visit Provider Internal Medicine Hypertension Specialist
DX: I10 Essential (primary) hypertension (principal); Z01.84 Encounter for antibody response examination; R31.9 Hematuria, unspecified; N20.0 Calculus of kidney
CPT/HCPCS: 36415; 82310; 82340; 82507; 82570; 83735; 83945; 83970; 84100; 84300; 84550; 84560; 86617; 86618

== ENCOUNTER 2025-08-28 14:41 | Outpatient (REF) | payer MEDICARE, SELFPAY ==
--- NOTE | ~2025-08-28 | US_ITS ---
EXAMINATION: US KIDNEY BILATERAL HISTORY: N20.0 - Calculus of kidney TECHNIQUE: Real-time grayscale ultrasound imaging of the kidneys was performed and images were reviewed. COMPARISON: Comparison is made with the prior examination dated 10/20/2024. FINDINGS: Right kidney: The right kidney measures 10.0 x 4.3 x 3.9 cm. There is renal cortical thinning and increased echotexture. Multiple cysts are noted measuring up to 1.3 x 0.8 x 0.8 cm. There is a possible cluster of small calculi in the interpolar region measuring 9 x 10 x 6 mm in aggregate. There is no hydronephrosis. Left Kidney: The left kidney measures 12.3 x 5.4 x 5.0 cm. Renal parenchymal echotexture and thickness are normal. Multiple cysts are noted, the largest of which is in the interpolar region measuring 2.3 x 1.4 x 1.5 cm. There is a nonobstructing calculus at the lower pole measuring 5 x 4 x 4 mm. There is no hydronephrosis. US/US renal BI IMPRESSION: 1. Right renal cortical thinning and increased echotexture. 2. Bilateral nephrolithiasis as described. Electronically signed by: Leo Castaneda MD 08/28/2025 03:52 PM EDT
--- OUTSIDE RECORDS SUMMARY | 2025-08-28 17:59 | XMS_ITS | Encounter Summary ---
Author Organization [facility] Address [address] [place] [address] Phone Care Team Providers Care Geophysical Drafter Name Role Phone Yvan Costa MD Primary Care Provider [phone] vYan Costa MD Primary Care Provider [phone] Encounter Details Date Type Department Care Team (Late st Contact Info) Description 06/27/2021 Procedure Pass [facility], Ct Scan - [facility] [address] [place] [address] Social History Tobacco Use Types Packs/Day Years [...] on filedocumented in this encounter Care Teams Geophysical Drafter Relationship Specialty Start Date End Date Yvan [...]
--- OUTSIDE RECORDS SUMMARY | 2025-08-28 17:59 | XMS_ITS | Encounter Summary ---
Author Organization [facility] Address [address] [place] [address] Phone Care Team Providers Care Chief Lending Officer Name Role Phone Yvan Costa MD Primary Care Provider [phone] Yvan Costa MD Primary Care Provider [phone] Encounter Details Date Type Department Care Team (Late st Contact Info) Description 12/05/2020 Procedure Pass [facility] Endoscopy Admitting Dept Virtual Department [address] [place] [address] Social History Tobacco Use Types Packs/Day Years [...] on filedocumented in this encounter Care Teams Chief Lending Officer Relationship Specialty Start Date End Date Yvan Costa MD PCP - General Family Medicine 11/21/20 06/02/23 Yvan Costa MD PCP - General Family Medicine 7/13/23 documented as of this encounter Additional Source Comments The information contained in this document represents components of the legal health record. It is not the complete legal health record.[facility]
--- OUTSIDE RECORDS SUMMARY | 2025-08-28 17:59 | XMS_ITS | Encounter Summary ---
Author Organization [facility] Address [address] [place] [address] Phone Care Team Providers Care Gaming Host Name Role Phone Eliane Costa Primary Care Provider [phone] Yvan Costa MD Primary Care Provider [phone] Yvan Costa MD Primary Care Provider [phone] Encounter Details Date Type Department Care Team (Late st Contact Info) Description 08/21/2020 Ancillary Orders Virtual Department [address] [place] [address] Anushka Curry MD, MPH [address] [place], [place] [id number] [email or web address] Breast screening Social History Tobacco [...] unspecified documented in this encounter Care Teams Gaming Host Relationship Specialty Start Date End Date Eliane Costa PA [address] [place] [phone] PCP - General Locomotive Mechanic 10/11/19 11/20/20 Yvan Costa MD [address] [place] [address] [email or web address] PCP - General Family Medicine 11/21/20 06/02/23 Yvan Costa MD [address] [place] [address] [email or web address] PCP - General Family Medicine 06/03/23 documented as of this encounter Additional Source Comments The information contained in this document represents components of the legal health record. It is not the complete legal health record.[facility]
--- OUTSIDE RECORDS SUMMARY | 2025-08-28 18:00 | XMS_ITS | Clinical Summary ---
Author Organization [facility] Address [address] [address] Phone Care Team Providers Care Rn Surgery Name Role Phone Yvan Costa MD Primary Care Provider [phone] Allergies Active Allergy Reactions Criticality Noted Date [...] this topic Medical Devices Implanted Type Area Senior Asset Manager Device Identifier Shelf Expiration Date Model / Serial / Lot Stent Ureteral 6fr 22 To 30cm Stretch Coated Anton - [id number] Implanted:Qty: 1 on 07/15/2022 by Brenton Nassar MD at [facility] Left: Ureter [employer] 12/12/2024 [id number] / / [id number] Clip Hemostasis 360deg 235cm Resolution 360 Latex Free 2.8mm Channel Bx/20ea - [id number] Implanted:Qty: 1 on 06/16/2023 by Pawan Streeter MD at [facility] Sigmoid [employer] 3 / / Procedures Procedure Name Priority Date/Time Associated Diagnosis Comments ENDOSCOPY, COLON 06/16/2023 11:5 7 AM EDT BASIC METABOLIC PANEL STAT 06/21/2022 6:45 PM EDT from Last 3 Months or Most Recently Relevant to Health Maintenance Results * ENDOSCOPY, COLON (06/16/2023 11:57 AM EDT) Narrative Transcriptions Pawan Streeter MD - 06/16/2023 11:57 AM EDT [facility] Patient Name: Jania Velázquez Attending MD:: PAWAN STREETER MD, , Procedure Date: 06/16/2023 11:57 AM Date of : 1955 Age: 67 Admit Type: Outpatient Gender: Female Room: [place] [address] Referring MD: YVAN COSTA MD Exam Type: [...] 11:57 AM Procedure Code(s): --- Professional --- 50517, Colonoscopy, flexible; with removal of tumor(s), polyp(s), or other lesion(s) by snare technique --- Technical --- 71524, Colonoscopy, flexible; with removal of tumor(s), polyp(s), [...] or abscess without bleeding CPT copyright 2021 [employer]. All rights reserved. The codes documented in this report are preliminary and upon aluminum fabrication supervisor reviewmay be revised to meet current compliance requirements. Procedure Date: 06/16/2023 11:57:[address] [place] [address] Yvan Costa MD GI PROCEDURE ORDERABLES Final Result * (ABNORMAL) Basic metabolic panel (06/21/2022 6:45 PM EDT) SODIUM 138 133 - 146 mmol/L [facility] CHLORIDE 100 96 - 108 mmol/L [facility] POTASSIUM 3.8 3.3 - 5.1 mmol/L [facility] CO2 25 21 - 35 mmol/L [facility] BUN 24(H) 6 - 19 mg/dL [facility] CREATININE 0.80 0.5 - 1.5 mg/dL [facility] GLUCOSE 94 70 - 99 mg/dL [facility] CALCIUM 9.6 8.4 - 10.3 mg/dL [facility] EGFR 82 >59 mL/min/1.7 3m2 [facility] Comment:Estimated glomerular filtration rate calculated using the CKD-EPI refit equation. ANION GAP 17 10 - 20 mmol/L [facility] Blood 06/21/2022 6:45 PM EDT 06/21/2022 6:52 PM EDT Liliane Vasquez MD LAB BLOOD ORDERABLES Final Result [facility] [address] [place] [address] from Last 3 Months or Most Recently Relevant to Health Maintenance Insurance [facility] MEDICARE REPLACEMENT [facility] MED[facility]ARE REPLACEMENT [facility] MEDICARE REPLACEMENT [facility] PREF VALUE MEDICARE REPLACEMENT [facility] PREF VALUE MEDICARE REPLACEMENT [facility] PREF VALUE MEDICARE REPLACEMENT Care Teams Rn Surgery Relationship Specialty Start Date End Date Yvan Costa MD [email or web address] PCP - General Family Medicine 06/03/23 Additional Source Comments The information contained in this document represents components of the legal health record. It is not the complete legal health record.[facility]
--- OUTSIDE RECORDS SUMMARY | 2025-08-28 18:00 | XMS_ITS | Encounter Summary ---
Author Organization [facility] Address [address] [address] Phone Care Team Providers Care Personnel Arbitrator Name Role Phone Yvan Costa MD Primary Care Provider [phone] Encounter Details Date Type Department Care Team (Late st Contact Info) Description 06/16/2023 Procedure Pass [facility] Endoscopy Admitting Dept Virtual Department [address] [place] [address] Social History Tobacco Use Types Packs/Day Years [...] on filedocumented in this encounter Care Teams Personnel Arbitrator Relationship Specialty Start Date End Date Yvan Costa MD [email or web address] PCP - General Family Medicine 06/03/23 documented as of this encounter Additional Source Comments The information contained in this document represents components of the legal health record. It is not the complete legal health record.[facility]
--- OUTSIDE RECORDS SUMMARY | 2025-08-28 18:00 | XMS_ITS | Encounter Summary ---
Author Organization [facility] Address [address] [address] Phone Care Team Providers Care Instructor Weaving Name Role Phone Yvan Costa MD Primary Care Provider [phone] Encounter Details Date Type Department Care Team (Late st Contact Info) Description 06/16/2023 Procedure Pass [facility] Endoscopy Admitting Dept Virtual Department [address] [place] [address] Social History Tobacco Use Types Packs/Day Years [...] on filedocumented in this encounter Care Teams Instructor Weaving Relationship Specialty Start Date End Date Yvan Costa MD [email or web address] PCP - General Family Medicine 06/03/23 documented as of this encounter Additional Source Comments The information contained in this document represents components of the legal health record. It is not the complete legal health record.[facility]
--- OUTSIDE RECORDS SUMMARY | 2025-08-28 18:00 | XMS_ITS | Encounter Summary ---
Author Organization [facility] Address [address] [place] [address] Phone Care Team Providers Care Cancer Genetic Counselor Name Role Phone Yvan Costa MD Primary Care Provider [phone] Yvan Costa MD Primary Care Provider [phone] Reason for Referral * MRI/CAT Scan - Closed Specialty Diagnoses / Procedures Referred By John marin Referred To Contact Radiology Diagnoses Personal history of urinary calculi Other microscopic hematuria Procedures CT Abdomen/Pelvis CHG CT SCAN,ABDOMENT AND PELVIS,COMBO CHG CT SCAN,ABDOMENT AND PELVIS,W CONTRAST CHG CT SCAN,ABDOMENT AND PELVIS,W/O CONTRAST Cipriano Healy MD Phone: tel: fax: [email or web address] Referral ID Status Reason Start Date Expiration Date Visits Re quested Visits Authorized [id number] Closed 06/27/2021 09/24/2021 1 1 Encounter Details Date Type Department Care Team (Latest Contact Info) Description 06/27/2021 Transcribe Orders Virtual Department [address] [place] [address] Cipriano Healy MD [address] [place] [address], [address] [address] [email or web address] Personal history of urinary calculi (Primary Dx); [...] hematuria documented in this encounter Care Teams Cancer Genetic Counselor Relationship Specialty Start Date End Date Yvan Costa MD [email or web address] PCP - General Family Medicine 11/21/20 06/02/23 Yvan Costa MD PCP - General Family Medicine 06/03/23 documented as of this encounter Additional Source Comments The information contained in this document represents components of the legal health record. It is not the complete legal health record.[facility]
--- OUTSIDE RECORDS SUMMARY | 2025-08-28 18:00 | XMS_ITS | Encounter Summary ---
Author Organization [facility] Address [address] [place] [address] Phone Care Team Providers Care Net Washer Name Role Phone Yvan Costa MD Primary Care Provider [phone] Yvan Costa MD Primary Care Provider [phone] Encounter Details Date Type Department Care Team (Late st Contact Info) Description 10/08/2021 Procedure Pass [place] Admitting Dept - Virtual Department [address] [place] [address] Social History Tobacco Use Types Packs/Day Years [...] 10/08/2021 7:42 AM Antionette Tatum RN * [place] Suicide Severity Rating Scale (Screener/Recent Self-Report) Question Answer Date of Assessment Author 2. Non-Specific Active Suici jess Thoughts (Past 1 Month) No 10/08/2021 7:42 AM Danna Vang RN documented as of this encounter Plan of Treatment Not on file documented as of this encounter Visit Diagnoses Not on filedocumented in this encounter Care Teams Net Washer Relationship Specialty Start Date End Date Yvan Costa MD [email or web address] PCP - General Family Medicine 11/21/20 06/02/23 Yvan Costa MD [email or web address] PCP - General Family Medicine 06/03/23 documented as of this encounter Additional Source Comments The information contained in this document represents components of the legal health record. It is not the complete legal health record.[facility]
--- OUTSIDE RECORDS SUMMARY | 2025-08-28 18:00 | XMS_ITS | Encounter Summary ---
Author Organization [facility] Address [address] [address] Phone Care Team Providers Care Annealing Torch Operator Name Role Phone Yvan Costa MD Primary Care Provider [phone] Yvan Costa MD Primary Care Provider [phone] Encounter Details Date Type Department Care Team (Late st Contact Info) Description 06/21/2022 Procedure Pass [facility], Ct Scan - [facility] [address] [place] [address] Social History Tobacco Use Types Packs/Day Years [...] 6:32 PM EDT Gwen Martin RN * [place] Suicide Severity Rating Scale (Screener/Recent Self-Report) Question Answer Date of Assessment Author 1. Wish to be (Past 1 Month) No 022 6:32 PM EDT Elke Mratin, RN 2. Non-Specific Active Suici jess Thoughts (Past 1 Month) No 06/21/2022 6:32 PM EDT Elke Martin , RN 6. Suicidal Behavior (Lifetime) No 6:32 PM EDT Elke Martin, RN documented as of this encounter Plan of Treatment Not on file documented as of this encounter Visit Diagnoses Not on filedocumented in this encounter Care Teams Annealing Torch Operator Relationship Specialty Start Date End Date Yvan Costa MD [email or web address] PCP - General Family Medicine 11/21/20 06/02/23 Yvan Costa MD [email or web address] PCP - General Family Medicine 06/03/23 documented as of this encounter Additional Source Comments The information contained in this document represents components of the legal health record. It is not the complete legal health record.[facility]
--- OUTSIDE RECORDS SUMMARY | 2025-08-28 18:00 | XMS_ITS | Encounter Summary ---
Author Organization [facility] Address [address] [place] [address] Phone Care Team Providers Care Delivery Specialist Name Role Phone Yvan Costa MD Primary Care Provider [phone] Yvan Costa MD Primary Care Provider [phone] Encounter Details Date Type Department Care Team (Late st Contact Info) Description 08/11/2021 Ancillary Orders [facility], X-Ray - [address] [address] Cipriano Healy MD [address] [place] [address], [address] [place] [address] [email or web address] Calculus of kidney Social History Tobacco Use [...] kidney documented in this encounter Care Teams Delivery Specialist Relationship Specialty Start Date End Date Yvan Costa MD [email or web address] PCP - General Family Medicine 11/21/20 06/02/23 Yvan Costa MD PCP - General Family Medicine 06/03/23 documented as of this encounter Additional Source Comments The information contained in this document represents components of the legal health record. It is not the complete legal health record.[facility]
--- OUTSIDE RECORDS SUMMARY | 2025-08-28 18:00 | XMS_ITS | Encounter Summary ---
Author Organization [facility] Address [address] [place] [address] Phone Care Team Providers Care Customer Service Teller Name Role Phone Eliane Costa Primary Care Provider [phone] Yvan Costa MD Primary Care Provider [phone] Yvan Costa MD Primary Care Provider [phone] Encounter Details Date Type Department Care Team (Late st Contact Info) Description 12/21/2019 Procedure Pass [facility] Endoscopy Admitting Dept Virtual Department [address] [place], [place] [phone] Social History Tobacco Use Types Packs/Day Years [...] on filedocumented in this encounter Care Teams Customer Service Teller Relationship Specialty Start Date End Date Eliane Costa PA [address] [place] [phone] PCP - General Tours Hostess 10/11/19 11/20/20 Yvan Costa MD [address] [place] [phone] [email or web address] PCP - General Family Medicine 11/21/20 06/02/23 Yvan Costa MD [address] [place] [phone] [email or web address] PCP - General Family Medicine 06/03/23 documented as of this encounter Additional Source Comments The information contained in this document represents components of the legal health record. It is not the complete legal health record.[facility]
--- OUTSIDE RECORDS SUMMARY | 2025-08-28 18:00 | XMS_ITS | Encounter Summary ---
Author Organization [facility] Address [address] [place] [address] Phone Care Team Providers Care Team Sports Sales Associate Name Role Phone Yvan Costa MD Primary Care Provider [phone] Yvan Costa MD Primary Care Provider [phone] Encounter Details Date Type Department Care Team (Late st Contact Info) Description 07/15/2022 Procedure Pass [place] Admitting Dept - Virtual Department [address] [place] [address] Social History Tobacco Use Types Packs/Day Years [...] on filedocumented in this encounter Care Teams Team Sports Sales Associate Relationship Specialty Start Date End Date Yvan [...]
== END 2025-08-28 14:42 | disposition home or self-care (01) ==
LOC: HO.US 14:41
PROVIDERS: PCP Internal Medicine; Visit Provider Internal Medicine Hypertension Specialist
DX: N20.0 Calculus of kidney (principal)
CPT/HCPCS: 76775

== ENCOUNTER → 2025-08-28 14:44 | Outpatient (BNV) | payer MEDICARE, SELFPAY | PROVIDERS: PCP Internal Medicine; Visit Provider Radiology Diagnostic Radiology | DX: N20.0 Calculus of kidney (principal) | CPT/HCPCS: 76775 ==

== ENCOUNTER 2025-08-31 11:30 | Day surgery (SDC) | payer MEDICARE, SELFPAY ==
[2025-08-29 15:00] VITALS: BMI 41.6
--- NOTE | 2025-08-30 08:10 | HO.ANESPROP2 ---
Documented by User: Lisa Villeda NP 08/30/25 08:12 HPI - Anesthesia Eval Consult details Narrative: 69yo F for Cardioversion Xarelto for afib PMFSH Active Problems Active Problems: All Active Problems Bilateral nephrolithiasis (Acute) Hematuria (Acute) Osteoporosis screening (Acute) Breast cancer screening by mammogram (Acute) Right renal artery stenosis (Acute) Right renal atrophy (Acute) Encounter for preprocedural laboratory examination (Acute) Persistent atrial fibrillation (Acute) Abnormal finding on diagnostic imaging of kidney (Acute) Osteoarthritis of left knee (Acute) Morbid obesity with BMI of 40.0-44.9, adult (Acute) Left knee pain (Acute) Recurrent kidney stones (Acute) Pure hypercholesterolemia (Acute) Essential hypertension (Acute) Annual physical exam (Acute) Psoriasis (Acute) Back pain (Acute) Bilateral pendulous breasts (Acute) Past Medical History Medical History Paroxysmal atrial fibrillation Osteoarthritis of left knee Morbid obesity with BMI of 40.0-44.9, adult Recurrent kidney stones Pure hypercholesterolemia Essential hypertension Adenomatous colon polyp Psoriasis Kidney stones Family History Family History Mother Stroke CHF (congestive heart failure) Hypertension Father Heart attack Son No problems noted. Brother No problems noted. Brother No problems noted. Sister No problems noted. Sister No problems noted. 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, 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 Current occupational exposures/hazards: No Cognitive needs: No Hearing needs: No Vision needs: Yes Meds Allergies Allergy/AdvReac Type Severity Reaction Status Date / Time codeine AdvReac Severe Nausea Verified 08/16/25 11:26 Home Medications ?Medication ?Instructions ?Recorded ?Confirmed ?Last Taken ?Type betamethasone valerate 0.1 % 1 appl topical BID PRN Rash 06/26/24 08/29/25 Unknown History topical ointment cholecalciferol (vitamin D3) 25 25 mcg PO DAILY 08/16/25 08/31/25 08/31/25 History mcg (1,000 unit) capsule rivaroxaban 20 mg tablet (Xarelto) 20 mg PO BEDTIME 08/31/25 08/31/25 08/30/25 History Exam Height,Weight and Vital Signs: Height 5 ft 1 in Weight 99.79 kg Pertinent Lab Results Pertinent Lab Results: Laboratory Tests 07/24/25 08:52 WBC 5.5 Hgb 15.0 Hct 45.4 Plt Count 214 Sodium 142 Potassium 4.5 Chloride 106 Carbon Dioxide 30 H BUN 20 H Creatinine 0.99 Narrative Narrative: ECHO 01/2025 Conclusions: - 1. Normal LV ejection fraction 55-60% 2. At least moderately dilated left atrium 3. Mild mitral regurgitation 4. Normal calculated RV systolic pressure 5. No gross pericardial effusion Assessment and Plan Assessment Anesthesia Assessment: Chart Reviewed Documented by User: Abbi Marks MD 08/31/25 12:52 [facility] Past Medical History Medical History Paroxysmal atrial fibrillation Osteoarthritis of left knee Morbid obesity with BMI of 40.0-44.9, adult Recurrent kidney stones Pure hypercholesterolemia Essential hypertension Adenomatous colon polyp Psoriasis Kidney stones Family History Family History Mother Stroke CHF (congestive heart failure) Hypertension Father Heart attack Son No problems noted. Brother No problems noted. Brother No problems noted. Sister No problems noted. Sister No problems noted. Family history of problems with anesthesia: No Surgical History Surgical History H/O lithotripsy H/O cystoscopy Hx of colonoscopy History of hysterectomy History of Problems with Anesthesia: No Social History Social History Housing: House Alcohol intake: never Patient Tobacco Use Status: Never used Tobacco Tobacco use type: Cigarette e-Cigarette/Vaping Use: Never Used Second Hand Smoke Exposure: No Use of substances other than those prescribed or required for medical reasons: No Advance Directives: No Advance Directives Information Provided: Yes Patient : No : No Poor oral hygiene: No service: No Current occupational status: employed and retired 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, 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 Current occupational exposures/hazards: No Cognitive needs: No Hearing needs: No Vision needs: Yes Meds Allergies Allergy/AdvReac Type Severity Reaction Status Date / Time codeine AdvReac Severe Nausea Verified 08/16/25 11:26 Home Medications ?Medication ?Instructions ?Recorded ?Confirmed ?Last Taken ?Type betamethasone valerate 0.1 % 1 appl topical BID PRN Rash 06/26/24 08/29/25 Unknown History topical ointment cholecalciferol (vitamin D3) 25 25 mcg PO DAILY 08/16/25 08/31/25 08/31/25 History mcg (1,000 unit) capsule rivaroxaban 20 mg tablet (Xarelto) 20 mg PO BEDTIME 08/31/25 08/31/25 08/30/25 History Exam Airway Heart: af Lungs: cta Assessment and Plan Assessment Anesthesia Assessment: Anesthesia Plan Discussed Final Anesthetic Review Family History of Problems with Anesthesia: No History of Problems with Anesthesia: No NPO: Yes ASA Class: III Final Preanesthetic Review: No Changes in Pt Med Stat, Meds/Allgs Chart Reviewed, Consent Obtained/Reviewed and Anes Risks/Benef Reviewed Patient Risk: Intermediate Procedure Risk: Low Anesthetic Plan Anesthetic Plan: MAC: Disposition: Standard PACU
[2025-08-31] VITALS (7 sets, daily range): BP systolic 103–125; BP diastolic 56–72; PULSE 52–67; RESP 14–16; TEMP 35.8–36.6; O2SAT 98–100; BMI 41.9
[2025-08-31] MEDS: Lactated Ringers 1,000 ML 100 ML IVCONT (12:54)
--- NOTE | 2025-08-31 13:15 | MHC.SHP ---
Pre-Procedural Eval Section A - 24 Hr Update-Section A only Date of Service: 08/31/25 The patient is an INPATIENT: No Changes since office visit: Yes Patient answered all questions; No Cold of Flu in the past 2 weeks, No New Medical Problems and No Changes in Medication The patient has been examined within 24 hours of the surgical procedure. The History & Physical has been completed within 30 days and I have reviewed it.: Yes Section B - Complete if H&P > 30 days Chief Complaint: Unspecified atrial fibrillation Allergies: Allergies Allergy/AdvReac Type Severity Reaction Status Date / Time codeine AdvReac Severe Nausea Verified 08/16/25 11:26 Plan I have reviewed the history and physical and performed a pertinent physical examination on my patient. No changes have occurred unless specified. Time Spent With Patient Time: Total time managing care of this patient today ____ minutes.
--- NOTE | 2025-08-31 13:46 | ECG_ITS ---
Test Reason : S/P CARDIOVERSION Blood Pressure : */* mmHG Vent. Rate : 54 BPM Atrial Rate : 54 BPM P-R Int : 210 ms QRS Dur : 88 ms QT Int : 516 ms P-R-T Axes : 82 11 47 degrees QTcB Int : 489 ms Sinus bradycardia with 1st degree A-V block with Premature atrial complexes Otherwise normal ECG When compared with ECG of 06-Feb-2025 08:37, Sinus rhythm has replaced Atrial fibrillation Nonspecific T wave abnormality, improved in Inferior leads Nonspecific T wave abnormality no longer evident in Anterolateral leads Referred By: Yeison Linn Electronically Signed By: YEISON LINN MD
--- NOTE | 2025-08-31 13:47 | HO.CARDIVERS ---
Cardioversion Procedure Note Cardioversion Date of Procedure: 08/31/2025 Ordering Provider: Homa Linn Performing Provider: Homa Linn Indication for Procedure: Persistent atrial fibrillation Pre-Op Diagnosis: Same History: See my office note Consent: Verbal and Written consent was obtained from the patient before starting and after confirming oral anticoagulation use. The patient was made aware of the risk of synchronized cardioversion including benefits and alternatives Procedure: After consent obtained, cardioversion pads were attached in anteroposterior configuration and the patient was sedated by the anesthesia team. Once adequate sedation achieved, was delivered 200 joules of biphasic synchronized energy in anteroposterior configuration Complications: None Impression: Successful conversion to sinus rhythm Recommendations: 1. Continue amiodarone as well as oral anticoagulation 2. 12 lead EKG 3. Follow up in the clinic
== END 2025-08-31 14:37 | disposition home or self-care (01) ==
PROVIDERS: PCP Internal Medicine; Visit Provider Internal Medicine Cardiovascular Disease
PROC: 5A2204Z Restoration of Cardiac Rhythm, Single (ICD-10-PCS; principal; 2025-08-31 13:30)
DX: I48.19 Other persistent atrial fibrillation (principal); Z79.01 Long term (current) use of anticoagulants; I10 Essential (primary) hypertension; E78.00 Pure hypercholesterolemia, unspecified; E66.01 Morbid (severe) obesity due to excess calories; Z68.41 Body mass index [BMI] 40.0-44.9, adult; Z79.899 Other long term (current) drug therapy; Z88.5 Allergy status to narcotic agent
CPT/HCPCS: 92960; 93005; J2250; J2704

== ENCOUNTER → 2025-08-31 11:30 | Outpatient (BNV) | payer MEDICARE, SELFPAY | PROVIDERS: PCP Internal Medicine; Visit Provider Internal Medicine Cardiovascular Disease | DX: I48.91 Unspecified atrial fibrillation (principal); R00.1 Bradycardia, unspecified; I44.0 Atrioventricular block, first degree; I49.3 Ventricular premature depolarization | CPT/HCPCS: 92960; 93010 ==

== ENCOUNTER 2025-09-13 15:35 | Outpatient (AMB) | payer MEDICARE, SELFPAY ==
[2025-09-13 15:45] VITALS: BP 118/70; PULSE 60; O2SAT 98; BMI 43.0
--- NOTE | 2025-09-13 15:45 | HO.NEPHOV ---
Vital Signs 09/13/25 15:45 Height 5 ft Weight 220 lb BMI 43.0 BP 118/70 Blood Pressure Location Rt brachial Position Sitting Pulse 60 Pulse Source Pulse Oximeter Pulse Oximetry (%) 98 Oxygen Delivery Method Room Air Intake Visit Reasons: 4wks f/u w/labs confirmed Marketing Information Manager Required: No Accompanied by: Self / Same As Patient Allergies codeine Adverse Reaction (Severe, Verified 09/13/25 15:47) Nausea Medication List - Last Reconciled 09/13/25 by Jarett Turner MD amiodarone 200 mg PO DAILY atorvastatin 20 mg PO BEDTIME 90 days betamethasone valerate 0.1% 1 appl topical BID PRN cholecalciferol (vitamin D3) 25 mcg PO DAILY diltiazem HCl CD 300 mg PO DAILY rivaroxaban (Xarelto) 20 mg PO BEDTIME triamterene-hydrochlorothiazid 37.5-25 mg 1 cap PO DAILY HPI Comments Details: - The patient is a 69-year-old female referred for atrophic right kidney and a question of renal artery stenosis - Long-standing nephrolithiasis with interventions including lithotripsy and surgery. - History of uric acid and calcium oxalate stones, recent analysis shows oxalate stones. - Imaging shows multiple stones and smaller right kidney. - Episodes of hematuria with stone passage. - Advised low salt diet and increased fluid intake. - Atrial fibrillation managed with diltiazem, triamterene, hydrochlorothiazide, amiodarone, and Xarelto. In September 2024 she underwent renal ultrasonogram. Right kidney measured 9.1 cm left kidney measured 12.1 cm. Right kidney had multiple scars. Multiple stones were seen. CAT scan was done in May of 2027. Multiple stones were seen. Based on the relatively smaller sized right kidney radiologist suspected renal artery stenosis. However she does not have any history of renal failure. Serum creatinine has been stable. She has well-controlled hypertension and no history of resistant hypertension. No other stigmata for atherosclerosis. 09/13/2025 - The patient is a 69-year-old female presenting with management of nephrolithiasis and follow-up on renal ultrasound findings. - Nephrolithiasis: History of kidney stones since age 19, with recent ultrasound showing nonobstructive calculi of 4-5 mm in both kidneys. - Interventions: Advised to increase fluid intake and consume lemonade to increase urinary citrate levels. - Simple renal cyst: Recent ultrasound identified a simple cyst with no obstruction or hydronephrosis. - Post-cardioversion status: Underwent cardioversion on August 31, with improved symptoms and reduced shortness of breath. [facility] Medical History Paroxysmal atrial fibrillation Osteoarthritis of left knee Morbid obesity with BMI of 40.0-44.9, adult Recurrent kidney stones Pure hypercholesterolemia Essential hypertension Adenomatous colon polyp Psoriasis Kidney stones Surgical History H/O lithotripsy H/O cystoscopy Hx of colonoscopy History of hysterectomy Family History Mother Stroke CHF (congestive heart failure) Hypertension Father Heart attack Son No problems noted. Brother No problems noted. Brother No problems noted. Sister No problems noted. Sister No problems noted. 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 Lungs entry equal no rales. Heart S1-S2 heard no gallop or rub. Abdomen soft nontender. Neuro alert awake oriented. No asterixis. Extremities no edema. Results Reviewed Results Reviewed: Urine citrate level was low at 27 Nephrology Results: Calcium, (8.4-10.2) 10.1 mg/dL 08/20/25 Phosphorus, (2.7-4.5) 3.7 mg/dL 08/20/25 PTH Intact, (8.7-77.1) 105.0 pg/mL H 08/20/25 Urine Creatinine 95.02 mg/dL 08/20/25 Renal US 08/28/25 Assessment & Plan Assessment & Plan (1) Bilateral nephrolithiasis: Code(s): N20.0 - Calculus of kidney Category: Medical (2) Essential hypertension: Code(s): I10 - Essential (primary) hypertension Category: Medical Plan 69-year-old woman with obesity and multiple renal stones as essentially normal renal function. Right kidney he is relatively smaller compared to the left kidney. This is most likely due to multiple renal stones and scarring. Clinically I do not believe she has significant renal artery stenosis. I will repeat the renal ultrasonogram to assess the kidney sizes. Twenty-four urine collection showed a volume of 1 L and urine sodium excretion was normal. Citrate excretion was low at 27 Citrate intake needs to be increased. We discussed the option of increasing intake of citrate via lemonade or adding potassium citrate tablets. She prefer to increase citrate intake via lemonade. I will recheck this citrate excretion in the next few months. She should continue to stay on low-sodium diet Increase p.o. fluid intake. She will benefit from weight loss. At present blood pressure is well controlled. Renal function stable. We will continue to monitor this Orders: Orders Creatinine Urine 6 Months N20.0 - Calculus of kidney Citric Acid, Random Urine 6 Months N20.0 - Calculus of kidney Coding Level of Care Code Est Pt Level 4 (04638) Diagnoses Bilateral nephrolithiasis N20.0 Essential hypertension I10
--- OUTSIDE RECORDS SUMMARY | 2025-09-13 19:13 | XMS_ITS | Encounter Summary ---
Author Organization [facility] Address [address] [address] Phone Care Team Providers Care Ditto Machine Operator Name Role Phone Yvan Costa MD Primary Care Provider [phone] Yvan Costa MD Primary Care Provider [phone] Encounter Details Date Type Department Care Team (Late st Contact Info) Description 06/21/2022 Procedure Pass [facility], Ct Scan - [facility] [address] [place] [address] Social History Tobacco Use Types Packs/Day Years [...] 6:32 PM EDT Gwen Martin RN * [place] Suicide Severity Rating Scale (Screener/Recent Self-Report) Question [...] on filedocumented in this encounter Care Teams Ditto Machine Operator Relationship Specialty Start Date End Date Yvan Costa MD [email or web address] PCP - General Family Medicine 11/21/20 06/02/23 Yvan Costa MD [email or web address] PCP - General Family Medicine 06/03/23 documented as of this encounter Additional Source Comments The information contained in this document represents components of the legal health record. It is not the complete legal health record.[facility]
--- OUTSIDE RECORDS SUMMARY | 2025-09-13 19:13 | XMS_ITS | Encounter Summary ---
Author Organization [facility] Address [address] [address] Phone Care Team Providers Care Renal Dialysis Technician Name Role Phone Yvan Costa MD Primary Care Provider [phone] Encounter Details Date Type Department Care Team (Late st Contact Info) Description 06/16/2023 Procedure Pass [facility] Endoscopy Admitting Dept Virtual Department [address] [place] [address] Social History Tobacco Use Types Packs/Day Years [...] on filedocumented in this encounter Care Teams Renal Dialysis Technician Relationship Specialty Start Date End Date Yvan Costa MD [email or web address] PCP - General Family Medicine 06/03/23 documented as of this encounter Additional Source Comments The information contained in this document represents components of the legal health record. It is not the complete legal health record.[facility]
--- OUTSIDE RECORDS SUMMARY | 2025-09-13 19:13 | XMS_ITS | Encounter Summary ---
Author Organization [facility] Address [address] [place] [address] Phone Care Team Providers Care Kosher Dietary Service Manager Name Role Phone Yvan Costa MD Primary Care Provider [phone] Yvan Costa MD Primary Care Provider [phone] Encounter Details Date Type Department Care Team (Late st Contact Info) Description 10/08/2021 Procedure Pass [place] Admitting Dept - Virtual Department [address] [place] [address] Social History Tobacco Use Types Packs/Day Years [...] 10/08/2021 7:42 AM Antionette Tatum RN * [place] Suicide Severity Rating Scale (Screener/Recent Self-Report) Question Answer Date of Assessment Author 2. Non-Specific Active Suici jess Thoughts (Past 1 Month) No 10/08/2021 7:42 AM Danna Vang RN documented as of this encounter Plan of Treatment Not on file documented as of this encounter Visit Diagnoses Not on filedocumented in this encounter Care Teams Kosher Dietary Service Manager Relationship Specialty Start Date End Date Yvan Costa MD [email or web address] PCP - General Family Medicine 11/21/20 06/02/23 Yvan Costa MD [email or web address] PCP - General Family Medicine 06/03/23 documented as of this encounter Additional Source Comments The information contained in this document represents components of the legal health record. It is not the complete legal health record.[facility]
--- OUTSIDE RECORDS SUMMARY | 2025-09-13 19:13 | XMS_ITS | Encounter Summary ---
Author Organization [facility] Address [address] [place] [address] Phone Care Team Providers Care Heel Seat Laster Name Role Phone Eliane Costa Primary Care Provider [phone] Yvan Costa MD Primary Care Provider [phone] Yvan Costa MD Primary Care Provider [phone] Encounter Details Date Type Department Care Team (Late st Contact Info) Description 08/21/2020 Ancillary Orders Virtual Department [address] [place] [address] Anushka Curry MD, MPH [address] [place], [place] [id number] [email or web address] Breast screening Social History Tobacco Use Types [...] unspecified documented in this encounter Care Teams Heel Seat Laster Relationship Specialty Start Date End Date Eliane Costa PA [address] [place] [id number] PCP - General Boiler Riveter 10/11/19 11/20/20 Yvan Costa MD [address] [place] [address] [email or web address] PCP - General Family Medicine 11/21/20 06/02/23 Yvan Costa MD [address] [place] [address] [email or web address] PCP - General Family Medicine 06/03/23 documented as of this encounter Additional Source Comments The information contained in this document represents components of the legal health record. It is not the complete legal health record.[facility]
--- OUTSIDE RECORDS SUMMARY | 2025-09-13 19:13 | XMS_ITS | Clinical Summary ---
Author Organization [facility] Address [address] [address] Phone Care Team Providers Care Shrimp Peeling Machine Operator Name Role Phone Yvan Costa MD Primary Care Provider [phone] Allergies Active Allergy Reactions Criticality Noted Date [...] this topic Medical Devices Implanted Type Area Craft Coordinator Device Identifier Shelf Expiration Date Model / Serial / Lot Stent Ureteral 6fr 22 To 30cm Stretch Coated Anton - [id number] Implanted:Qty: 1 on 07/15/2022 by Brenton Nassar MD at [facility] Left: Ureter [employer] 12/12/2024 [id number] / / [id number] Clip Hemostasis 360deg 235cm Resolution 360 Latex Free 2.8mm Channel Bx/20ea - [id number] Implanted:Qty: 1 on 06/16/2023 by Pawan Streeter [...] 67 Admit Type: Outpatient Gender: Female Room: [place] [address] Referring MD: YVAN COSTA MD Exam Type: [...] 11:57 AM Procedure Code(s): --- Professional --- 88771, Colonoscopy, flexible; with removal of tumor(s), polyp(s), or other lesion(s) by snare technique --- Technical --- 84247, Colonoscopy, flexible; with removal of tumor(s), polyp(s), [...] or abscess without bleeding CPT copyright 2021 [employer]. All rights reserved. The codes documented in this report are preliminary and upon pcat instructor reviewmay be revised to meet current compliance requirements. Procedure Date: 06/16/2023 11:57:[address] [place] [id number] Yvan Costa MD GI PROCEDURE ORDERABLES Final Result * (ABNORMAL) Basic metabolic panel (06/21/2022 6:45 PM EDT) SODIUM 138 133 - 146 mmol/L [facility] CHLORIDE 100 96 - 108 mmol/L [facility] POTASSIUM 3.8 3.3 - 5.1 mmol/L [facility] CO2 25 21 - 35 mmol/L [facility] BUN 24(H) 6 - 19 mg/dL [facility] CREATININE 0.80 0.5 - 1.5 mg/dL [facility] GLUCOSE 94 70 - 99 mg/dL [facility] CALCIUM 9.6 8.4 - 10.3 mg/dL [facility] EGFR 82 >59 mL/min/1.7 3m2 [facility] Comment:Estimated glomerular filtration rate calculated using the CKD-EPI refit equation. ANION GAP 17 10 - 20 mmol/L [facility] Blood 06/21/2022 6:45 PM EDT 06/21/2022 6:52 PM EDT Liliane Vasquez MD LAB BLOOD ORDERABLES Final Result [facility] [address] [place] [address] from Last 3 Months or Most Recently Relevant to Health Maintenance Insurance [facility] MEDICARE REPLACEMENT [facility] MEDICARE REPLACEMENT [facility] MEDICARE REPLACEMENT [facility] PREF VALUE MEDICARE REPLACEMENT [facility] PREF VALUE MEDICARE REPLACEMENT [facility] PREF VALUE MEDICARE REPLACEMENT Care Teams Shrimp Peeling Machine Operator Relationship Specialty Start Date End Date Yvan Costa MD [email or web address] PCP - General Family Medicine 06/03/23 Additional Source Comments The information contained in this document represents components of the legal health record. It is not the complete legal health record.[facility]
--- OUTSIDE RECORDS SUMMARY | 2025-09-13 19:13 | XMS_ITS | Encounter Summary ---
Author Organization [facility] Address [address] [place] [address] Phone Care Team Providers Care Inspector Outside Steam Distribution Name Role Phone Yvan Costa MD Primary Care Provider [phone] Yvan Costa MD Primary Care Provider [phone] Reason for Referral * MRI/CAT Scan - Closed Specialty Diagnoses / Procedures Referred By John marin Referred To Contact Radiology Diagnoses Personal history of urinary calculi Other microscopic hematuria Procedures CT Abdomen/Pelvis CHG CT SCAN,ABDOMENT AND PELVIS,COMBO CHG CT SCAN,ABDOMENT AND PELVIS,W CONTRAST CHG CT SCAN,ABDOMENT AND PELVIS,W/O CONTRAST Cipriano Healy MD Phone: tel: fax: mailto:[email or web address] Referral ID Status Reason Start Date Expiration Date Visits Re quested Visits Authorized [id number] Closed 06/27/2021 09/24/2021 1 1 Encounter Details Date Type Department Care Team (Latest Contact Info) Description 06/27/2021 Transcribe Orders Virtual Department [address] [place] [address] Cipriano Healy MD [address] [place] [address], [address] [address] [email or web address] Personal history of urinary calculi (Primary Dx); [...] hematuria documented in this encounter Care Teams Inspector Outside Steam Distribution Relationship Specialty Start Date End Date Yvan Costa MD [email or web address] PCP - General Family Medicine 11/21/20 06/02/23 Yvan Costa MD PCP - General Family Medicine 06/03/23 documented as of this encounter Additional Source Comments The information contained in this document represents components of the legal health record. It is not the complete legal health record.[facility]
--- OUTSIDE RECORDS SUMMARY | 2025-09-13 19:13 | XMS_ITS | Encounter Summary ---
Author Organization [facility] Address [address] [place] [address] Phone Care Team Providers Care Lodging House Keeper Name Role Phone Eliane Costa Primary Care Provider [phone] Yvan Costa MD Primary Care Provider [phone] Yvan Costa MD Primary Care Provider [phone] Encounter Details Date Type Department Care Team (Late st Contact Info) Description 12/21/2019 Procedure Pass [facility] Endoscopy Admitting Dept Virtual Department [address] [place], [place] [id number] Social History Tobacco Use Types Packs/Day Years [...] on filedocumented in this encounter Care Teams Lodging House Keeper Relationship Specialty Start Date End Date Eliane Costa PA [address] [place] [phone] PCP - General Transit Planning Manager 10/11/19 11/20/20 Yvan Costa MD [address] [place] [phone] [email or web address] PCP - General Family Medicine 11/21/20 06/02/23 Yvan Costa MD [address] [place] [phone] [email or web address] PCP - General Family Medicine 06/03/23 documented as of this encounter Additional Source Comments The information contained in this document represents components of the legal health record. It is not the complete legal health record.[facility]
--- OUTSIDE RECORDS SUMMARY | 2025-09-13 19:13 | XMS_ITS | Encounter Summary ---
Author Organization [facility] Address [address] [place] [address] Phone Care Team Providers Care Rail Project Engineer Name Role Phone Yvan Costa MD Primary Care Provider [phone] Yvan Costa MD Primary Care Provider [phone] Encounter Details Date Type Department Care Team (Late st Contact Info) Description 12/05/2020 Procedure Pass [facility] Endoscopy Admitting Dept Virtual Department [address] [place] [address] Social History Tobacco Use Types Packs/Day Years [...] on filedocumented in this encounter Care Teams Rail Project Engineer Relationship Specialty Start Date End Date Yvan Costa MD PCP - General Family Medicine 11/21/20 06/02/23 Yvan Costa MD PCP - General Family Medicine 7/13/23 documented as of this encounter Additional Source Comments The information contained in this document represents components of the legal health record. It is not the complete legal health record.[facility]
--- OUTSIDE RECORDS SUMMARY | 2025-09-13 19:13 | XMS_ITS | Encounter Summary ---
Author Organization [facility] Address [address] [place] [address] Phone Care Team Providers Care Transit Planner Name Role Phone Yvan Costa MD Primary Care Provider [phone] Yvan Costa MD Primary Care Provider [phone] Encounter Details Date Type Department Care Team (Late st Contact Info) Description 08/11/2021 Ancillary Orders [facility], X-Ray - [address] [address] Cipriano Healy MD [address] [place] [address], [address] [place] [address] [email or web address] Calculus of kidney Social History Tobacco [...] kidney documented in this encounter Care Teams Transit Planner Relationship Specialty Start Date End Date Yvan Costa MD [email or web address] PCP - General Family Medicine 11/21/20 06/02/23 Yvan Costa MD PCP - General Family Medicine 06/03/23 documented as of this encounter Additional Source Comments The information contained in this document represents components of the legal health record. It is not the complete legal health record.[facility]
--- OUTSIDE RECORDS SUMMARY | 2025-09-13 19:13 | XMS_ITS | Encounter Summary ---
Author Organization [facility] Address [address] [place] [address] Phone Care Team Providers Care Community Support Worker Name Role Phone Yvan Costa MD Primary Care Provider [phone] Yvan Costa MD Primary Care Provider [phone] Encounter Details Date Type Department Care Team (Late st Contact Info) Description 07/15/2022 Procedure Pass [place] Admitting Dept - Virtual Department [address] [place] [address] Social History Tobacco Use Types Packs/Day Years [...] on filedocumented in this encounter Care Teams Community Support Worker Relationship Specialty Start Date End Date Yvan Costa MD PCP - General Family Medicine 11/21/20 06/02/23 Yvan Costa MD PCP - General Family Medicine 06/03/23 documented as of this encounter Additional Source Comments The information contained in this document represents components of the legal health record. It is not the complete legal health record.[facility]
--- OUTSIDE RECORDS SUMMARY | 2025-09-13 19:13 | XMS_ITS | Encounter Summary ---
Author Organization [facility] Address [address] [address] Phone Care Team Providers Care Microfilming Document Preparer Name Role Phone Yvan Costa MD Primary Care Provider [phone] Encounter Details Date Type Department Care Team (Late st Contact Info) Description 06/16/2023 Procedure Pass [facility] Endoscopy Admitting Dept Virtual Department 30 [place] [address] Social History Tobacco Use Types Packs/Day Years [...] on filedocumented in this encounter Care Teams Microfilming Document Preparer Relationship Specialty Start Date End Date Yvan Costa MD [email or web address] PCP - General Family Medicine 06/03/23 documented as of this encounter Additional Source Comments The information contained in this document represents components of the legal health record. It is not the complete legal health record.[facility]
--- OUTSIDE RECORDS SUMMARY | 2025-09-13 19:13 | XMS_ITS | Encounter Summary ---
Author Organization [facility] Address [address] [place] [address] Phone Care Team Providers Care Bottle Washer Machine Name Role Phone Yvan Costa MD Primary Care Provider [phone] Yvan Costa MD Primary Care Provider [phone] Encounter Details Date Type Department Care Team (Late st Contact Info) Description 06/27/2021 Procedure Pass [facility], Ct Scan - [facility] [address] [place] [address] Social History Tobacco Use Types Packs/Day Years [...] on filedocumented in this encounter Care Teams Bottle Washer Machine Relationship Specialty Start Date End Date Yvan Costa MD PCP - General Family Medicine 11/21/20 06/02/23 Yvan Costa MD PCP - General Family Medicine 06/03/23 documented as of this encounter Additional Source Comments The information contained in this document represents components of the legal health record. It is not the complete legal health record.[facility]
== END 2025-09-13 16:03 | disposition home or self-care (01) ==
LOC: HO.HKA 15:36
PROVIDERS: PCP Internal Medicine; Visit Provider Internal Medicine Hypertension Specialist
DX: N20.0 Calculus of kidney (principal); I10 Essential (primary) hypertension
CPT/HCPCS: 99214

== ENCOUNTER → 2025-09-13 15:35 | Outpatient (BNVA) | payer MEDICARE, SELFPAY | PROVIDERS: PCP Internal Medicine; Visit Provider Internal Medicine Hypertension Specialist | DX: N20.0 Calculus of kidney (principal); I10 Essential (primary) hypertension | CPT/HCPCS: 99212 ==

== ENCOUNTER 2025-09-21 12:48 | Outpatient (AMB) | payer MEDICARE, SELFPAY ==
[2025-09-21 13:00] VITALS: BP 118/64; PULSE 48; BMI 43.2
--- NOTE | 2025-09-21 13:00 | A.OFFVIS_ITS ---
Vital Signs 09/21/25 13:00 Height 5 ft Weight 221 lb 5.506 oz BMI 43.2 BP 118/64 Blood Pressure Location Lt brachial Position Sitting Pulse 48 L Pulse Source Monitor Intake Visit Reasons: follow up s/p CV Ropewalk Rope Maker Required: No Accompanied by: Self / Same As Patient Allergies codeine Adverse Reaction (Severe, Verified 09/21/25 13:02) Nausea Medication List - Last Reconciled 09/21/25 by Nikhil Kelly NP amiodarone 200 mg PO DAILY atorvastatin 20 mg PO BEDTIME 90 days betamethasone valerate 0.1% 1 appl topical BID PRN cholecalciferol (vitamin D3) 25 mcg PO DAILY diltiazem HCl CD 300 mg PO DAILY multivitamin 1 tab PO DAILY rivaroxaban (Xarelto) 20 mg PO BEDTIME triamterene-hydrochlorothiazid 37.5-25 mg 1 cap PO DAILY HPI Comments Details: This is a 69-year-old female patient coming in for a follow-up visit status post cardioversion with Dr. Linn on 08/24/2025. Patient with a history of hypertension, atrial fibrillation diagnosed in 2020, and obesity. Patient was following with a primary care for the AFib and was recently sent out for consultation with our office. Given her symptoms of shortness of breath with exertion, patient underwent current cardioversion for rhythm control and was started on amiodarone therapy. Patient had a successful conversion to sinus rhy thm at the time. Patient reports that her shortness of breath had significantly improved of the cardioversion but is somewhat starting to have some shortness of breath again. Patient is denying any exertional chest pain, palpitations, dizziness, orthopnea, PND, leg edema, presyncope or syncope. Patient is reporting compliance with all her medications. [facility] Medical History Paroxysmal atrial fibrillation Osteoarthritis of left knee Morbid obesity with BMI of 40.0-44.9, adult Recurrent kidney stones Pure hypercholesterolemia Essential hypertension Adenomatous colon polyp Psoriasis Kidney stones Surgical History H/O lithotripsy H/O cystoscopy Hx of colonoscopy History of hysterectomy Family History Mother Stroke CHF (congestive heart failure) Hypertension Father Heart attack Son No problems noted. Brother No problems noted. Brother No problems noted. Sister No problems noted. Sister No problems noted. 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 Current occupational exposures/hazards: No Cognitive needs: No Hearing needs: No Vision needs: Yes Review of Systems Const Denies daytime sleepiness, Denies difficulty sleeping, Denies snoring, Denies stops breathing during sleep and Denies weakness Card Denies chest pain, Denies rapid heart rate, Denies irregular heart rhythm, Denies claudication, Denies leg edema, Denies lightheadedness, Denies palpitations, Denies dyspnea, Denies dyspnea on exertion, Denies orthopnea, Denies paroxysmal nocturnal dyspnea and Denies slow heart rate Resp Denies cough, Denies dyspnea, Denies dyspnea on exertion and Denies snoring GI Reports no additional complaints, Denies hematochezia, Denies change in stool character and Denies dyspepsia Musc Denies abnormal gait, Denies muscle weakness and Denies numbness Neuro Denies abnormal gait, Denies numbness and Denies weakness Endo Denies palpitations Physical Exam Vital Signs: Last Vital Signs Pulse 48 L 09/21/25 13:00 BP 118/64 09/21/25 13:00 BMI result Body Mass Index 43.2 Const General: cooperative, healthy appearing, comfortable and no acute distress Orientation/consciousness: patient oriented x3 HEENT Head: Yes normal to inspection Neck Neck: Yes normal visual inspection, Yes trachea midline and Yes supple Chest Chest palpation & inspection: normal inspection of the chest Resp Effort & Inspection: normal respiratory effort Auscultation: clear to auscultation bilaterally, no crackles, no rales, no rhonchi and no wheezes Cardio Jugular venous distension: no JVD Palpation: normal PMI Rate: bradycardic Rhythm: abnormal rhythm irregularly irregular Heart sounds: S1 normal heart sound present, S2 normal heart sound present, no click, no gallops, no murmurs and no rubs Peripheral pulses: Peripheral pulses 2+ throughout GI Inspection: Yes normal to inspection Palpation (GI): Soft to palpation Auscultation: normal bowel sounds Skin General skin exam: no rashes or lesions noted Neuro General: patient oriented x3 Extrem General: Yes normal to inspection, No no pedal edema and No calf tenderness Psych Appearance: grossly normal Mental Status: mental status grossly normal Speech and movement: Normal speech and movement present Office Procedures EKG Details: EKG today showed AFib with rate of 48 beats per minute, nonspecific ST T wave abnormality, QT 522 milliseconds. [id number], Complete Assessment & Plan Assessment & Plan (1) Persistent atrial fibrillation: Code(s): I48.19 - Other persistent atrial fibrillation Category: Medical Plan: Echo on 02/06/2025 showed normal LV systolic function with an ejection fraction between 55-60% with moderately dilated left atrium, and mild mitral regurgitation. Patient was diagnosed with AFib back in and was following with PCP. Was recently seen by Dr. Linn for consultation for management of AFib. Given her ongoing reports of shortness of breath, patient underwent cardioversion on 08/24/2025. Patient had a successful conversion to sinus rhythm at that time. Patient reported that her symptoms had significantly improved and now she is starting to get a little short of breath again. EKG today shows she is back in AFib. Rate was 48 with a prolonged QT. We will discontinue amiodarone. We will bring patient back in for an EKG in 1-2 weeks. Given her reports of shortness of breath again, we discussed in detail about options for rhythm control with a repeat cardioversion or a catheter ablation. Patient at this time is interested in the catheter ablation and would like to meet with the EP. The procedure along with its indications, benefits, risks, was discussed thoroughly with the patient. Patient is interested to meet with the EP and therefore referral placed. Continue Xarelto for full anticoagulation. No reported signs of bleeding. Patient currently on diltiazem as well which she states was started by her PCP for blood pressure. If patient continues to have low heart rate then we may nee d to titrate this down. (2) Essential hypertension: Code(s): I10 - Essential (primary) hypertension Category: Medical Plan: Blood pressure today is well-controlled. Continue current regimen with a blood pressure goal less than 130/80. Advised monitoring blood pressures at home. Advised low-salt diet. Advised heart healthy diet, regular exercise, losing weight, med compliance, avoiding stimulants or caffeinated beverages, and management of vascular risk factors. Follow up after EP consultation. In the interim, patient will call the office with any concerns or change in symptoms. This note was generated using voice recognition software. While every effort has been made to ensure accuracy and proper channeler, there may be occasional errors that could affect the content or meaning of the described symptoms. Orders: Orders AMB EKG-In Office Today I48.19 - Other persistent atrial fibrillation Referrals Cardiac Electrophysiology Referral I48.19 - Other persistent atrial fibrillation Medications: Discontinued amiodarone Start after 2 weeks of loading with 400 mg b.i.d. Discontinued Reason: Doctor's Order 200 mg PO DAILY 30 tabs 2RF I48.19 - Other persistent atrial fibrillation Coding Level of Care Code Est Pt Level 4 (23371) Complex EM visit Add On G2211 Diagnoses Persistent atrial fibrillation I48.19 Essential hypertension I10 CPT Codes EKG - CPT: 07958-[id number], Complete ([id number]) Time Spent (min) 33 Comment Time spent in reviewing the chart, test results, assessment, counseling and documentation.
--- OUTSIDE RECORDS SUMMARY | 2025-09-21 13:56 | XMS_ITS | Encounter Summary ---
Author Organization [facility] Address [address] [place] [address] Phone Care Team Providers Care Swat Team Member Name Role Phone Eliane Costa Primary Care Provider [phone] Yvan Costa MD Primary Care Provider [phone] Yvan Costa MD Primary Care Provider [phone] Encounter Details Date Type Department Care Team (Late st Contact Info) Description 08/21/2020 Ancillary Orders Virtual Department [address] [place] [address] Anushka Curry MD, MPH [address] [place], [place] [id number] [email or web address] Breast screening Social History Tobacco Use Types [...] unspecified documented in this encounter Care Teams Swat Team Member Relationship Specialty Start Date End Date Eliane Costa PA [address] [place] [id number] PCP - General Coloring Room Man 10/11/19 11/20/20 Yavn Costa MD [address] [place] [address] [email or web address] PCP - General Family Medicine 11/21/20 06/02/23 Yvan Costa MD [address] [place] [address] [email or web address] PCP - General Family Medicine 06/03/23 documented as of this encounter Additional Source Comments The information contained in this document represents components of the legal health record. It is not the complete legal health record.[facility]
--- OUTSIDE RECORDS SUMMARY | 2025-09-21 13:56 | XMS_ITS | Encounter Summary ---
Author Organization [facility] Address [address] [place] [address] Phone Care Team Providers Care Electrical And Instrument Engineer Name Role Phone Yvan Costa MD Primary Care Provider [phone] Yvan Costa MD Primary Care Provider [phone] Reason for Referral * MRI/CAT Scan - Closed Specialty Diagnoses / Procedures Referred By John marin Referred To Contact Radiology Diagnoses Personal history of urinary calculi Other microscopic hematuria Procedures CT Abdomen/Pelvis CHG CT SCAN,ABDOMENT AND PELVIS,COMBO CHG CT SCAN,ABDOMENT AND PELVIS,W CONTRAST CHG CT SCAN,ABDOMENT AND PELVIS,W/O CONTRAST Cipriano Healy MD Phone: tel: fax: mailto:[email or web address] Referral ID Status Reason Start Date Expiration Date Visits Re quested Visits Authorized [id number] Closed 06/27/2021 09/24/2021 1 1 Encounter Details Date Type Department Care Team (Latest Contact Info) Description 06/27/2021 Transcribe Orders Virtual Department [address] [place] [address] Cipriano Healy MD [address] [place] [address], [address] [address] [email or web address] Personal history of urinary calculi (Primary Dx); [...] hematuria documented in this encounter Care Teams Electrical And Instrument Engineer Relationship Specialty Start Date End Date Yvan Costa MD [email or web address] PCP - General Family Medicine 11/21/20 06/02/23 Yvan Costa MD PCP - General Family Medicine 06/03/23 documented as of this encounter Additional Source Comments The information contained in this document represents components of the legal health record. It is not the complete legal health record.[facility]
--- OUTSIDE RECORDS SUMMARY | 2025-09-21 13:56 | XMS_ITS | Encounter Summary ---
Author Organization [facility] Address [address] [place] [address] Phone Care Team Providers Care Flooring Professional Name Role Phone Yvan Costa MD Primary Care Provider [phone] Yvan Costa MD Primary Care Provider [phone] Encounter Details Date Type Department Care Team (Late st Contact Info) Description 07/15/2022 Procedure Pass OR Admitting Dept - Virtual Department [address] [place] [address] Social History Tobacco Use Types Packs/Day Years [...] on filedocumented in this encounter Care Teams Flooring Professional Relationship Specialty Start Date End Date Yvan [...]
--- OUTSIDE RECORDS SUMMARY | 2025-09-21 13:56 | XMS_ITS | Encounter Summary ---
Author Organization [facility] Address [address] [place] [address] Phone Care Team Providers Care Furnace Setter Name Role Phone Yvan Costa MD Primary Care Provider [phone] Yvan Costa MD Primary Care Provider [phone] Encounter Details Date Type Department Care Team (Late st Contact Info) Description 08/11/2021 Ancillary Orders [facility], X-Ray - [address] [address] Cipriano Healy MD [address] [place] [address], [address] [place] [address] [email or web address] Calculus of kidney Social History Tobacco Use [...] kidney documented in this encounter Care Teams Furnace Setter Relationship Specialty Start Date End Date Yvan [...]
--- OUTSIDE RECORDS SUMMARY | 2025-09-21 13:56 | XMS_ITS | Encounter Summary ---
Author Organization [facility] Address [address] [place] [address] Phone Care Team Providers Care Breakfast Manager Name Role Phone Yvan Costa MD Primary Care Provider [phone] Yvan Costa MD Primary Care Provider [phone] Encounter Details Date Type Department Care Team (Late st Contact Info) Description 06/27/2021 Procedure Pass [facility], Ct Scan - [facility] [address] [place] [address] Social History Tobacco Use Types Packs/Day Years [...] on filedocumented in this encounter Care Teams Breakfast Manager Relationship Specialty Start Date End Date Yvan Costa MD PCP - General Family Medicine 11/21/20 06/02/23 Yvan Costa MD PCP - General Family Medicine 06/03/23 documented as of this encounter Additional Source Comments The information contained in this document represents components of the legal health record. It is not the complete legal health record.[facility]
--- OUTSIDE RECORDS SUMMARY | 2025-09-21 13:56 | XMS_ITS | Encounter Summary ---
Author Organization [facility] Address [address] [place] [address] Phone Care Team Providers Care Rug Clipper Name Role Phone Yvan Costa MD Primary Care Provider [phone] Yvan Costa MD Primary Care Provider [phone] Encounter Details Date Type Department Care Team (Late st Contact Info) Description 12/05/2020 Procedure Pass [facility] Endoscopy Admitting Dept Virtual Department [address] [place] [address] Social History Tobacco Use Types Packs/Day Years [...] on filedocumented in this encounter Care Teams Rug Clipper Relationship Specialty Start Date End Date Yvan Costa MD PCP - General Family Medicine 11/21/20 06/02/23 Yvan Costa MD PCP - General Family Medicine 7/13/23 documented as of this encounter Additional Source Comments The information contained in this document represents components of the legal health record. It is not the complete legal health record.[facility]
--- OUTSIDE RECORDS SUMMARY | 2025-09-21 13:56 | XMS_ITS | Clinical Summary ---
Author Organization [facility] Address [address] [address] Phone Care Team Providers Care Classification Case Manager Name Role Phone Yvan Costa MD Primary Care Provider [phone] Allergies Active Allergy Reactions Criticality Noted Date [...] VACCINE ( season) 2025 08/18/2022, 11/19/2021, 03/01/2021 COLONOSCOPY 06/16/2026 06/16/2023, 06/16/2023 COLORECTAL CANCER SCREENING 06/16/2026 Adult Td,Tdap Booster 09/28/2026 09/28/2016 RSV VACCINE (1 - 1-dose 75+ series) 2031 ZOSTER VACCINES Completed 11/28/2020, 10/11/2020 PNEUMOCOCCAL VACCINES [...] this topic Medical Devices Implanted Type Area Vehicle Dynamics Engineer Device Identifier Shelf Expiration Date Model / Serial / Lot Stent Ureteral 6fr 22 To 30cm Stretch Coated Anton - [id number] Implanted:Qty: 1 on 07/15/2022 by Brenton Nassar MD at [facility] Left: Ureter [employer] 12/12/2024 [id number] / / [id number] Clip Hemostasis 360deg 235cm Resolution 360 Latex Free 2.8mm Channel Bx/20ea - [id number] Implanted:Qty: 1 on 06/16/2023 by Pawan Streeter MD at [facility] Sigmoid [employer] [id number] / / Procedures Procedure Name Priority Date/Time Associated Diagnosis Comments ENDOSCOPY, COLON 06/16/2023 11:5 7 AM EDT BASIC METABOLIC PANEL STAT 06/21/2022 6:45 PM EDT from Last 3 Months or Most Recently Relevant to Health Maintenance Results * ENDOSCOPY, COLON (06/16/2023 11:57 AM EDT) Narrative Transcriptions Pawan Streeter MD - 06/16/2023 11:57 AM EDT [facility] Patient Name: Jania Velázquez Attending MD:: PAWAN STREETER MD, , Procedure Date: 06/16/2023 11:57 AM Date of : 1955 Age: 67 Admit Type: Outpatient Gender: Female Room: [place] [address] Referring MD: YVAN COSTA MD Exam Type: [...] 11:57 AM Procedure Code(s): --- Professional --- 21538, Colonoscopy, flexible; with removal of tumor(s), polyp(s), or other lesion(s) by snare technique --- Technical --- 01697, Colonoscopy, flexible; with removal of tumor(s), polyp(s), [...] in this report are preliminary and upon cobbler sole reviewmay be revised to meet current compliance requirements. Procedure Date: 06/16/2023 11:57:[address] [place] [address] Yvan Costa MD GI PROCEDURE ORDERABLES Final Result * (ABNORMAL) Basic metabolic panel (06/21/2022 6:45 PM EDT) SODIUM 138 133 - 146 mmol/L [facility] CHLORIDE 100 96 - 108 mmol/L [facility] POTASSIUM 3.8 3.3 - 5.1 mmol/L [facility] CO2 25 21 - 35 mmol/L [facility] BUN 24(H) 6 - 19 mg/dL [facility] CREATININE 0.80 0.5 - 1.5 mg/dL [facility] GLUCOSE 94 70 - 99 mg/dL [facility] CALCIUM 9.6 8.4 - 10.3 mg/dL [facility] EGFR 82 >59 mL/min/1.7 3m2 [facility] Comment:Estimated glomerular filtration rate calculated using the CKD-EPI refit equation. ANION GAP 17 10 - 20 mmol/L [facility] Blood 06/21/2022 6:45 PM EDT 06/21/2022 6:52 PM EDT Liliane Vasquez MD LAB BLOOD ORDERABLES Final Result [address] [address] from Last 3 Months or Most Recently Relevant to Health Maintenance Insurance [facility] VALUE MEDICARE REPLACEMENT [facility] VALUE MEDICARE [facility]PLACEMENT [facility] VALUE MEDICARE [facility]PLACEMENT [facility] VALUE MEDICARE REPLACEMENT [facility] VALUE MEDICARE REPLACEMENT [facility] VALUE MEDICARE REPLACEMENT Care Teams Classification Case Manager Relationship Specialty Start Date End Date Yvan Costa MD [email or web address] PCP - General Family Medicine 06/03/23 Additional Source Comments The information contained in this document represents components of the legal health record. It is not the complete legal health record.[facility]
--- OUTSIDE RECORDS SUMMARY | 2025-09-21 13:57 | XMS_ITS | Encounter Summary ---
Author Organization [facility] Address [address] [address] Phone Care Team Providers Care Hydraulic Miner Name Role Phone Yvan Costa MD Primary Care Provider [phone] Encounter Details Date Type Department Care Team (Late st Contact Info) Description 06/16/2023 Procedure Pass [facility] Endoscopy Admitting Dept Virtual Department [address] [place] [address] Social History Tobacco Use Types Packs/Day Years [...] on filedocumented in this encounter Care Teams Hydraulic Miner Relationship Specialty Start Date End Date Yvan Costa MD [email or web address] PCP - General Family Medicine 06/03/23 documented as of this encounter Additional Source Comments The information contained in this document represents components of the legal health record. It is not the complete legal health record.[facility]
--- OUTSIDE RECORDS SUMMARY | 2025-09-21 13:57 | XMS_ITS | Encounter Summary ---
Author Organization [facility] Address [address] [place] [address] Phone Care Team Providers Care Diamond Finishing Supervisor Name Role Phone Yvan Costa MD Primary Care Provider [phone] Yvan Costa MD Primary Care Provider [phone] Encounter Details Date Type Department Care Team (Late st Contact Info) Description 10/08/2021 Procedure Pass [place] Admitting Dept - Virtual Department [address] [place] [address] Social History Tobacco Use Types Packs/Day Years [...] 10/08/2021 7:42 AM Antionette Tatum RN * [place] Suicide Severity Rating Scale (Screener/Recent Self-Report) Question Answer Date of Assessment Author 2. Non-Specific Active Suici jess Thoughts (Past 1 Month) No 10/08/2021 7:42 AM Danna Vang RN documented as of this encounter Plan of Treatment Not on file documented as of this encounter Visit Diagnoses Not on filedocumented in this encounter Care Teams Diamond Finishing Supervisor Relationship Specialty Start Date End Date Yvan Costa MD [email or web address] PCP - General Family Medicine 11/21/20 06/02/23 Yvan Costa MD [email or web address] PCP - General Family Medicine 06/03/23 documented as of this encounter Additional Source Comments The information contained in this document represents components of the legal health record. It is not the complete legal health record.[facility]
--- OUTSIDE RECORDS SUMMARY | 2025-09-21 13:57 | XMS_ITS | Encounter Summary ---
Author Organization [facility] Address [address] [address] Phone Care Team Providers Care Presser Hand Name Role Phone Yvan Costa MD Primary Care Provider [phone] Yvan Costa MD Primary Care Provider Encounter Details Date Type Department Care Team (Late st Contact Info) Description 06/21/2022 Procedure Pass [facility], Ct Scan - [facility] [address] [place] [address] Social History Tobacco Use Types Packs/Day Years [...] 6:32 PM EDT Gwen Martin RN * [place] Suicide Severity Rating Scale (Screener/Recent Self-Report) Question Answer Date of Assessment Author 1. Wish to be (Past 1 Month) No 022 6:32 PM EDT Elke Maritn, RN 2. Non-Specific Active Suici jess Thoughts (Past 1 Month) No 06/21/2022 6:32 PM EDT Elke Martin , RN 6. Suicidal Behavior (Lifetime) No 6:32 PM EDT Elke Martin, RN documented as of this encounter Plan of Treatment Not on file documented as of this encounter Visit Diagnoses Not on filedocumented in this encounter Care Teams Presser Hand Relationship Specialty Start Date End Date Yvan Cotsa MD [email or web address] PCP - General Family Medicine 11/21/20 06/02/23 Yvan Costa MD [email or web address] PCP - General Family Medicine 06/03/23 documented as of this encounter Additional Source Comments The information contained in this document represents components of the legal health record. It is not the complete legal health record.[facility]
--- OUTSIDE RECORDS SUMMARY | 2025-09-21 13:57 | XMS_ITS | Encounter Summary ---
Author Organization [facility] Address [address] [place] [address] Phone Care Team Providers Care Neurodiagnostic Tech Name Role Phone Eliane Costa Primary Care Provider [phone] Yvan Costa MD Primary Care Provider [phone] Yvan Costa MD Primary Care Provider [phone] Encounter Details Date Type Department Care Team (Late st Contact Info) Description 12/21/2019 Procedure Pass [facility] Endoscopy Admitting Dept Virtual Department [address] [place], [place] [id number] Social History Tobacco Use Types Packs/Day Years [...] on filedocumented in this encounter Care Teams Neurodiagnostic Tech Relationship Specialty Start Date End Date Eliaen Costa PA [address] [place] [phone] PCP - General Airport Utility Worker 10/11/19 11/20/20 Yvan Costa MD [address] [place] [phone] [email or web address] PCP - General Family Medicine 11/21/20 06/02/23 Yvan Costa MD [address] [place] [phone] [email or web address] PCP - General Family Medicine 06/03/23 documented as of this encounter Additional Source Comments The information contained in this document represents components of the legal health record. It is not the complete legal health record.[facility]
--- OUTSIDE RECORDS SUMMARY | 2025-09-21 13:57 | XMS_ITS | Encounter Summary ---
Author Organization [facility] Address [address] [address] Phone Care Team Providers Care Surface Hydrologist Name Role Phone Yvan Costa MD Primary Care Provider [phone] Encounter Details Date Type Department Care Team (Late st Contact Info) Description 06/16/2023 Procedure Pass [facility] Endoscopy Admitting Dept Virtual Department [address] [place] [address] Social History Tobacco Use Types Packs/Day Years [...] on filedocumented in this encounter Care Teams Surface Hydrologist Relationship Specialty Start Date End Date Yvan Costa MD [email or web address] PCP - General Family Medicine 06/03/23 documented as of this encounter Additional Source Comments The information contained in this document represents components of the legal health record. It is not the complete legal health record.[facility]
== END 2025-09-21 13:34 | disposition home or self-care (01) ==
LOC: HO.HCS 12:49
PROVIDERS: PCP Internal Medicine
DX: I48.19 Other persistent atrial fibrillation (principal); I10 Essential (primary) hypertension
CPT/HCPCS: 93010; 99214; G2211

== ENCOUNTER → 2025-09-21 12:48 | Outpatient (BNVA) | payer MEDICARE, SELFPAY | PROVIDERS: PCP Internal Medicine | DX: I10 Essential (primary) hypertension (principal); I48.19 Other persistent atrial fibrillation; R06.02 Shortness of breath; E66.9 Obesity, unspecified; Z68.41 Body mass index [BMI] 40.0-44.9, adult | CPT/HCPCS: 93005; 99212 ==

== ENCOUNTER 2025-10-11 13:39 | Outpatient (REF) | payer MEDICARE, SELFPAY ==
--- NOTE | ~2025-10-11 | MM_ITS ---
EXAMINATION: MM SCREENING DIGITAL BREAST TOMOSYNTHESIS, BILATERAL CLINICAL INFORMATION: Screening. Asymptomatic. COMPARISON: Comparison made to multiple prior, most recent November 25, 2022, and most remote October 11, 2019. TECHNIQUE: Digital breast tomosynthesis is performed in mediolateral oblique and craniocaudal views along with computer-aided detection (CAD). Synthesized 2D images are generated from the tomosynthesis. FINDINGS: BREAST COMPOSITION: There are scattered areas of fibroglandular density. BILATERAL BREASTS: No significant masses, suspicious calcifications or other abnormalities are seen in either breast. MM/MM tomosynthesis screening BI IMPRESSION: BILATERAL BREASTS: Negative, no mammographic evidence of malignancy. Normal interval follow-up is recommended in 12 months. ASSESSMENT: BI-RADS: Category 1: Negative RECOMMENDATION: Routine annual mammography screening. FOLLOW-UP: 1 year F/U This examination should not preclude the clinical evaluation of a suspicious palpable abnormality. This patient's information was entered into a reminder system with a target due date for their next mammogram. Electronically signed by: Valery Dsouza MD 10/25/2025 04:03 PM [facility]
--- NOTE | ~2025-10-11 | MM_ITS ---
EXAMINATION: DXA BONE DENSITY AXIAL HISTORY: Z78.0 - Asymptomatic menopausal state TECHNIQUE: Playdom Dual energy absorptiometry (DEXA) of the lumbar spine, total left hip, and femoral neck was performed. COMPARISON: There are no prior studies for comparison. FINDINGS: The bone mineral density of the lumbar spine is 1.357 g/cm2, corresponding to a T-score of 1.5, and a Z-score of 2.0. This is indicative of normal bone mineral density. The bone mineral density of the left total hip is 0.918 g/cm2, corresponding to a T-score of -0.7, and a Z-score of -0.1. This is indicative of normal bone mineral density. The bone mineral density of the left femoral neck is 0.799 g/cm2, corresponding to a T-score of -1.7, and a Z-score of -0.8. This is indicative of osteopenia. FRACTURE RISK: The FRAX index suggests a risk of major osteoporotic fracture of 9.0%, and of hip fracture 1.3%. MM/XR DEXA axial skeleton IMPRESSION: Based on bone mineral density, and according to World Health Organization (WHO) criteria, the diagnosis is consistent with osteopenia. Statistically, 68% of repeat scans fall within 1 SD (+/- 0.010 g/cm2 for AP spine L1-L4) and 1 SD (+/- 0.012 g/cm2 for femur total) FRAX is a trademark of the [employer]'s [employer] Metabolic Bone Disease, a World Health Organization (WHO) Collaborating Center. Electronically signed by: Leo Castaneda MD 10/11/2025 03:19 PM [facility]
== END 2025-10-11 13:40 | disposition home or self-care (01) ==
LOC: HO.MAMMO 13:39
PROVIDERS: PCP Internal Medicine; Visit Provider Internal Medicine
DX: Z12.31 Encounter for screening mammogram for malignant neoplasm of breast (principal); Z78.0 Asymptomatic menopausal state
CPT/HCPCS: 77063; 77067; 77080

== ENCOUNTER → 2025-10-11 14:30 | Outpatient (BNV) | payer MEDICARE, SELFPAY | PROVIDERS: PCP Internal Medicine; Visit Provider Radiology Diagnostic Radiology | DX: E28.39 Other primary ovarian failure (principal) | CPT/HCPCS: 77080 ==

== ENCOUNTER 2025-11-09 08:30 | Outpatient (REF) | payer MEDICARE, SELFPAY ==
[2025-11-09 08:53] LABS: MANUAL DIFF FLAG NO
[2025-11-09 09:37] LABS: Hematocrit 45.6 % (37.0-47.0); Hemoglobin 15.0 g/dl (12.0-16.0); Imm Gran Abs Auto 0.02 X10*3/uL (0.00-0.03); Imm Gran Pct Auto 0.4 % (0.0-0.4); Lymphocytes Absolute Auto 1.0 X10*3/uL (1.2-4.9); Mean Corpuscular HGB Conc 32.9 g/dl (31.0-35.0); Mean Corpuscular Hemoglobin 29.8 pg (27.0-33.0); Mean Corpuscular Volume 90.7 fL (80.0-98.0); NRBC Abs Auto 0.000 X10*3/uL (0.0-0.012); NRBC Pct Auto 0.0 /100WBC (0.0-0.2); Platelet Count 202 X10*3/uL (160-400); Red Blood Count 5.03 X10*6/uL (4.20-5.50); White Blood Count 5.5 X10*3/uL (4.8-10.8)
[2025-11-09 10:00] LABS: Appearance Urine Cloudy; Glucose Urine UA Negative (Negative); PH 7.0 (5.0-9.0); Specific Gravity - Urine 1.015 (1.005-1.025); UMIC TRIGGER UACC YES
[2025-11-09 10:04] LABS: UACC Culture Trigger YES
[2025-11-09 10:06] LABS: Alanine Aminotransferase 23 U/L (0-31); Albumin Level 4.4 g/dL (3.5-5.0); Alkaline Phosphatase 86 U/L (39-117); Anion Gap 12 (12-20); Aspartate Amino Transferase 23 U/L (5-31); Blood Urea Nitrogen 19 mg/dL (9-16); Calcium 10.2 mg/dL (8.4-10.2); Carbon Dioxide 29 mmol/L (22-29); Chloride 104 mmol/L (96-108); Cholesterol 176 mg/dL (<200); Estimated Glomerular Filt Rate 51; HDL Cholesterol 72 mg/dL (>40); Potassium 3.9 mmol/L (3.3-5.1); Sodium 141 mmol/L (135-145); Total Protein 7.1 g/dL (6.5-8.0); Triglycerides 70 mg/dL (<150)
== END 2025-11-09 08:31 | disposition home or self-care (01) ==
LOC: HO.LAB 08:30
PROVIDERS: PCP Internal Medicine; Visit Provider Internal Medicine
DX: R30.0 Dysuria (principal); R31.9 Hematuria, unspecified; E78.00 Pure hypercholesterolemia, unspecified; D64.9 Anemia, unspecified
CPT/HCPCS: 36415; 80053; 80061; 81001; 81003; 85025; 87086

== ENCOUNTER 2025-11-14 14:22 | Outpatient (AMB) | payer MEDICARE, SELFPAY ==
--- OUTSIDE RECORDS SUMMARY | 2025-11-14 14:24 | XMS_ITS | Encounter Summary ---
Author Organization [facility] Address [address] [place] [address] Phone Care Team Providers Care Air Press Operator Name Role Phone Yvan Costa MD Primary Care Provider [phone] Yvan Costa MD Primary Care Provider [phone] Encounter Details Date Type Department Care Team (Late st Contact Info) Description 06/27/2021 Procedure Pass [facility], Ct Scan - [facility] [address] [place] [address] Social History Tobacco Use Types Packs/Day Years [...] on filedocumented in this encounter Care Teams Air Press Operator Relationship Specialty Start Date End Date Yvan Costa MD PCP - General Family Medicine 11/21/20 06/02/23 Yvan Costa MD PCP - General Family Medicine 06/03/23 documented as of this encounter Additional Source Comments The information contained in this document represents components of the legal health record. It is not the complete legal health record.[facility]
--- OUTSIDE RECORDS SUMMARY | 2025-11-14 14:24 | XMS_ITS | Encounter Summary ---
Author Organization [facility] Address [address] [place] [address] Phone Care Team Providers Care Blood Coordinator Name Role Phone Eliane Costa Primary Care Provider [phone] Yvan Costa MD Primary Care Provider [phone] Yvan Costa MD Primary Care Provider [phone] Encounter Details Date Type Department Care Team (Late st Contact Info) Description 08/21/2020 Ancillary Orders Virtual Department [address] [place] [address] Anushka Curry MD, MPH [address] [place], [place] [phone] [email or web address] Breast screening Social History Tobacco Use Types [...] unspecified documented in this encounter Care Teams Blood Coordinator Relationship Specialty Start Date End Date Eliane Costa PA [address] [place] [phone] PCP - General Municipal Maintenance Worker 10/11/19 11/20/20 Yvan Costa MD [address] [place] [address] [email or web address] PCP - General Family Medicine 11/21/20 06/02/23 Yvan Costa MD [address] [place] [address] [email or web address] PCP - General Family Medicine 06/03/23 documented as of this encounter Additional Source Comments The information contained in this document represents components of the legal health record. It is not the complete legal health record.[facility]
--- OUTSIDE RECORDS SUMMARY | 2025-11-14 14:24 | XMS_ITS | Encounter Summary ---
Author Organization [facility] Address [address] [place] [address] Phone Care Team Providers Care Stagecraft Teacher Name Role Phone Yvan Costa MD Primary Care Provider [phone] Yvan Costa MD Primary Care Provider [phone] Encounter Details Date Type Department Care Team (Late st Contact Info) Description 08/11/2021 Ancillary Orders [facility], X-Ray - [address] [address] Cipriano Healy MD [address] [place] [address], [address] [place] [address] [email or web address] Calculus of kidney Social History Tobacco [...] in the mid lumbar spine. Procedure Note Roin Torres MD, TRACY - 08/11/2021 XR ABDOMEN [...] kidney documented in this encounter Care Teams Stagecraft Teacher Relationship Specialty Start Date End Date Yvan Costa MD [email or web address] PCP - General Family Medicine 11/21/20 06/02/23 Yvan Costa MD PCP - General Family Medicine 06/03/23 documented as of this encounter Additional Source Comments The information contained in this document represents components of the legal health record. It is not the complete legal health record.[facility]
--- OUTSIDE RECORDS SUMMARY | 2025-11-14 14:24 | XMS_ITS | Encounter Summary ---
Author Organization [facility] Address [address] [place] [address] Phone Care Team Providers Care General Laborer Name Role Phone Yvan Costa MD Primary Care Provider Yvan Costa MD Primary Care Provider [phone] Reason for Referral * MRI/CAT Scan - Closed Specialty Diagnoses / Procedures Referred By John marin Referred To Contact Radiology Diagnoses Personal history of urinary calculi Other microscopic hematuria Procedures CT Abdomen/Pelvis CHG CT SCAN,ABDOMENT AND PELVIS,COMBO CHG CT SCAN,ABDOMENT AND PELVIS,W CONTRAST CHG CT SCAN,ABDOMENT AND PELVIS,W/O CONTRAST Cipriano Healy MD Phone: tel: fax: [email or web address] Referral ID Status Reason Start Date Expiration Date Visits Re quested Visits Authorized [id number] Closed 06/27/2021 09/24/2021 1 1 Encounter Details Date Type Department Care Team (Latest Contact Info) Description 06/27/2021 Transcribe Orders Virtual Department [address] [place] [address] Cipriano Healy MD [address] [place] [address], [address] [address] [email or web address] Personal history of urinary calculi (Primary Dx); [...] hematuria documented in this encounter Care Teams General Laborer Relationship Specialty Start Date End Date Yvan Costa MD [email or web address] PCP - General Family Medicine 11/21/20 06/02/23 Yvan Costa MD PCP - General Family Medicine 06/03/23 documented as of this encounter Additional Source Comments The information contained in this document represents components of the legal health record. It is not the complete legal health record.[facility]
--- OUTSIDE RECORDS SUMMARY | 2025-11-14 14:24 | XMS_ITS | Encounter Summary ---
Author Organization [facility] Address [address] [place] [address] Phone Care Team Providers Care Hotel Assistant General Manager Name Role Phone Yvan Costa MD Primary Care Provider [phone] Yvan Costa MD Primary Care Provider [phone] Encounter Details Date Type Department Care Team (Late st Contact Info) Description 12/05/2020 Procedure Pass [facility] Endoscopy Admitting Dept Virtual Department [address] [place] [address] Social History Tobacco Use Types Packs/Day Years [...] on filedocumented in this encounter Care Teams Hotel Assistant General Manager Relationship Specialty Start Date End Date Yvan Costa MD PCP - General Family Medicine 11/21/20 06/02/23 Yvan Costa MD PCP - General Family Medicine 7/13/23 documented as of this encounter Additional Source Comments The information contained in this document represents components of the legal health record. It is not the complete legal health record.[facility]
--- OUTSIDE RECORDS SUMMARY | 2025-11-14 14:25 | XMS_ITS | Encounter Summary ---
Author Organization [facility] Address [address] [address] Phone Care Team Providers Care Blueprint Cutter Name Role Phone Yvan Costa MD Primary Care Provider [phone] Encounter Details Date Type Department Care Team (Late st Contact Info) Description 06/16/2023 Procedure Pass [facility] Endoscopy Admitting Dept Virtual Department [address] [place] [address] Social History Tobacco Use Types Packs/Day Years [...] on filedocumented in this encounter Care Teams Blueprint Cutter Relationship Specialty Start Date End Date Yvan Costa MD [email or web address] PCP - General Family Medicine 06/03/23 documented as of this encounter Additional Source Comments The information contained in this document represents components of the legal health record. It is not the complete legal health record.[facility]
--- OUTSIDE RECORDS SUMMARY | 2025-11-14 14:25 | XMS_ITS | Encounter Summary ---
Author Organization [facility] Address [address] [address] Phone Care Team Providers Care Container Washer Name Role Phone Yvan Costa MD Primary Care Provider [phone] Encounter Details Date Type Department Care Team (Late st Contact Info) Description 06/16/2023 Procedure Pass [facility] Endoscopy Admitting Dept Virtual Department [address] [place] [address] Social History Tobacco Use Types Packs/Day Years [...] on filedocumented in this encounter Care Teams Container Washer Relationship Specialty Start Date End Date Yvan Costa MD [email or web address] PCP - General Family Medicine 06/03/23 documented as of this encounter Additional Source Comments The information contained in this document represents components of the legal health record. It is not the complete legal health record.[facility]
--- OUTSIDE RECORDS SUMMARY | 2025-11-14 14:25 | XMS_ITS | Encounter Summary ---
Author Organization [facility] Address [address] [place] [address] Phone Care Team Providers Care Consumer Sales Representative Name Role Phone Yvan Costa MD Primary Care Provider [phone] Yvan Costa MD Primary Care Provider [phone] Encounter Details Date Type Department Care Team (Late st Contact Info) Description 07/15/2022 Procedure Pass [place] Admitting Dept - Virtual Department [address] [place] [address] Social History Tobacco Use Types Packs/Day Years [...] on filedocumented in this encounter Care Teams Consumer Sales Representative Relationship Specialty Start Date End Date Yvan Costa MD PCP - General Family Medicine 11/21/20 06/02/23 Yvan Costa MD PCP - General Family Medicine 06/03/23 documented as of this encounter Additional Source Comments The information contained in this document represents components of the legal health record. It is not the complete legal health record.[facility]
--- OUTSIDE RECORDS SUMMARY | 2025-11-14 14:25 | XMS_ITS | Clinical Summary ---
Author Organization [facility] Address [address] [address] Phone Care Team Providers Care Solar Engineer Name Role Phone Yvan Costa MD Primary Care Provider [phone] Allergies Active Allergy Reactions Criticality Noted Date [...] DIABETES 06/21/2025 06/21/2022 INFLUENZA VACCINE (#1) 2025 , 10/09/2021, 10/11/2020, Additional history exists COVID-19 VACCINE ( season) 2025 08/18/2022, 11/19/2021, 03/01/2021 COLONOSCOPY 03/06/2026 06/16/2023, 05/23, 03/06/2016 COLORECTAL CANCER SCREENING 03/06/2026 Adult Td,Tdap Booster 09/28/2026 09/28/2016 RSV VACCINE [...] this topic Medical Devices Implanted Type Area Landscape Crew Member Device Identifier Shelf Expiration Date Model / Serial / Lot Stent Ureteral 6fr 22 To 30cm Stretch Coated Anton - [id number] Implanted:Qty: 1 on 07/15/2022 by Brenton Nassar MD at [facility] Left: Ureter [employer] 12/12/2024 [id number] / / [id number] Clip Hemostasis 360deg 235cm Resolution 360 Latex Free 2.8mm Channel Bx/20ea - [id number] Implanted:Qty: 1 on 06/16/2023 by Pawan Streeter MD at [facility] Sigmoid [employer] [id number] / / Procedures Procedure Name Priority Date/Time Associated Diagnosis Comments ENDOSCOPY, COLON 06/16/2023 11:5 7 AM EDT BASIC METABOLIC PANEL (BMP) STAT 06/21/2022 6:45 PM EDT from Last 3 Months or Most Recently Relevant to Health Maintenance Results * ENDOSCOPY, COLON (06/16/2023 11:57 AM EDT) Narrative Transcriptions Pawan Streeter MD - 06/16/2023 11:57 AM EDT [facility] Patient Name: Jania Velázquez Attending MD:: PAWAN STREETER MD, , Procedure Date: 06/16/2023 11:57 AM Date of : 1955 Age: 67 Admit Type: Outpatient Gender: Female Room: [place] [address] Referring MD: YVAN COSTA MD Exam Type: [...] 11:57 AM Procedure Code(s): --- Professional --- 03490, Colonoscopy, flexible; with removal of tumor(s), polyp(s), or other lesion(s) by snare technique --- Technical --- 13377, Colonoscopy, flexible; with removal of tumor(s), polyp(s), [...] or abscess without bleeding CPT copyright 2021 [employer]. All rights reserved. The codes documented in this report are preliminary and upon cpc coder reviewmay be revised to meet current compliance requirements. Procedure Date: 06/16/2023 11:57:[address] [place] [address] [id number] Yvan Costa MD GI PROCEDURE ORDERABLES Final Result * (ABNORMAL) Basic metabolic panel (06/21/2022 6:45 PM EDT) SODIUM 138 133 - 146 mmol/L [facility] CHLORIDE 100 96 - 108 mmol/L [facility] POTASSIUM 3.8 3.3 - 5.1 mmol/L [facility] CO2 25 21 - 35 mmol/L [facility] BUN 24(H) 6 - 19 mg/dL [facility] CREATININE 0.80 0.5 - 1.5 mg/dL [facility] GLUCOSE 94 70 - 99 mg/dL [facility] CALCIUM 9.6 8.4 - 10.3 mg/dL [facility] EGFR 82 >59 mL/min/1.7 3m2 [facility] Comment:Estimated glomerular filtration rate calculated using the CKD-EPI refit equation. ANION GAP 17 10 - 20 mmol/L [facility] Blood 06/21/2022 6:45 PM EDT 06/21/2022 6:52 PM EDT Liliane Vasquez MD LAB BLOOD BKR ORDERA BLES Final Result [address] [address] from Last 3 Months or Most Recently Relevant to Health Maintenance Insurance [facility] PREF VALUE MEDICARE REPLACEMENT [facility] PREF VALUE MEDICARE REPLACEMENT [facility] PREF VALUE MEDICARE REPLACEMENT [facility] VALUE MEDICARE REPLACEMENT [facility] VALUE MEDICARE REPLACEMENT [facility] VALUE MEDICARE REPLACEMENT Care Teams Solar Engineer Relationship Specialty Start Date End Date Yvan Costa MD [email or web address] PCP - General Family Medicine 06/03/23 Additional Source Comments The information contained in this document represents components of the legal health record. It is not the complete legal health record.[facility]
--- OUTSIDE RECORDS SUMMARY | 2025-11-14 14:25 | XMS_ITS | Encounter Summary ---
Author Organization [facility] Address [address] [place] [phone] Phone Care Team Providers Care Manager Primary Care Name Role Phone Yvan Costa MD Primary Care Provider [phone] Yvan Costa MD Primary Care Provider [phone] Encounter Details Date Type Department Care Team (Late st Contact Info) Description 06/21/2022 Procedure Pass [facility], Ct Scan - [address] [address] Social History Tobacco Use Types Packs/Day Years [...] on filedocumented in this encounter Care Teams Manager Primary Care Relationship Specialty Start Date End Date [...]
--- OUTSIDE RECORDS SUMMARY | 2025-11-14 14:25 | XMS_ITS | Encounter Summary ---
Author Organization [facility] Address [address] [place] [address] Phone Care Team Providers Care Nurse Private Duty Name Role Phone Eliane Costa Primary Care Provider [phone] Yvan Costa MD Primary Care Provider [phone] Yvan Costa MD Primary Care Provider [phone] Encounter Details Date Type Department Care Team (Late st Contact Info) Description 12/21/2019 Procedure Pass [facility] Endoscopy Admitting Dept Virtual Department [address] [place], [place] [phone] Social History Tobacco Use Types Packs/Day Years [...] on filedocumented in this encounter Care Teams Nurse Private Duty Relationship Specialty Start Date End Date Eliane Costa PA [address] [place] [phone] PCP - General Local Combination Truck Driver 10/11/19 11/20/20 Yvan Costa MD [address] [place] [phone] [email or web address] PCP - General Family Medicine 11/21/20 06/02/23 Yvan Costa MD [address] [place] [phone] [email or web address] PCP - General Family Medicine 06/03/23 documented as of this encounter Additional Source Comments The information contained in this document represents components of the legal health record. It is not the complete legal health record.[facility]
--- OUTSIDE RECORDS SUMMARY | 2025-11-14 14:25 | XMS_ITS | Encounter Summary ---
Author Organization [facility] Address [address] [place] [phone] Phone Care Team Providers Care Can Pusher Name Role Phone Yvan Costa MD Primary Care Provider [phone] Yvan Costa MD Primary Care Provider Encounter Details Date Type Department Care Team (Late st Contact Info) Description 10/08/2021 Procedure Pass [place] Admitting Dept - Virtual Department [address] [place] [address] Social History Tobacco Use Types Packs/Day Years [...] on filedocumented in this encounter Care Teams Can Pusher Relationship Specialty Start Date End Date Yvan Costa MD PCP - General Family Medicine 11/21/20 06/02/23 Yvan Costa MD PCP - General Family Medicine 06/03/23 documented as of this encounter Additional Source Comments The information contained in this document represents components of the legal health record. It is not the complete legal health record.[facility]
--- NOTE | 2025-11-14 14:39 | A.OFFPC_ITS ---
Vital Signs 11/14/25 14:40 Height 5 ft Weight 220 lb 8 oz BMI 43.1 BP 110/64 Blood Pressure Location Lt brachial Position Sitting Pulse 73 Pulse Source Pulse Oximeter Temp 96.8 F Temp Source Temporal Artery Scan Pulse Oximetry (%) 98 Oxygen Delivery Method Room Air Intake Visit Reasons: 3 month f/u Intake Note: Patient is here to follow up on PAFib, Hypercholesterolemia, HTN. Acute Care Nurse Required: No Chassis Engineer: Not Required per policy Accompanied by: Self / Same As Patient Allergies codeine Adverse Reaction (Severe, Verified 11/14/25 14:50) Nausea Medication List - Last Reconciled 11/14/25 by Jareth Benavidez MD atorvastatin 20 mg PO BEDTIME 90 days betamethasone valerate 0.1% 1 appl topical BID PRN cholecalciferol (vitamin D3) 25 mcg PO DAILY diltiazem HCl CD 300 mg PO DAILY multivitamin 1 tab PO DAILY rivaroxaban (Xarelto) 20 mg PO BEDTIME triamterene-hydrochlorothiazid 37.5-25 mg 1 cap PO DAILY Tobacco use date assessed: 11/14/25 Fall risk assessment: No Falls in past year Last assessed Fall Risk: 11/14/25 Dental Screening Dental Screen Date: 08/01/25 HPI 3 month f/u HPI Details - The patient is a 70 year old female pr esenting for follow-up of her chronic conditions and for medication management. - She has a history of atrial fibrillati on and underwent a cardioversion, after which she felt better for a day or two before symptoms returned. - She was discontinued from amiodarone a fter the cardioversion. - She reports recurrent shortness of archana ath, which she notices even with minimal exertion. - At a follow-up appointment after the c ardioversion, she was found to be in atrial fibrillation again. - Her heart rate has been low, previousl y in the 40s, and she is currently on diltiazem 300 mg, which was reduced from 360 mg at her request after she lost 45-50 pounds. - She denies any headaches or dizziness - Denies any chest pains - No nausea/vomiting, no abdominal pain - No change in bowel habits noted - She needs a few of her Rx refilled - Regarding hyperlipidemia, her recent l ab work done a few days ago showed a decrease in total cholesterol from 195 to 176 and bad cholesterol from 121 to 90, which she attributes to dietary changes, including reducing ice cream consumption. - For kidney stone prevention, she is fo llowed by nephrology, drinks lemonade, and has labs scheduled for February 2026. - Her family history is significant for her mother having hypertension and congestive heart failure. - Her immunizations are up to date for C OVID and flu, and she has had the shingles vaccine. - She received the Prevnar vaccine in and is now due for Pneumovax-23 and RSV vaccine, both of which she can get from her local pharmacy [facility] Medical History Paroxysmal atrial fibrillation Osteoarthritis of left knee Morbid obesity with BMI of 40.0-44.9, adult Recurrent kidney stones Pure hypercholesterolemia Essential hypertension Adenomatous colon polyp Psoriasis Kidney stones Surgical History H/O lithotripsy H/O cystoscopy Hx of colonoscopy History of hysterectomy Family History Mother Stroke CHF (congestive heart failure) Hypertension Father Heart attack Son No problems noted. Brother No problems noted. Brother No problems noted. Sister No problems noted. Sister No problems noted. 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 Depression Screening Interpretation: Negative Depression Screening Done: Yes Source: Developed by Drs. Leo Lee, Urvashi Gaxiola, Sean Sagastume and colleagues, with an educational manuela from [employer]. Thrive Questionnaire Date Thrive assessed: 04/19/25 I am a: Patient What is your living situation today?: I have a steady place to live Within the past 12 months, did the food you bought not last and you didn't have the money to get more?: Never true Within the past 12 months, did you worry whether your food would run out before you got money to buy more?: Never true Do you have trouble paying for medicines?: No Do you have trouble getting transportation to medical appointments?: No Do you have trouble paying your heating and electricity bill?: No Do you have trouble taking care of your child, family member or friend?: No Do you have trouble with day-to-day activities such as bathing, preparing meals, shopping, managing finances, etc.?: No Are you currently unemployed and looking for a job?: No Are you interested in more education?: No Currently or been in a relationship where the following occur: No concerns reported THRIVE Score: 0 NEW-7 AMB Questionnaire NEW-7 Date NEW - 7 assessed: 08/01/25 Source: Developed by Drs. Leo Lee, Urvashi Gaxiola, Sean Sagastume and colleagues, with an educational manuela from [employer]. Review of Systems Const Denies chills, Denies fatigue, Denies fever(s) and Denies headache(s) ENT Denies dysphagia, Denies dizziness, Denies otalgia, Denies headache(s), Denies neck pain, Denies odynophagia and Denies sore throat Card Denies chest pain, Denies irregular heart rhythm, Denies palpitations and Reports dyspnea on exertion (mild) Resp Denies chest congestion, Denies cough, Reports dyspnea on exertion (mild) and Denies wheezing GI Denies abdominal pain, Denies constipation, Denies dysphagia, Denies heartburn, Denies diarrhea, Denies nausea, Denies odynophagia and Denies vomiting Denies difficulty voiding, Denies nocturia, Denies dysuria and Denies urinary urgency Musc Reports back pain (recurrent), Reports arthralgias (left knee - on and off) and Denies neck pain Skin/Breast Reports rash (over the extensor aspect of her forearms and elbows) Neuro Denies dizziness, Denies headache(s) and Denies paresthesias Psych Denies anxiety and Denies depression Endo Denies fatigue and Denies palpitations Isrrael/Lymph Denies easy bruising Aller/Immun Denies wheezing Physical exam (Primary Care) Vital Signs: Last Vital Signs Temp 96.8 F 11/14/25 14:40 Pulse 73 11/14/25 14:40 BP 110/64 11/14/25 14:40 Pulse Ox 98 11/14/25 14:40 Oxygen Delivery Method Room Air 11/14/25 14:40 BMI result Body Mass Index 43.1 Tobacco/Smoking Status: Tobacco use Status Tobacco use date assessed 11/14/25 11/14/25 14:46 Patient Tobacco Use Status Never used Tobacco 11/14/25 14:46 Tobacco use type Cigarette 11/14/25 14:46 e-Cigarette/Vaping Use Never Used 11/14/25 14:46 Depression Screening Interpretation: Negative Thrive Assessment: Date of Thrive Assessment Date Thrive assessed 04/19/25 11/14/25 14:46 Currently or been in a relationship where the following occur: No concerns reported Const General: no acute distress and alert HENMT Ears: TM's normal bilaterally and EAC's normal Throat: Yes posterior oropharynx normal and Yes tonsils normal (no TP congestion) Neck Neck: Yes supple and No lymphadenopathy Thyroid: Thyroid normal Resp Auscultation: clear to auscultation bilaterally, no rales and no wheezes Cardio Rate: regular rate Rhythm: abnormal rhythm irregularly irregular Heart sounds: no murmurs GI Palpation (GI): Soft to palpation and nontender Auscultation: normal bowel sounds General: Yes no CVA tenderness Back/Spine/Pelvis Back: no CVA tenderness Thoracic/Lumbar Spine: No lumbar spinal tenderness Skin Other: (+) scattered patchy scaling rash over the extensor aspect of both forearms and over her elbows bilaterally Extrem General: Yes no clubbing, cyanosis or edema Results Reviewed Results Reviewed: Laboratory Tests 11/09/25 08:52 WBC 5.5 Hgb 15.0 Hct 45.6 Plt Count 202 Sodium 141 Potassium 3.9 Creatinine 1.07 Estimated GFR 51 Fasting Glucose 96 Calcium 10.2 AST 23 ALT 23 Triglycerides 70 Cholesterol 176 LDL Cholesterol, Calc 90 HDL Cholesterol 72 Coding Level of Care Code Est Pt Level 4 (26719) Diagnoses Persistent atrial fibrillation I48.19 Essential hypertension I10 Pure hypercholesterolemia E78.00 Psoriasis L40.9 Primary osteoarthritis of left knee M17.12 Osteoarthritis type: primary Chronic bilateral thoracic back pain M54.6; G89.29 Back pain laterality: bilateral Back pain location: thoracic back pain Chronicity: chronic Bilateral pendulous breasts N64.89 Recurrent kidney stones N20.0 Right renal atrophy N26.1 Right renal artery stenosis I70.1 Morbid obesity with BMI of 40.0-44.9, adult E66.01; Z68.41 Assessment & Plan Assessment & Plan (1) Persistent atrial fibrillation: Code(s): I48.19 - Other persistent atrial fibrillation Category: Medical Plan: Patient is currently still in atrial fibrillation but rate remains controlled 12-L EKG done a few months ago confirmed (+) AF with HR in the 60s Echocardiogram done on 02/06/2025 revealed normal LV ejection fraction af around 55-60%, moderately dilated left atrium, mild mitral regurgitation, normal calculated RV systolic pressure and no gross pericardial effusion Continue Diltiazem CD 300 mg QD; continue Xarelto 20 mg QD for thromboembolism prophylaxis She underwent cardioversion a couple of months ago in August 2025 and the cardioversion failed as she reverted back to AF a short while later and is now being referred to [facility] for ablation therapy Follow up with [facility] Cardiology as scheduled Patient has not seen cardiology for follow up ever since she was diagnosed with PAF and started on Xarelto back in 2021 so she was referred to [facility] Cardiology a few months ago (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 Mona Maxwell in [place] at their [facility] offices) (2) Essential hypertension: Code(s): I10 - Essential (primary) hypertension Category: Medical Plan: Reinforced low sodium diet - goal is systolic BP of 120 to 130 mm or less Continue Triamterene-HCT 37.5-25 mg QD; she is also on Diltiazem CD 300 mg QD for her AF (3) Pure hypercholesterolemia: Code(s): E78.00 - Pure hypercholesterolemia, unspecified Category: Medical Plan: Results of her labs done a few days ago reviewed and discussed with patient - her cholesterol level have improved significantly from previous Reinforced low cholesterol diet Continue Atorvastatin 20 mg QD Will have patient recheck her labs and fasting lipids in 3 months for follow up (4) Psoriasis: Code(s): L40.9 - Psoriasis, unspecified Category: Medical Plan: Patient's psoriasis has been reportedly fairly well-controlled for a while now Continue Betamethasone Valerate 0.1% cream BID PRN She used to see dermatology but has not done so since 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 (5) Osteoarthritis of left knee: Code(s): M17.12 - Unilateral primary osteoarthritis, left knee Category: Medical Qualifiers: Osteoarthritis type: primary Qualified Code(s): M17.12 - Unilateral primary osteoarthritis, left knee Plan: Patient reports that her previous left knee pain has improved a lot over the past few months She initially banged her knee on the edge of a cabinet and her knee symptoms took a while to recover, likely because she is on her feet at work all day long Her knee x-rays done back in June 2024 revealed only mild OA changes of the medial joint space compartment of the left knee (6) Back pain: Code(s): M54.9 - Dorsalgia, unspecified Category: Medical Qualifiers: Back pain laterality: bilateral Back pain location: thoracic back pain Chronicity: chronic Qualified Code(s): M54.6 - Pain in thoracic spine; G89.29 - Other chronic pain Plan: Patient states that she's had recurrent back pain for years and believes that her bilateral pendulous breasts is contributing significantly to her back pain and that breast reduction surgery will help her a lot and significantly reduce her back symptoms - she is still waiting for an appointment to see plastic surgery about this (7) Bilateral pendulous breasts: Code(s): N64.89 - Other specified disorders of breast Category: Medical Plan: She has been referred to plastic surgery at her previous visit for consideration for reduction mammoplasty and is still waiting to be seen to have this resolved (8) Recurrent kidney stones: Code(s): N20.0 - Calculus of kidney Category: Medical Plan: Patient has had recurrent kidney stones for years and has undergone several sessions of lithotripsies and kidney stone extractions and stenting Her kidney stones were determined to be predominantly calcium oxalate in composition She was given the option of increasing her intake of citrate via lemonade or adding potassium citrate tablets as citrate intake needs to be increased to help reduce her kidney stone burden She prefer to increase her citrate intake via lemonade, which she is now drinking regularly Her renal US done back on 10/20/2024 revealed (+) bilateral nephrolithiasis, with no hydronephrosis. There are areas of irregular right renal cortical thinning that are difficult to characterize due to limited visualization. CT scan with intravenous contrast employing renal mass protocol could be considered for further evaluation based on the clinical assessment for this patient with hematuria She was sent for CT and this was done back in May 2025, which revealed (+) right renal atrophy likely secondary to right renal artery stenosis. CT confirmed the bilateral non-obstructing nephrolithiasis seen previously on US; no renal cysts noted Follow up with urology and nephrology as scheduled (9) Right renal atrophy: Code(s): N26.1 - Atrophy of kidney (terminal) Category: Medical Plan: This was seen on her CT done a few months ago in May 2025 Follow up with nephrology as scheduled (10) Right renal artery stenosis: Code(s): I70.1 - Atherosclerosis of renal artery Category: Medical Plan: Based on the relatively smaller sized right kidney, radiology suspected renal artery stenosis but per nephrology, patient does not have any history of renal failure and her serum creatinine has been stable She has well-controlled hypertension and no history of resistant hypertension and no other stigmata for atherosclerosis and nephrology suspects that her smaller right kidney size, confirmed on renal US, is most likely due to multiple renal stones and scarring and NOT due to CRISTOBAL (11) Morbid obesity with BMI of 40.0-44.9, adult: Code(s): E66.01 - Morbid (severe) obesity due to excess calories; Z68.41 - Body mass index [BMI] 40.0-44.9, adult Category: Medical Plan: Reinforced diet/exercise as tolerated/lose weight Plan Follow up in 3 months Orders: Orders Comprehensive [place]. Panel Fast 3 Months E78.00 - Pure hypercholesterolemia, unspecified TSH reflex Free T4 3 Months E78.00 - Pure hypercholesterolemia, unspecified UA CC w/rflx Micro + Cult 3 Months R30.0 - Dysuria Lipid Panel 3 Months E78.00 - Pure hypercholesterolemia, unspecified Complete Blood Count Auto Diff 3 Months D64.9 - Anemia, unspecified Medications: Changed From rivaroxaban (Xarelto) must administer with evening meal 20 mg PO BEDTIME To rivaroxaban (Xarelto) must administer with evening meal 20 mg PO BEDTIME 90 tabs 1RF 90 days Refilled atorvastatin 20 mg PO BEDTIME 90 tabs 1RF 90 days diltiazem HCl CD 300 mg PO DAILY 90 caps 1RF triamterene-hydrochlorothiazid 37.5-25 mg 1 cap PO DAILY 90 caps 1RF
[2025-11-14 14:40] VITALS: BP 110/64; PULSE 73; TEMP 36; O2SAT 98; BMI 43.1
== END 2025-11-14 15:14 | disposition home or self-care (01) ==
LOC: HO.HMCH 14:23
PROVIDERS: PCP Internal Medicine; Visit Provider Internal Medicine
DX: I48.19 Other persistent atrial fibrillation (principal); I10 Essential (primary) hypertension; E78.00 Pure hypercholesterolemia, unspecified; L40.9 Psoriasis, unspecified; M17.12 Unilateral primary osteoarthritis, left knee; M54.6 Pain in thoracic spine; G89.29 Other chronic pain; N64.89 Other specified disorders of breast; N20.0 Calculus of kidney; N26.1 Atrophy of kidney (terminal); E66.01 Morbid (severe) obesity due to excess calories; Z68.41 Body mass index [BMI] 40.0-44.9, adult; I70.1 Atherosclerosis of renal artery

== ENCOUNTER → 2025-11-14 14:22 | Outpatient (BNVA) | payer MEDICARE, SELFPAY | PROVIDERS: PCP Internal Medicine; Visit Provider Internal Medicine | DX: I48.19 Other persistent atrial fibrillation (principal); I48.0 Paroxysmal atrial fibrillation; I10 Essential (primary) hypertension; E78.00 Pure hypercholesterolemia, unspecified; L40.9 Psoriasis, unspecified; M17.12 Unilateral primary osteoarthritis, left knee; M54.6 Pain in thoracic spine; G89.29 Other chronic pain; N64.89 Other specified disorders of breast; N26.1 Atrophy of kidney (terminal); I70.1 Atherosclerosis of renal artery; N20.0 Calculus of kidney; E66.01 Morbid (severe) obesity due to excess calories; Z68.41 Body mass index [BMI] 40.0-44.9, adult; Z98.890 Other specified postprocedural states; Z79.01 Long term (current) use of anticoagulants; Z79.899 Other long term (current) drug therapy | CPT/HCPCS: 99212 ==